=== PATIENT | male | born 1965 | race Caucasian/White ===

== ENCOUNTER 2021-04-28 19:21 | Outpatient (REF) | payer OTHER, SELFPAY ==
[2021-04-28 20:56] LABS: Abs Immature Grans 0.05 10^3/uL (0.0-0.06); Absolute Basophil Count 0.08 10^3/uL (0.0-0.2); Absolute Eosinophil Count 0.31 10^3/uL (0.0-0.7); Absolute Lymphocyte Count 2.69 10^3/uL (1.2-3.4); Absolute Monocyte Count 0.76 10^3/uL (0.1-0.8); Absolute Neutrophil Count 7.64 10^3/uL (1.2-6.7); Basophils % 0.7; Eosinophils % 2.7; HCT 52.2 % (40.0-50.0); HGB 17.4 g/dL (13.5-17.5); Immature Grans % 0.4; Lymphocytes % 23.3; MCH 29.7 pg (27.0-33.0); MCHC 33.3 % (32.0-36.0); MCV 89.2 fL (80-95); MPV 12.1 fL (8.0-11.0); Monocytes % 6.6; Neutrophils % 66.3; Nucleated RBC 0 %; Platelet Count 199 10^3/uL (130-400); RBC 5.85 10^6/uL (4.36-5.78); RDW 11.7 % (11.8-14.1); RDW-SD 37.7 fL; WBC 11.53 10^3/uL (4.4-10.8)
[2021-04-28 21:19] LABS: ALT 49 U/L (16-63); AST 24 U/L (15-37); Albumin 3.8 g/dL (3.4-5.0); Alkaline Phosphatase 105 U/L (46-116); Anion Gap 8.7 mmol/L (3-11); BUN 20 mg/dL (7-18); Bilirubin, Total 0.5 mg/dL (0.2-1.0); CO2 29.3 mmol/L (21.0-32.0); CREATININE 1.1 mg/dL (0.70-1.30); Calcium 9.6 mg/dL (8.5-10.1); Chloride 101 mmol/L (98-107); Glucose 282 mg/dL (74-106); Potassium 4.2 mmol/L (3.5-5.1); Sodium 139 mmol/L (136-145); Total Protein 8.1 g/dL (6.4-8.2)
== END 2021-04-28 19:22 | disposition home or self-care (01) ==
LOC: LBN 19:21
PROVIDERS: PCP Family Medicine; Visit Provider Physician Assistant Medical
DX: M79.661 Pain in right lower leg (principal)
CPT/HCPCS: 80053; 85025

== ENCOUNTER 2022-08-31 09:16 | Emergency (ER) | payer OTHER, SELFPAY ==
--- NOTE | 2022-08-31 09:15 | DI.RAD_ITS ---
Exam(s) XR RIBS RT W PA LAT CHEST EXAM: XR RIBS RT W PA LAT CHEST CLINICAL HISTORY: Right Rib injury TECHNIQUE: 2D digital imaging was performed.Six images were obtained. COMPARISON: No exams were available for comparison FINDINGS: MEDIASTINUM: Normal. HEART: Normal. PULMONARY VASCULATURE: Normal. LUNGS: Clear. PLEURAL SPACE: No pleural effusion or pneumothorax. BONE:Normal. RIGHT RIBS: There are nondisplaced fracture of the posterolateral aspects of the right 7th, 8th and 9 th ribs. There may also be a nondisplaced fracture of the 6th rib. OTHER FINDINGS:Normal. IMPRESSION: 1. No acute pulmonary findings. 2. Right 7th, 8th and 9th rib fractures. There may also be a nondisplaced right 6th rib fracture. 3. No pneumothorax or pleural effusion. DATA REPOSITORY: RADIATION DOSE DELIVERED:
[2022-08-31 09:17] VITALS: BP 153/109; PULSE 86; RESP 20; TEMP 37.3; O2SAT 95
--- NOTE | 2022-08-31 09:28 | DI.RAD_ITS ---
Exam(s) XR ELBOW RT COMPLETE EXAM: XR ELBOW RT COMPLETE CLINICAL HISTORY: Fall,. TECHNIQUE: 2D digital imaging was performed of the left elbow. Three images were obtained. AP, lat eral and oblique views were obtained. COMPARISON: No exams were available for comparison FINDINGS: BONES: On the oblique view, there is a lucency seen beneath the spur off the olecranon. This may rep resent a small avulsed fracture. No bony destructive lesion is seen. JOINTS: The elbow is normally aligned. No joint effusion is seen. Degenerative changes are seen in th e elbow. SOFT TISSUE: Normal. IMPRESSION: 1. Question of a small nondisplaced fracture of a spur off the olecranon. Please correlate with ric ent's site of pain. 2. No joint effusion. 3. Degenerative changes in the elbow. DATA REPOSITORY: RADIATION DOSE DELIVERED:
--- NOTE | 2022-08-31 09:29 | ED.GENADUL_ITS ---
Discharge Plan Disposition Patient Disposition: Home Discharge Details Clinical Impression: Multiple rib fractures Primary Care Provider: Unknown,Unknown ED Provider: Josie Price Home Meds and New Rx's Prescriptions: New oxycodone-acetaminophen [Percocet] 5-325 mg tablet 1 tab PO Q6H PRN (Reason: pain) Qty: 7 0RF Rx Instructions: Take 1 tablet every 4-6 hours as needed for moderate to severe pain. Take with food no driving or operating heavy machinery while taking medication. lidocaine 5 % adhesive patch,medicated 1 patch topical DAILY Qty: 15 0RF Rx Instructions: leave on most painful area for up to 12 hrs No Action Eliquis 5 mg Tablet 5 mg PO BID Jardiance 10 mg Tablet PO QPM Discharge Instructions Instructions: Rib Fracture (ED) Additional Instructions: Lidocaine patch and Percocet prescription has been sent to the pharmacy on file. Please use the incentive spirometer 3 times a day. X-rays show you do have nondisplaced rib fractures including 7,8,9. Please return to the ER or be seen sooner for any worsening pain not relieved by medications, shortness of breath, productive cough, fever or coughing up blood or sputum or any concerns. Follow up with primary care provider in 3-5 days. Return to ED sooner if any worsening or concerns. Increase oral fluids. Please take Tylenol or Ibuprofen with food every 4-6 hours as needed for pain and swelling. Stand Alone Forms: Work Release Medical Decision Making 57-year-old male presents to the ER accompanied by EMS after a mechanical fall while at work onto a metal post. Patient reports right-sided rib pain and right elbow pain. He does have a small superficial abrasion noted to his posterior right flank. He has some swelling just medial to this. No midline LT or C- spine tenderness or crepitus or step-off. He does have some medial elbow pain. X-ray rib series and elbow x-ray ordered. Will consider CT due to the blood thinners. I did offer pain medication pain control which patient declined at this time. Patient has not tender over his olecranon. I do suspect just degenerative changes in his elbow. I did discuss with him the x-ray results. I encouraged him to allow us to give him some pain relief, he verbalized understanding is in agreement. His family is also at the bedside who encouraged pain medication. Discussed risks and benefits. Discussed home care including guarding incentive spirometry. This text was generated using [employer] system, please disregard any oddities of phrase or misspellings. Imaging Data Radiologic Study: Imaging: X-Ray Radiologist's impression: CLINICAL HISTORY: Fall,. TECHNIQUE: 2D digital imaging was performed of the left elbow. Three images were obtained. AP, lateral and oblique views were obtained. COMPARISON: No exams were available for comparison FINDINGS: BONES: On the oblique view, there is a lucency seen beneath the spur off the olecranon. This may represent a small avulsed fracture. No bony destructive lesion is seen. JOINTS: The elbow is normally aligned. No joint effusion is seen. Degenerative changes are seen in the elbow. SOFT TISSUE: Normal. IMPRESSION: 1. Question of a small nondisplaced fracture of a spur off the olecranon. Please correlate with patient's site of pain. 2. No joint effusion. 3. Degenerative changes in the elbow. Radiologic Study #2: Imaging: X-Ray Radiologist's impression: COMPARISON: No exams were available for comparison FINDINGS: MEDIASTINUM: Normal. HEART: Normal. PULMONARY VASCULATURE: Normal. LUNGS: Clear. PLEURAL SPACE: No pleural effusion or pneumothorax. BONE:Normal. RIGHT RIBS: There are nondisplaced fracture of the posterolateral aspects of the right 7th, 8th and 9th ribs. There may also be a nondisplaced fracture of the 6th rib. OTHER FINDINGS:Normal. IMPRESSION: 1. No acute pulmonary findings. 2. Right 7th, 8th and 9th rib fractures. There may also be a nondisplaced right 6th rib fracture. 3. No pneumothorax or pleural effusion. HPI General Mode of arrival: EMS . Date/Time Provider Initiated Documentation: 08/31/22 09:25 . Limitations to Documentation: no limitations . Information obtained by: patient, EMS, RN notes reviewed and old records reviewed . HPI Narrative: 57-year-old male presents to the ER accompanied by EMS after a mechanical fall while at work onto a metal post. Patient reports right-sided rib pain and right elbow pain. He does have a small superficial abrasion noted to his posterior right flank. He has some swelling just medial to this. No midline LT or C- spine tenderness or crepitus or step-off. He does have some medial elbow pain. No deformity noted. He is declining any analgesia at this time. Did not hit his head. He does take Jardiance and apixaban. History of DVT. Related Data Home Medications Medication Instructions Recorded Confirmed apixaban 5 mg tablet (Eliquis) 5 mg PO BID 08/31/22 08/31/22 empagliflozin 10 mg tablet mg PO QPM 08/31/22 (Jardiance) lidocaine 5 % topical patch 1 patch topical DAILY #15 ea 08/31/22 oxycodone-acetaminophen 5 mg-325 1 tab PO Q6H PRN pain #7 tabs 08/31/22 mg tablet (Percocet) Previous Rx's Medication Instructions Recorded lidocaine 5 % topical patch 1 patch topical DAILY #15 ea 08/31/22 oxycodone-acetaminophen 5 mg-325 1 tab PO Q6H PRN pain #7 tabs 08/31/22 mg tablet (Percocet) Allergies Allergy/AdvReac Type Severity Reaction Status Date / Time nickel Allergy Mild Skin Rash Unverified 08/31/22 09:21 General Stated Complaint: Orthopedic SERGEI: 3 Review of Systems All systems reviewed & are unremarkable except as noted in HPI and below Respiratory Respiratory: Reports pain on inspiration and Reports pain with cough Musculoskeletal Musculoskeletal: Reports as per HPI, Reports back pain, Reports arthralgias and Reports other (Right-sided rib pain elbow pain.) PFSH All Active Problems (Updated 08/31/22 @ 10:17 by Josie Price NP) Multiple rib fractures (Acute) Social History Smoking/Tobacco Use Status: Never Smoking risk assessment performed?: Yes Alcohol Intake: current Alcohol Intake frequency: a few times a month Alcohol type: beer Drug use: Never Substance use type: does not use Do you feel safe at home: Yes Do you feel safe in your relationship?: Yes Exam Narrative Exam Narrative: General: Well Developed, Awake and Alert, conversant. Skin: Warm and Dry HEENT: Head: No palpable deformities, Normocephalic Eyes: Pupils PERRLA, EOM's intact. No periorbital eccymosis or step off Ears: Canal patent. Tympanic membranes are clear . No busch's sign, no hemptympanum. Nose/Face: Atraumatic. Facial bones nontender to palpation and stable with manipulation. Mouth/Throat: No intraoral trauma. Teeth and mandible are intact. Neck: No midline tenderness, no step off, no deformity to palpation of C-spine. Trachea midline. Chest: Small superficial abrasion to the posterior right flank, some swelling tenderness with palpation. Lungs clear to ausculatation bilaterally. Heart: RRR, no rubs, murmurs or gallop. Abdomen: No abrasions, ecchymosis, or surface trauma. Nondistended. Nontender to palpation no guarding, rebound, or rigidity. Pelvis: Nontender to palpation and stable to compression. Femoral pulses strong and equal Extremities: no surface trauma. Sensation intact. Peripheral pulses intact and equal. Medial epicondyle tenderness with palpation. Neuro: ANO x4, GCS 15, cranial nerves II through XII intact. Motor and sensory exam nonfocal. Reflexes are symmetric. Course Vital Signs Vital signs: Vital Signs Temperature 37.3 C 08/31/22 09:17 Pulse 86 08/31/22 09:17 Respiratory Rate 20 08/31/22 09:17 Blood Pressure 153/109 H 08/31/22 09:17 Pulse Oximetry 95 08/31/22 09:17 Temperature 37.3 C 08/31/22 09:17 Temperature Source Oral 08/31/22 09:17 Pulse 86 08/31/22 09:17 Respiratory Rate 20 08/31/22 09:17 Respiratory Effort Non-Labored 08/31/22 09:20 Blood Pressure 153/109 H 08/31/22 09:17 Blood Pressure Position Sitting 08/31/22 09:17 Pulse Oximetry 95 08/31/22 09:17 Oxygen Delivery Method Room Air 08/31/22 09:17 Oxygen Flow Rate 0 08/31/22 09:17
--- OUTSIDE RECORDS SUMMARY | 2022-08-31 09:55 | XMS_ITS | Continuity of Care Document ---
Author Name Unknown Organization [facility] Address [address] [place] [address] Encounter [facility] FIN NBR [id number] Date(s): 02/07/22 - 02/07/22 [facility] [address] [place] [address]- Discharge Disposition: Home-No Follow Up Attending Physician: Porsche Mancia MD Admitting Physician: Porsche Mancia MD Allergies, Adverse Reactions, Alerts Substance Reaction Severity Status Nickel Unknown Active Assessment and Plan Future Appointments Diagnostic Tests Pending * Urine Culture 02/07/22 * Calculi, Urinary, with Photo LC 02/07/22 Functional Status 02/07/22 ADLs Independent Antiembolism Device Intermittent pneumat ic compression devices, knee high, bilat Other exposure to Infectious Disease Non e Medications Eliquis 5 mg oral tablet 5 mg = 1 tab, Oral, BID, # 60 tab, 0 Refill(s) Start Date: 01/31/22 Status: Ordered Jardiance 10 mg oral tablet 10 mg = 1 tab, Oral, every night at bedtime, # 30 tab, 0 Refill(s) Start Date: 01/31/22 Status: Ordered tamsulosin 0.4 mg oral capsule 1 cap, Oral, Daily, # 90 cap, 3 Refill(s), Pharmacy: [id number], 188, cm, 01/31/2215:02:00 EDT, Height/Length Dosing, 118, kg, 01/31/22 15:02:00 EDT, Weight Dosing Start Date: 02/06/22 Status: Ordered Problem List Condition Confirmation Course Effective Dates Status Health St atus Informant Arthritis Confirmed Active Diabetes mellitus 1 Confirmed Active DVT - Deep vein thrombosis of lower limb 2 Confirmed Active Heart murmur Confirmed Active Hemorrhoid Confirmed Active Sleep apnea Confirmed Active 1diet controlled 2right leg Procedures Procedure Date Related Diagnosis Body Site Status Cystoscopy Lithotripsy Laser with Stent Placement (Right) 1 02/07/22 Comple aki Cervical discectomy Compl eted Hammer toe operation Comp leted Nasal septoplasty Complet ed Release of plantar fascia Completed Total knee replacement Co mpleted 1auto-populated from documented surgical case Results Laboratory List Name Date Glucose POCT 02/07/22 Most recent to oldest [Reference Range]: 1 Glucose POC 154 *NA* (02/07/22 7:56 AM) Vital Signs Most recent to oldest [Reference Range]: 1 2 3 Temperature Temporal Artery [36-38 Deg C] 36.4 Deg C (02/07/22 10:45 AM) 36.6 Deg C (02/07/22 9:25 AM) 36.3 Deg C (02/07/22 7:04 AM) Peripheral Pulse Rate [60-100 bpm] 80 bpm (02/07/22 9:48 AM) 82 bpm (02/07/22 9:46 AM) 82 bpm (02/07/22 9:45 AM) Respiratory Rate [12-24 br/min] 16 br/min (02/07/22 7:04 AM) Blood Pressure [90-140/60-90 mmHg] 144/103mmHg *HI* (02/07/22 9:48 AM) 140/89mmHg (02/07/22 9:46 AM) 140/89mmHg (02/07/22 9:45 AM) Mean Arterial Pressure, Cuff [65-140 mmHg] 117 mmHg (02/07/22 9:48 AM) 106 mmHg (02/07/22 9:46 AM) 106 mmHg (02/07/22 9:45 AM) Mean Arterial Pressure Cuff 114 mmHg (02/07/22 9:48 AM) 104 mmHg (02/07/22 9:46 AM) 104 mmHg (02/07/22 9:45 AM) Weight 118.000 kg (01/31/22 2:43 PM) Weight Dosing 118.000 kg (01/31/22 2:43 PM) Height 188.000 cm (01/31/22 2:43 PM) Height/Length Dosing 188.000 cm (01/31/22 2:43 PM) Social History Social History Type Response Tobacco Never tobacco user T obacco Use:. Sex
--- OUTSIDE RECORDS SUMMARY | 2022-08-31 09:55 | XMS_ITS | Continuity of Care Document ---
Author Name Unknown Organization [facility] Address [address] [place] [address] Care Team Providers Care It Generalist Name Role Phone Oli Dimas DO Primary Care Physician Encounter [facility] NBR [id number] Date(s): 03/28/22 - 03/28/22 [facility] [address] [place], [place] [address] Discharge Disposition: Home or Self Care Attending Physician: Oli Dimas DO Admitting Physician: Oli Dimas DO Allergies, Adverse Reactions, Alerts Substance Reaction Severity Status Nickel Unknown Active Assessment and Plan Future Appointments Future Scheduled Tests Laboratory* Comprehensive Metabolic Panel 06/27/22 * Magnesium Level 06/27/22 * Hgb A1c 06/27/22 Radiology* US Lower Ext Venous Duplex Right 03/28/22 Immunizations Given and Recorded Vaccine Date Status Refusal Reason zoster vaccine, inactivated 1 03/21/21 Recorded SARS-CoV-2 (COVID-19) mRNA-1273 vaccine 2 03/21/21 Recorded SARS-CoV-2 (COVID-19) mRNA-1273 vaccine 3 08/30/20 Recorded 1Result Comment: Literacy Specialist: Neura 2Result Comment: Unit: Unknown 3Result Comment: Unit: Unknown Medications clobetasol 0.05% topical ointment 1 application to affected areas BID PRN. for Eczema, not for face, use for 5d intervals., 0 Refill(s) Start Date: 03/24/22 Status: Ordered Durable Medical Equipment One touch Glucometer Sig: as directed fot diabetes E11.9 Fasting and bedtime., Supply, See instructions, # 1 EA, 0 Refill(s) Start Date: 03/24/22 Status: Ordered Eliquis 5 mg oral tablet 5 mg = 1 tab, Oral, BID, # 60 tab, 0 Refill(s) Start Date: 01/31/22 Status: Ordered Jardiance 10 mg oral tablet 10 mg = 1 tab, Oral, every night at bedtime, # 30 tab, 0 Refill(s) Start Date: 01/31/22 Status: Ordered metroNIDAZOLE 0.75% topical gel 1 application to affected area once a day for rosacea as needed., 0 Refill(s) Start Date: 03/24/22 Status: Ordered nystatin 100,000 units/g topical cream See Instructions, 1 application externally BID PRN., 0 Refill(s) Start Date: 03/24/22 Status: Ordered One Touch Ultra Test Strips Accu-Check FastClix Lancet Kit-,Sig: as directed for diabeates E11.9 fasting and two hours after dinner. Start: 01/24/2022 Notes: Patient cannot use the One Touch Delicata lancing devices and lancetsas he is not able to ge an adequate amount of bl... Start Date: 03/24/22 Status: Ordered One Touch Ultra Test Strips as directed for diabetes E11.9 fasting and at bedtime., Supply, See instructions, # 1 EA, 0 Refill(s) Start Date: 03/24/22 Status: Ordered tadalafil 10 mg oral tablet 10 mg = 1 tab, Oral, Daily, one hour before intercourse planned. PRN, # 4 tab, 11 Refill(s), Pharmacy: [id number], 188, cm, 01/31/22 15:02:00 EDT, Height/Length Dosing, 118, kg, 01/31/22 15:02:00 EDT, Weight Dosing Start Date: 03/28/22 Status: Ordered Problem List Condition Confirmation Course Effective Dates Status H ealth Status Informant Arthritis Confirmed Active Arthropathy of knee joint Confirmed Active Diabetes mellitus 1 Confirmed Active Diverticular disease Confirmed Active DVT - Deep vein thrombosis of lower limb 2 Confirmed Active Erectile dysfunction Confirmed Active Essential hypertension Confirmed Active Heart murmur Confirmed Active Hemorrhoid Confirmed Active Increased frequency of urination Confirmed Active Long-term current use of anticoagulant Confirmed Active Sleep apnea Confirmed Active 1diet controlled 2right leg Procedures Procedure Date Related Diagnosis Body Site Status Cystoscopy Lithotripsy Laser with Stent Placement (Right) 1 02/07/22 Comple aki Cervical discectomy Compl eted Hammer toe operation Comp leted Nasal septoplasty Complet ed Release of plantar fascia Completed Total knee replacement Co mpleted 1auto-populated from documented surgical case Social History Social History Type Response Tobacco Never tobacco user T obacco Use:. Sex Patient Care team information Personnel Name: Oli Dimsa DO Address: Address: [address] [place] [phone]
--- OUTSIDE RECORDS SUMMARY | 2022-08-31 09:55 | XMS_ITS | Continuity of Care Document ---
Author Name Unknown Organization [facility] Ambulatory Clinics Address [address] [place] [address] Care Team Providers Care Cafe Team Member Name Role Phone Oli Dimas DO Primary Care Physician Encounter [facility]BR [id number] Date(s): 03/28/22 - 03/28/22 [facility] Ambulatory Clinics [address] [place] [address]- Encounter Diagnosis DVT - Deep vein thrombosis of lower limb(Discharge Diagnosis) - 03/28/22 Diabetes mellitus(Discharge Diagnosis) - 03/28/22 Essential hypertension(Discharge Diagnosis) - 03/28/22 Erectile dysfunction(Discharge Diagnosis) - 03/28/22 Discharge Disposition: Home or Self Care Attending Physician: Oli Dimas DO Allergies, Adverse Reactions, Alerts Substance Reaction Severity Status Nickel Unknown Active Assessment and Plan Future Appointments Future Scheduled Tests Laboratory* Comprehensive Metabolic Panel 06/27/22 * Magnesium Level 06/27/22 * Hgb A1c 06/27/22 Radiology* US Lower Ext Venous Duplex Right 03/28/22 Functional Status 03/28/22 Other exposure to Infectious Disease Non e Immunizations Given and Recorded Vaccine Date Status Refusal Reason zoster vaccine, inactivated 1 03/21/21 Recorded SARS-CoV-2 (COVID-19) mRNA-1273 vaccine 2 03/21/21 Recorded SARS-CoV-2 (COVID-19) mRNA-1273 vaccine 3 08/30/20 Recorded 1Result Comment: Winding Operator: Kadenze 2Result Comment: Unit: Unknown 3Result Comment: Unit: [...] PRN, # 4 tab, 11 Refill(s), [id number], 188, cm, 01/31/22 15:02:00 EDT, Height/Length Dosing, [...] Co mpleted 1auto-populated from documented surgical case Vital Signs Most recent to oldest [Reference Range]: 1 Peripheral Pulse Rate [60-100 bpm] 84 bp m (03/28/22 8:18 AM) Blood Pressure [90-140/60-90 mmHg] 120/8 0mmHg (03/28/22 8:18 AM) Weight 117 kg (03/28/22 8:18 AM) Weight Measured (lbs) 257.941 lb (03/28/22 8:18 AM) Social History Social History Type Response Tobacco Never tobacco user T obacco Use:. Sex Hospital Discharge Instructions Follow Up Care 03/11/2022 07:32:39 With:Oli Dimas DO Address: [address] [place] [id number] When:3 Months Physician Outpatient Note * Oli Dimas DO: PERFORM Event Display: Office Clinic Note Physician Authored Date: [id number] DIONNE HUMPHREYS :1965 Age:56 years Sex:Male Visit Date:03/28/2022 Primary Care Physician: Oli Dimas DO Chief Complaint Follow up ..A1c.. [facility] History of Present Illness Patient is a 56-year-old male who comes in today for follow-up.?? He says overall things are going okay.?? He is trying to lose weight, has been eating more healthy.Diagnosed with a DVT in his right leg at the beginning of the year.?? He had a DVT shortly after having COVID, therefore attributing it as a complication to COVID.?? Has been taking the medication as prescribed.?? Has never had any previous episodes with clotting. Endocrine: Taking his medication as prescribed.We reviewed his most recent labs. Review of Systems See HPI otherwise negative. Physical Exam Vitals & Measurements HR:??84??(Peripheral)?? BP:??120/80?? SpO2:??97%?? WT:??117??kg?? General: Alert and oriented, well nourished,?No??acute distress Lungs:??Clear??to auscultation and percussion,?Non-labored?? respiration Heart:?Normal?? rate,?Regular??rhythm,?No??murmur,?No??gallop,?No??edema Abdomen: Soft, non-tender, non-distended,?Normal?? bowel sounds,?No??masses Musculoskeletal:?Normal?? range of motion and strength,?No??tenderness,?No??swelling Assessment/Plan 1.??DVT - Deep vein thrombosis of lower limb??I82.409 High probability that the DVT was caused by COVID given the nature of the disease and its complications.?? We discussed the risk versus the benefits of being on anticoagulation.?? He would like to recheck an ultrasound to see if anything is changed.?? Would not be unreasonable to stop his anticoagulation and monitor for recurrence. Ordered: Comprehensive Metabolic Panel, Blood, Routine, *Est. 06/27/22 +/- 21 days, Once, Lab Collect, DVT -Deep vein thrombosis of lower limb Diabetes mellitus Essential hypertension, Order for future visit Hgb A1c, Blood, Routine, *Est. 06/27/22 +/- 21 days, Once, Lab Collect, DVT - Deep vein thrombosis of lower limb Diabetes mellitus Essential hypertension, Order for future visit Magnesium Level, Blood, Routine, *Est. 06/27/22 +/- 21 days, Once, Lab Collect, DVT - Deep vein thrombosis of lower limb Diabetes mellitus Essential hypertension, Order for future visit US Lower Ext Venous Duplex Right, 03/28/22, Routine, Reason: R leg DVT, Transport Mode: Ambulatory,DVT - Deep vein thrombosis of lower limb ?? 2.??Diabetes mellitus??E11.9 A1c is much improved.?? Previously was 10.4, now 6.5. We will continue dietary and other lifestyle measures. Ordered: Comprehensive Metabolic Panel, Blood, Routine, *Est. 06/27/22 +/- 21 days, Once, Lab Collect, DVT -Deep vein thrombosis of lower limb Diabetes mellitus Essential hypertension, Order for future visit Hgb A1c, Blood, Routine, *Est. 06/27/22 +/- 21 days, Once, Lab Collect, DVT - Deep vein thrombosis of lower limb Diabetes mellitus Essential hypertension, Order for future visit Magnesium Level, Blood, Routine, *Est. 06/27/22 +/- 21 days, Once, Lab Collect, DVT - Deep vein thrombosis of lower limb Diabetes mellitus Essential hypertension, Order for future visit ?? 3.??Erectile dysfunction??N52.9 Refilled his Cialis. ?? 4.??Essential hypertension??I10 Blood pressure well controlled. Ordered: Comprehensive Metabolic Panel, Blood, Routine, *Est. 06/27/22 +/- 21 days, Once, Lab Collect, DVT -Deep vein thrombosis of lower limb Diabetes mellitus Essential hypertension, Order for future visit Hgb A1c, Blood, Routine, *Est. 06/27/22 +/- 21 days, Once, Lab Collect, DVT - Deep vein thrombosis of lower limb Diabetes mellitus Essential hypertension, Order for future visit Magnesium Level, Blood, Routine, *Est. 06/27/22 +/- 21 days, Once, Lab Collect, DVT - Deep vein thrombosis of lower limb Diabetes mellitus Essential hypertension, Order for future visit ?? Orders: tadalafil 10 mg oral tablet, 10 mg = 1 tab, Oral, Daily, one hour before intercourse planned. PRN, # 4 tab, 11 Refill(s), Pharmacy: [facility] #[id number], 188, cm, 01/31/22 15:02:00 EDT, Height/Length Dosing, 118, kg, 01/31/22 15:02:00 EDT, Weight Dosing Future Orders Comprehensive Metabolic Panel, Blood, Routine, *Est. 06/27/22 +/- 21 days, Once, Lab Collect, DVT -Deep vein thrombosis of lower limb Diabetes mellitus Essential hypertension, Order for future visit Hgb A1c, Blood, Routine, *Est. 06/27/22 +/- 21 days, Once, Lab Collect, DVT - Deep vein thrombosis of lower limb Diabetes mellitus Essential hypertension, Order for future visit Magnesium Level, Blood, Routine, *Est. 06/27/22 +/- 21 days, Once, Lab Collect, DVT - Deep vein thrombosis of lower limb Diabetes mellitus Essential hypertension, Order for future visit US Lower Ext Venous Duplex Right, 03/28/22, Routine, Reason: R leg DVT, Transport Mode: Ambulatory,DVT - Deep vein thrombosis of lower limb Follow Up Instructions With When Contact Information Oli Dimas, Within 3 Months [address] [place] [address] Additional Instructions: Problem List/Past Medical History Ongoing Arthritis Arthropathy of knee joint Diabetes mellitus Diverticular disease DVT - Deep vein thrombosis of lower limb Erectile dysfunction Essential hypertension Heart murmur Hemorrhoid Increased frequency of urination Long-term current use of anticoagulant Sleep apnea Historical No qualifying data Procedure/Surgical History ???Cystoscopy Lithotripsy Laser with Stent Placement (Right) (02/07/2022)???Cervical discectomy???Hammer toe operation???Nasal septoplasty???Release of plantar fascia???Total knee replacement Medications clobetasol 0.05% topical ointment Durable Medical Equipment, See instructions Eliquis 5 mg oral tablet, 5 mg= 1 tab, Oral, BID Jardiance 10 mg oral tablet, 10 mg= 1 tab, Oral, every night at bedtime metroNIDAZOLE 0.75% topical gel nystatin 100,000 units/g topical cream, See Instructions One Touch Ultra Test Strips, See instructions One Touch Ultra Test Strips, See instructions tadalafil 10 mg oral tablet, 10 mg= 1 tab, Oral, Daily, 11 refills Allergies Nickel Social History Alcohol Current, Beer, 1-2 times per month Electronic Cigarette/Vaping Electronic Cigarette Use: Never. Substance Use Never Tobacco Never tobacco user Tobacco Use:. Immunizations Vaccine Date Status zoster vaccine, inactivated 03/21/2021 Recorded Comments : Winding Operator: Kadenze SARS-CoV-2 (COVID-19) mRNA-1273 vaccine 03/21/2021 Recorded Comments : Unit: Unknown SARS-CoV-2 (COVID-19) mRNA-1273 vaccine 08/30/2020 Recorded Comments : Unit: Unknown Electronically Signed on 03/28/22 09:25 AM Oli Dimas DO Patient Care team information Personnel Name: Oli Dimas DO Address: Address: [address] [place] [phone]
--- OUTSIDE RECORDS SUMMARY | 2022-08-31 09:55 | XMS_ITS ---
Author Name StacieOli castro Address [address] [place], [place] [id number] Organization [facility] Address [address] [place], [place] [id number] Care Team Providers Care Technical Planner Name Role Phone Oli Quinones Unavailable [phone] PROBLEMS Type Condition ICD9-CM Code QRO98-OZ Code Onset Dates Condition Status SNOMED Code Problem Obstructive sleep apnea G47.33 Active 03969068 Problem Anticoagulant long-term use Z79.01 Active 023216853 Problem Erectile dysfunction due to arterial insufficiency N52.01 Active 488165076 Problem Intrinsic eczema L20.84 Active 0034425 1 Problem Eczema, unspecified type L30.9 Active 72869598 Problem Rosacea L71.9 Active 940352839 Problem Diverticulosis K57.90 Active 699008216 Problem Urinary frequency R35.0 Active 472664 003 Problem Tear of meniscus of right knee, unspecified meniscus, unspecified tear type, unspecified whether old or current tear S83.206A Active Problem Renal calculus N20.0 Active 67589724 Problem Essential hypertension I10 Active 50794166 Problem Acute diverticulitis K57.92 Active 129524572 Problem Diverticulitis of large intestine without perforation or abscess without bleeding K57.32 Active 712853517 Problem Other male erectile dysfunction N52.8 Active 195906457 Problem Pain in right knee M25.561 Active 38440 3003 ALLERGIES Substance Reaction Event Type Date Status Nickel Unknown Drug Allergy Dec, Active ENCOUNTERS Encounter Location Date Diagnosis [facility] [address] [place], [place] [id number] 29 Dec, 2021 [facility] [address] [place] [id number] 27 Dec, 2021 [facility] [address] [id number] 23 Dec, 2021 Renal calculus N20.0 [facility] [address] [id number] 13 Dec, 2021 [facility] [address] [facility] [address] [place], [place] [id number] 13 Dec, 2021 Gross hematuria R31.0 and Renal colic on right side N23 [facility] [address] [place] [id number] 13 Dec, 2021 [facility] [address] [place] [id number] 12 Dec, 2021 Flank pain R10.9 ; Gross hematuria R31.0 and Nausea R11.0 [facility] [address] [place] [id number] 12 Dec, 2021 [facility] [address] [id number] 09 Dec, 2021 [facility] [address] [id number] 08 Dec, 2021 Diarrhea, unspecified type R19.7 ; Urinary frequency R35.0 and Type 2 diabetes mellitus without complication, without long-term current use of insulin E11.[address] [id number] 02 Dec, 2021 [facility] [address] [id number] August, [place] [facility] [address] [place] [address] 18 Jul, 2021 [facility] [address] [id number] 12 Jul, 2021 Pre-op evaluation Z01.818 and Type 2 diabetes mellitus without complication, without long-term current use of insulin E11.9 [facility] [address] [id number] 23 Jun, 2021 [facility] [address] [place] [id number] 15 Jun, 2021 Type 2 diabetes mellitus without complication, without long-term current use of insulin E11.9 and Chronic deep vein thrombosis (DVT) of femoral vein of right lower extremity I82.[address] [id number] Jun, Pain in right knee M25.[address] [id number] Apr, Acute deep vein thrombosis (DVT) of tibial vein of right lower extremity I82.441 ; Candidal skin infection B37.2 ; Pain in right knee M25.561 ; Pain in left knee M25.562 and Screening for prostate cancer Z12.[address] [id number] Apr, [address] [id number] Feb, Type 2 diabetes mellitus without complication, without long-term current use of insulin E11.9 ; External hemorrhoid, thrombosed K64.5 and Other male erectile dysfunction N52.[address] [id number] August, Type 2 diabetes mellitus without complication, without long-term current use of insulin E11.9 and Toe anomaly Q74.[address] [id number] May, Type 2 diabetes mellitus without complication, without long-term current use of insulin E11.[address] [id number] Apr, Hyperglycemia R73.[address] [id number] Apr, Diverticulitis of large intestine without perforation or abscess without bleeding K57.32 ; Screening, lipid Z13.220 and Screening for metabolic disorder Z13.[address] [id number] Mar, [address] [id number] Dec, Family history of colon cancer in father Z80.0 and Polyp of colon, unspecified part of colon, unspecified type K63.[address] [place] [address] [address] [place], [place] [id number] Dec, [facility] [address] [place] [id number] Nov, [facility] [address] [place] [id number] Oct, [facility] [address] [place] [id number] Oct, Encounter for pre-operative examination Z01.818 [facility] [address] [id number] Jul, Erectile dysfunction due to arterial insufficiency N52.01 [facility] [address] [id number] Jul, Encounter for general adult medical examination without abnormal findings Z00.00 ; Diverticulosis K57.90 ; Erectile dysfunction due to arterial insufficiency N52.01 ; Intrinsic eczema L20.84 and Encounter for screening for malignant neoplasm of colon Z12.[address] [id number] Jan, Acute diverticulitis K57.92 [facility] [address] [id number] Dec, Left lower quadrant pain R10.32 ; Right lower quadrant pain R10.31 ; Diverticulosis K57.90 ; Fever, unspecified fever cause R50.9 and Dysuria R30.[address] [id number] Jul, Encounter for general adult medical examination without abnormal findings Z00.00 ; Rosacea L71.9 ; Nasal congestion R09.81 ; Erectile dysfunction due to arterial insufficiency N52.01 and Encounter for screening for malignant neoplasm of colon Z12.11 [facility] [address] [id number] Jul, [address] [id number] Jun, [address] [id number] Jun, Adult general medical exam Z00.00 ; Overweight E66.3 ; Erectile dysfunction due to arterial insufficiency N52.01 ; Obstructive sleep apnea G47.33 ; Pain in right knee M25.561 ; Pain in left knee M25.562 and Intrinsic eczema L20.[address] [id number] Jun, [facility] [address] [place] [id number] Jun, IMMUNIZATIONS Vaccine Route Administration Date Status Shingrix (Zoster Recombinant) IM Intramuscular Mar 21, 2021 Administered COVID-19 (Moderna) mRNA,LNP- S,PF 100 mcg/0.5mL dose IM Intramuscular Mar 21, 2021 Administered COVID-19 (Moderna) mRNA,LNP- S,PF 100 mcg/0.5mL dose Unknown August 30, 2020 Administered SOCIAL HISTORY Qualifiers Date Never Smoker REASON FOR REFERRAL FUNCTIONAL STATUS PLAN OF CARE Activity Details VITAL SIGNS Height 74 in 2022-01-10 Height 74 in 2022-01-09 Height 74 in 2022-01-05 Height 74 in 2021-08-09 Height 74 in 2021-05-05 Height 74 in 2021-03-21 Height 74 in 2020-09-16 Height 74 in 2020-06-21 Height 74 in 2020-05-04 Height 74 in 2019-01-27 Height 74 in 2018-08-02 Height 74 in 2017-07-27 Weight 265 lbs 2022-01-10 Weight 265 lbs 2022-01-09 Weight 265 lbs 2022-01-05 Weight 276.6 lbs 2021-08-09 Weight 276.0 lbs 2021-05-05 Weight 271.0 lbs 2021-03-21 Weight 279 lb 8 oz lbs 2020-09-16 Weight 283.4 lbs 2020-06-21 Weight 285 lbs 2020-05-04 Weight 289.4 lbs 2019-01-27 Weight 287.4 lbs 2018-08-02 Weight 291.8 lbs 2017-07-27 Temperature 97.9 degrees Fahrenheit Temperature 98.0 degrees Fahrenheit Temperature 97.5 degrees Fahrenheit Temperature 98.3 degrees Fahrenheit Temperature 97.1 degrees Fahrenheit Temperature 97.1 degrees Fahrenheit Temperature 96.4 degrees Fahrenheit Temperature Temporal:99.7 degrees Fahrenheit 2019-01-27 Heart Rate 88 /min 2022-01-10 Heart Rate 92 /min 2022-01-09 Heart Rate 82 /min 2022-01-05 Heart Rate 80 /min 2021-08-09 Heart Rate 82 /min 2021-05-05 Heart Rate 77 /min 2021-03-21 Heart Rate 81 /min 2020-09-16 Heart Rate 66 /min 2020-06-21 Heart Rate 88 /min 2020-05-04 Heart Rate 101 /min 2019-01-27 Heart Rate 68 /min 2018-08-02 Heart Rate 84 /min 2017-07-27 Oximetry 98 2022-01-10 Oximetry 98 2022-01-05 Oximetry 97 2021-08-09 Oximetry 96 2021-05-05 Oximetry 96 2021-03-21 Oximetry 99 2020-09-16 Oximetry 98 2020-06-21 Oximetry 95 2020-05-04 Oximetry 95 2019-01-27 Oximetry 98 2018-08-02 Oximetry 95 2017-07-27 Respiratory Rate 14 /min 2022-01-10 BMI 34.02 kg/m2 2022-01-10 BMI 34.02 kg/m2 2022-01-09 BMI 34.02 kg/m2 2022-01-05 BMI 35.51 kg/m2 2021-08-09 BMI 35.43 kg/m2 2021-05-05 BMI 34.79 kg/m2 2021-03-21 BMI 35.88 kg/m2 2020-09-16 BMI 36.38 kg/m2 2020-06-21 BMI 36.59 kg/m2 2020-05-04 BMI 37.15 kg/m2 2019-01-27 BMI 36.90 kg/m2 2018-08-02 BMI 37.46 kg/m2 2017-07-27 Blood pressure systolic 136 mm Hg Blood pressure diastolic 78 mm Hg 2021-12 MEDICATIONS Medication Instructions Dosage Frequency Start Date End Date Duration Status Nystatin 456049 UNIT/GM Externally Twice a day 1 application 12h 06 Apr, 2021 Active Apixaban 5 MG Orally twice a day, 1 tab in AM 1 tab inPM one tablet 60 days Active Jardiance 10 MG Orally Once a day 1 tablet 24h 12 Dec, 2021 30 day(s) Active Clobetasol Propionate 0.05 % Externally Twice a day as needed for eczema. Not for face. Use for 5d intervals 1 application to affected area Not-Abdulaziz ng metFORMIN HCl ER 500 MG TAKE 1 TABLET BY MOUTH EVERY DAY WITH THE EVENING MEAL 90 Active Hydrocortisone (Perianal) 2.5 % Externally Twice a day prn hemorrhoid 1 application Feb, Active Accu-Chek FastClix Lancet - for Diabetes E11.9 fasting and two hours after dinner as directed Dec, 90 days Active One Touch Glucometer for diabetes E11.9 Fasting and bedtime as directed Dec, 30 days Active One Touch Test Strips for diabetes E11.9 fasting and bedtime as directed Dec, 30 days Active metroNIDAZOLE 0.75 % Externally Once a day for rosacea as needed 1 application to affected area Jul, Active Accu-Chek FastClix Lancets - for Diabetes E11.9 fasting and two hours after dinner as directed Dec, 30 days Active Tadalafil 10 MG Orally One hour before intercourse planned 1 tablet as needed Jul, 30 day(s) Active PROCEDURES Procedure Date Ordered Result Body Site COVID-19 (SARS-CoV-2) vaccine, 100 mcg/0.5mL dosage No v 2020 IMMUNIZATION ADMINISTRATION Mar 21, 2021 COLONOSCOPY SNARE POLYPEC Jan 23, 2020 COLONOSCOPY & POLYPECTOMY THROUGH STOMA Jan 23, 2020 ELECTROCARDIOGRAM COMP August 09, 2021 URINALYSIS NONAUTO W/O SCOPE Jan 10, 2022 URINALYSIS NONAUTO W/O SCOPE Jan 05, 2022 SHINGRIX HZV VACC RECOMBINANT IM NJX Mar 21, 2021 URINALYSIS AUTOMATED W Jan 27, 2019 RESULTS Name Result Date Reference Range UA Multistix (URO) Color yellow Clarity clear Bilirubin neg Ketones neg Specific [place] 1.020 Blood moderate Glucose 500 ph 5.5 Protein trace Leukocytes neg Nitrates neg Uro 0.[address] ABD/PELVIS W/WO CONTRAST 2022-01-19 CULTURE URINE 2022-01-09 GLYCOHEMOGLOBIN A1C 2022-01-05 HGBA1c 10.4 4.0-6.0 est Average Glucose 251 70-105 CBC, WITH AUTO DIFF 2022-01-05 WBC 8.4 4.8-10.8 RBC 5.74 4.70-6.10 HGB 16.7 14.0-18.0 HCT 49.5 42.0-52.0 MCV 86.2 80.0-94.0 MCH 29.1 27.0-31.0 MCHC 33.7 32.0-37.0 RDW-CV 12.3 11.5-14.5 PLT 214 130-400 MPV 11.1 7.4-10.4 NE% 64.4 42.2-75.2 LY% 23.7 20.5-51.1 MO% 7.9 1.7-9.3 EO% 2.8 0.9-2.9 BA% 1.0 0.0-0.8 NE# 5.4 1.4-6.5 LY# 2.0 1.2-3.4 MO# 0.7 0.1-0.6 EO# 0.2 0.0-0.2 BA# 0.1 0.0-0.2 C-REACTIVE PROTEIN (CRP) 2022-01-05 CRP <8.0 <=10.0 COMPREHENSIVE METABOLIC PROFILE 2022-01-05 SODIUM 135 134-143 POTASSIUM 3.9 3.5-5.1 CHLORIDE 101 98-111 CO2 24 22-32 CALCIUM 9.8 8.9-10.3 GLUCOSE 330 74-106 BUN 18 8-26 CREATININE 1.01 0.61-1.24 TOTAL BILIRUBIN 0.8 0.3-1.2 TOTAL PROTEIN 7.4 6.5-8.1 ALBUMIN 4.0 3.5-5.0 ALKALINE PHOS 80 38-130 AST 35 15-41 ALT 45 17-63 A/GAP 10.0 3.0-12.0 B/CR 17.8 8.0-20.0 OSMOLARITY 285 275-295 GLOBULIN 3.4 2.3-3.5 A/G 1.2 1.0-2.5 CULTURE URINE 2022-01-05 US DVT RIGHT 2021-09-01 US DVT RIGHT 2021-07-12 CBC, WITH AUTO DIFF 2021-05-05 WBC 10.7 4.8-10.8 RBC 5.56 4.70-6.10 HGB 16.8 14.0-18.0 HCT 49.7 42.0-52.0 MCV 89.4 80.0-94.0 MCH 30.2 27.0-31.0 MCHC 33.8 32.0-37.0 RDW-CV 11.7 11.5-14.5 PLT 234 130-400 MPV 11.6 7.4-10.4 NE% 59.4 42.2-75.2 LY% 30.1 20.5-51.1 MO% 6.7 1.7-9.3 EO% 2.7 0.9-2.9 BA% 0.7 0.0-0.8 NE# 6.3 1.4-6.5 LY# 3.2 1.2-3.4 MO# 0.7 0.1-0.6 EO# 0.3 0.0-0.2 BA# 0.1 0.0-0.2 PT/APTT PANEL 2021-05-05 PROTIME 10.3 9.1-10.6 INR 1.0 0.9-1.1 INR_TEXT THERAPEUTIC INR RANG ES FOR WARFARIN Uncomplicated venous thromboembolic disease 2 - 3 Lupus Anticoagulant and recurrent thrombosis 3 - 3.5 Mechanical prosthetic valve or recurrent thrombosis 2.5 - 3.5 APTT 29.0 21.3-28.4 COMPREHENSIVE METABOLIC PROFILE 2021-05-05 SODIUM 139 134-143 POTASSIUM 4.2 3.5-5.1 CHLORIDE 103 98-111 CO2 25 22-32 CALCIUM 9.8 8.9-10.3 BUN 22 8-26 CREATININE 0.90 0.61-1.24 TOTAL BILIRUBIN 0.5 0.3-1.2 TOTAL PROTEIN 7.9 6.5-8.1 ALBUMIN 4.2 3.5-5.0 ALKALINE PHOS 76 32-92 AST 38 15-41 ALT 52 17-63 A/GAP 11.0 3.0-12.0 B/CR 24.4 8.0-20.0 OSMOLARITY 284 275-295 GLOBULIN 3.7 2.3-3.5 A/G 1.1 1.0-2.5 PSA - SCREENING 2021-05-05 PSA (SCREEN) 0.747 <=4.000 LIPID PROFILE 2021-03-17 CHOLESTEROL 143 129-209 TRIGLYCERIDES 81 10-150 HDL 35 40-80 LDL (CALCULATED) 92 RISK RATIO 4.1 RISK INTERP RISK MALE FEMALE 1/2 average 3.4 3.3 Average 5.0 4.4 2x Average 9.6 7.1 3x Average 23.4 11.0 GLYCOHEMOGLOBIN A1C 2021-03-17 HGBA1c 7.7 4.0-6.0 est Average Glucose 174 70-105 COMPREHENSIVE METABOLIC PROFILE 2021-03-17 SODIUM 134 134-143 POTASSIUM 4.2 3.5-5.1 CHLORIDE 100 98-111 CO2 26 22-32 CALCIUM 9.5 8.9-10.3 BUN 19 8-26 CREATININE 0.78 0.61-1.24 TOTAL BILIRUBIN 0.9 0.3-1.2 TOTAL PROTEIN 7.7 6.5-8.1 ALBUMIN 4.1 3.5-5.0 ALKALINE PHOS 70 32-92 AST 33 15-41 ALT 52 17-63 A/GAP 8.0 3.0-12.0 B/CR 24.4 8.0-20.0 OSMOLARITY 272 275-295 GLOBULIN 3.6 2.3-3.5 A/G 1.1 1.0-2.5 GLYCOHEMOGLOBIN A1C 2020-09-13 HGBA1c 7.8 4.0-6.0 est Average Glucose 178 70-105 COMPREHENSIVE METABOLIC PROFILE 2020-09-13 SODIUM 138 134-143 POTASSIUM 4.2 3.5-5.1 CHLORIDE 106 98-111 CO2 23 22-32 CALCIUM 9.3 8.9-10.3 BUN 22 8-26 CREATININE 0.85 0.61-1.24 TOTAL BILIRUBIN 1.1 0.3-1.2 TOTAL PROTEIN 7.7 6.5-8.1 ALBUMIN 4.2 3.5-5.0 ALKALINE PHOS 70 32-92 AST 34 15-41 ALT 61 17-63 A/GAP 9.0 3.0-12.0 B/CR 25.9 8.0-20.0 OSMOLARITY 281 275-295 GLOBULIN 3.5 2.3-3.5 A/G 1.2 1.0-2.5 GLYCOHEMOGLOBIN A1C 2020-06-16 HGBA1c 8.6 4.0-6.0 est Average Glucose 199 70-105 COMPREHENSIVE METABOLIC PROFILE 2020-06-16 SODIUM 138 136-145 POTASSIUM 4.2 3.5-5.1 CHLORIDE 102 98-111 CO2 26 22-32 CALCIUM 9.8 8.9-10.3 BUN 20 8-26 CREATININE 0.92 0.61-1.24 TOTAL BILIRUBIN 1.2 0.3-1.2 TOTAL PROTEIN 8.0 6.5-8.1 ALBUMIN 4.4 3.5-5.0 ALKALINE PHOS 75 32-92 AST 39 15-41 ALT 64 17-63 A/GAP 10.0 3.0-12.0 B/CR 21.7 8.0-20.0 OSMOLARITY 283 275-295 GLOBULIN 3.6 2.3-3.5 A/G 1.2 1.0-2.5 LIPID PROFILE 2020-05-05 CHOLESTEROL 147 129-209 TRIGLYCERIDES 89 10-150 HDL 35 40-80 LDL (CALCULATED) 94 RISK RATIO 4.2 RISK INTERP RISK MALE FEMALE 1/2 average 3.4 3.3 Average 5.0 4.4 2x Average 9.6 COMPREHENSIVE METABOLIC PROFILE 2020-05-05 SODIUM 136 136-145 POTASSIUM 4.0 3.5-5.1 CHLORIDE 101 98-111 CO2 25 22-32 CALCIUM 9.3 8.9-10.3 BUN 24 8-26 CREATININE 0.73 0.61-1.24 TOTAL BILIRUBIN 1.0 0.3-1.2 TOTAL PROTEIN 7.5 6.5-8.1 ALBUMIN 4.1 3.5-5.0 ALKALINE PHOS 73 32-92 AST 36 15-41 ALT 59 17-63 A/GAP 10.0 3.0-12.0 B/CR 32.9 8.0-20.0 OSMOLARITY 282 275-295 GLOBULIN 3.4 2.3-3.5 A/G 1.2 1.0-2.5 CT ABD/PELVIS WO CONTRAST 2019-01-28 Urine Multistix (DIP) 2019-01-[address] Cortez Clarity clear Glucose 250 Bilirubin neg Ketones neg Specific [place] 1.025 Blood trace ph 5 Protein 100 Uro 1.0 Nitrates postive Leukocytes negative CULTURE URINE 2019-01-27 REASON FOR VISIT DM f/u: change Jaurdiance and seen Urology for blood in urine, URO- Right Ureteroscopoy and holmiumlaser lithotripsy with possible right ureteral stent placement, pre-op phone call , Lancets and Lancing device, OR Procedure-LMOM 01/24///PT CALLED BACK 01/24, Glucometer teaching, URO- Hematuria, Glucometer , sharp pain in back right side, Pain right side, Ozempic , PC diarrhea, Rx for diverticulitis, PC 6M F/U, Oxybutynin - new order?, PC - 6mo f/u, Pre op U/S, pre op total knee w/ekg, refill on Eliquis, US result review , us of leg, PC-DVT started on Eliquis, PC-f/u dvt, Pt states that he may have a staph infection, states that the spot is going away states that he has had it for about five days now, Pt states that he would like a [facility] have [facility], JAYCE Appt, PC- 6 mo f/u, Pt was wondering if he could get something for hemrrhoids , 3M F/U, Pt states that he has a question for RM has brought in pictures: whits spots on tips of toes been there for a couple weeks, doesnt hurt, isnt numb, BP 150/103 right arm, NCPC yearly , PC-CPE, Blood work, lab results, diverticulitus eval, frequent urination started about 3 weeks ago has a pain over his prostate region,notices the ache more when bending over. Same symptoms that had occured before., Pt had fasted today incase BW needed, diverticulitus - update, GI-COLONOSCOPY, pre op questions, PT Reassignment , GI- colonoscopy, r/s colonoscopy (11/17 L/M), covid, Clobetasol/Tadalafil Rx's, PC CPE , Needs verbal consent, CAT scan result/PT RETURNED CALL, PC - ? UTI , PC- Annual, PC-CPE, Viagra PA(Denied), CialisPA (Denied), PC-SAP BASIS ADMINISTRATOR, Chart update, Needs SAP BASIS ADMINISTRATOR appointment Insurance Providers Health Insurance Type Health Plan Insurance Address Health Plan Insurance Phone Health Plan Insurance Name Health Plan Coverage Dates Member ID Patient Relationship to Subscriber Patient Address Patient Phone Patient Name Patient Date of Subscriber ID Subscriber Name Subscriber Date of Group No BCBS OUT OF AREA [address] [facility] [id number] BCBS OUT OF AREA self Pepito Cordon [id number] [employer] - [address] [facility] [id number] [employer] - [address] self Pepito Cordon [id number]
--- OUTSIDE RECORDS SUMMARY | 2022-08-31 09:55 | XMS_ITS | Continuity of Care Document ---
Author Name Unknown Organization [facility] Address [address] [place] [address] Care Team Providers Care Wilderness Guide Name Role Phone Oli Dimas DO Primary Care Physician [phone] Encounter LTTL_MT FIN NBR [id number] Date(s): 04/10/22 - 04/10/[address] [address] Discharge Disposition: Home or Self Care Attending Physician: Oli Dimas DO Admitting Physician: Oli Dimas DO Allergies, Adverse Reactions, Alerts Substance Reaction Severity Status Nickel Unknown Active Assessment and Plan Future Appointments Future Scheduled Tests Laboratory* Comprehensive Metabolic Panel 06/27/22 * Magnesium Level 06/27/22 * Hgb A1c 06/27/22 Radiology* US Lower Ext Venous Duplex Right 04/10/22 * US Extremity Nonvascular Complete Right 04/10/22 Immunizations Given and Recorded Vaccine Date Status Refusal Reason SARS-CoV-2 mRNA-1273 bivalent booster 1 03/02/22 G iven influenza virus vaccine, inactivated 2 03/02/22 Gi denys zoster vaccine, inactivated 3 03/21/21 Recorded SARS-CoV-2 (COVID-19) mRNA-1273 vaccine 4 03/21/21 Recorded SARS-CoV-2 (COVID-19) mRNA-1273 vaccine 5 08/30/20 Recorded 1Early/Late Reason: Early/Late Reason: Back-charting an earlier dose 2Early/Late Reason: Early/Late Reason: Back-charting an earlier dose 3Result Comment: Medicine Assistant: RailCommine 4Result Comment: Unit: Unknown 5Result Comment: Unit: Unknown Medications clobetasol 0.05% topical [...] PRN, # 4 tab, 11 Refill(s), Pharmacy: [id number], 188, cm, 01/31/22 15:02:00 EDT, Height/Length Dosing, [...] mpleted 1auto-populated from documented surgical case Results Radiology Reports * Exam Date Time Procedure Performing Provider Status 04/10/22 3:32 PM US Lower Ext Venous Duplex Right Mayda Dye; Auth (Verified) Notes: (US Lower Ext Venous Duplex Right) Reason For Exam: R leg DVT US Lower Ext Venous Duplex Right EXAM DESCRIPTION: US Lower Ext Venous Duplex Right 04/10/2022 INDICATION: R LEG DVT TECHNIQUE: Static images of real-time sonography utilizing B-mode and color Doppler with spectral waveform analysis of the right lower extremity deep venous system was performed. COMPARISON: 09/01/2021 FINDINGS: Echogenic nonocclusive thrombus involving the mid right femoral vein consistent with chronic, recanalized DVT which was seen on prior study. No complete thrombosis in this region. The right common femoral vein, remainder of the femoral vein, popliteal vein and posterior tibial and peroneal veins demonstrate normal compressibility, color flow and augmentation with no evidence of DVT. The saphenous junction appears patent. IMPRESSION: Nonocclusive recanalized chronic DVT in the right femoral vein. This was described on previous study. Otherwise no evidence of right lower extremity DVT. JOB #: [id number] Final Signed by: Elroy Parsons MD Signed (Electronic Signature): 04/10/2022 3:50 pm Social History Social History Type Response Tobacco Never tobacco user T obacco Use:. Sex US.doppler Lower extremity vein - right * Elroy Parsons MD: VERIFY, VERIFY Event Display: Report EXAM DESCRIPTION: US Lower Ext Venous Duplex Right 04/10/2022 INDICATION: R LEG DVT TECHNIQUE: Static images of real-time sonography utilizing B-mode and color Doppler with spectral waveform analysis of the right lower extremity deep venous system was performed. COMPARISON: 09/01/2021 FINDINGS: Echogenic nonocclusive thrombus involving the mid right femoral vein consistent with chronic, recanalized DVT which was seen on prior study. No complete thrombosis in this region. The right common femoral vein, remainder of the femoral vein, popliteal vein and posterior tibial and peroneal veins demonstrate normal compressibility, color flow and augmentation with no evidence of DVT. The saphenous junction appears patent. IMPRESSION: Nonocclusive recanalized chronic DVT in the right femoral vein. This was described on previous study. Otherwise no evidence of right lower extremity DVT. JOB #: [id number] Final Signed by: Elroy Parsons MD Signed (Electronic Signature): 04/10/2022 3:50 pm Patient Care team information Personnel Name: Oli Dimas DO Address: Address: [address] [place] [id number]
--- OUTSIDE RECORDS SUMMARY | 2022-08-31 09:55 | XMS_ITS | Continuity of Care Document ---
Author Name Unknown Organization [facility] Address [address] [place] [address] Care Team Providers Care Steward/Stewardess Second Name Role Phone Oli Dimas DO Primary Care Physician [phone] Encounter [facility]_[place] FIN NBR [id number] Date(s): 03/22/22 - 03/22/[address] [id number] Discharge Disposition: Home or Self Care Attending Physician: Oli Dimas DO Admitting Physician: Oli Dimas DO Referring Physician: Oli Dimas DO Allergies, Adverse Reactions, Alerts Substance Reaction Severity Status Nickel Unknown Active Assessment and Plan Future Appointments Medications Eliquis 5 mg oral tablet 5 mg = 1 tab, Oral, BID, # 60 tab, 0 Refill(s) Start Date: 01/31/22 Status: Ordered Jardiance 10 mg oral tablet 10 mg = 1 tab, Oral, every night at bedtime, # 30 tab, 0 Refill(s) Start Date: 01/31/22 Status: Ordered tamsulosin 0.4 mg oral capsule 1 cap, Oral, Daily, # 90 cap, 3 Refill(s), Pharmacy: [id number], 188, cm, 01/31/2215:02:00 EDT, Height/Length Dosing, 118, kg, 01/31/22 15:02:00 EDT, Weight Dosing Start Date: 02/06/22 Status: Ordered Problem List Condition Confirmation Course Effective Dates Status H ealt Status Informant Arthritis Confirmed Active Arthropathy of [...] with Stent Placement (Right) 1 02/07/22 Comple kai Cervical discectomy Compl eted Hammer toe operation Comp leted Nasal septoplasty Complet ed Release of plantar fascia Completed Total knee replacement Co mpleted 1auto-populated from documented surgical case Results Laboratory List Name Date Comprehensive Metabolic Panel (CMP) 03/01 07/19 Hgb A1c 03/22/22 Most recent to oldest [Reference Range]: 1 BUN [8-26 mg/dL] 24 mg/dL (03/22/22 7:54 AM) Glucose Level [74-106 mg/dL] 143 mg/dL *HI* (03/22/22 7:54 AM) Potassium Level [3.5-5.1 mmol/L] 4.3 mmo l/L (03/22/22 7:54 AM) AST [15-41 IntlUnit/L] 24 IntlUnit/L (03/22/22 7:54 AM) ALT [17-63 IntlUnit/L] 28 IntlUnit/L (03/22/22 7:54 AM) Osmolality [275-295 mOsm/kg] 282 mOsm/kg (03/22/22 7:54 AM) Sodium Level [134-143 mmol/L] 138 mmol/L (03/22/22 7:54 AM) Calcium Level [8.9-10.3 mg/dL] 9.7 mg/dL (03/22/22 7:54 AM) Albumin Level [3.5-5.0 g/dL] 4.1 g/dL (03/22/22 7:54 AM) Protein Total [6.5-8.1 g/dL] 7.3 g/dL (03/22/22 7:54 AM) Bilirubin Total [0.2-1.2 mg/dL] 0.9 mg/d L (03/22/22 7:54 AM) Alk Phos [38-130 IntlUnit/L] 74 IntlUnit /L (03/22/22 7:54 AM) CO2 [22-32 mmol/L] 25 mmol/L (03/22/22 7:54 AM) eGFR Non-AA 104 *NA* (03/22/22 7:54 AM) eGFR AA 104 *NA* (03/22/22 7:54 AM) eAvg Glucose 140 *NA* (03/22/22 7:54 AM) Chloride Level [98-111 mmol/L] 105 mmol/ L (03/22/22 7:54 AM) A/G Ratio 1.3 *NA* (03/22/22 7:54 AM) BUN/Creat Ratio [8.0-20.0] 29.6 *HI* (03/22/22 7:54 AM) Globulin 3.2 *NA* (03/22/22 7:54 AM) Hgb A1c Percent [4.0-6.0 %] 6.5 % *HI* (03/22/22 7:54 AM) .Hb 19.5 *NA* (03/22/22 7:54 AM) .Hgb A1c 0.92 *NA* (03/22/22 7:54 AM) Creatinine Level [0.61-1.24 mg/dL] 0.81 mg/dL (03/22/22 7:54 AM) Anion Gap [3.0-12.0] 8.0 (03/22/22 7:54 AM) Social History Social History Type Response Tobacco Never tobacco user T obacco Use:. Sex Patient Care team information Personnel Name: Oli Dimas DO Address: Address: [address] [place] [id number]
[2022-08-31] MEDS: oxyCODONE 5 mg/Acetaminophen 325 mg TAB 1 TAB PO (10:16)
[2022-08-31] MEDS: Lidocaine 5% Patch 1 PATCH TP (10:17)
== END 2022-08-31 10:32 | disposition home or self-care (01) ==
PROVIDERS: Emergency Provider Registered Nurse Emergency
DX: S22.41XA Multiple fractures of ribs, right side, initial encounter for closed fracture (principal); W19.XXXA Unspecified fall, initial encounter; Y99.0 Civilian activity done for income or pay
CPT/HCPCS: 99284; 71046; 71100; 73080

== ENCOUNTER 2023-07-02 13:38 | Outpatient (CLI) | payer BC, SELFPAY ==
--- NOTE | 2023-07-02 10:30 | DI.RAD_ITS ---
Exam(s) XR KNEE RT 1V XR STANDING ALIGNMENT EXAM: XR STANDING ALIGNMENT and XR knee RT 1 V CLINICAL HISTORY: alignment for RTKA. TECHNIQUE: 2D digital imaging was performed. Five images were obtained. COMPARISON: CR XR KNEE 3 VIEW LEFT from 09/06/2021 FINDINGS: BONES: There are hxyi-ny-zyrzljmg degenerative changes of the hips bilaterally characterized by joint space narrowing and osteophytes. There are stable findings of a left total knee replacement. In th e right knee there are degenerative changes present characterized by joint space narrowing and osteop hytes. The findings are most marked in the medial femoral tibial and patellofemoral joint. There is faint calcification seen in the lateral femoral tibial joint consistent with chondrocalcinosis. The ankles are well maintained.There is no significant leg length discrepancy. SOFT TISSUE: Normal. IMPRESSION: Moderate degenerative changes in the right knee. DATA REPOSITORY: RADIATION DOSE DELIVERED:
--- NOTE | 2023-07-02 10:30 | DI.RAD_ITS ---
Exam(s) XR KNEE RT 1V XR STANDING ALIGNMENT EXAM: XR STANDING ALIGNMENT and XR knee RT 1 V CLINICAL HISTORY: alignment for RTKA. TECHNIQUE: 2D digital imaging was performed. Five images were obtained. COMPARISON: CR XR KNEE 3 VIEW LEFT from 09/06/2021 FINDINGS: BONES: There are fvgp-gv-kpralobx degenerative changes of the hips bilaterally characterized by joint space narrowing and osteophytes. There are stable findings of a left total knee replacement. In th e right knee there are degenerative changes present characterized by joint space narrowing and osteop hytes. The findings are most marked in the medial femoral tibial and patellofemoral joint. There is faint calcification seen in the lateral femoral tibial joint consistent with chondrocalcinosis. The ankles are well maintained.There is no significant leg length discrepancy. SOFT TISSUE: Normal. IMPRESSION: Moderate degenerative changes in the right knee. DATA REPOSITORY: RADIATION DOSE DELIVERED:
== END 2023-07-02 13:39 | disposition home or self-care (01) ==
LOC: DIORS 13:39
PROVIDERS: PCP Family Medicine; Visit Provider Student in an Organized Health Care Education/Training Program
DX: M17.11 Unilateral primary osteoarthritis, right knee (principal)
CPT/HCPCS: 73560; 77073

== ENCOUNTER 2023-08-17 03:00 | Outpatient (CLI) | payer BC, SELFPAY ==
[2023-08-17 12:07] LABS: HCT 54.2 % (40.0-50.0); HGB 18.3 g/dL (13.5-17.5); MCH 29.6 pg (27.0-33.0); MCHC 33.8 % (32.0-36.0); MCV 88 fL (80-95); MPV 10.4 fL (8.0-11.0); Platelet Count 221 10^3/uL (130-400); RBC 6.19 10^6/uL (4.36-5.78); RDW 12.5 % (11.8-14.1); RDW-SD 40.3 fL; WBC 7.78 10^3/uL (4.4-10.8)
[2023-08-17 12:30] LABS: Anion Gap 10.9 mmol/L (3-11); BUN 23 mg/dL (7-18); CO2 29.1 mmol/L (21.0-32.0); Calcium 9.4 mg/dL (8.5-10.1); Chloride 105 mmol/L (98-107); Estimated GFR 87.78 (mL/min/1.73m2); Glucose 132 mg/dL (74-106); Sodium 145 mmol/L (136-145)
[2023-08-17 13:10] LABS: Hemoglobin A1C 7.1 % (<5.7)
== END 2023-08-17 03:01 | disposition home or self-care (01) ==
PROVIDERS: PCP Family Medicine; Visit Provider Student in an Organized Health Care Education/Training Program
DX: M17.11 Unilateral primary osteoarthritis, right knee (principal); Z01.818 Encounter for other preprocedural examination
CPT/HCPCS: 36415; 80048; 85027; 83036

== ENCOUNTER 2023-09-01 10:00 | Emergency (ER) | payer BC, SELFPAY ==
[2023-09-01 10:01] VITALS: BP 170/98; PULSE 67; RESP 16; TEMP 36.4; O2SAT 98
--- NOTE | 2023-09-01 10:15 | DI.CT_ITS ---
Exam(s) CT HEAD WO EXAM: CT HEAD WO CLINICAL HISTORY: HI on eliquis. TECHNIQUE: Imaging Protocol: Axial computed tomography images with coronal and sagittal reformatted images were created and reviewed COMPARISON: No exams were available for comparison FINDINGS: Ventricles and Extra axial spaces: Normal in size and morphology for the patient's age. Hemorrhage: None. Cerebral parenchyma: No evidence of acute infarct or mass. Midline shift: None. Brainstem/Cerebellum: Normal. Calvarium: Normal. Visualized Paranasal sinuses:Clear. Mastoids: Clear. Soft Tissues: Unremarkable. ORBITS: Unremarkable. PITUITARY: Not enlarged. IMPRESSION: No acute intracranial process. RADIATION DOSE DELIVERED: Total DLP DATA REPOSITORY: All CT scans at this facility are submitted to the National Radiology Data Registry (NRDR) Dose Index Registry (DIR) with the [employer] (A[employer]). RADIATION OPTIMIZATION: All CT scans at this facility use at least one of these dose optimization te chniques: automated exposure control; mA and/or kV adjustment per patient size (includes targeted exa ms where dose is matched to clinical indication); or iterative reconstruction.
--- NOTE | 2023-09-01 10:15 | DI.RAD_ITS ---
Exam(s) XR SHOULDER LT COMPLETE 2+V EXAM: XR SHOULDER LT COMPLETE 2+V CLINICAL HISTORY: fall, shoulder injury. TECHNIQUE: 2D digital imaging was performed. Three views. COMPARISON: No exams were available for comparison FINDINGS: BONES: No acute fracture is present. No bony destructive lesion is seen. Os acromiale. Spurring at l jamison tuberosity. JOINTS: No dislocation present. Mild degenerative changes in the AC joint and glenohumeral joint. SOFT TISSUE: Normal. IMPRESSION: Mild degenerative changes and os acromiale. No acute abnormality. DATA REPOSITORY: RADIATION DOSE DELIVERED:
--- NOTE | 2023-09-01 10:51 | DI.VRAD_ITS ---
PROCEDURE INFORMATION: Exam: CT Head Without Contrast Exam date and time: 09/01/2023 10:30 AM Age: 58 years old Clinical indication: Head injury, Other: Fall, on elliquis TECHNIQUE: Imaging protocol: Computed tomography of the head without contrast. Radiation optimization: All CT scans at this facility use at least one of these dose optimization techniques: automated exposure control; mA and/or kV adjustment per patient size (includes targeted exams where dose is matched to clinical indication); or iterative reconstruction. COMPARISON: No relevant prior studies available. FINDINGS: Brain: No acute intracranial hemorrhage or mass effect. No subdural collections are seen. Cerebral ventricles: Size within normal range for age. No midline shift. Paranasal sinuses: Visualized portions of paranasal sinuses are well aerated. Mastoid air cells: Visualized portions of mastoid sinuses are not opacified. Bones: Unremarkable. No acute fracture. Soft tissues: Other than as stated above, no obvious acute abnormality. IMPRESSION: No acute intracranial hemorrhage or mass effect. Dictated and Authenticated by: Evans Pelayo MD. Ordering:MIKAL Hemphill MD
--- NOTE | 2023-09-01 10:53 | DI.VRAD_ITS ---
PROCEDURE INFORMATION: Exam: XR Left Shoulder Exam date and time: 09/01/2023 10:33 AM Age: 58 years old Clinical indication: Left shoulder pain following injury Other: Fall, shoulder injury TECHNIQUE: Imaging protocol: Radiologic exam of the left shoulder. Views: 2 or more views. COMPARISON: No relevant prior studies available. FINDINGS: Bones/joints: , minor degenerative changes are present. No fracture or other acute osseous abnormality of the left shoulder is seen. Axillary view suggests the presence of an os acromiale. Soft tissues: No soft tissue gas or radiodense soft tissue foreign body. IMPRESSION: No acute fracture identified. Dictated and Authenticated by: Evans Pelayo MD. Ordering:MIKAL Hemphill MD
[2023-09-01 11:06] VITALS: BP 162/75; PULSE 75; RESP 16; O2SAT 99
--- NOTE | 2023-09-01 14:10 | ED.GENADUL_ITS ---
Discharge Plan Disposition Patient Disposition: Home Condition: Stable Discharge Details Clinical Impression: Abrasion, Injury of left shoulder Primary Care Provider: Oli Quinones ED Provider: Kanchan Montoya Home Meds and New Rx's Prescriptions: Continued tadalafil 10 mg tablet 10 mg PO DAILY PRN Rx Instructions: administer approximately 30min before sexual activity; do not use more than 1 dose per 24hrs Eliquis 5 mg Tablet 5 mg PO BID Jardiance 10 mg Tablet 10 mg PO QPM Discharge Instructions Instructions: Shoulder Sprain (ED), Abrasion (ED) Additional Instructions: Take Tylenol as needed for pain Use your sling but continue to range her shoulder so it does not become stiff or frozen Keep your wound clean and dry Follow-up with Ortho as needed for your left shoulder pain and return earlier should he have new or worsening complaints Referrals: Oli Quinones [Primary Care Provider] - HPI General Date/Time Provider Initiated Documentation: 09/01/23 10:01 . HPI Narrative: This 58-year-old gentleman presents with report of fall this morning. He landed on his left shoulder and right elbow. Denies any neck pain unsure as to whether or not he hit his head but states he did lose his glasses in the fall. Unsure regarding his tetanus and he is abrasion to right elbow. Predominantly complaining of left shoulder pain denies any loss of consciousness. Is anticoagulated on Eliquis, last dose of Eliquis was. Denies any chest pain or shortness of breath. Denies any dizziness or weakness. No new admit at this yesterday morning Pat. Takes this for a DVT in the right lower extremity Related Data Home Medications Medication Instructions Recorded Confirmed apixaban 5 mg tablet (Eliquis) 5 mg PO BID 08/31/22 09/01/23 empagliflozin 10 mg tablet 10 mg PO QPM 08/31/22 09/01/23 (Jardiance) tadalafil 10 mg tablet 10 mg PO DAILY PRN 05/15/23 09/01/23 Allergies Allergy/AdvReac Type Severity Reaction Status Date / Time nickel Allergy Mild Skin Rash Verified 09/01/23 10:05 General Stated Complaint: Orthopedic SERGEI: 4 Exam Narrative Exam Narrative: Patient is alert and oriented, GCS 15, pupils equal round reactive to light commendation, no hemotympanum, no cervical spine tenderness, lungs clear to auscultation bilaterally, cardiac rate rhythm regular, no abdominal tenderness, tenderness to left shoulder, abrasion to right elbow, range of motion intact, positive empty can test on left, alert and oriented x 4, able to follow basic commands, ambulatory with steady gait no evidence of open fracture Course Vital Signs Vital signs: Vital Signs Temperature 36.4 C 09/01/23 10:01 Pulse 67 09/01/23 10:01 Respiratory Rate 16 09/01/23 10:01 Blood Pressure 170/98 H 09/01/23 10:01 Pulse Oximetry 98 09/01/23 10:01 Temperature 36.4 C 09/01/23 10:01 Temperature Source Temporal Artery Scan 09/01/23 10:01 Pulse 75 09/01/23 11:06 Respiratory Rate 16 09/01/23 11:06 Respiratory Effort Normal 09/01/23 10:05 Blood Pressure 162/75 H 09/01/23 11:06 Blood Pressure Position Sitting 09/01/23 10:01 Pulse Oximetry 99 09/01/23 11:06 Oxygen Delivery Method Room Air 09/01/23 10:01 Oxygen Flow Rate 0 09/01/23 10:01 Pain Level 7 09/01/23 11:06 Medical Decision Making This 58-year-old male presents after a fall from porch, he was standing and fell approximately 2 feet onto his left shoulder, predominantly complaining of left shoulder pain, x-ray was ordered which does not show evidence of acute abnormality. Right shoulder nontender, right elbow without tenderness but abrasion noted. Secondary to patient being anticoagulated on Eliquis with possible head injury I did order CT head which did not show evidence of acute abnormality per radiology interpretation my review, neurologically intact. At this time I will place patient on a sling and referred to orthopedics. Suspect rotator cuff injury. Patient feels comfortable discharge home, Tylenol encouraged for discomfort as needed and return precautions reviewed and patient expressed understanding, ambulatory with steady gait within nonfocal neurological exam at time of discharge home. Is holding Eliquis secondary to impending surgery on Sunday we will continue to hold. Quality:SDOH Health Related Social Needs: No Data to Display PFSH All Active Problems (Updated 09/01/23 @ 11:00 by RAMANDEEP Kenyon) Injury of left shoulder (Acute) Abrasion (Acute) Erythrocytosis (Acute) Painful total knee replacement, left (Acute) Arthritis of right knee (Acute) Rosacea (Acute) MESHA (obstructive sleep apnea) (Chronic) Heart murmur (Acute) Essential hypertension (Acute) Diabetes mellitus (Chronic) Medical History (Updated 09/01/23 @ 11:00 by RAMANDEEP Kenyon) Tear of meniscus of right knee History of colon polyps History of hemorrhoids Erectile dysfunction due to arterial insufficiency DVT (deep venous thrombosis) Diverticulitis Renal calculus Social History Smoking/Tobacco Use Status: Never Smoking risk assessment performed?: Yes Alcohol Intake: current Alcohol Intake frequency: a few times a month Alcohol type: beer Drug use: Never Substance use type: does not use Housing: house Do you feel safe at home: Yes Do you feel safe in your relationship?: Yes PAWSS Have you Been Recently Intoxicated or Drunk Within the Last 30 days?: No Have you Ever Experienced Previous Episodes of Alcohol Withdrawal?: No Have you ever Experienced Withdrawal Seizures?: No Have you ever Experienced Delirium Tremens(DT)s?: No Have you ever undergone Alcohol Rehabilitation Treatment (i.e, inpt ot outpatient treatment programs)?: No Have you ever Experienced Blackouts?: No Have you ever Combined Alcohol with other Downers within the last 90 days?: No Have you ever Combined Alcohol with any other Substance of Abuse during the last 90 days?: No Result: 0
== END 2023-09-01 11:13 | disposition home or self-care (01) ==
PROVIDERS: Emergency Provider Physician Assistant; PCP Family Medicine
DX: S50.311A Abrasion of right elbow, initial encounter (principal); S49.82XA Other specified injuries of left shoulder and upper arm, initial encounter; I10 Essential (primary) hypertension; E11.9 Type 2 diabetes mellitus without complications; Z86.718 Personal history of other venous thrombosis and embolism; Z23 Encounter for immunization; Z79.01 Long term (current) use of anticoagulants; W01.198A Fall on same level from slipping, tripping and stumbling with subsequent striking against other object, initial encounter; Y93.89 Activity, other specified; Y92.018 Other place in single-family (private) house as the place of occurrence of the external cause
CPT/HCPCS: 90471; 90715; 99284; 70450; 73030

== ENCOUNTER → 2023-09-05 02:29 | Outpatient (CLI) | payer BC, SELFPAY ==
--- NOTE | 2023-09-05 10:55 | DI.MRI_ITS ---
Exam(s) MR UPPER JOINT LT WO EXAM: MR UPPER JOINT LT WO CLINICAL HISTORY: pain, injury,LT ROTATOR CUFF TEAR,M75.102,S49.92XA. TECHNIQUE: Multiplanar multisequence MRI was performed. COMPARISON: Plain films 01 Sep 2023 FINDINGS: BONES: There is no fracture or contusion pattern. There are few tiny degenerative cysts in the humer al head. JOINTS:The acromioclavicular joint shows inferior spurring. There is an os acromiale. Glenohumeral joint: Joint effusion. The humeral head is superiorly subluxed. TENDONS: Supraspinatus: Full-thickness tear with retraction to the level of the glenoid. No muscular atrophy. Mild muscle edema. Infraspinatus: Full-thickness tear with retraction to the level of the glenoid. No muscular atrophy. Mild muscle edema. Subscapularis: Full-thickness tear with retraction. Teres Minor: Unremarkable. Biceps and Luebbering: Biceps tendon appears intact however appears medially displaced at the superior po rtion. GLENOID LABRUM: Unremarkable on this noncontrast examination. SOFT TISSUES: Unremarkable. IMPRESSION: Unremarkable full-thickness tears with retraction of the supraspinatus, infraspinatus and subscapular is tendons. Medial subluxation of the proximal long head of the biceps tendon. DATA REPOSITORY:
== END ==
PROVIDERS: PCP Family Medicine; Visit Provider Student in an Organized Health Care Education/Training Program
DX: M75.122 Complete rotator cuff tear or rupture of left shoulder, not specified as traumatic (principal)
CPT/HCPCS: 73221

== ENCOUNTER 2023-09-21 09:43 | Day surgery (SDC) | payer BC, SELFPAY ==
[2023-09-21] VITALS (10 sets, daily range): BP systolic 108–148; BP diastolic 77–99; PULSE 72–78; RESP 16–23; TEMP 36–36.6; O2SAT 93–99; BMI 31.7
--- NOTE | 2023-09-21 07:19 | W.PM.DSUDISC ---
Date of service: 09/21/23 Time of Service: 16:00 Discharge Plan Disposition Patient Disposition: Home Condition: Stable Discharge Details Attending Provider: Tru Hernandez Primary Care Provider: Oli Quinones Home Meds and New Rx's Prescriptions: New naproxen 250 mg tablet 250 - 500 mg PO BID PRNQty: 30 0RF Rx Instructions: take with a meal oxycodone 5 mg tablet 5 - 10 mg PO Q4H MDD 30 mg PRN (Reason: moderate to severe pain) Qty: 18 0RF Continued tadalafil 10 mg tablet 10 mg PO DAILY PRN Rx Instructions: administer approximately 30min before sexual activity; do not use more than 1 dose per 24hrs Eliquis 5 mg Tablet 5 mg PO BID Jardiance 10 mg Tablet 10 mg PO QPM Discharge Instructions Additional Instructions: Surgery: Left shoulder arthroscopy with massive rotator cuff repair (subscapularis, supraspinatus, infraspinatus), biceps tenodesis, extensive debridement, and subacromial decompression. Activity: For 8 weeks, you should keep your arm at your side in a neutral position at all times except for physical therapy. Do not try to lift or raise your arm using your own muscles. You should use the sling whenever you are out of the house or when needed for support. At home it is best to remove the sling and rest the arm on a pillow at your side or support the operative side with your other hand. You may allow the arm to dangle at your side. A physical therapy prescription will be sent electronically to begin in about 3 weeks. CONSERVATIVE protocol. Prescriptions: Resume Eliquis tomorrow morning Naproxen 250 mg take 1-2 every 12 hours with a meal as needed for moderate pain (stop if any bleeding occurs) Oxycodone 5 mg take 1-2 every 4-6 hours as needed for severe pain You may use [id number] Tylenol (acetaminophen) as needed for mild pain. These pain medications may be taken all at once or in different combinations as needed. Also, recommend Colace (docusate) as a stool softener as surgery and pain medicine cause constipation. You may try thuw-nda-puuhjlc diphenhydramine (Benadryl) 25-50 mg nightly as a sleep aid Dressings: Remove shoulder bandage after 3 days. Leave the sticky Steri-Strips in place until they fall off or remove them after you shower. Cover the incisions with Band-Aids or leave them open to air. You may shower after 5 days. Follow-up: 10-[address] Hernandez You may take off the leg compression stockings this evening at home. You may also leave them on a few days longer if you have a history of leg swelling or edema. Let us know right away if you develop any redness, drainage, fevers, chest pain, or trouble breathing. Do not drink alcohol or drive for at least 24 hours after anesthesia. Please call the office during business hours with any questions or concerns. Stand Alone Forms: Anesthesia Discharge Inst., Jaziel Bardales (DSU) Discharge Orders Discharge Orders: Discharge Order (Routine); Ordered 09/21/23 Ordered By: Kandis Viera DS: Diagnosis Discharge Diagnosis (1) Left rotator cuff tear: Status: Acute
--- NOTE | 2023-09-21 07:33 | W.PM.OP ---
Date of service: 09/21/23 Time of Service: 13:00 Operative Note Operative Note DATE OF PROCEDURE: 09/21/23 PRE-OP DIAGNOSIS: Left: 1. Massive rotator cuff tear 2. LHB tendinopathy 3. Bursitis POST-OP DIAGNOSIS: same PROCEDURE: Left: 1. Massive rotator cuff repair, CPT# 49882. This involved repair of the subscapularis, supraspinatus, and infraspinatus using anchors and sutures to reattach the rotator cuff back to the footprint of the lesser and greater tuberosity. 2. Arthroscopic biceps transposition tenodesis, CPT# 54385. This involved arthroscopically suturing and attaching the long head of the biceps tendon to the proximal humerus at the anterior superior margin of the greater tuberosity with a screw at the correct tension. 3. Extensive debridement, CPT# 73169. This involved using arthroscopic hand instruments, power instruments, and radiofrequency instruments to release anterior capsular adhesions, debride rotator interval synovitis, debride anterior labral tearing and fraying, and chondromalacia about the humeral head. 4. Subacromial decompression with partial acromioplasty, CPT# 00964. This involved using arthroscopic power instruments and a radiofrequency wand to complete a bursectomy and smooth the undersurface of the acromion. The foundation assistant was medically required in order to help assist in techniques above, which require positioning the arm, holding the arthroscope, and manipulating multiple instruments and sutures at the same time. This cannot be done without the help of an experienced foundation assistant. SURGEON: Tru Hernandez DIAGNOSTIC TECH: Kandis Viera ANESTHESIA TYPE: Local By Surgeon, General LMA/ETT and Primary Nerve Block Refer to Anesthesia Record ESTIMATED BLOOD LOSS: 5 PATHOLOGY: none sent COMPLICATIONS: None Patient was transported to: PACU Patient's condition: stable Implants: Arthrex: 4.75mm SwiveLocks x 6 Indications: The patient was diagnosed with the above conditions and appropriately indicated for surgical intervention. Please see complete medical record for details. Findings: Exam under anesthesia: Moderately full range of motion, no instability Glenohumeral joint: Mild glenohumeral chondromalacia. Mild anterior labral tear fraying, significant rotator interval disruption with the anterior portion of the rotator cable medially retracted over an upper portion subscapularis partial tearing. Biceps with mild injection, otherwise structurally intact, no SLAP tear. Posterior labrum intact. Mild superior humeral head chondromalacia. Subacromial space: Moderate bursitis. Obvious full-thickness moderately significantly retracted rotator cuff tear starting anterior to the biceps involving the anterior cable, entirety of the supraspinatus, and infraspinatus. Intact far posterior cuff/teres. About 5 cm from anterior to posterior. Mild posterior superior cuff remnant on the greater tuberosity. Moderate subacromial space narrowing. Procedure Description: In the operating room, general anesthesia was induced. Bilateral shoulders were examined. The patient was positioned in the beachchair position. All bony prominences were well-padded. Preoperative antibiotics were administered. The shoulder was prepped and draped in the usual sterile fashion. The correct patient, procedure, and side of the procedure were all verified prior to incision. Starting through the posterior portal a standard complete diagnostic arthroscopy was performed of the glenohumeral joint including inspection of the long head of the biceps, anterior and superior labrum, subscapularis tendon, supraspinatus and infraspinatus tendons, and axillary recess. The glenoid and humeral head cartilage as well as the posterior labrum were inspected from a superior viewing portal me through the full-thickness rotator cuff tear. Significant findings and interventions noted above. The biceps tendon was left attached to superior labrum given largely structurally intact biceps and biceps anchor. The significant anterior tissue disruption was debrided, the partial subscapularis tear could be somewhat reduced to the upper portion of the lesser tuberosity, which was prepared with a mechanical shaver adjacent to the biceps tendon and the superior aspect of the groove. The remainder of the tissue was anterior cable and confluent although frayed and delaminated with the remainder of the large superior to posterior superior rotator cuff tear. The biceps tendon would be moved slightly laterally to augment the massive rotator cuff tear while leaving it attached to superior labrum as a potential superior capsular augment for humeral head depression. Starting through the posterior portal, the arthroscope was directed into the subacromial space. A lateral 50 yard line lateral portal was created. A combination of power instruments and a radiofrequency ablator were used to debride bursitis anteriorly, posteriorly, and laterally as well as expose and smooth bone spurring on the undersurface of the acromion. The coracoacromial ligament was partially released. The bursectomy was completed viewing laterally and working from posteriorly and the rotator cuff was thoroughly inspected with findings noted above. The delaminated retracted rotator cuff was debrided of nonviable tissue especially posteriorly and some delaminated layers at the anterior posterior margins. Various arm position cuff grasper was used to confirm reduction which was largely from medial to lateral and slightly more anterior to posterior than usual posterior to anterior. Reduction was moderately good without much tension across the greater tuberosity, which was prepared thoroughly with the mechanical shaver to an abraded bleeding bone surface. Cannulas were inserted at the superior anterior lateral, lateral, and posterior superior lateral portals. A suture tape FiberLink was shuttled around the biceps tendon at the level of the greater tuberosity articular margin and used to secure the biceps tendon. The scorpion suture passer was used to secure the superior lateral portion of the subscapularis tear. An anterior medial row anchor was punched and placed containing FiberTape's as well as the subscapularis and biceps tendon transposition tenodesis repair sutures. One of the sliding repair sutures were then shuttled around the biceps tendon and secured additionally with SMC arthroscopic knots completing the biceps transposition tenodesis. Next, a middle medial row anchor was placed loaded with FiberTape's followed by a posterior middle row anchor slightly off the articular margin appropriately for the infraspinatus with FiberTape's as well. The scorpion was then used to shuttle a suture tape FiberLink through the rotator cuff anteriorly, middle, and posteriorly and sequentially pass the medial row FiberTape's through the rotator cuff at the appropriate levels. A single tape from the anterior and middle anchors was brought out laterally, the scorpion used to place an additional FiberLink in cinch mode anteriorly and secured to an anterior lateral anchor. Similarly, an anterior and posterior tape was brought out laterally and a length was placed centrally and secured to a middle lateral anchor. Lastly, the remaining middle and posterior tape were brought out laterally, a last FiberLink was placed posteriorly, and all secured to a posterior lateral row anchor. The repair was stable through range of motion testing with good reduction, tissue coverage and compression to bone about this impressively large rotator cuff repair. The shoulder was drained of arthroscopic fluid. All portal sites were copiously irrigated. These incisions were closed using 3-0 Monocryl in a buried fashion and then covered with Mastisol, Steri-Strips, Xeroform, dry gauze, and ABDs. The dressings were covered and secured with Medipore tape. The operative extremity was placed into a sling for immobilization. The patient awoke from anesthesia without complication and was transferred to the recovery room in a stable condition.
[2023-09-21] MEDS: Lactated Ringers 1,000 ML 30 ML IV (10:23)
--- NOTE | 2023-09-21 11:00 | W.ANESPRE ---
General Info Date of Service Date Performed: 09/21/23 Height: 6 ft 2 in Weight: 112.2 kg Body Mass Index (BMI): 31.7 Surgical Procedure: Operation Date: 09/21/23 12:25 Proposed Procedure Side Surgeon p Shoulder Massive Rotator Cuff Arthroscopic w/Extensive Debridement, Biceps Tenodesis, Subacromial Decompression, Possible Allograft Superior Capsular Reconstruction Left rTu Hernandez MD Meds Allergies and Home Medications Allergies Allergy/AdvReac Type Severity Reaction Status Date / Time nickel Allergy Mild Skin Rash Verified 09/21/23 10:01 Home Medication Medication Instructions Recorded apixaban 5 mg tablet (Eliquis) 5 mg PO BID 08/31/22 empagliflozin 10 mg tablet 10 mg PO QPM 08/31/22 (Jardiance) tadalafil 10 mg tablet 10 mg PO DAILY PRN 05/15/23 Current Visit Medications: Current Medications Generic Name Dose Route Start Last Admin Trade Name Freq PRN Reason Stop Dose Admin Ringer's Solution 1,000 mls @ 30 mls/hr 09/21/23 06:00 09/21/23 10:23 IV 09/21/23 23:59 30 mls/hr INFUSION HAZEL Administration Cefazolin Sodium 3,000 mg/ 100 mls @ 200 mls/hr 09/21/23 06:00 Sodium Chloride IVPB 09/21/23 23:59 PREOP HAZEL Tranexamic Acid/Sodium Chloride 1,000 mg in 100 mls @ 600 mls/hr 09/21/23 06:00 IVPB 09/21/23 23:59 PREOP HAZEL IV Miscellaneous Supplies 1 each 09/21/23 06:00 Iv Access IV 09/21/23 23:59 DIRECTED HAZEL Oxycodone HCl 0 mg 09/21/23 07:18 Oxycodone 5 Mg Tab PO 10/21/23 07:17 Q3H PRN PRN Pain Sodium Chloride 0 ml 09/21/23 06:00 Normal Saline Flush 10 Ml Syr IV 09/21/23 23:59 PRN PRN Sodium Chloride 0 ml 09/21/23 06:00 Normal Saline 10 Ml Vial IJ 09/21/23 23:59 DIRECTED PRN Sterile Water 0 ml 09/21/23 06:00 Water,Injection,Sterile 10 Ml Vial IJ 09/21/23 23:59 DIRECTED PRN PFSH Active Problems Active Problems: Problem Status Onset Code Left rotator cuff tear M75.102 Injury of left shoulder S49.92XA Abrasion T14.8XXA Erythrocytosis D75.1 Painful total knee replacement, left T84.84XA, Z96.652 Arthritis of right knee M17.11 Rosacea L71.9 MESHA (obstructive sleep apnea) G47.33 Heart murmur R01.1 Essential hypertension I10 Diabetes mellitus E11.9 Medical History Medical History Tear of meniscus of right knee History of colon polyps History of hemorrhoids Erectile dysfunction due to arterial insufficiency DVT (deep venous thrombosis) Diverticulitis Renal calculus Surgical History Surgical History Hx of cholecystectomy Tobacco Smoking/Tobacco Use Status: Never Alcohol Alcohol Intake: current Alcohol intake frequency: a few times a month Alcohol type: beer Substance Use Substance use: Never Substance use type: does not use Vital Signs and Lab Results Vital Signs Most Recent Vital Signs in EMR: Most Recent Vital Signs Temp Pulse Resp BP Pulse Ox 36.6 C 72 16 148/99 H 98 09/21/23 09:47 09/21/23 09:47 09/21/23 09:47 09/21/23 09:47 09/21/23 09:47 Point of Care Results Point of Care Results: Finger Stick Blood Glucose 139 09/21/23 10:06 Lab Results Blood Type / Crossmatch: No Data to Display Complete Blood Count: No Data to Display Complete Metabolic Panel: No Data to Display Liver Function Panel: No Data to Display Coagulation Panel: No Data to Display Cardiac Panel: No Data to Display Arterial Blood Gas: No Data to Display Venous Blood Gas: No Data to Display Pancreas Panel: No Data to Display Thyroid Panel: No Data to Display Infectious Disease: No Data to Display Blood Cultures: No Data to Display Toxicology Panel: No Data to Display Anesthesia Assessment and Plan Anesthesia History Personal History: No History of Anesthesia Complications Family History: No Family History of Anesthesia Complications Exercise Tolerance Exercise Tolerance: Metabolic Equivalents>4 Pertinent Negatives Pertinent Negatives: No Symptoms of GERD, No Major Cardiovascular Symptoms or Complaints, No Major Pulmonary Symptoms or Complaints and No History of CVA/TIA Cardiac & Pulmonary Exam Cardiac Exam: Normal S1/S2 Heart Sounds Pulmonary Exam: Clear Bilateral Breath Sounds Implantable Cardiac Device Does patient have a Pacemaker or an ICD?: No Airway Exam Known Difficult Airway: No Mallampati Class: 2 Mouth Opening: Normal (> 3cm) Thyromental Distance: Greater than 3 cm Neck Range of Motion: Full ROM (hx of cervical discectomy with fusion, patient states no ROM limitations) Neck Circumference: Normal Teeth Condition: Normal Dentition ASA Classification ASA Score: ASA 2 Emergency Case?: No NPO Status NPO Status: NPO Clears >2 hours, Solids >8 hours Anesthesia Plan Resuscitation Status: Full Code Anesthesia Technique: General Anesthesia Airway Planned: Endotracheal Tube Pain Management: Surgeon and patient request nerve block Monitors Used: Standard Monitors
[2023-09-21] MEDS: ceFAZolin 3,000 MG in Normal Saline 100 ML 200 MG IVPB (12:08)
[2023-09-21] MEDS: TRANEXAMIC ACID/SOD. CHL. 1,000 MG/100 ML BAG 600 MG IVPB (12:24)
--- NOTE | 2023-09-21 12:46 | W.ANESNERVE ---
Nerve Block Single Injection Procedure Date and Time Date Performed: 09/21/23 Procedure Start: 11:37 Location Where Procedure Performed Procedure Location: Day Surgery Unit Reason Performed: Postoperative Analgesia Requesting Provider: Tru Hernandez Timeout Performed Timeout Performed: Yes Monitoring Used ECG, Blood Pressure, SpO2 and See EMR for corresponding vital signs Sterility Sterility: Hand Hygiene, Surgical Cap, Surgical Mask, Sterile Gloves and Chlorhexidine Sedation Given During Procedure Sedation Given (Indicate Dose Given): Versed IV Dose:: 2 mg Patient Mental Status Patient Mental Status: Sedate with meaningful communication Nerve Block 1st Nerve Block: Laterality: Left Block Type: Interscalene Ultrasound Image Saved?: Yes Needle / Catheter Used: 100mm SonoPlex II Local Anesthetic Bolus (Indicate Dose Given): Lidocaine used for local infiltration of skin, Injected in 3-5ml increments after negative blood aspiration, Bupivacaine 0.25% Dose:: 10 ml and Exparel Dose:: 10 ml Additives (Indicate Dose Given): None Ultrasound: Sterile probe cover and gel used Nerve Stimulator: Supplement to Ultrasound use and No twitch or parasthesia noted < 0.5 mA Paresthesia: None Post Procedure Pain score (0-10): 0 Procedure Tolerated: No Complications and Patient tolerated well Procedure Outcome: Successful Performed By: Ema Das
[2023-09-21] MEDS: Bupivacaine 0.25% Pres-Free W/EPI 30 ML VIAL (12:59)
[2023-09-21] MEDS: EPINEPHrine 10 MG/10 ML ML (14:23)
--- NOTE | 2023-09-21 15:18 | W.ANESPOSTOP ---
Postoperative Evaluation Date, Time and Location Date Performed: 09/21/23 Time Performed: 15:18 Patient Location: PACU Vital Signs Most Recent Imported Vital Signs: Most Recent Vital Signs Temp Pulse Resp BP Pulse Ox 36.4 C L 77 22 108/83 93 09/21/23 15:08 09/21/23 15:08 09/21/23 15:08 09/21/23 15:08 09/21/23 15:08 Pain Score Most Recent Pain Score: Most Recent Pain Score Pain Level 0 09/21/23 11:10 Assessment Mental Status: Awake (Alert & Oriented to Patient Baseline) Airway and Respiratory Function: Patent airway with normal (patient baseline) respiratory exam Cardiovascular Function: Hemodynamically Stable Hydration Status: Adequately Hydrated Nausea & Vomiting: No Nausea or Vomiting Pain: Pain is tolerable per patient Peripheral Nerve Block: Regional nerve block not resolved at time of post operative discharge
== END 2023-09-21 16:20 | disposition home or self-care (01) ==
LOC: SUR 09:44
PROVIDERS: PCP Family Medicine; Visit Provider Student in an Organized Health Care Education/Training Program
PROC: (CPT 29827; principal; 2023-09-21 12:15)
DX: M75.22 Bicipital tendinitis, left shoulder (principal); S46.012A Strain of muscle(s) and tendon(s) of the rotator cuff of left shoulder, initial encounter; W19.XXXA Unspecified fall, initial encounter; M75.52 Bursitis of left shoulder; E11.9 Type 2 diabetes mellitus without complications
CPT/HCPCS: 29827; 29828; 29823; 29826; 76942; C9290; J0665; J0690; J1100; J1885; J2001; J2250; J2371; J2405; J2704

== ENCOUNTER 2023-12-13 10:26 | Outpatient (CLI) | payer BC, SELFPAY ==
--- NOTE | 2023-12-13 09:53 | DI.RAD_ITS ---
Exam(s) XR KNEE LT 3V AP,LAT,NOHEMY EXAM: XR KNEE LT 3V AP,LAT,NOHEMY CLINICAL HISTORY: painful L TKR. TECHNIQUE: 2D digital imaging was performed. Three images were obtained. Merchant's, AP and lateral views were obtained. COMPARISON: CR XR KNEE 3 VIEW LEFT from 09/06/2021 FINDINGS: BONES: There again seen findings of a left total knee replacement. There is a lucency now seen along the medial aspect of the bone prosthesis interface of the proximal tibia. No fracture or dislocatio n. JOINTS: The orthopedic hardware is in good position. SOFT TISSUE: Normal. IMPRESSION: There is a lucency seen at the bone-prosthetic interface in the proximal tibia. Loosening cannot be excluded. DATA REPOSITORY: RADIATION DOSE DELIVERED:
== END 2023-12-13 10:27 | disposition home or self-care (01) ==
LOC: DIORS 10:26
PROVIDERS: PCP Family Medicine; Visit Provider Physician Assistant
DX: T84.84XA Pain due to internal orthopedic prosthetic devices, implants and grafts, initial encounter (principal); Z96.652 Presence of left artificial knee joint
CPT/HCPCS: 73562

== ENCOUNTER 2024-01-01 01:27 | Outpatient (CLI) | payer BC, SELFPAY ==
--- NOTE | 2024-01-01 07:00 | DI.NM_ITS ---
Exam(s) NM BONE SCAN 3 PHASE EXAM: NM BONE SCAN 3 PHASE CLINICAL HISTORY: pain, ?loosening,t84.84xa,z96.652. TECHNIQUE: Injected Dose: 25 mCi Tc-99m MDP COMPARISON: CR XR KNEE LT 3V AP,LAT,NOHEMY from 12/13/[address] LOWER EXTREMITY LT WO from 12/24/2023 FINDINGS: Perfusion: Symmetric. Blood Pool: On the immediate images, there is mild increased radiotracer uptake particularly noted ar ound the bone-metal interface of the tibial component of the left total knee replacement. Delayed: There is increased radiotracer uptake seen along the tibial component of the left total knee replacement on the delayed images. IMPRESSION: There is increased radiotracer uptake seen on the delayed images at the bone metal interface of the t ibial component of total knee replacement. This can be seen with prosthetic loosening. DATA REPOSITORY:
[2024-01-01 08:19] LABS: ESR 11 mm/hr (0-20)
[2024-01-01 08:33] LABS: C-Reactive Protein < 0.50 mg/dL (<or=0.5)
== END 2024-01-01 01:47 ==
LOC: DI 01:27
PROVIDERS: PCP Family Medicine; Visit Provider Student in an Organized Health Care Education/Training Program
DX: T84.84XA Pain due to internal orthopedic prosthetic devices, implants and grafts, initial encounter (principal); Z96.652 Presence of left artificial knee joint
CPT/HCPCS: 85652; 78315; 86140

== ENCOUNTER 2024-02-18 02:28 | Outpatient (CLI) | payer BC, SELFPAY ==
[2024-02-18 14:59] LABS: HCT 53.7 % (40.0-50.0); MCH 29.7 pg (27.0-33.0); MCHC 33.5 % (32.0-36.0); MCV 89 fL (80-95); MPV 10.8 fL (8.0-11.0); Platelet Count 227 10^3/uL (130-400); RBC 6.07 10^6/uL (4.36-5.78); RDW 12.3 % (11.8-14.1); RDW-SD 40.2 fL; WBC 10.79 10^3/uL (4.4-10.8)
[2024-02-18 15:43] LABS: Anion Gap 12.3 mmol/L (3-11); BUN 27 mg/dL (7-18); CO2 23.7 mmol/L (21.0-32.0); CREATININE 1.3 mg/dL (0.70-1.30); Calcium 9.9 mg/dL (8.5-10.1); Chloride 106 mmol/L (98-107); Estimated GFR 64.07 (mL/min/1.73m2); Glucose 195 mg/dL (74-106); Potassium 3.9 mmol/L (3.5-5.1); Sodium 142 mmol/L (136-145)
[2024-02-19 08:28] LABS: Hemoglobin A1C 7.3 % (<5.7)
== END 2024-02-18 02:29 | disposition home or self-care (01) ==
LOC: LBO 02:28
PROVIDERS: PCP Family Medicine; Visit Provider Student in an Organized Health Care Education/Training Program
DX: M17.11 Unilateral primary osteoarthritis, right knee (principal); Z01.818 Encounter for other preprocedural examination; T84.84XA Pain due to internal orthopedic prosthetic devices, implants and grafts, initial encounter; Z96.652 Presence of left artificial knee joint
CPT/HCPCS: 36415; 80048; 85027; 83036

== ENCOUNTER 2024-02-18 15:46 | Outpatient (CLI) | payer BC, SELFPAY ==
--- NOTE | 2024-02-18 14:00 | DI.RAD_ITS ---
Exam(s) XR KNEE RT 1V XR STANDING ALIGNMENT EXAM: XR STANDING ALIGNMENT and XR knee RT 1 V CLINICAL HISTORY: PRE OP R TKA. TECHNIQUE: 2D digital imaging was performed. Five images were obtained. COMPARISON: CR XR KNEE RT 1V from 07/02/2023 CR XR STANDING ALIGNMENT from 07/02/2023 CR XR KNEE LT 3V AP,LAT,NOHEMY from 12/13/2023 FINDINGS: BONES: There are mild degenerative changes seen in the hips bilaterally characterized by joint space narrowing and osteophytes. There is a stable left total knee replacement. In the right knee, there is marked narrowing of the medial femoral tibial joint. Osteophytes are seen both in the medial femo ral tibial and patellofemoral joint. The ankles are well maintained.There is no significant leg laura th discrepancy. SOFT TISSUE: Normal. IMPRESSION: Marked osteoarthritis of the right knee. DATA REPOSITORY: RADIATION DOSE DELIVERED:
== END 2024-02-18 15:47 | disposition home or self-care (01) ==
LOC: DIORS 15:47
PROVIDERS: PCP Family Medicine; Visit Provider Physician Assistant
DX: M17.11 Unilateral primary osteoarthritis, right knee (principal)
CPT/HCPCS: 73560; 77073

== ENCOUNTER 2024-02-22 09:26 | Outpatient (CLI) | payer BC, SELFPAY ==
--- OUTSIDE RECORDS SUMMARY | 2024-02-22 09:31 | XMS_ITS | Encounter Summary ---
Author Organization [facility] Address [address] [facility] [place] [address] Care Team Providers Care Account Financial Manager Name Role Phone Ingrid Aragon MD Primary Care Provider [phone] Encounter Details Date Type Department Care Team (Late st Contact Info) Description 11/02/2015 Telephone Family Practice at [place] [address] [place] [address] Ingrid Aragon MD [address] [place], [place] [id number] Social History Tobacco Use Types Packs/Day Years Used Date Smoking Tobacco: Never Smokeless Tobacco: Never Alcohol Use Standard Drinks/Week Comments Yes 0.8 (1 standard drink = 0.6 oz p ure alcohol) once in awhile 1 a week Sex and Gender Information Value Date Recorded Sex Assigned at Not on file Gender Identity Not on file Sexual Orientation Not on file documented as of this encounter Miscellaneous Notes * Telephone Encounter - Ingrid Aragon MD - 12/19/2015 9:07 PM EDT error documented in this encounter Plan of Treatment Not on file documented as of this encounter Visit Diagnoses Not on filedocumented in this encounter Care Teams Account Financial Manager Relationship Specialty Start Date End Date Ingrid Aragon MD [address] [place], [place] [id number] PCP - General 3/25/15 3/13/18 documented as of this encounter
--- OUTSIDE RECORDS SUMMARY | 2024-02-22 09:31 | XMS_ITS | Encounter Summary ---
Author Organization [facility] Address One [facility] [place] [address] Care Team Providers Care Senior Support Engineer Name Role Phone Shanell Aragon MD Primary Care Provider [phone] Encounter Details Date Type Department Care Team (Late st Contact Info) Description 11/10/2016 Refill Family Practice at [address] [address] Octaviano العلي LPN Inability to maintain erection Social History Tobacco Use Types Packs/Day Years [...] encounter Miscellaneous Notes * Telephone Encounter - Octaviano العلي LPN - 11/10/2016 3:04 PM EDT Spoke with patient as he is overdue for an appointment Patient states that he has moved and is in the process of finding another provider closer to home. Patient requesting short supply of medication. * Telephone Encounter - Octaviano العلي LPN - 11/10/2016 3:03 PM EDT Copied from [facility] #[id number]. Topic: Prescription Refill - [facility] Refill >> Nov 10, 2016 1:05 PM Annabella Nesbitt wrote: Refill request PCP: SHANELL ARAGON Has the patient been seen for a physical or follow-up appointment in our department within the lastyear? no Medication, dose, and frequency (copy and paste from e-DH): 1. tadalafil (CIALIS) 5 mg Tablet/30 tablet/Take 2 tablets by mouth as needed for Erectile Dysfunction Send to pharmacy (name and number): [facility] [place] [address], [place] - [address] [place] [phone] New pharmacy for patient Patient informed of the 48 to 72 hour policy time for RX requests: yes documented in this encounter Plan of Treatment Not on file documented as of this encounter Visit Diagnoses Diagnosis Inability to maintain erection Psychosexual dysfunction with inhibited sexual excitement documented in this encounter Care Teams Senior Support Engineer Relationship Specialty Start Date End Date Shanell Aragon MD [address] [place] [address] PCP - General 07/22/14 07/10/17 documented as of this encounter
--- OUTSIDE RECORDS SUMMARY | 2024-02-22 09:31 | XMS_ITS | Encounter Summary ---
Author Organization [facility] Address [facility] [place] [address] Care Team Providers Care Plc Engineer Name Role Phone StacieOli DO Primary Care Provider [phone] Encounter Details Date Type Department Care Team (Late st Contact Info) Description 09/12/2023 Orders Only Hematology [place] [address] Ronnie Sapp MD [facility] [place] [address] Erythrocytosis Social History Tobacco Use Types Packs/Day Years [...] on file documented as of this encounter Progress Notes * Ronnie Sapp MD - 09/12/2023 1:33 PM EDT Ordering erythrocytosis labs documented in this encounter Plan of Treatment Scheduled Orders Name Type Priority Associated Diagnoses Orde r Schedule CBC (with Diff) Lab Routine Erythrocytosis Expected: 09/12/2023 (Approximate), Expires: 03/13/2024 JAK2 V617F, Exon12, and Other Non-V617F Mut Lab Routine Erythrocytosis Expected: 09/12/2023 (Approximate), Expires: 03/13/2024 Erythropoietin Level Lab Routine Erythrocytosis Expected: 09/12/2023 (Approximate), Expires: 03/13/2024 documented as of this encounter Visit Diagnoses Diagnosis Erythrocytosis Polycythemia, secondary documented in this encounter Care Teams Plc Engineer Relationship Specialty Start Date End Date Oli Quinones DO [address] [place] [address] PCP - General Family Medicine 09/05/23 documented as of this encounter
--- OUTSIDE RECORDS SUMMARY | 2024-02-22 09:31 | XMS_ITS | Encounter Summary ---
Author Organization [facility] Address One [facility] [place] [address] Care Team Providers Care Securities Attorney Name Role Phone Ingrid Aragon MD Primary Care Provider [phone] Reason for Visit * Reason Onset Date Comments Labs Only 07/14/2016 Encounter Details Date Type Department Care Team (Late st Contact Info) Description 07/14/2016 Telephone Family Practice at [place] [address] [place] [address] Samantha Hatch, RN Labs Only Social History Tobacco Use Types Packs/Day Years [...] encounter Miscellaneous Notes * Telephone Encounter - Samantha Hatch RN - 07/14/2016 3:30 PM EDT Left a recorded message for pt to return phone call. Call center when pt calls back please help theto schedule appt for hemoglobin A1C labs due. Thank you. documented in this encounter Plan of Treatment Not on file documented as of this encounter Visit Diagnoses Not on filedocumented in this encounter Care Teams Securities Attorney Relationship Specialty Start Date End Date Ingrid Aragon MD [address] [place] [address] [place] [address] PCP - General 07/22/14 07/10/17 documented as of this encounter
--- OUTSIDE RECORDS SUMMARY | 2024-02-22 09:31 | XMS_ITS | Encounter Summary ---
Author Organization [facility] Address [facility] [place] [address] Care Team Providers Care Immigration Inspector Name Role Phone Oli Quinones DO Primary Care Provider [phone] Reason for Visit * Reason Comments Establish Care * Consultation (Routine) - Authorized Specialty Diagnoses / Procedures Referred By Contac t Referred To Contact Hematology and Oncology Diagnoses Other hemoglobinopathies PLEASE REFER TO [facility] FOR ELEVATED HEMOGLOBIN AND HEMATOCRIT. Oli Quinones DO [address] [place] [address] [facility] [address] [place] [address] Referral ID Status Reason Start Date Expiration Date Visits Requested Visits Authorized [id number] Authorized Consult, Test & Treat PCP Updated and/or Approved 08/28/2023 08/27/2024 6 6 Encounter Details Date Type Department Care Team (Late st Contact Info) Description 10/12/2023 1:30 PM EDT Office Visit [place] [address] Mac Cueva MD [facility] [place] [address] Polycythemia Social History Tobacco Use Types Packs/Day Years Used Date Smoking Tobacco: Never Smokeless Tobacco: Never Alcohol Use Standard Drinks/Week Comments Yes 0.8 (1 standard drink = 0.6 oz p ure alcohol) once in awhile 1 a week B1300 Health Literacy Answer Date Recor ded How often do you need to hav e someone help you when you read instructions, pamphlets, or other written material from your doctor or pharmacy? Never 10/12/2023 [facility] Utilities Answer Date Recorded In the past 12 months has th e electric, gas, oil, or water company threatened to shut off services in your home? No 10/12/2023 Overall Financial Resource Strain (CARDIA) Answe r Date Recorded How hard is it for you to pa y for the very basics like food, housing, medical care, and heating? Not hard at all 10/12/2023 Hunger Vital Sign Answer Date Recorded Within the past 12 months, y ou worried that your food would run out before you got the money to buy more. Never true 10/12/19 24 Within the past 12 months, t he food you bought just didn't last and you didn't have money to get more. Never true 10/12/2023 PRAPARE - Transportation Answer Date Re corded In the past 12 months, has l ack of transportation kept you from medical appointments or from getting medications? No 09/28 In the past 12 months, has l ack of transportation kept you from meetings, work, or from getting things needed for daily living? No 10/12/2023 Housing Stability Vital Sign Answer Hua e Recorded In the last 12 months, was t here a time when you were not able to pay the mortgage or rent on time? No 10/12/2023 In the past 12 months, how m any times have you moved where you were living? 0 10/12/2023 At any time in the past 12 m [facility], were you homeless or living in a snf (including now)? No 10/12/2023 Sex and Gender Information Value Date Recorded Sex Assigned at Not on file Gender Identity Not on file Sexual Orientation Not on file documented as of this encounter Last Filed Vital Signs Vital Sign Reading Time Taken Comments Blood Pressure 152/94 10/12/2023 1:39 PM EDT Pulse 83 10/12/2023 1:39 PM EDT Temperature 36.7 ??C (98.1 ??F) 10/12/2023 1:39 PM ED T Respiratory Rate 18 10/12/2023 1:39 PM EDT Oxygen Saturation 96% 10/12/2023 1:39 PM EDT Inhaled Oxygen Concentration - - Weight 112.5 kg (248 lb 0.3 oz) 10/12/2023 1:39 PM EDT Height - - Body Mass Index 32.72 10/08/2015 9:55 AM EDT documented in this encounter Progress Notes * Mac Cueva MD - 10/12/2023 1:30 PM EDT Images from the original note were not included. HEMATOLOGY CONSULTATION VISIT NOTE DATE OF VISIT : 10/12/23 REFERRING PROVIDER: Oli Quinones Reason for Visit: Polycythemia HPI Pepito Cordon is a 58 y.o. male with PMH of Type 2 DM, untreated MESHA, HTN, unprovoked DVT, referred for evaluation of polycythemia. He reports he's been on eliquis for two years for a DVT during COVID era. He's been noted to have a high hemoglobin for at least 10 years as part of employee physical. He saw a physician down in [place] for this and was told it was a bit high but that there was no reason for concern. He has a history of a DVT in his left lower extremity and has been on eliquis for this. There was no clear provoking factor. He had his gallbladder out in April and it was recommended he be tested because he's been on eliquis for too long for no reason, He is undergoing evaluation for knee surgery and his knee surgeon also suggested hematology referral. He's had no other blood clots or strokes.He's had no history of hormone supplementation including testosterone. He takes OTC zinc but no other supplements. He is a never smoker. He is a very occasional alcohol drinker, at most once a week. He has a history of CPAP and had not worn his mask for several years. He reports he had a lot of labs that were out of whack that returned to normal when he first started to use CPAP. His addsthat he was told he had very bad sleep apnea and she does notice very prolonged periods of apnea when he is sleeping at night. Prior to our visit, he had blood work done which showed normal range epo and no JAK2 mutation. He's had no fevers, chills, unexplained weight loss, or generally any health complaints. He reportshis biggest issues are his knees and he's awaiting repair of these. He hopes to have his knee done in December. He recently had rotator cuff surgery about 3 weeks ago. Problem List Patient Active Problem List Diagnosis Code Low back pain M54.50 Essential hypertension I10 Prediabetes R73.03 Health care maintenance Z00.00 Body mass index (BMI) of 38.0-38.9 in adult Z68.38 Right knee meniscal tear S83.206A Eczema L30.9 MESHA on CPAP G47.33 Male erectile dysfunction for cialis N52.9 Surgical Hx Past Surgical History: Procedure Laterality Date CERVICAL DISCECTOMY 05/2009 herniated cervical disc CIRCUMCISION circumcision Procedure Date: Unknown COLONOSCOPY 11/06/2014 FOOT TENDON SURGERY HAMMER TOE SURGERY ORTHOPEDIC SURGERY RHINOPLASTY VASECTOMY 01/2010 WISDOM TOOTH EXTRACTION Medications I reviewed the medication list in the eDH with the pt Current Outpatient Medications Medication Instructions Arginine HCl, L-Arginine, 1,000 mg Tablet Oral, DAILY Eliquis 5 mg, Oral, 2 TIMES DAILY Jardiance 10 mg, Oral, EVERY EVENING tadalafiL (CIALIS) 10 mg, Oral, PRN Allergies/ADR I reviewed the allergies listed in the eDH with the pt Allergies Allergen Reactions Nickel Social Hx Social History Socioeconomic History Marital status: Spouse name: None Number of children: None Years of education: None Highest education level: None Occupational History None Tobacco Use Smoking status: Never Smokeless tobacco: Never Substance and Sexual Activity Alcohol use: Yes Alcohol/week: 0.8 standard drinks of alcohol Types: 1 Standard drinks or equivalent per week Comment: once in awhile 1 a week Drug use: No Sexual activity: Yes Comment: with his Other Topics Concern None Social History Narrative , lives in a house. Has one child. Has two cats. No background. No exposure to asbestos. Some second hand smoke exposure growing up. 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 No travel outside the [place]. Social Determinants of Health Financial Resource Strain: Low Risk (10/12/2023) Overall Financial Resource Strain (CARDIA) Difficulty of Paying Living Expenses: Not hard at all Food Insecurity: No Food Insecurity (10/12/2023) Hunger Vital Sign Worried About Running Out of Food in the Last Year: Never true Ran Out of Food in the Last Year: Never true Transportation Needs: No Transportation Needs (10/12/2023) PRAPARE - Transportation Lack of Transportation (Medical): No Lack of Transportation (Non-Medical): No Physical Activity: Not on file Intimate Partner Violence: Not on file Housing Stability: Low Risk (10/12/2023) Housing Stability Vital Sign Unable to Pay for Housing in the Last Year: No Number of Times Moved in the Last Year: 0 Homeless in the Last Year: No Lives in: [employer] ETOH: Very occasional Smoking: Never Family Hx Family History Problem Relation Age of Onset Colorectal Cancer Father High Blood Pressure Father High Cholesterol Father Diabetes Paternal Grandmother Blood Disorder Brother Prostate Cancer Neg Hx Coronary Artery Disease Neg Hx No FH of hematogical disorders Review of Systems A 10-point review of systems was performed and is unremarkable except as detailed in the interval history. Physical Exam Vitals Blood pressure (!) 152/94, pulse 83, temperature 36.7 ??C (98.1 ??F), temperature source Temporal, resp. rate 18, weight 112.5 kg (248 lb 0.3 oz), SpO2 96%. Body mass index is 32.72 kg/m??. Body surface area is 2.41 meters squared. ECOG - ecog ps: 0 - Asymptomatic Constitutional: Well-appearing gentleman in no acute distress. Skin: No bruises or petechiae seen. No rashes or lesions. Lymphatic: No cervical, supraclavicular or axillary adenopathy HEENT: Atraumatic. Anicteric sclera. Conjunctivae are without injection or pallor. Oropharynx showsmoist mucosa. Tongue is well papilated without erythema or glossitis. Neck: Supple. No adenopathy. No JVD. No bruits. Back: Vertebral column is non-tender to punch. Cardiac: Regular, without murmurs, gallops, or rubs. Respiratory: Lungs are clear to posterior auscultation bilaterally. Abdomen: Soft and non-tender. No obvious hepatosplenomegaly. No masses, guarding or rebound. Normalbowel sounds. Rectal: Deferred. Extremities: Warm and well-perfused and without lower extremity edema. Neurologic: Fully alert and oriented; no grossly apparent focal deficits. Labs Labs 09/14/2023 from OSH reviewed in EMR. CBC reveals WBC of 7500/uL, HgB of 17.4 g/dL with HCT 51.3%. Plts are 216,000/uL. Basophil count was reported at 1% though ABC was 100/uL. Assessment and Plan # Polycythemia, likely # Hx DVT, ?unprovoked I discussed with Pepito and his that his polycythemia appears to be very likely secondary. Hehas undergone testing for JAK2 mutation and this was nondiagnostic. I think the likelihood that he has a primary myeloproliferative neoplasm is rather low. I did note that he had a very borderline elevated basophil count and had not been tested for BCR/ABL, but given his very low absolute basophil count, I think this is very unlikely. I think the clinical history is very strongly supportive of the diagnosis of sleep apnea as the cause of his secondary polycythemia. Pepito has just restarted his CPAP and I encouraged him to continue this for several months. He is due to have knee surgery in December and I suggest that he recheck his CBC with his PCP at that time. If his counts continue to improve, then we have a diagnostic/therapeutic intervention. If his counts continue to trend up despite compliance with CPAP I would be happy to see him back for further evaluation. Regarding his anticoagulation, he appears to have been on indefinite anticoagulation with Eliquis for unprovoked DVT. I suggested continue to discuss with his PCP and consider stopping this if there is no identified ongoing provoking cause. While outside my scope of this consultation, I agree that it may be reasonable to reconsider indefinite duration, He may benefit from Aspirin 81 mg for risk reduction of CVA/stroke, though asa alone would reduce venous thrombosis risk. If there are questions regarding ongoing anticoagulation management, I would encourage him to be referred back to our coagulation group here for further evaluation. RTC PRN I reviewed my impression and recommendations with Pepito Cordon and answered all the questions..Pt agreed with the plan. Thank you for inviting us to participate in the care of this patient; please don't hesitate to contact me if you'd like to discuss this patient's situation further. Mac Cueva MD Section of Hematology Architectural Superintendentdigital media representative [facility] Greater than 45 minutes were spent on date of visit, including non-face to face time. CC: DO Stacie Pina Richard G documented in this encounter Plan of Treatment Not on file documented as of this encounter Visit Diagnoses Diagnosis Polycythemia Polycythemia vera documented in this encounter Care Teams Immigration Inspector Relationship Specialty Start Date End Date Oli Quinones DO [address] [place] [address] PCP - General Family Medicine 09/05/23 documented as of this encounter
--- OUTSIDE RECORDS SUMMARY | 2024-02-22 09:31 | XMS_ITS | Encounter Summary ---
Author Organization [facility] Address [facility] [place] [address] Care Team Providers Care Physical Science Professor Name Role Phone Ingrid Aragon MD Primary Care Provider Reason for Visit * Reason Onset Date Comments Labs Only 07/07/2016 Encounter Details Date Type Department Care Team (Late st Contact Info) Description 07/07/2016 Telephone Family Practice at [address] [phone] Samantha Hatch, RN Labs Only Social [...] Telephone Encounter - Samantha Hatch RN - 07/07/2016 12:13 PM EST Left a recorded message for pt to return phone call. Call center when pt calls back please help theto schedule appt for hemoglobin A1C lab due. Thank you. documented in this encounter Plan of Treatment Not on file documented as of this encounter Visit Diagnoses Not on filedocumented in this encounter Care Teams Physical Science Professor Relationship Specialty Start Date End Date Ingrid Aragon MD [address] [facility] [place] [address] PCP - General 07/22/14 07/10/17 documented as of this encounter
--- OUTSIDE RECORDS SUMMARY | 2024-02-22 09:31 | XMS_ITS | Clinical Summary ---
Author Organization [facility] Address One [facility] [place] [address] Care Team Providers Care Blade Operator Name Role Phone Oli Quinones DO Primary Care Provider [phone] Allergies Active Allergy Reactions Criticality Noted Date Comments Nickel 10/12/2023 Medications Medication Sig Dispensed Refills Start Date End Date Status Arginine HCl, L-Arginine, 1,000 mg Tablet Take by mouth daily. Active tadalafil (CIALIS) 5 mg TabletIndications:In ability to maintain erection Take 2 tablets by mouth as needed for Erectile Dysfunction. 10 tablet 11/13/2016 Active Eliquis 5 mg tablet Take 5 mg by mouth 2 times daily. Active Jardiance 10 mg tablet Take 10 mg by mouth every evening. Active Active Problems Patient Care Coordination No te Formatting of this note migh t be different from the original. Incoming records release signed [facility] 11/13/14. Problem Noted Date Diagnosed Date Male erectile dysfunction for cialis 10/08/2015 MESHA on CPAP 07/23/2015 Eczema 08/20/2014 Health care maintenance 08/16/2014 Overview (11/02/2015): Patient scheduled a physical on 10/08/2015 with Mahesh Phone note on 10/14/2015 He is started on metformin 500 mg twice daily I would like to see him back in mar 2016 with hba1c ( labs ) to seek effects of the med and weight changes Please forward the message to rod mill operator if he agrees to schedule appt in ( 15 min ) fu metformin Nurse visit 10/21/2015 : blood pressure normal on 10/21/2015 hctz stopped Last visit : 09/10/2014 DR Hastings : eczema on clobestol DR Pittman on 08/14/2014 s/p steroid shot ( due to DJD) right knee menisceal tear- surgery scheduled on October [address] Henderson : sleep test and on cpap machine [facility] : yearly Labs done on 09/2015 5.8, BUN 22, cmp normal, cbc normal 06/2014 and 07/2014 showed elevated Hct/ hb 18.2/ 51.9 ( not polycythemia by definition ) , cmp / lipid panel normal , psa normal 2011 , hba1c 6.4 Colonoscopy : 11/06/2014 H up to dated 10/08/[address] : Urgency denies nocturia and better since sleep apnea treated ( ( spastic bladder and improved with avoiding caffeine ,better 09/2015 Low back pain/ ( stable and doesn't limiting him mostly on right side but no concerns ) 09/2015 Eczema right leg ( improved and seen derm ) uses clobetasol once a month usually or once or may use eucerin. BMI 34 Right shoulder pain / knee pain and better - ( no exercise done ) no flaries Hypertension : stable but not clear if take the medication or not ED : cialis still used sometimes and helps and no side effects 09/2015 Meds : zyrtec in spring , use of cialis ( as needed and wants refill- no side effects - helps ) Med refill: hctz ( will hold off medication for 1-2 weeks come back for nurse visit and recheck if blood pressure is below 140/90 Diet : eating salads more and some carbs changes like bread and rice mostly , more protein , sometime pasta . Eats breakfast white , lunch and dinner . turkey , he may do fruits ( didn't know if can eat fruit) Exercise : 09/2015 weight lifting 3-5x per week depends on hrs, 1-2 hrs. Caffeine : 1 large cup , Some other caffeine drinks no soda, uses 1 energy drinks Water : discussed 30 ounces per day Mood : good Sleep: 9:30 ( wakes up every 2: 30 am unknown and can't go back to sleep) - 5 am - sleep study ( sleeping better with sleep apnea ) Body mass index (BMI) of 38.0-38.9 in adult 07/29 Right knee meniscal tear 08/16/2014 Overview (08/16/2014): Seen DR Pittman on 08/14/2014 s/p steroid shot ( due to DJD) Prediabetes 08/10/2014 Overview (08/10/2014): 130 mg/dl, HbA1c pending. Essential hypertension 08/05/2014 Low back pain 09/19/2011 Resolved Problems Problem Noted Date Diagnosed Date Resolved Date Elevated blood protein 10/08/201410/07 Overview (10/08/2014): 09/2014 : The protein levels were mildly elevated ( 8.1 ) but patient has family history such disorders in family therefore we decided to do further testing The results of blood and urine electrophoresis showed elevated gammaglobulin and elevated protein Patient is otherwise asymptomatic - had same elevated 3 yrs ago and seen blood specialist but they never followed per patient I called patient and explained above Patient is agreeable to seeing hematology Tinea corporis 07/17/2014 09/10/2014 Elevated blood pressure 09/26/2011 04/0 11/2014 Urgency of micturation 09/19/201109/10 Immunizations Name Administration Dates Next Due Polio Inactivated (IPOL) 04/30/1995 Tdap (Adacel, Boostrix) 09/06/2006 Family History Medical History Relation Comments Blood Disorder Brother Colorectal Cancer Father High Blood Pressure Father High Cholesterol Father Diabetes Paternal Grandmother Coronary Artery Disease Neg Hx Prostate Cancer Neg Hx Relation Status Comments Brother Father Paternal Grandmother Social History Tobacco Use Types Packs/Day Years [...] from your doctor or pharmacy? Never 10/12/2023 [facility] Utilities Answer Date Recorded In the [...] any time in the past 12 m [facility], were you homeless or living in a longterm (including now)? No 10/12/2023 Sex and Gender Information Value Date Recorded Sex Assigned at Not on file Gender Identity Not on file Sexual Orientation Not on file Last Filed Vital Signs Vital Sign Reading [...] 0.3 oz) 10/12/2023 1:39 PM EDT Height 185.4 cm (6' 1) 10/08/2015 9:55 AM EDT Body Mass Index 32.72 10/08/2015 9:55 AM EDT Plan of Treatment Health Maintenance Due Date Last Done Comments CT Colonography 1966 FIT DNA 1966 FIT 1966 Sigmoidoscopy 1966 Hepatitis C Screening 1984 Hepatitis B vaccine (0-59 yrs) (1) 1985 Zoster vaccine (1 of 2) 2016 Tetanus/Diphtheria/Pertussis Vaccines (2 - Td or Tdap) 09/06/2016 09/06/2006 Pre-DM monitoring (HgbA1C or FBG) 09/30/2016 10/01/2015, 10/01/2015, 09/10/2014, Additional history exists Lipid Screening 07/23/2019 07/22/2014 Colonoscopy 11/07/2019 11/06/2014 Colorectal Cancer Screening 11/07/2019 Advance Directive 2021 Covid-19 Vaccine (4 - 2022-2 4 season) 2023 03/02/2022, 03/21/2021, 08/30/2020 Influenza (Flu) vaccine (1 o f 1 - Influenza standard series) 12/30/2023 Sigmoidoscopy (10 year) with FIT yearly 11/06/2024 11/06/2014 HIV screen Completed 07/22/2014 Procedures Procedure Name Priority Date/Time Associated Diagnosis Comments CMP W/FASTING GLUCOSE Routine 10/01/2015 11:38 AM EDT Health care maintenance COLONOSCOPY Routine 11/06/2014 1:38 PM EDT Family hx of colon cancer requiring screening colonoscopy HIV SCREEN, 4TH GENERATION ([facility]/CGP/APD/NLH) Routine 07/22/2014 4:23 PM EDT Screening for HIV without presence of risk factors LIPID PANEL (REFLEX DIRECT LDL) Routine 07/22/2014 4:16 PM EDT Screening Annual physical exam from Last 3 Months or Most Recently Relevant to Health Maintenance Results * (ABNORMAL) CMP w/fasting Glucose (10/01/2015 11:38 AM EDT) Glucose Fasting 104(H) 65 - 99 mg/dL [facility] Comment: ?Fasting* Glucose Interpretive Criteria Normal ?65-99 mg/dL Impaired Fasting glucose ?100-125 mg/dL Consistent with Diabetes Mellitus ? >or= 126 mg/dL *Fasting is defined as no caloric intake for at least 8 hours In the absence of unequivocal hyperglycemia a plasma glucose value of >or= 126 mg/dL should be repeated on a subsequent day. Diagnosis and Classification of Diabetes Mellitus, Position Statement from the [employer] Diabetes Association. ??Diabetes Care, Volume 33, Supplement 1, Apr 2009 Blood Urea Nitrogen 22(H) 10 - 20 mg/dL [facility] Creatinine 0.93 0.80 - 1.50 mg/dL [facility] Comment: Please note that the pediatric reference intervals supplied above were not validated at [facility]. Results from pediatric patients should be interpreted in conjunction to the patient's age, height and muscle mass. Sodium 142 135 - 145 mmol/L [facility] Potassium 4.1 3.5 - 5.0 mmol/L [facility] Comment: Please note: ??Patients with WBC >100,000 may have falsely elevated Potassium levels. ??For accurate Potassium quantification in these patients send serum separator tube (gold top) for subsequent determinations. ??Contact the Clinical Chemistry Laboratory if there are any questions. Chloride 103 98 - 107 mmol/L [facility] Carbon Dioxide 25 22 - 31 mmol/L [facility] Anion Gap 14 5 - 15 mmol/L [facility] Calcium 9.4 8.5 - 10.5 mg/dL [facility] Protein, Total 7.9 6.1 - 8.0 gm/dL [facility] Albumin 4.4 3.2 - 5.2 gm/dL [facility] Aspartate Aminotransferase 23 0 - 39 unit/L [facility] Alanine Aminotransferase 29 0 - 55 unit/L [facility] Alkaline Phosphatase 74 40 - 120 unit/L [facility] Bilirubin, Total 0.7 0.2 - 1.3 mg/dL [facility] Bilirubin, Direct 0.2 0.0 - 0.3 mg/dL [facility] Est Glomerular Filtration Rate >60 >=60 [facility] Comment: This estimated GFR (eGFR) value was calculated using the MDRD equation which has been validated on patients between the ages of 18 and 70. The MDRD should not be used to assess kidney function in patients < 18 years of age or in patients with extremes of body mass, or in patients with acute kidney failure. This value should be multiplied by 1.2 for patients. For further information please copy and paste the following links into your internet browser. [email or web address] Blood specimen (specimen) 10/01/2015 11:38 AM EDT 10/01/2015 7:39 PM EDT Narrative Resulting Agency Comment Spec In Lab Ingrid Aragon MD CHEMISTRY ORDERABLES Performing Organization Address City/State/[facility] Co de Phone Number [facility] [place] [address] * COLONOSCOPY (11/06/2014 1:38 PM EDT) Narrative Octaviano Levine MD - 11/06/2014 1:38 PM EDT Octaviano Levine MD ? 11/06/2014 ??1:38 PM Colonoscopy Procedure Note Procedure: Colonoscopy Pre-operative Diagnosis/Indication: ?? screening for colon cancer; Positive family history of colon cancer (1st degree relative)- father Previous colonoscopy: none Post-operative Diagnosis: Small descending colon polyp removed Diverticulosis Hemorrhoids Recommendations: ?? Await pathology. Sedation: ??Anesthesia Pre-Procedure Physical: See pre-procedure note. Procedure Details The patients clinical history was obtained and physical exam performed and documented in the medical record. Informed consent was obtained for the procedure. Risks including but not limited to bleeding, infection, injury to the colon wall or adjacent organs including the spleen, missing lesions including cancer, accidental dental damage, aspiration, medication reactions and these complications may lead to hospitalization, needing additional procedures and in some cases may lead to cardiac arrest and . I also discussed the efficacy of the procedure in the reduction of the risk of colon cancer. ??The patient then signed the consent form. The patient was placed in the left lateral decubitus position. ?? The patient was monitored continuously with ECG tracing, pulse oximetry, blood pressure monitoring, and direct observation. A rectal examination was performed (see findings). The pediatric colonoscope was introduced into the rectum and advanced under direct visualization to the cecum, which was identified by the ileocecal valve and appendiceal orifice. Photo Documentation was done.The endoscope was withdrawn in a controlled fashion for careful examination of the colon. A retroflexion was performed. The preparation was good. Withdrawal time was 11 minutes. Findings: Small descending colon polyp removed with a cold snare- < 5 mm Diverticulosis, scattered throughout the colon Hemorrhoids, internal Specimens: [x} Yes descending colon Complications: ?? None ? Blood Loss: Minimal Condition: Stable Discharge order: Patient cleared for discharge after meeting appropriate discharge criterion. Octaviano Levine MD EXTERNAL BARBARA/PRO ORD ERABLES * HIV Screen, 4th Generation (07/22/2014 4:23 PM EDT) Pathologist [facility] HIV Ab/Ag Screen Negative Negative [facility] Comment: This 4th Generation HIV test screens for the presence of the HIV-1 p24 antigen as well as antibodies reactive against HIV-1 and HIV-2. A negative screen does not rule out an acute HIV infection. If acute HIV infection is suspected, testing should be repeated in 2 - 3 weeks or HIV nucleic acid testing performed. Blood specimen (specimen) 07/22/2014 4:23 PM EDT 07/22/2014 11:03 PM EDT Narrative Resulting Agency Comment Spec In Lab Giovanni Haines MD CHEMISTRY ORDERABLE S [facility] * (ABNORMAL) Lipid panel (fasting) (07/22/2014 4:16 PM EDT) Pathologist [facility] Cholesterol, Total 126 <=199 mg/dL [facility] Comment: Recommendations of the NCEP Adult Treatment Panel for the following risk cutoff thresholds for the [place] population: Desirable: <200 mg/dL Borderline High: 200-239 mg/dL High: > or = 240 mg/dL Triglyceride 101 <=149 mg/dL [facility] Comment: Reference Range: Normal triglycerides: ??<150 mg/dL Borderline high: ??150-199 mg/dL High: ??200-499 mg/dL Very high: ??>eg=416 mg/dL LUZ 2001; 285(19):8292-5825 HDL Cholesterol 33(L) >=40 mg/dL [facility] Comment: Reference range: ??Low HDL: ?? < 40 mg/dL ??Normal: ?40-60 mg/dL ??Desirable: > 60 mg/dL LUZ 2001; 285(19):9708-4054 LDL Cholesterol 73 <=99 mg/dL [facility] Comment: Reference range: ?? Optimal: ?<100 mg/dL ?? Near Optimal/Above Optimal: ?? 100-129 mg/dL ?? Borderline high: ?130-159 mg/dL ?? High: ? 160-189 mg/dL ?? Very high: ?>tn=253 mg/dL LUZ 2001: 285(19):5584-8085 Cholesterol/HDL Ratio 3.8 ratio [facility] Comment: A Cholesterol to HDL ratio below 4:1 is desirable. ??Studies suggest that increased CAD risk occurs at ratios above 5 for females and above 6 for men. ? British Heart Association ??(http://www.americanheart.org) ? Elizabeth Int Med, 1994; 121:641 ? AM J Med, 1998; 105(1A):48S Blood specimen (specimen) 07/22/2014 4:16 PM EDT 07/22/2014 11:02 PM EDT Narrative Resulting Agency Comment Spec In Lab Ingrid Aragon MD CHEMISTRY ORDERABLES [facility] from Last 3 Months or Most Recently Relevant to Health Maintenance Care Teams Blade Operator Relationship Specialty Start Date End Date Oli Quinones DO [address] [place] [address] PCP - General Family Medicine 09/05/23
--- OUTSIDE RECORDS SUMMARY | 2024-02-22 09:31 | XMS_ITS | Encounter Summary ---
Author Organization [facility] Address One [facility] [place] [address] Care Team Providers Care Community Affairs Manager Name Role Phone Oli Quinones DO Primary Care Provider [phone]- [phone] Encounter Details Date Type Department Care Team (Latest Contact Info) Description 10/12/2023 Travel Social History Tobacco Use Types Packs/Day Years [...] from your doctor or pharmacy? Never 10/12/2023 [facility] Utilities Answer Date Recorded In the [...] any time in the past 12 m [facility], were you homeless or living in a alf (including now)? No 10/12/2023 Sex and Gender Information Value Date Recorded Sex Assigned at Not on file Gender Identity Not on file Sexual Orientation Not on file documented as of this encounter Plan of Treatment Not on file documented as of this encounter Visit Diagnoses Not on filedocumented in this encounter Care Teams Community Affairs Manager Relationship Specialty Start Date End Date Oli Quinones DO [address] [place] [address] PCP - General Family Medicine 09/05/23 documented as of this encounter
--- OUTSIDE RECORDS SUMMARY | 2024-02-22 09:31 | XMS_ITS | Encounter Summary ---
Author Organization [facility] [place] [address] Care Team Providers Care Change Management Manager Name Role Phone Oli Quinones DO Primary Care Provider [phone]- [phone] Reason for Referral * Consultation (Routine) - Authorized Specialty Diagnoses / Procedures Referred By Elsi t Referred To Contact Hematology and Oncology Diagnoses Other hemoglobinopathies PLEASE REFER TO [facility] HEMATOLOGY FOR ELEVATED HEMOGLOBIN AND HEMATOCRIT. Oli Quinones DO [address] [place] [address] [facility] Hem Onc [address] [place] [address] Referral ID Status Reason Start Date Expiration Date Visits Requested Visits Authorized [id number] Authorized Consult, Test & Treat PCP Updated and/or Approved 08/28/2023 08/27/2024 6 6 Encounter Details Date Type Department Care Team (Latest Contact Info) Description 09/05/2023 Transcribe Orders eDH Incoming Referrals [phone] Oli Quinones DO [address] [place] [address] Other hemoglobinopathies Social History Tobacco Use Types Packs/Day Years [...] as of this encounter Plan of Treatment Scheduled Referrals Name Type Priority Associated Diagnoses Orde r Schedule Referral to Hematology and Oncology Outpatient Referral Routine Other hemoglobinopathies Ordered: 09/05/2023 documented as of this encounter Visit Diagnoses Diagnosis Other hemoglobinopathies documented in this encounter Care Teams Change Management Manager Relationship Specialty Start Date End Date Oli Quinones DO [address] [place] [address] PCP - General Family Medicine 09/05/23 documented as of this encounter
--- OUTSIDE RECORDS SUMMARY | 2024-02-22 09:32 | XMS_ITS | Encounter Summary ---
Author Organization [facility] Address One [facility] [place] [address] Care Team Providers Care Mechanical Technician Name Role Phone Ingrid Aragon MD Primary Care Provider [phone] Encounter Details Date Type Department Care Team (Late st Contact Info) Description 12/31/2014 Notes Only Pulmonology at [facility] [address] [place] [address] Negro Cornell MD [address] [address] Social History Tobacco Use Types Packs/Day Years [...] as of this encounter Progress Notes * Teresa Lee CMA - 12/31/2014 7:57 AM EDT Faxed physician's certification for PAP device to [facility], . documented in this encounter Plan of Treatment Not on file documented as of this encounter Visit Diagnoses Not on filedocumented in this encounter Care Teams Mechanical Technician Relationship Specialty Start Date End Date Ingrid Aragon MD [address] [place] [address] PCP - General 07/22/14 07/10/17 documented as of this encounter
--- OUTSIDE RECORDS SUMMARY | 2024-02-22 09:32 | XMS_ITS | Encounter Summary ---
Author Organization [facility] Address [facility] [place] [address] Care Team Providers Care Acting Professor Name Role Phone Ingrid Aragon MD Primary Care Provider [phone] Reason for Visit * Reason Onset Date Comments Colon Cancer Screening 09/17/2014 Encounter Details Date Type Department Care Team (Late st Contact Info) Description 09/17/2014 Telephone Gastroenterology at [place] [address] [place] [address] Whitney Lopez LPN [address] [address] Colon Cancer Screening Social History Tobacco Use Types Packs/Day Years Used Date Smoking Tobacco: Never Smokeless Tobacco: Never Alcohol Use Standard Drinks/Week Comments No 0.8 (1 standard drink = 0.6 oz p ure alcohol) Sex and Gender Information Value Date Recorded Sex Assigned at Not on file Gender Identity Not on file Sexual Orientation Not on file documented as of this encounter Miscellaneous Notes * Telephone Encounter - Whitney Lopez LPN - 09/17/2014 8:28 AM EDT Subjective: Pt was scheduled today for a colonoscopy, as requested by Dr. Aragon . Indication(s) for this procedure include screening w/ family history Is anemia one of the Dx?- If yes and no EGD ordered - send staff message or call referring providerto potentially approve adding on EGD. Is a language arts teacher used? N Objective: Medical history was reviewed for renal problems, diabetes, coumadin, anticoagulant therapy, and cardiac implants. Health history: If pt has financial assistance (ie: NSA, NHHN, NAHC and NSAS, ) and is having their procedure at [facility] please e-mail Gene at [facility] [email or web address] [email or web address] - HPERP or HPER- if determined needs hospital setting we do a referral to : 1st- [facility] ( most cost effective for the patient) internal referral 2nd- [facility] GI practice- outgoing referral -print and fax [phone] Last colonoscopy 1st Family history of colon cancer or polyps? Dad has colon cancer Weigh more than 300lbs? Yes=StJ Vitals Office Visit from 09/10/2014 in [facility] Weight - Scale (!) 129.91 kg (286 lb 6.4 oz) Height 186.7 cm (6' 1.5) BSA (Calculated - sq m) 2.6 sq meters BMI (Calculated) 37.4 Heart Rate 76 BP 120/74 mmHg Ht: Wt: BMI greater than 45=St BMI 42-45=inKDS message send to Talia 37.4 Do you have any physical disabilities? N Do you use home O2, have COPD, emphysema, SOB or uncontrolled asthma? N If pt states stable COPD = needs e-mail to Talia Rinaldi for GPS (Using rescue inhaler more than twice per day) yes = st Any personal or family hx of life threatening problems with sedation or intubation? small mouth or neck abnormalities?i.e. Malignant hyperthermia No issues Any implanted devices? (ie: Pacemaker/defib ) N Yes=StJ Do you have a cardiac stent that was placed within the last year? N No = continue Yes - Contact referring MD and ask if this is an EMERGENCY. Educate that this office will only do procedures in this cardiac situation in an EMERGENCY. Not EMERGENCY - Put pt on reminder list for 1 year anniversary of stent placement EMERGENCY - MD to MD conversation Do you currently suffer from chest discomfort or any other cardiac diagnoses including CHF or Atrial Fibrillation ? N Staff message to Talia Rinaldi Nitro taken last month=StJ Hospitalized in the last 3 mo=StJ Community Service Coordinator: Do you take any blood thinners?(ie Coumadin, Plavix, Effient, Rivaroxaban, Dabigatran Etexilate, Apixaban, Pradaxa, Aggrenox including a baby asa 81mg. N Have you recently had, or has your PCP recommended you have any cardiac testing (EKG, stress test, echo). If so, where was the testing done? N Any personal or family hx in first degree relative of clotting or bleeding disorders? Yes=[facility] (hemophelia or factor deficiencies) N Have you had a stroke or heart attack ? what YEAR ? N Yes =Cardiology clearance and [facility] Prescribing Physician Are you Diabetic? N ( Hold orals am of procedure 0 cc: PCP/ordering) What Medication do you use? Pump? Diabetes Education Do you have a history of Cirrhosis? N (message to MD, CC nurse, may need cbc and pt within 2mo. StJ pts at [facility]) Do you have any kidney disease? Dialysis? N Dialysis=When last?-Schedule within 2 days after dialysis at [facility]. Do you have any active infection (MRSA,Shingles,Chix Pox,TB,C-Diff) N Any possibility that you could be ?(Women<50yo) male We cannot put you to sleep if you are Do you take any medications for depression? N take as prescribed ( Tricyclics i.e. Amitriptyline, doxepin, imipramine, nortriptyline, desipramine Do you take any narcotics N Take as prescribed ( fentanyl, hydromorphone, codeine, morphine, MS contin, oxycodone, methadone, Tramadol Take day ofprocedure. USE 2ND BOTTLE OF MAG CITRATE DAY PRIOR- PREP #2 Do you have a history of constipation or have been told you had a poor prep for a previous colonoscopy? #1 USE 2ND BOTTLE OF MAG CITRATE DAY PRIOR- PREP #2 Prep given #1 Do you take cardiac, seizure and blood pressure meds? hysrocholorthiazde - HoLD am Update in meds Take the morning of procedure EXCEPT: ( no diuretics Hydrochlorathiazide ( HCTZ) or Furosemide ( Lasix) or or fish inhibitors) am of procedure i.e: Lisinopril, enalapril, accupril, Benazepril, quinapril, on a daily basis Is there anything medically we should know about you? N These question were reviewed and approved by the [facility] director of medical review and anesthesia . Assessment and Plan: Written copies of general colonoscopy information which includes prep instructions were given. Thispacket includes the appointment information. Pt scheduled for 11/06/14 at [address] Levine. All questions were answered and pt is comfortable going ahead with the colonoscopy D-H patient's scheduled at [facility] will have a eD-H snapshot faxed [phone] documented in this encounter Plan of Treatment Not on file documented as of this encounter Visit Diagnoses Not on filedocumented in this encounter Care Teams Acting Professor Relationship Specialty Start Date End Date Ingrid Aragon MD [address] [place] [address] PCP - General 07/22/14 07/10/17 documented as of this encounter
--- OUTSIDE RECORDS SUMMARY | 2024-02-22 09:32 | XMS_ITS | Encounter Summary ---
Author Organization [facility] Address [facility] [place] [address] Care Team Providers Care Military Administrative Technician Name Role Phone Ingrid Aragon MD Primary Care Provider [phone] Reason for Visit * Reason Comments Follow Up Surgery right knee scope 10/06 Encounter Details Date Type Department Care Team (Late st Contact Info) Description 12/07/2014 4:00 PM EDT Follow-Up Orthopaedics at [address] [place] [address] Jani Pittman MD [address] [facility] [place] [address] S/P right knee arthroscopy Social History Tobacco Use Types Packs/Day Years [...] Sign Reading Time Taken Comments Blood Pressure - - Pulse - - Temperature - - Respiratory Rate - - Oxygen Saturation - - Inhaled Oxygen Concentration - - Weight 126.1 kg (278 lb) 12/07/2014 4:10 PM EDT reported Height 188 cm (6' 2) 12/07/2014 4:10 PM EDT rep orted Body Mass Index 35.69 12/07/2014 4:10 PM EDT documented in this encounter Progress Notes * Jani Pittman MD - 12/07/2014 4:20 PM EDT Pepito Cordon is a 49 y.o. male here for follow up f/u R knee. Had scope in September w/ findings of MMT and medial/PF DJD DOI: none Subj: c/o more pain in the R knee. Feels tight and painful in the back. Exam: Body mass index is 35.68 kg/(m^2). No effusion. Tender lateral patella. ROM 0-100 w/ some crepitus Dx: R knee pain, DJD, PFS Rx: Exercises given, may try OTC brace. PT and synvisc discussed. Wt loss discussed. F/u prn documented in this encounter Plan of Treatment Not on file documented as of this encounter Visit Diagnoses Diagnosis S/P right knee arthroscopy Other postprocedural status documented in this encounter Care Teams Military Administrative Technician Relationship Specialty Start Date End Date Ingrid Aragon MD [address] [place] [address] PCP - General 07/22/14 07/10/17 documented as of this encounter
--- OUTSIDE RECORDS SUMMARY | 2024-02-22 09:32 | XMS_ITS | Encounter Summary ---
Author Organization [facility] Address One [facility] [place] [address] Care Team Providers Care Patient Monitor Name Role Phone Ingrid Aragon MD Primary Care Provider [phone] Encounter Details Date Type Department Care Team (Late st Contact Info) Description 09/01/2014 Orders Only Orthopaedics at [address] [place] [address] Jani Pittman MD [address] [facility] [place] [address] Tear, knee, medial meniscus, right, subsequent encounter Social History Tobacco Use Types Packs/Day Years [...] as of this encounter Visit Diagnoses Diagnosis Tear, knee, medial meniscus, right, subsequent encounter documented in this encounter Care Teams Patient Monitor Relationship Specialty Start Date End Date Ingrid Aragon MD [address] [facility] [place], [place] [id number] PCP - General 07/22/14 07/10/17 documented as of this encounter
--- OUTSIDE RECORDS SUMMARY | 2024-02-22 09:32 | XMS_ITS | Encounter Summary ---
Author Organization [facility] Address [facility] [place] [address] Care Team Providers Care Hotbed Lever Operator Name Role Phone Shanell Aragon MD Primary Care Provider [phone] Reason for Visit * Reason Comments Right Knee Pain Encounter Details Date Type Department Care Team (Late st Contact Info) Description 08/14/2014 3:45 PM EDT Office Visit Orthopaedics at [address] [place] [address] Jani Pittman MD [address] [facility] [place] [address] Medial meniscus tear, right, initial encounter Social History Tobacco Use Types Packs/Day [...] - Inhaled Oxygen Concentration - - Weight 136.1 kg (300 lb) 08/14/2014 3:33 PM EDT reported Height 188 cm (6' 2) 08/14/2014 3:33 PM EDT rep orted Body Mass Index 38.52 08/14/2014 3:33 PM EDT documented in this encounter Progress Notes * Jani Pittman MD - 08/14/2014 3:33 PM EDT Seen in consult at the request of SHANELL ARAGON MD Pepito Cordon is a 49 y.o. male with knee pain DOI: None Date of Onset: Many months PROBLEM: R knee pain x many months Injury? no Rx thusfar- none SUBJECTIVE: c/o R knee pain Activities causing pain- after sitting or driving gets pain. Sometimes at night as well. Not as much with walking. Swelling? no Instability/Giving way? no Location of pain- all medial, occ posterior ROS: Numbness in limb? 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 Never Smoker Smokeless tobacco ??? Never Used Past Medical History Diagnosis Date ??? Allergy ??? Essential hypertension 08/05/2014 Outpatient Encounter Prescriptions as of 08/14/2014 Medication Sig Dispense Refill ??? hydrochlorothiazide (HYDRODIURIL) 25 mg Tablet Take 1 tablet by mouth daily. 30 tablet 3 ??? fluticasone (FLONASE) 50 mcg/actuation [place], Suspension 1 spray by Each Nare route nightly. Use after using the nasal saline flushes. 16 g 11 ??? clobetasol (TEMOVATE) 0.05 % Ointment Apply twice daily to affected areas as needed, for no more than two consecutive weeks at a time. 120 g 1 ??? [DISCONTINUED] terbinafine HCl (LAMISIL) 250 mg Tablet Take 1 tablet by mouth daily for 14 days. 14 tablet 0 ??? famotidine (PEPCID) 20 mg Tablet Take 1 tablet by mouth 2 times daily. 60 tablet 0 ??? cetirizine (ZYRTEC) 10 mg Tablet Take 1 tablet by mouth daily for 30 days. 30 tablet 0 ??? sodium chloride (SODIUM CHLORIDE) 0.65 % Aerosol, [place] 2 sprays by Nasal route 4 times daily as needed for Congestion. Use always at night prior to Flonase and then more often as needed 45 mL 11 ??? ketoconazole (NIZORAL) 2 % Cream Apply topically once daily for two weeks 60 g 0 ??? [DISCONTINUED] traMADol (ULTRAM) 50 mg Tablet Take 1 tablet by mouth nightly. 20 tablet 0 ??? tadalafil (CIALIS) 5 mg tablet Take 2 tablets by mouth as needed for Erectile Dysfunction. 30 tablet 0 No facility-administered encounter medications on file as of 08/14/2014. No Known Allergies OBJECTIVE: Well appearing male in no distress. Body mass index is 38.5 kg/(m^2). ROM- 0-120 Effusion? none Patellar tenderness? none Joint line tenderness? medial Cindy- neg Posterior drawer- Negative Valgus- No instability Varus- No instability Hip ROM is full and painless Skin lesions? no discoloration or erythema noted Neuro- negative SLR, no decreased sensation Vascular- Distal pulses intact XRAY/STUDIES: no xrays ordered. MRI shows MMT and moderate DJD mainly medially. Xrays done today show surprisingly only mild medial jt narrowing ASSM: R knee DJD/MMT PLAN: Exercises given The R knee was sterily prepped and injected with a combination of 2cc marcaine, 2 cc lidocaine and 40 mg of depomedrol intraarticularly. The patient tolerated the procedure well. he will monitor for signs of redness/swelling. We discussed that there can often be a brief period of worsening prior tosteroid action taking place. If not helpful will do scope. documented in this encounter Plan of Treatment Not on file documented as of this encounter Visit Diagnoses Diagnosis Medial meniscus tear, right, initial encounter documented in this encounter Administered Medications Inactive Administered Medications - up to 3 most recent administrations Medication Order MAR Action Action Date Dose Rate Site methylPREDNISolone acetate (depo-MEDROL) injection 40 mg 40 mg, Intra-articular, ONCE, 1 dose, On Sun08/14/14 at 1700, Routine Given 08/14/2014 4:37 PM EDT 40 mg documented in this encounter Care Teams Hotbed Lever Operator Relationship Specialty Start Date End Date Shanell Aragon MD [address] [place] [address] PCP - General 07/22/14 07/10/17 documented as of this encounter
--- OUTSIDE RECORDS SUMMARY | 2024-02-22 09:32 | XMS_ITS | Encounter Summary ---
Author Organization [facility] Address [facility] [place] [address] Care Team Providers Care Special Agent Secret Service Name Role Phone Shanell Aragon MD Primary Care Provider [phone] Reason for Visit * Reason Onset Date Comments New Medication Request 10/12/2015 Encounter Details Date Type Department Care Team (Late st Contact Info) Description 10/12/2015 Telephone Family Practice at [address] [address] Octaviano العلي LPN New Medication Request Social History Tobacco Use Types Packs/Day Years [...] encounter Miscellaneous Notes * Telephone Encounter - Shirley Leal LPN - 10/20/2015 10:19 AM EDT Left message for patient to return call. * Telephone Encounter - Octaviano العلي LPN - 10/15/2015 8:24 AM EDT LRM x1 Called to relay message below. * Telephone Encounter - Shanell Aragon MD - 10/14/2015 10:03 PM EDT Orders placed as discussed in our last visit He is started on metformin 500 mg twice daily I would like to see him back in mar 2016 with hba1c ( labs ) to seek effects of the med and weight changes Please forward the message to front desk administrator if he agrees to schedule appt in ( 15 min ) fu metformin * Telephone Encounter - Octaviano العلي LPN - 10/12/2015 11:37 AM EDT ----- Message from Darren Kong sent at 10/12/2015 11:29 AM EDT ----- Contact: Patient PCP: SHANELL ARAGON MD Message: Patient states he had a physical with PCP last week and they talked about him going on metformin. Patient is calling back today to let PCP know he has decided he would like to go on it. Patient is requesting a call when rx is sent to the pharmacy. Pharmacy: [address] Best number to call back: [phone] Best time you are available: Anytime documented in this encounter Plan of Treatment Not on file documented as of this encounter Visit Diagnoses Diagnosis Prediabetes Other abnormal glucose Health care maintenance Unspecified general medical examination documented in this encounter Care Teams Special Agent Secret Service Relationship Specialty Start Date End Date Shanell Aragon MD [address] [place] [address] PCP - General 07/22/14 07/10/17 documented as of this encounter
--- OUTSIDE RECORDS SUMMARY | 2024-02-22 09:32 | XMS_ITS | Encounter Summary ---
Author Organization [facility] Address [facility] [address] Care Team Providers Care Social Services Counselor Name Role Phone Ingrid Aragon MD Primary Care Provider [phone] Reason for Referral * Consultation (Routine) - Closed Specialty Diagnoses / Procedures Referred By Contranjan t Referred To Contact Hematology and Oncology Diagnoses Elevated blood protein Ingrid Aragon MD [address] [place] [address] [facility] Hem Onc Infusion [address] [facility] [place] [address] Referral ID Status Reason Start Date Expiration Date V isits Requested Visits Authorized [id number] Closed Consult, Test & Treat 10/08/2014 10/08/2015 3 3 Reason for Visit * Reason Onset Date Comments Results 10/08/2014 Encounter Details Date Type Department Care Team (Late st Contact Info) Description 10/08/2014 Telephone Family Practice at [place] [address] [place] [address] Ingrid Aragon MD [address] [place] [address] Results Social History Tobacco Use Types Packs/Day Years Used Date Smoking Tobacco: Never Smokeless Tobacco: Never Alcohol Use Standard Drinks/Week Comments Yes 0.8 (1 standard drink = 0.6 oz p ure alcohol) once in awhile Sex and Gender Information Value Date Recorded Sex Assigned at Not on file Gender Identity Not on file Sexual Orientation Not on file documented as of this encounter Miscellaneous Notes * Telephone Encounter - Ingrid Aragon MD - 10/08/2014 8:52 AM EDT I called patient to discuss his labs done in view of elevated protein The protein levels were mildly elevated ( 8.1 ) but patient has family history such disorders in family therefore we decided to do further testing The results of blood and urine electrophoresis showed elevated gammaglobulin and elevated protein I called patient and explained above Patient is agreeable to seeing hematology Labs for feb 2015 are also order documented in this encounter Plan of Treatment Scheduled Referrals Name Type Priority Associated Diagnoses Order Schedule Referral to Hematology and Oncology Outpatient Referral Routine Elevated blood protein Ordered: 10/08/2014 documented as of this encounter Results * (ABNORMAL) Hemoglobin A1c (10/01/2015 11:38 AM EDT) Hemoglobin A1c 5.8(H) 4.3 - 5.6 % [facility] Comment: Reference Range: 4.3 - 5.6% 5.7 - 6.4% - Increased Risk of Developing Diabetes Mellitus >=6.5% - Consistent with diagnosis of Diabetes Mellitus In the absence of hyperglycemia (i.e. plasma glucose > 200 mg/dL) or classic symptoms of hyperglycemia a repeat measurement of HbA1c should be performed on a separate sample to confirm the diagnosis. Diagnosis and Classification of Diabetes Mellitus, Diabetes Care 2013; 36: Suppl. 1, S67-74 Estimated Average Glucose 120 mg/dL [facility] Comment: eAG equivalents for HbA1c percentages: HbA1c(%) ?eAG(mg/dL) 6.0 ?126 6.5 ?140 7.0 ?154 7.5 ?169 8.0 ?183 8.5 ?197 9.0 ?212 9.5 ?226 10.0 ? 240 Limitations: The eAG calculation has not been validated on women, individuals below 18 years old and above 70 years old, and individuals with hemoglobinopathies. Additional resources are available on the ADA website: http://[employer]/DHMCadacalc Catalino PRADHAN, Pranav J, Syeda R, et al. ??Translating the A1C assay into estimated average glucose values. ??Diabetes Care 2008:31(8):3308-6855. Blood specimen (specimen) 10/01/2015 11:38 AM EDT 10/01/2015 7:44 PM EDT Narrative Resulting Agency Comment Spec In Lab Ingrid Aragon MD CHEMISTRY ORDERABLES [facility] [place] [address] * (ABNORMAL) CMP w/fasting Glucose (10/01/2015 11:38 AM EDT) Glucose Fasting 104(H) 65 - 99 mg/dL [facility] Comment: ?Fasting* Glucose Interpretive Criteria [...] of Diabetes Mellitus, Position Statement from the [place] [employer]. ??Diabetes Care, Volume 33, Supplement 1, Apr 2009 Blood Urea Nitrogen 22(H) 10 - 20 mg/dL [facility] Creatinine 0.93 0.80 - 1.50 mg/dL [facility] Comment: Please note that the pediatric reference intervals supplied above were not validated at [facility]. Results from pediatric patients should be interpreted in conjunction to the patient's age, height and muscle mass. Sodium 142 135 - 145 mmol/L [facility] Potassium 4.1 3.5 - 5.0 mmol/L [facility] Comment: Please note: ??Patients with WBC >100,000 may have falsely elevated Potassium levels. ??For accurate Potassium quantification in these patients send serum separator tube (gold top) for subsequent determinations. ??Contact the Clinical Chemistry Laboratory if there are any questions. Chloride 103 98 - 107 mmol/L [facility] Carbon Dioxide 25 22 - 31 mmol/L [facility] Anion Gap 14 5 - 15 mmol/L [facility] Calcium 9.4 8.5 - 10.5 mg/dL [facility] Protein, Total 7.9 6.1 - 8.0 gm/dL [facility] Albumin 4.4 3.2 - 5.2 gm/dL [facility] Aspartate Aminotransferase 23 0 - 39 unit/L [facility] Alanine Aminotransferase 29 0 - 55 unit/L [facility] Alkaline Phosphatase 74 40 - 120 unit/L [facility] Bilirubin, Total 0.7 0.2 - 1.3 mg/dL [facility] Bilirubin, Direct 0.2 0.0 - 0.3 mg/dL [facility] Est Glomerular Filtration Rate >60 >=60 [facility] Comment: This estimated GFR (eGFR) [...] the following links into your internet browser. [email or web address] Blood specimen (specimen) 10/01/2015 11:38 AM EDT 10/01/2015 7:39 PM EDT Narrative Resulting Agency Comment Spec In Lab Ingrid Aragon MD CHEMISTRY ORDERABLES Performing Organization Address City/State/[facility] Co de Phone Number [facility] [place] [address] documented in this encounter Visit Diagnoses Diagnosis Elevated blood protein Other disorders of plasma protein metabolism Health care maintenance Unspecified general medical examination documented in this encounter Care Teams Social Services Counselor Relationship Specialty Start Date End Date Ingrid Aragon MD [address] [place] [address] PCP - General 07/22/14 07/10/17 documented as of this encounter
--- OUTSIDE RECORDS SUMMARY | 2024-02-22 09:32 | XMS_ITS | Encounter Summary ---
Author Organization [facility] Address One [facility] [place] [address] Care Team Providers Care Wire Coiler Name Role Phone Ingrid Aragon MD Primary Care Provider [phone] Reason for Visit * Reason Onset Date Comments Other 10/19/2014 Sleep study Encounter Details Date Type Department Care Team (Late st Contact Info) Description 10/19/2014 Telephone Pulmonology at [facility] [address] [place] [address] Negro Cornell MD [address] [address] Other (Sleep study ) Social History Tobacco Use Types Packs/Day Years [...] encounter Miscellaneous Notes * Telephone Encounter - Porsche Sanz CMA - 10/26/2014 3:30 PM EDT Patient cannot make it to the below Sleep Study. Patient has been advised to call them at [phone] to reschedule. * Telephone Encounter - Mercedes Aparicio - 10/23/2014 1:55 PM EDT Lmm asking patient to call back, sleep study is scheduled for Sunday11/06/14 at 8:00pm at the [facility] [place] * Telephone Encounter - Mercedes Aparicio - 10/19/2014 4:38 PM EDT Lmm asking patient to call back. * Telephone Encounter - Andreina Mckeon RN - 10/19/2014 4:33 PM EDT PA sent for clinical review on 10/08/14, no response yet as this may take 2-15 business days. (see encounter 10/08/14 for additional details) * Telephone Encounter - Mercedes Aparicio - 10/19/2014 4:25 PM EDT Has this been approved yet? * Telephone Encounter - Brea Boudreaux - 10/19/2014 4:07 PM EDT Patient called and is looking to get his sleep study scheduled. documented in this encounter Plan of Treatment Not on file documented as of this encounter Visit Diagnoses Not on filedocumented in this encounter Care Teams Wire Coiler Relationship Specialty Start Date End Date Ingrid Aragon MD [address] [place] [address] PCP - General 07/22/14 07/10/17 documented as of this encounter
--- OUTSIDE RECORDS SUMMARY | 2024-02-22 09:32 | XMS_ITS | Encounter Summary ---
Author Organization [facility] Address One [facility] [place] [address] Care Team Providers Care Porcelain Finish Sprayer Name Role Phone Ingrid Aragon MD Primary Care Provider [phone] Reason for Visit * Reason Onset Date Comments Pre Procedure Call 11/04/2014 Encounter Details Date Type Department Care Team (Late st Contact Info) Description 11/04/2014 Telephone Gastroenterology at [place] [id number] [facility] [place] [address] Luis Olivo Pre Procedure Call Social History Tobacco Use Types Packs/Day Years [...] encounter Miscellaneous Notes * Telephone Encounter - Luis Olivo - 11/04/2014 11:54 AM EDT Left a message on machine to confirm appointment and transportation for 11/06/14 at 11AM. documented in this encounter Plan of Treatment Not on file documented as of this encounter Visit Diagnoses Not on filedocumented in this encounter Care Teams Porcelain Finish Sprayer Relationship Specialty Start Date End Date Ingrid Aragon MD [address] [place] [address] PCP - General 07/22/14 07/10/17 documented as of this encounter
--- OUTSIDE RECORDS SUMMARY | 2024-02-22 09:32 | XMS_ITS | Encounter Summary ---
Author Organization [facility] Address One [facility] [place] [address] Care Team Providers Care Rack Puncher Name Role Phone Ingrid Aragon MD Primary Care Provider [phone] Reason for Visit * Reason Onset Date Comments Other 08/10/2015 DME update Encounter Details Date Type Department Care Team (Late st Contact Info) Description 08/10/2015 Telephone Pulmonology at [facility] [address] [place] [address] Negro Cornell MD [address] [address] Other (DME update) Social History Tobacco Use Types Packs/Day Years [...] encounter Miscellaneous Notes * Telephone Encounter - Andreina Mckeon RN - 08/10/2015 11:52 AM EDT Faxed CPAP order, last ov note, demos/insurance, and sleep studies to [facility] at [phone]. Left message for patient notifying him of this. * Telephone Encounter - Tex Cortez - 08/10/2015 10:54 AM EDT *See 07/27/15 encounter Patient calling to report that he needs his orders sent to [facility] as his insurance won't cover [facility]. Patient would like a call once sent so he is aware. documented in this encounter Plan of Treatment Not on file documented as of this encounter Visit Diagnoses Not on filedocumented in this encounter Care Teams Rack Puncher Relationship Specialty Start Date End Date Ingrid Aragon MD [address] [place] [address] PCP - General 07/22/14 07/10/17 documented as of this encounter
--- OUTSIDE RECORDS SUMMARY | 2024-02-22 09:32 | XMS_ITS | Encounter Summary ---
Author Organization [facility] Address One [facility] [place] [address] Care Team Providers Care Inspector G[employer] Name Role Phone Shanell Aragon MD Primary Care Provider [phone] Reason for Visit * Reason Comments Abnormal Labs NPV - hyperproteinem ia. Pt presents with his , Belle, and states he had slightly elevated blood protein 3 yrs ago, has not seen a floor tech in the past. He states his brother was recently diagnosed with polycythemia. Pt reports he is scheduled for sleep test this evening, recently had rt meniscus repair. Encounter Details Date Type Department Care Team (Late st Contact Info) Description 11/13/2014 3:00 PM EDT Office Visit Hematology and Oncology at [place] [address] [place] [id number] Ulisses Berg MD [address] [place] [address] Elevated blood protein Discharge Disposition: Home Social History Tobacco Use Types Packs/Day Years [...] Sign Reading Time Taken Comments Blood Pressure 131/89 11/13/2014 2:59 PM EDT large cuff Pulse 80 11/13/2014 2:59 PM EDT Temperature 37 ??C (98.6 ??F) 11/13/2014 2:5 9 PM EDT Respiratory Rate - - Oxygen Saturation 97% 11/13/2014 2:5 9 PM EDT Inhaled Oxygen Concentration - - Weight 127.1 kg (280 lb 4.8 oz) 015 2:59 PM EDT Height 185.5 cm (6' 1.03) 11/13/2014 2 :59 PM EDT Body Mass Index 36.95 11/13/2014 2:59 PM EDT documented in this encounter Progress Notes * Ulisses Berg MD - 11/13/2014 3:34 PM EDT [place] [address] [email or web address] PATIENT EVALUATION Chief Complaint: Chief Complaint Patient presents with ??? Abnormal Labs NPV - hyperproteinemia. Pt presents with his , Belle, and states he had slightly elevated blood protein 3 yrs ago, has not seen a floor tech in the past. He states his brother was recently diagnosed with polycythemia. Pt reports he is scheduled for sleep test this evening, recently had rt meniscus repair. Comes to clinic accompanied by , Belle. PROBLEM LIST: Patient Active Problem List Diagnosis ??? Elevated blood protein 09/2014 : The protein levels were mildly [...] above Patient is agreeable to seeing hematology ??? Eczema ??? Health care maintenance Patient whom has mostly seen Lori mendoza/ DR Davila scheduled a physical on 09/10/2014 with Mahesh Last visit : acute visits DR Hastings : eczema on clobestol DR Pittman on 08/14/2014 s/p steroid shot ( due to DJD) right knee menisceal tear- surgery scheduled on October 06 2014 Labs done on 06/2014 and 07/2014 showed elevated Hct/ hb 18.2/ 51.9 ( not polycythemia by definition ) , cmp / lipid panel normal , psa normal 2011 , hba1c 6.4 Colonoscopy : 11/06/2014 H up to dated on 09/10/2014 - would like colonosocpy as father has colon cancer PL : urgency ( ( spastic bladder and improved with avoiding caffeine , tinea corporis ( use of ketoconazole) no concerns and resolved , low back pain ( stable and doesn't limiting him mostly on rightside but no concerns , eczema ( improved and seen derm ) , BMI 38, right shoulder pain and better -( no exercise done ) Meds : use of flonase ( may use over the counter - used daily but discussed use 2x per day - gets sinus symptoms despite adding zyrtec - no ear pain popping , use of pepcid ( not even needed and agreed to stop ) , use of cialis ( as needed and wants refill- no side effects - helps ) Med refill: hctz ( refill 90 days ) Diet : eating salads more and less carbs Exercise : once a week weight lifting mostly ( 15 min ) Caffeine : 1 large cup , ice tea 1 large, no soda, uses 1 energy drinks Sleep: 9:30 ( wakes up every 2: 30 am unknown and can't go back to sleep) - 5 am - sleep study ( October 2014 ) ??? Body mass index (BMI) of 38.0-38.9 in adult ??? Right knee meniscal tear Seen DR Pittman on 08/14/2014 s/p steroid shot ( due to DJD) ??? Elevated fasting blood sugar 130 mg/dl, HbA1c pending. ??? Essential hypertension ??? Low back pain HISTORY OF PRESENT ILLNESS: It was my pleasure to meet Pepito Cordon today. Pepito Cordon is a 49 y.o. year old male being seen for evaluation of increased globulin levels PMHX: Past Medical History Diagnosis Date ??? Allergy ??? Essential hypertension 08/05/2014 ROS Energy level:stable Pain: No Appetite:good Fevers/chills/sweats:None Bruising/bleeding/melena:No Recent infections:None Headaches:neg Vision:neg Hearing:neg Sinus: neg Seasonal Allergies: neg Mouth sores:neg Dentition: Good Swallowing: neg GERD : neg Nausea/vomiting: neg diarrhea/constipation:No SOB/EVANGELISTA/pulmonary sx: none chest pain:No sx: negative Change in adenopathy or other masses:No Unexpected weight loss or gain:Voluntary weight loss 15 pounds Skin rashes or petechiae:No Musculoskeletal complaints:No Extremities: Negative upper and lower bilaterally Neurologic symptoms:No Mental Status changes: neg Mood: Normal Sleep: Poor quality sleep. 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 HYDROcodone-acetaminophen 5-325 mg Tablet Take 1 to 2 tablets by mouth every 4 to 6 hours if needed. 0 ??? Arginine HCl, L-Arginine, 1,000 mg Tablet Take by mouth daily. ??? Cinnamon Bark 500 mg Capsule Take by mouth daily. ??? tadalafil (CIALIS) 5 mg Tablet Take 2 tablets by mouth as needed for Erectile Dysfunction. 30 tablet 0 ??? hydrochlorothiazide (HYDRODIURIL) 25 mg Tablet Take 1 tablet by mouth daily. 90 tablet 3 No current facility-administered medications for this visit. Allergies: No Known Allergies FAMILY HISTORY: Family History Problem Relation Age of Onset ??? Colorectal Cancer Father ??? High Blood Pressure Father ??? High Cholesterol Father ??? Prostate Cancer Neg Hx ??? Diabetes Paternal Grandmother ??? Coronary Artery Disease Neg Hx ??? Blood Disorder Brother SOCIAL HISTORY Personal: Work history: ETOH: Smoking: HIPPA Contact Permission/Advance Directive: PHYSICAL EXAM BP 131/89 Pulse 80 Temp(Src) 37 ??C (98.6 ??F) (Temporal) Ht 185.5 cm (6' 1.03) Wt 127.143kg (280 lb 4.8 oz) BMI 36.95 kg/m2 SpO2 97% Body surface area is 2.56 meters squared. GENERAL: Pepito Cordon appears well and is in no acute distress. ENT: Oral pharynx clear. EYES: SMITHA NECK: Supple without adenopathy. AXILLARY: no adenopathy OTHER LYMPH: no adenopathy CARDIAC: Regular rate and rhythm without S3,S4 or murmurs. LUNGS: Clear to auscultation./percussion ABDOMEN: Soft and non-tender without hepatosplenomegaly or masses. EXTREMITIES: No cyanosis, clubbing, edema or calf tenderness. SKIN: No bruises or petechiae. NEUROLOGICAL: Alert and oriented to person, place and time. MUSCULOSKELETAL: No spinal or chest wall tenderness. LABORATORY STUDIES Results for PEPITO CORDON ( ) as of 11/13/2014 15:36 Ref. Range 08/09/2014 10:41 WBC Latest Range: 4.0-10.0 x10(3)/mcL 9.8 RBC Latest Range: 4.63-6.08 x10(6)/mcL 5.95 Hemoglobin Latest Range: 13.7-17.5 gm/dL 18.2 (H) Hematocrit Latest Range: 40.0-51.0 % 51.9 (H) MCV Latest Range: 79.0-92.0 fL 87.2 MCH Latest Range: 25.6-32.2 pg 30.6 MCHC Latest Range: 32.0-36.5 gm/dL 35.1 RDWSD Latest Range: 35.0-46.0 fL 38.8 RDWCV Latest Range: 10.9-14.4 % 12.2 Platelets Latest Range: 145-370 x10(3)/mcL 226 MPV Latest Range: 9.0-12.0 fL 12.4 (H) nRBC % Auto No range found 0.0 nRBC Abs Auto Latest Range: 0.000-0.012 x10(3)/mcL 0.000 Neutr Abs (ANC) Latest Range: 1.50-6.30 x10(3)/mcL 6.09 Neutrophils % No range found 62.0 Immature Gran % No range found 0.40 Lymphocytes % No range found 26.9 Monocytes % No range found 6.2 Eosinophils % No range found 3.8 Basophils % No range found 0.7 Meli Gran Abs Latest Range: 0.00-0.05 x10(3)/mcL 0.04 Lymphocytes Abs Latest Range: 1.0-3.6 x10(3)/mcL 2.6 Monocyte Abs Latest Range: 0.2-1.0 x10(3)/mcL 0.6 Eosinophils Abs Latest Range: 0.0-0.5 x10(3)/mcL 0.4 Basophils Abs Latest Range: 0.0-0.2 x10(3)/mcL 0.1 Results for PEPITO CORDON ( ) as of 11/13/2014 15:36 Ref. Range 09/10/2014 08:33 10/02/2014 11:59 Total Prot Elec Latest Range: 6.1-8.0 gm/dL 7.8 Albumin Elect Latest Range: 3.60-6.00 gm/dL 4.73 Alpha1-Globulin Latest Range: 0.10-0.30 gm/dL 0.17 Alpha2-Globulin Latest Range: 0.40-0.90 gm/dL 0.73 Beta Globulin Latest Range: 0.50-1.00 gm/dL 0.79 Gamma Globulin Latest Range: 0.50-1.30 gm/dL 1.38 (H) M1 Band Latest Range: None Detected gm/dL None Detected Scan No range found See Note U Protein Ran Latest Range: 0-12 mg/dL 31 (H) U Albumin No range found 75 U Globulin No range found 25 U M Band Latest Range: None Detected % total None Detected U Scan No range found See Note RADIOLOGY STUDIES REVIEWED: None ASSESSMENT/PLAN: Very pleasant 49 year old man with hx of obesity, hypertension, elevated A1C, eczema. Noted to haveelevated serum gamma globulins and elevated protein on random urine. Further lab review showed that there was no clonality to the gamma globulin elevation and that there was no free light chain in the urine. No other signs or symptoms of hematologic disorder. Specifically no feveres chilsl or sweats. No bruising or bleeding. Review of all labs over a several year basis shows no evidence suggestive or any form of paraproteinemia. Gamma globulin elevation is very much non-specific. Would not feel it is necessary to pursue this further total time: 30 minutes time in counseling 25 minutes. Discussed elevation of BS and strategies to minimize cardiovascular risk profile including 20 minutes of exercise daily; minimal alcohol, avoiding concentrated sweets and weight loss. Copy SHANELL ARAGON MD documented in this encounter Plan of Treatment Not on file documented as of this encounter Visit Diagnoses Diagnosis Elevated blood protein Other disorders of plasma protein metabolism documented in this encounter Care Teams Inspector [employer] Relationship Specialty Start Date End Date Shanell Aragon MD [address] [place] [address] PCP - General 07/22/14 07/10/17 documented as of this encounter
--- OUTSIDE RECORDS SUMMARY | 2024-02-22 09:32 | XMS_ITS | Encounter Summary ---
Author Organization [facility] Address [facility] [place] [address] Care Team Providers Care Retort Firer Name Role Phone Ingrid Aragon MD Primary Care Provider [phone] Encounter Details Date Type Department Care Team (Late st Contact Info) Description 11/06/2014 3:30 PM EDT - 11/06/2014 11:59 PM EDT Hospital Encounter Laboratory [facility] [place] [address] Subhash Mcdonald MD [address] [facility] [place] [address] Family hx of colon cancer requiring screening colonoscopy Discharge Disposition: Home Social History Tobacco Use [...] on file documented as of this encounter Medications at Time of Discharge Medication Sig Dispensed Refills Start Date End Date Arginine HCl, L-Arginine, 1,000 mg Tablet Take by mouth daily. HYDROcodone-acetaminophe n 5-325 mg Tablet Take 1 to 2 tablets by mouth every 4 to 6 hours if needed. 0 10/06/2014 12/07/2014 Cinnamon Bark 500 mg Capsule Take by mouth daily. 07/22/2015 tadalafil (CIALIS) 5 mg TabletIndications:Inabil ity to maintain erection Take 2 tablets by mouth as needed for Erectile Dysfunction. 30 tablet 0 09/10/2014 07/21/2015 hydrochlorothiazide (HYDRODIURIL) 25 mg TabletIndications:Essent ial hypertension Take 1 tablet by mouth daily. 90 tablet 3 09/10/2014 07/21/2015 documented as of this encounter Plan of Treatment Not on file documented as of this encounter Procedures Procedure Name Priority Date/Time Associated Diagnosis Comments SPECIMEN TO PATHOLOGY (NON-OR) Routine 11/06/2014 3:37 PM EDT Family hx of colon cancer requiring screening colonoscopy SURGICAL PATHOLOGY REPORT Routine 11/06/2014 12:00 PM EDT documented in this encounter Results * Specimen to Pathology (NON-OR) (11/06/2014 3:37 PM EDT) AP Specimen 11/06/2014 3:37 PM EDT 11/06/2014 3:37 PM EDT Narrative JORGITO CROWELLIUM - 11/06/2014 3:37 PM EDT Specimen requisition ordered. ??Separate Pathology report to follow Subhash Mcdonald MD PATHOLOGY/CYTOLOGY O RDERABLES [facility] * Surgical Pathology Report (11/06/2014 12:00 PM EDT) Final Diagnosis ? [facility] ? Provider: ?? SUBHASH MCDONALD ? Pt. Name: ?? JULIANN PEPITO ? Acc #: ?[id number] ?Pt. ? Col Date: ?? 11/06/2014 ? /Sex: ?1965,(49 years),Male ? Rec Date: ?? 11/06/2014 ? LOC: ?HCN ? SURGICAL PATHOLOGY ? ---Pathologic Diagnosis--- ? Endoscopic biopsy - Tubular adenoma. ? CR-PX ? 11/09/14 ? AAS ? 11/09/14 Verified by: ? Verna HENDERSON, Jaime Guillen ? Pathologist ? (Electronic Signature) ? The attending pathologist whose signature appears on this report has ? reviewed all diagnostic slides and has edited the gross and/or ? microscopic portion of the report in rendering the final pathologic ? diagnosis. ? ---Gross Description--- ? A - Labeled/Fixativ e: Descending colon polyp, formalin. ? Quantity/Size: One, 1.0 x 0.3 x 0.2 cm. ? Tissue Description: Soft gallagher red speckled tissue. ? Sections/Proces sing: (T1) ??ksb ? ---Clinical Information--- ? Specimen Submitted: ? A - Descending colon polyp ? Clinical History: ? Family history colon cancer ? Clinical Diagnosis: ? Colon polyp 11/09/2014 3:19 PM EDT [facility] GI Biopsy 11/06/2014 12:0 0 PM EDT 11/06/2014 12:00 PM EDT Subhash Mcdonald MD PATHOLOGY/CYTOLOGY O RDERABLES Performing Organization Address City/State/[facility] Co de Phone Number [facility] [place] [address] documented in this encounter Visit Diagnoses Diagnosis Family hx of colon cancer requiring screening colonoscopy Family history of malignant neoplasm of gastrointestinal tract documented in this encounter Care Teams Retort Firer Relationship Specialty Start Date End Date Ingrid Aragon MD [address] [place], [place] [id number] PCP - General 3/25/15 3/13/18 documented as of this encounter
--- OUTSIDE RECORDS SUMMARY | 2024-02-22 09:32 | XMS_ITS | Encounter Summary ---
Author Organization [facility] Address One [facility] [place] [address] Care Team Providers Care Diabetologist Name Role Phone Ingrid Aragon MD Primary Care Provider [phone] Reason for Visit * Reason Comments Post Procedure Call Encounter Details Date Type Department Care Team (Late st Contact Info) Description 10/07/2014 Telephone Orthopaedics at [address] [place] [address] [facility] [address] [place] [address] Post Procedure Call Social History Tobacco Use Types [...] encounter Miscellaneous Notes * Telephone Encounter - Alyson Larios CMA - 10/07/2014 11:03 AM EDT Post procedure follow up call note Spoke on the phone to: Patient: If not patient, whom? X General condition as stated by the patient or designee: Excellent Good Fair Poor Other X The patient's pain is controlled: YES NO X Date of Surgery: 10/06/2014 Surgical Procedure: Right knee arthroscopy Post-op day: Pain level today 1 2 3 4 5 6 7 8 9 10 X Nursing Post-Op Information YES NO N/A Intervention and/or Comments Fever X Bleeding/drainage X Eating X Normal bowel movements X Patient's POV is scheduled with Dr. Pittman on 10/22/14. Comments: The patient states his pain is controlled and he has no complaints. He is walking normally and is comfortable. documented in this encounter Plan of Treatment Not on file documented as of this encounter Visit Diagnoses Not on filedocumented in this encounter Care Teams Diabetologist Relationship Specialty Start Date End Date Ingrid Aragon MD [address] [place] [address] PCP - General 07/22/14 07/10/17 documented as of this encounter
--- OUTSIDE RECORDS SUMMARY | 2024-02-22 09:32 | XMS_ITS | Encounter Summary ---
Author Organization [facility]ly [facility] Address One [facility] [place] [address] Care Team Providers Care Copper Flotation Operator Name Role Phone Ingrid Aragon MD Primary Care Provider [phone] Reason for Referral * Consultation (Routine) - Complete - Patient Seen (External Appt Consult Notes Rcv'd) Specialty Diagnoses / Procedures Referred By Contac t Referred To Contact Gastroenterology Diagnoses Health care maintenance Family history of colon cancer Ingrid Aragon MD [address] [place] [id number] [facility] Gastroenterology [address] [place] [address] Referral ID Status Reason Start Date Expiration Date Visits Requested Visits Authorized [id number] Complete - Patient Seen (External Appt Consult Notes Rcv'd) Test Only 09/10/2014 09/10/2015 3 3 Reason for Visit * Reason Comments Annual Exam Medication Refill Encounter Details Date Type Department Care Team (Late st Contact Info) Description 09/10/2014 7:15 AM EDT Office Visit Family Practice at [address] [phone] Ingrid Aragon MD [address] [place] [address] [id number] Inability to maintain erection; Health care maintenance; Essential hypertension; Elevated blood protein; Adjustment insomnia; Family history of colon cancer Social History Tobacco Use Types Packs/Day Years [...] Sign Reading Time Taken Comments Blood Pressure 120/74 09/10/2014 7:23 AM EDT Pulse 76 09/10/2014 7:23 AM EDT Temperature - - Respiratory Rate - - Oxygen Saturation - - Inhaled Oxygen Concentration - - Weight 129.9 kg (286 lb 6.4 oz) 09/10/2014 7:23 AM EDT Height 186.7 cm (6' 1.5) 09/10/2014 7:23 AM EDT Body Mass Index 37.27 09/10/2014 7:23 AM EDT documented in this encounter Patient Instructions * Patient Instructions* Ingrid Aragon MD - 09/10/2014 8:07 AM EDT Pepito was seen today for annual exam and medication refill. Diagnoses and associated orders for this visit: Family history of colon cancer Scheduled for colonoscopy Inability to maintain erection - tadalafil (CIALIS) 5 mg Tablet; Take 2 tablets by mouth as needed for Erectile Dysfunction. Uses mostly 1 -2 tablets as needed Health care maintenance Essential hypertension stable - hydrochlorothiazide (HYDRODIURIL) 25 mg Tablet; Take 1 tablet by mouth daily. Elevated blood protein he has family history of blood disorder His hemoglobulin is elevated He is not a smoker but it may be related to his sleep issues In view of family history checked for proteins below - if normal no further work up at this point unless concerns - Protein Electrophoresis, serum; Future Adjustment insomnia Sleep study scheduled for October 2014 - Trial of traZODone (DESYREL) 50 mg Tablet; Take 1 tablet by mouth nightly. Discussed side effects like priapism - patient understand The attempt to improve sleep and then exercise Discussed exercise anum aerobic like biking Right shoulder impingment syndrome - no work up needed Trial of home exercises anum if weight bearing exercises continued Seasonal allergies : -mostly sinusitis zyrtec not working flonase over the counter twice daily regularly for 2 weeks along with possible caio If not helpful may try singulair or music publisher Patient will think about its BMI 37 : applauded for weight loss with diet changes Encouraged for exercise Offered metformin based on hba1c 6.4 - patient declined at this point If blood test is neg Plan labs ie hba1c, cbc, cmp in feb 2015 with labs before documented in this encounter Progress Notes * Ingrid Aragon MD - 09/10/2014 9:14 AM EDT Subjective: Patient ID: Pepito Cordon is a 49 y.o. male. HPI Comments: Patient whom has mostly seen Lori mendoza/ [...] , psa normal 2011 , hba1c 6.4 H up to dated on 09/10/2014 - [...] - sleep study ( October 2014 ) Review of Systems Objective: Physical Exam Constitutional: He is oriented to person, place, and time. He appears well- developed and well-nourished. No distress. HENT: Right Ear: Tympanic membrane, external ear and ear canal normal. No drainage or swelling. Tympanic membrane is not injected. No middle ear effusion. Left Ear: Tympanic membrane and external ear normal. No drainage or swelling. Tympanic membrane is not injected. No middle ear effusion. No decreased hearing is noted. Nose: Nose normal. No mucosal edema, rhinorrhea, sinus tenderness or nasal deformity. No epistaxis.Right sinus exhibits no maxillary sinus tenderness and no frontal sinus tenderness. Left sinus exhibits no maxillary sinus tenderness and no frontal sinus tenderness. Mouth/Throat: Oropharynx is clear and moist and mucous membranes are normal. No oropharyngeal exudate, posterior oropharyngeal edema or posterior oropharyngeal erythema. Eyes: Conjunctivae and EOM are normal. Pupils are equal, round, and reactive to light. Right conjunctiva is not injected. Left conjunctiva is not injected. Right eye exhibits normal extraocular motion. Left eye exhibits normal extraocular motion. Neck: Normal range of motion and full passive range of motion without pain. Carotid bruit is not present. No tracheal deviation, no edema, no erythema and normal range of motion present. No thyroid mass and no thyromegaly present. Cardiovascular: Normal rate, regular rhythm, S1 normal and S2 normal. Exam reveals no distant heartsounds and no decreased pulses. No murmur heard. Pulses: Radial pulses are 2+ on the right side, and 2+ on the left side. Dorsalis pedis pulses are 2+ on the right side, and 2+ on the left side. Pulmonary/Chest: Effort normal and breath sounds normal. No stridor. No respiratory distress. He has no decreased breath sounds. He has no wheezes. He has no rhonchi. He has no rales. Abdominal: Soft. Normal aorta and bowel sounds are normal. He exhibits no distension and no mass. There is no hepatosplenomegaly. There is no tenderness. There is no rebound, no guarding, no CVA tenderness and negative Mishra's sign. No hernia. Hernia confirmed negative in the right inguinal area and confirmed negative in the left inguinal area. Musculoskeletal: Normal range of motion. He exhibits no edema or tenderness. Positive harding signs positive but neg neer's sign Neurological: He is alert and oriented to person, place, and time. He has normal reflexes. No cranial nerve deficit. He exhibits normal muscle tone. Coordination normal. Skin: No rash noted. He is not diaphoretic. Psychiatric: He has a normal mood and affect. His behavior is normal. Judgment and thought content normal. Assessment and Plan: Patient Instructions Pepito was seen today for annual exam and medication refill. Diagnoses and associated orders for this visit: Inability to maintain erection - tadalafil (CIALIS) 5 mg Tablet; Take 2 tablets by mouth as needed for Erectile Dysfunction. Uses mostly 1 -2 tablets as needed Health care maintenance Essential hypertension stable - hydrochlorothiazide (HYDRODIURIL) 25 mg Tablet; Take 1 tablet by mouth daily. Elevated blood protein he has family history of blood disorder His hemoglobulin is elevated He is not a smoker but it may be related to his sleep issues In view of family history checked for proteins below - if normal no further work up at this point unless concerns - Protein Electrophoresis, serum; Future Adjustment insomnia Sleep study scheduled for October 2014 - Trial of traZODone (DESYREL) 50 mg Tablet; Take 1 tablet by mouth nightly. Discussed side effects like priapism - patient understand The attempt to improve sleep and then exercise Discussed exercise anum aerobic like biking Right shoulder impingment syndrome - no work up needed Trial of home exercises anum if weight bearing exercises continued Seasonal allergies : -mostly sinusitis zyrtec not working flonase over the counter twice daily regularly for 2 weeks along with possible caio If not helpful may try singulair or music publisher Patient will think about its BMI 37 : applauded for weight loss with diet changes Encouraged for exercise Offered metformin based on hba1c 6.4 - patient declined at this point If blood test is neg Plan labs ie hba1c, cbc, cmp in feb 2015 with labs before documented in this encounter Plan of Treatment Scheduled Referrals Name Type Priority Associated Diagnoses Order Schedule Referral to Gastroenterology Outpatient Referral Routine Health care maintenance Family history of colon cancer Ordered: 09/10/2014 documented as of this encounter Results * (ABNORMAL) Protein Electrophoresis, serum (09/10/2014 8:33 AM EDT) Total Prot Electrophoresis 7.8 6.1 - 8.0 gm/dL CERNER MILLENNIUM Albumin Electrophoresis 4.73 3.60 - 6.00 gm/dL CERNER MILLENNIUM Alpha 1 Globulin 0.17 0.10 - 0.30 gm/dL CERNER MILLENNIUM Alpha 2 Globulin 0.73 0.40 - 0.90 gm/dL CERNER MILLENNIUM Beta Globulin 0.79 0.50 - 1.00 gm/dL CERNER MILLENNIUM Gamma Globulin 1.38(H) 0.50 - 1.30 gm/dL CERNER MILLENNIUM M1 Band None Detected None Detected gm/dL CERNER MILLENNIUM Scan See Note CERNER MILLENNIUM Comment:Please see scanned r eport in Chart Review under the [facility] Heading. Blood specimen (specimen) 09/10/2014 8:33 AM EDT 09/10/2014 6:28 PM EDT Narrative Resulting Agency Comment Spec In Lab Ingrid Aragon MD CHEMISTRY ORDERABLES JORGITO CROWELLIUM documented in this encounter Visit Diagnoses Diagnosis Inability to maintain erection Psychosexual dysfunction with inhibited sexual excitement Health care maintenance Unspecified general medical examination Essential hypertension Unspecified essential hypertension Elevated blood protein Other disorders of plasma protein metabolism Adjustment insomnia Transient disorder of initiating or maintaining sleep Family history of colon cancer Family history of malignant neoplasm of gastrointestinal tract documented in this encounter Care Teams Copper Flotation Operator Relationship Specialty Start Date End Date Ingrid Aragon MD [address] [place] [address] PCP - General 07/22/14 07/10/17 documented as of this encounter
--- OUTSIDE RECORDS SUMMARY | 2024-02-22 09:32 | XMS_ITS | Encounter Summary ---
Author Organization [facility] [place] [address] Care Team Providers Care Sports Physiotherapist Name Role Phone Ingrid Aragon MD Primary Care Provider [phone] Encounter Details Date Type Department Care Team (Late st Contact Info) Description 11/25/2014 Telephone Pulmonology at [facility] [address] [place] [address] Negro Cornell MD [address] [address] Social History Tobacco Use Types Packs/Day Years [...] Telephone Encounter - Andreina Mckeon RN - 12/01/2014 12:33 PM EDT No contact with sleep study results sent to patient's home address via certified mail. * Telephone Encounter - Andreina Mckeon RN - 11/30/2014 11:17 AM EDT Left message on cell phone and house phone for patient requesting call back, office number provided. * Telephone Encounter - Andreina Mckeon RN - 11/27/2014 9:26 AM EDT Left message for patient requesting call back, office number provided. * Telephone Encounter - Andreina Mckeon RN - 11/26/2014 8:23 AM EDT Spoke to spouse, informed Pepito was at work and left cell phone at home. Requested call be placedout to him tomorrow to his cell phone. CPAP order, sleep study, demo, insurance, and last ov note faxed to [facility] at [phone]. * Telephone Encounter - Negro Cornell MD - 11/25/2014 5:54 PM EDT Severe MESHA with AHI 55/hr found on sleep study. CPAP 13 controlled apneas very well. Will order. Please schedule follow up for 31-45 days after receiving CPAP. You will need to use for a minimum of 4 hours per night on 70% of nights, although you should use whenever you sleep. The more hours youuse the equipment, the greater the cardiac benefits. I will order a CPAP download from your home care company for that follow up. documented in this encounter Plan of Treatment Not on file documented as of this encounter Visit Diagnoses Diagnosis MESHA (obstructive sleep apnea) Obstructive sleep apnea (adult) (pediatric) documented in this encounter Care Teams Sports Physiotherapist Relationship Specialty Start Date End Date Ingrid Aragon MD [address] [place] [address] PCP - General 07/22/14 07/10/17 documented as of this encounter
--- OUTSIDE RECORDS SUMMARY | 2024-02-22 09:32 | XMS_ITS | Encounter Summary ---
Author Organization [facility] Address [address] [facility] [place] [address] Care Team Providers Care Quality Audit Representative Name Role Phone Ingrid Aragon MD Primary Care Provider Reason for Visit * Reason Onset Date Comments Results 11/25/2014 Encounter Details Date Type Department Care Team (Late st Contact Info) Description 11/25/2014 Telephone Pulmonology at [address] [address] Oli Moncada MD [address] [place] [address] Results Social History Tobacco Use Types Packs/Day [...] encounter Miscellaneous Notes * Telephone Encounter - Justin Jackson - 11/30/2014 10:21 AM EDT Patient called back. * Telephone Encounter - Andreina Mckeon RN - 11/25/2014 4:17 PM EDT Left detailed message for patient (ID'd voicemail), notifying sleep study report is in office but needs to be carefully reviewed by Dr. Cornell. Once reviewed, will contact patient with results. * Telephone Encounter - Cely Mcmahon - 11/25/2014 2:31 PM EDT WHICH RESULTS:Sleep study WHERE [facility] D[facility] WHEN WAS IT DONE: 11/13 documented in this encounter Plan of Treatment Not on file documented as of this encounter Visit Diagnoses Not on filedocumented in this encounter Care Teams Quality Audit Representative Relationship Specialty Start Date End Date Ingrid Aragon MD [address] [place] [address] PCP - General 07/22/14 07/10/17 documented as of this encounter
--- OUTSIDE RECORDS SUMMARY | 2024-02-22 09:32 | XMS_ITS | Encounter Summary ---
Author Organization [facility] Address [facility] [place] [address] Care Team Providers Care Behavioral Health Technician Name Role Phone Ingrid Aragon MD Primary Care Provider [phone] Reason for Visit * Reason Comments Back Pain Encounter Details Date Type Department Care Team (Late st Contact Info) Description 09/30/2014 8:20 PM EDT Office Visit Urgent Care at [address] [place] [phone] Tigre Baker MD [address] [facility] [place] [address] Low back pain, non-specific Social History Tobacco Use Types Packs/Day Years [...] Sign Reading Time Taken Comments Blood Pressure 140/80 09/30/2014 8:21 PM EDT Pulse 83 09/30/2014 8:21 PM EDT Temperature 36.3 ??C (97.4 ??F) 09/30/2014 8:21 PM ED T Respiratory Rate - - Oxygen Saturation 98% 09/30/2014 8:21 PM EDT Inhaled Oxygen Concentration - - Weight - - Height - - Body Mass Index - - documented in this encounter Patient Instructions * Patient Instructions* Tigre Baker MD - 09/30/2014 8:49 PM EDT Images from the original note were not included. [facility] Low Back Pain: Exercises Your Care Instructions Here are some examples of typical rehabilitation exercises for your condition. Start each exercise slowly. Ease off the exercise if you start to have pain. Your doctor or physical therapist will tell you when you can start these exercises and which ones will work best for you. How to do the exercises Press-up 1. Lie on your stomach, supporting your body with your forearms. 2. Press your elbows down into the floor to raise your upper back. As you do this, relax your stomach muscles and allow your back to arch without using your back muscles. As your press up, do not letyour hips or pelvis come off the floor. 3. Hold for 15 to 30 seconds, then relax. 4. Repeat 2 to 4 times. Alternate arm and leg (bird dog) exercise Note: Do this exercise slowly. Try to keep your body straight at all times, and do not let one hip drop lower than the other. 1. Start on the floor, on your hands and knees. 2. Tighten your belly muscles. 3. Raise one leg off the floor, and hold it straight out behind you. Be careful not to let your hipdrop down, because that will twist your trunk. 4. Hold for about 6 seconds, then lower your leg and switch to the other leg. 5. Repeat 8 to 12 times on each leg. 6. Over time, work up to holding for 10 to 30 seconds each time. 7. If you feel stable and secure with your leg raised, try raising the opposite arm straight out infront of you at the same time. [id number] exercise 1. Lie on your back with your knees bent and your feet flat on the floor. 2. Bring one knee to your chest, keeping the other foot flat on the floor (or keeping the other legstraight, whichever feels better on your lower back). 3. Keep your lower back pressed to the floor. Hold for at least 15 to 30 seconds. 4. Relax, and lower the knee to the starting position. 5. Repeat with the other leg. Repeat 2 to 4 times with each leg. 6. To get more stretch, put your other leg flat on the floor while pulling your knee to your chest. Curl-ups 1. Lie on the floor on your back with your knees bent at a 90-degree angle. Your feet should be flat on the floor, about 12 inches from your buttocks. 2. Cross your arms over your chest. If this bothers your neck, try putting your hands behind your neck (not your head), with your elbows spread apart. 3. Slowly tighten your belly muscles and raise your shoulder blades off the floor. 4. Keep your head in line with your body, and do not press your chin to your chest. 5. Hold this position for 1 or 2 seconds, then slowly lower yourself back down to the floor. 6. Repeat 8 to 12 times. Pelvic tilt exercise 1. Lie on your back with your knees bent. 2. Brace your stomach. This means to tighten your muscles by pulling in and imagining your belly button moving toward your spine. You should feel like your back is pressing to the floor and your hips and pelvis are rocking back. 3. Hold for about 6 seconds while you breathe smoothly. 4. Repeat 8 to 12 times. Heel dig bridging 1. Lie on your back with both knees bent and your ankles bent so that only your heels are digging into the floor. Your knees should be bent about 90 degrees. 2. Then push your heels into the floor, squeeze your buttocks, and lift your hips off the floor until your shoulders, hips, and knees are all in a straight line. 3. Hold for about 6 seconds as you continue to breathe normally, and then slowly lower your hips back down to the floor and rest for up to 10 seconds. 4. Do 8 to 12 repetitions. Hamstring stretch in doorway 1. Lie on your back in a doorway, with one leg through the open door. 2. Slide your leg up the wall to straighten your knee. You should feel a gentle stretch down the back of your leg. 3. Hold the stretch for at least 15 to 30 seconds. Do not arch your back, point your toes, or bend either knee. Keep one heel touching the floor and the other heel touching the wall. 4. Repeat with your other leg. 5. Do 2 to 4 times for each leg. Hip flexor stretch 1. Kneel on the floor with one knee bent and one leg behind you. Place your forward knee over your foot. Keep your other knee touching the floor. 2. Slowly push your hips forward until you feel a stretch in the upper thigh of your rear leg. 3. Hold the stretch for at least 15 to 30 seconds. Repeat with your other leg. 4. Do 2 to 4 times on each side. Wall sit 1. Stand with your back 10 to 12 inches away from a wall. 2. Lean into the wall until your back is flat against it. 3. Slowly slide down until your knees are slightly bent, pressing your lower back into the wall. 4. Hold for about 6 seconds, then slide back up the wall. 5. Repeat 8 to 12 times. Follow-up care is a espinosa part of your treatment and safety. Be sure to make and go to all appointments, and call your doctor if you are having problems. It's also a good idea to know your test resultsand keep a list of the medicines you take. Where can you learn more? Visit our health information library at [email or web address] You can also view health information on [employer], your personal patient account. Log in or sign up today. Enter Z938 in the search box to learn more about Low Back Pain: Exercises. ?? [phone] [employer]. Care instructions adapted under license by [facility]. This care instruction is for use with your licensed healthcare professional. If you have questions about a medical condition or this instruction, always ask your healthcare professional. [employer] disclaims any warranty or liability for your use of this information. Content Version: 10.4.572233; Current as of: December 08, 2013 documented in this encounter Progress Notes * Tigre Baker MD - 09/30/2014 8:42 PM EDT Subjective: Patient ID: Pepito Cordon is a 49 y.o. male. Back Pain This is a recurrent (4 days) problem. The pain is present in the gluteal (R). The pain radiates to the right knee and right foot. The pain is moderate. The symptoms are aggravated by sitting. Associated symptoms include weakness (buckling of R leg due to pain). Pertinent negatives include no bladder incontinence, bowel incontinence, numbness or tingling. Treatments tried: icey hot. The treatment provided no relief. Review of Systems Gastrointestinal: Negative for bowel incontinence. Genitourinary: Negative for bladder incontinence. Musculoskeletal: Positive for back pain. Neurological: Positive for weakness (buckling of R leg due to pain). Negative for tingling and numbness. Objective: BP 140/80 Pulse 83 Temp(Src) 36.3 ??C (97.4 ??F) (Temporal) SpO2 98% Physical Exam Constitutional: He appears well-developed and well-nourished. He is cooperative. He does not have asickly appearance. He does not appear ill. No distress. HENT: Head: Normocephalic. Eyes: Conjunctivae are normal. Right eye exhibits no discharge. Left eye exhibits no discharge. No scleral icterus. Musculoskeletal: Normal range of motion. Lumbar back: He exhibits normal range of motion, no tenderness, no bony tenderness, no swelling, noedema, no deformity, no laceration and no spasm. Good leg strength bilaterally Neurological: He is alert. He exhibits normal muscle tone. Coordination normal. Skin: No rash noted. He is not diaphoretic. Psychiatric: He has a normal mood and affect. His speech is normal and behavior is normal. Assessment and Plan: Pepito was seen today for back pain. Diagnoses and associated orders for this visit: Low back pain discussed - cyclobenzaprine (FLEXERIL) 10 mg Tablet; Take 1 tablet by mouth every 12 hours as needed for Muscle spasms. - acetaminophen-codeine (TYLENOL #3) 300-30 mg Tablet; Take 1-2 tablets by mouth every 6 hours as needed for Pain. Back exercises Call if questions, problems or not improved Pepito was agreeable to the plan documented in this encounter Plan of Treatment Not on file documented as of this encounter Visit Diagnoses Diagnosis Low back pain, non-specific documented in this encounter Care Teams Behavioral Health Technician Relationship Specialty Start Date End Date Ingrid Aragon MD [address] [place] [address] PCP - General 07/22/14 07/10/17 documented as of this encounter
--- OUTSIDE RECORDS SUMMARY | 2024-02-22 09:32 | XMS_ITS | Encounter Summary ---
Author Organization [facility] Address [address] [facility] [place] [address] Care Team Providers Care Vocational Rehabilitation Specialist Name Role Phone Ingrid Aragon MD Primary Care Provider [phone] Encounter Details Date Type Department Care Team (Late st Contact Info) Description 11/13/2014 Orders Only Pulmonology at [address] [phone] Oli Moncada MD [address] [facility] [place] [address] Body mass index (BMI) of 38.0-38.9 in adult Social History Tobacco Use Types Packs/Day Years [...] as of this encounter Visit Diagnoses Diagnosis Body mass index (BMI) of 38.0-38.9 in adult Body Mass Index 38.0-38.9, adult documented in this encounter Care Teams Vocational Rehabilitation Specialist Relationship Specialty Start Date End Date Ingrid Aragon MD [address] [place] [address] PCP - General 07/22/14 07/10/17 documented as of this encounter
--- OUTSIDE RECORDS SUMMARY | 2024-02-22 09:32 | XMS_ITS | Encounter Summary ---
Author Organization [facility] Address One [facility] [place] [address] Care Team Providers Care Top And Seat Cover Fitter Name Role Phone Ingrid Aragon MD Primary Care Provider [phone] Reason for Visit * Reason Onset Date Comments Other 12/17/2014 Encounter Details Date Type Department Care Team (Late st Contact Info) Description 12/17/2014 Telephone Pulmonology at [facility] [address] [place] [address] Negro Cornell MD [address] [address] Other Social History Tobacco Use Types Packs/Day Years [...] Telephone Encounter - Andreina Mckeon RN - 12/17/2014 12:21 PM EDT CPAP order, split sleep study, demo, insurance, and last ov note faxed to [facility] per patient's request below at [phone]. * Telephone Encounter - Devyn-Brea Handy - 12/17/2014 10:57 AM EDT Patient called and stated that for insurance purposes he would like to have his CPAP machine prescription, his office notes, and sleep study report sent to [facility] in [place]. Patient did not have a fax number and the phone number is [phone]. documented in this encounter Plan of Treatment Not on file documented as of this encounter Visit Diagnoses Not on filedocumented in this encounter Care Teams Top And Seat Cover Fitter Relationship Specialty Start Date End Date Ingrid Aragon MD [address] [place] [address] PCP - General 07/22/14 07/10/17 documented as of this encounter
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
--- OUTSIDE RECORDS SUMMARY | 2024-02-22 09:32 | XMS_ITS | Encounter Summary ---
Author Organization [facility] Address One [facility] [place] [address] Care Team Providers Care Blackjack Dealer Name Role Phone Shanell Aragon MD Primary Care Provider [phone] Reason for Visit * Reason Onset Date Comments Medication Refill 07/21/2015 Encounter Details Date Type Department Care Team (Late st Contact Info) Description 07/21/2015 Refill Family Practice at [address] [phone] Kari Roberson CMA Essential hypertension; Inability to maintain erection Social History Tobacco [...] encounter Miscellaneous Notes * Telephone Encounter - Mireille Cortez - 07/28/2015 12:46 PM EDT 07/27 TB Left second message for patient. * Telephone Encounter - Harshad Powell CMA - 07/26/2015 10:55 AM EDT Call Center please schedule patient for physical with Dr. Aragon at end of August and please schedule labs 1 weeks prior to appointment. Left recorded message for patient to return call. * Telephone Encounter - Kari Montiel CMA - 07/21/2015 4:32 PM EDT ----- Message from Dung Paulson sent at 07/21/2015 4:27 PM EDT ----- Contact: patient Refill request needed. PCP:SHANELL ARAGON MD ##Patient is OUT of medication## Has the patient been seen for a Physical or Follow up appointment in our department within the lastyear: NPV on 11/27/14 Medication, dose and frequency (copy and paste from e-DH: 1)hydrochlorothiazide (HYDRODIURIL) 25 mg Tablet / Take 1 tablet by mouth daily. 2)tadalafil (CIALIS) 5 mg Tablet / Take 2 tablets by mouth as needed for Erectile Dysfunction. Send to pharmacy (name and number): [address] ##Existing pharmacy for patient## Patient informed of the 48 to 72 hour policy time for RX requests: Yes documented in this encounter Plan of Treatment Not on file documented as of this encounter Visit Diagnoses Diagnosis Essential hypertension Unspecified essential hypertension Inability to maintain erection Psychosexual dysfunction with inhibited sexual excitement documented in this encounter Care Teams Blackjack Dealer Relationship Specialty Start Date End Date Shanell Aragon MD [address] [place] [address] PCP - General 07/22/14 07/10/17 documented as of this encounter
--- OUTSIDE RECORDS SUMMARY | 2024-02-22 09:32 | XMS_ITS | Encounter Summary ---
Author Organization [facility] Address One [facility] [place] [address] Care Team Providers Care Shrimp Peeler Name Role Phone Ingrid Aragon MD Primary Care Provider Reason for Visit * Reason Comments Right Knee Pain Synvisc #2 Encounter Details Date Type Department Care Team (Late st Contact Info) Description 01/22/2015 10:45 AM EDT Follow-Up Orthopaedics at [address] [place] [phone] Kari Landers PA [address] [facility] [place] [address] Primary osteoarthritis of right knee Social History Tobacco Use Types Packs/Day Years [...] - - Weight 126.1 kg (278 lb) 01/22/2015 10:50 AM EDT Height 188 cm (6' 2) 01/22/2015 10:50 AM EDT Body Mass Index 35.69 01/22/2015 10:50 AM EDT documented in this encounter Progress Notes * Kari Landers PA - 01/22/2015 10:53 AM EDT SUBJECTIVE: Pepito Cordon is a 49 y.o. male is here for the second Synvisc injection in the right knee. He hasnever had any other injections into his knee in the past. He reports some improvement in his knee pain OBJECTIVE: Discussed with Pepito the risks of joint injection, including, but not limited to infection, bleeding, bruising, reactions, worsening of pain the possibility of the injections not helping with the pain. All of his questions were answered to his satisfaction. Right knee injection was placed utilizing the anterior lateral approach. The skin was prepped with Betadine prior to the injection placement. Utilizing a 25- gauge needle 3 cc of 1% lidocaine was injected into the subcutaneous tissues. The skin was re-prepped and a 20-gauge needle was then utilized to aspirate less than 1 mL of clear joint fluid prior to the injection of 2 mL of Synvisc intra-articular. The patient tolerated the injection well. A sterile dressing consisting of a Band-aid was applied to the injection site. ASSESSMENT: Osteoarthritis of the right knee PLAN: Dx: Supervising physician: Dr. Cerrato Rx: Advised him to ice the injection site for 20 minutes and to take it easy for a couple of days. Ed: He is to return, as scheduled, for his next appointment. Kari Landers PA-C Orthopedics documented in this encounter Plan of Treatment Not on file documented as of this encounter Visit Diagnoses Diagnosis Primary osteoarthritis of right knee Primary localized osteoarthrosis, lower leg documented in this encounter Administered Medications Inactive Administered Medications - up to 3 most recent administrations Medication Order MAR Action Action Date Dose Rate Site hyaluronate (HYLAN,SYNVISC) injection 16 mg 16 mg, Intra-articular, ONCE, 1 dose, On Sun01/22/15 at 1115, Routine Given 01/22/2015 10:54 AM EDT 16 mg documented in this encounter Care Teams Shrimp Peeler Relationship Specialty Start Date End Date Ingrid Aragon MD [address] [place] [address] PCP - General 07/22/14 07/10/17 documented as of this encounter
--- OUTSIDE RECORDS SUMMARY | 2024-02-22 09:32 | XMS_ITS | Encounter Summary ---
Author Organization [facility] Address [facility] [place] [address] Care Team Providers Care Marina Manager Name Role Phone Ingrid Aragon MD Primary Care Provider Reason for Visit * Reason Comments Annual Exam Needs chris singh today Encounter Details Date Type Department Care Team (Late st Contact Info) Description 10/08/2015 10:00 AM EDT Office Visit Family Practice at [address] [phone] Ingrid Aragon MD [address] [place] [address] [place]IC[place], [place] [id number] Inability to maintain erection; Health care maintenance; Eczema, unspecified type; Essential hypertension, hypertension with unspecified goal; Prediabetes; Erectile dysfunction, unspecified erectile dysfunction type Social History Tobacco Use Types Packs/Day Years [...] Sign Reading Time Taken Comments Blood Pressure 122/78 10/08/2015 9:55 AM EDT Pulse 72 10/08/2015 9:55 AM EDT Temperature 36.7 ??C (98 ??F) 10/08/2015 9:55 AM EDT Respiratory Rate - - Oxygen Saturation 98% 10/08/2015 9:55 AM EDT Inhaled Oxygen Concentration - - Weight 120.3 kg (265 lb 3.2 oz) 10/08/2015 9:55 AM EDT Height 185.4 cm (6' 1) 10/08/2015 9:55 AM EDT Body Mass Index 34.99 10/08/2015 9:55 AM EDT documented in this encounter Patient Instructions * Patient Instructions* Ingrid Aragon MD - 10/08/2015 10:58 AM EDT May call for metformin start in next few months for prediabetes or weight loss Stop hctz and came back for a nurse visit in 1-2 weeks blood pressure check documented in this encounter Progress Notes * Ingrid rAagon MD - 10/08/2015 10:33 PM EDT Subjective: Patient ID: Pepito Cordon is a 50 y.o. male. HPI Comments: Patient scheduled a physical on 10/08/2015 with Mahesh Last visit : 09/10/2014 DR Hastings : eczema on clobestol DR Pittman on 08/14/2014 s/p steroid shot ( due to DJD) right knee menisceal tear- surgery scheduled on October [address] Henderson : sleep test and on cpap machine [facility] : yearly Labs done on 09/2015 5.8, [...] a month usually or once or may useeucerin. BMI 34 Right shoulder pain / knee [...] ( sleeping better with sleep apnea ) Review of Systems Objective: Physical Exam [...] confirmed negative in the left inguinal area. Genitourinary: Penis normal. Right testis shows no mass, no swelling and no tenderness. Right testis is descended. Left testis shows no mass, no swelling and no tenderness. Left testis is descended. Musculoskeletal: Normal range of motion. He exhibits no edema or tenderness. Neurological: He is alert and oriented to person, place, and time. He has normal reflexes. No cranial nerve deficit. He exhibits normal muscle tone. Coordination normal. Skin: No rash noted. He is not diaphoretic. Psychiatric: He has a normal mood and affect. His behavior is normal. Judgment and thought content normal. Assessment and Plan: Pepito was seen today for annual exam. Diagnoses and all orders for this visit: Inability to maintain erection Orders: - tadalafil (CIALIS) 5 mg Tablet; Take 2 tablets by mouth as needed for Erectile Dysfunction. Health care maintenance Eczema, unspecified type no concerns Essential hypertension, hypertension with unspecified goal Prefers not to take medication Plan to schedule a nurse visit in few weeks to recheck blood pressure if to restart hctz Prediabetes Discussed continued diet and exercise May try metformin in future and will call back Plan labs hba1c, cmp, lipid panel and psa in 1 yr with appt documented in this encounter Plan of Treatment Not on file documented as of this encounter Visit Diagnoses Diagnosis Inability to maintain erection Psychosexual dysfunction with inhibited sexual excitement Health care maintenance Unspecified general medical examination Eczema, unspecified type Essential hypertension, hypertension with unspecified goal Prediabetes Other abnormal glucose Erectile dysfunction, unspecified erectile dysfunction type documented in this encounter Care Teams Marina Manager Relationship Specialty Start Date End Date Ingrid Aragon MD [address] [place] [address] PCP - General 07/22/14 07/10/17 documented as of this encounter
--- OUTSIDE RECORDS SUMMARY | 2024-02-22 09:32 | XMS_ITS | Encounter Summary ---
Author Organization [facility] Address [address] [facility] [place] [address] [address] Care [address] Boss Name Role Phone Shanell Aragon MD Primary Care Provider [phone] Encounter Details Date Type Department Care Team (Late st Contact Info) Description 11/06/2014 12:00 PM EDT Procedure visit Gastroenterology at [address] [place] [id number] Octaviano Mcdonald MD [address] [facility] [place] [address] Family hx of colon cancer requiring screening colonoscopy Social History Tobacco Use Types Packs/Day Years [...] Reading Time Taken Comments Blood Pressure 140/80 11/06/2014 12:18 PM EDT Pulse 72 11/06/2014 10:58 AM EDT Temperature 36.6 ??C (97.9 ??F) 11/06/2014 1 0:58 AM EDT Respiratory Rate 20 11/06/2014 10:5 8 AM EDT Oxygen Saturation 97% 11/06/2014 10: 58 AM EDT Inhaled Oxygen Concentration - - Weight 127.4 kg (280 lb 12.8 oz) 2014 10:58 AM EDT Height 188 cm (6' 2) 11/06/2014 10:58 AM EDT Body Mass Index 36.05 11/06/2014 10:58 AM EDT documented in this encounter Patient Instructions * Patient Instructions* Octaviano Mcdonald MD - 11/06/2014 11:55 AM EDT ENDOSCOPY DISCHARGE INSTRUCTIONS A copy of this endoscopy report and any biopsy will be forwarded to your PCP. This usually takes about 7 days. Preliminary results of this endoscopy are shown below as you may not remember the verbalresults given to you. Findings: Small descending colon polyp removed Diverticulosis Hemorrhoids Plan/Treatment: [X] We will notify you of your pathology results, (if applicable) in 10-14 days. Restriction on Activity ??? REST TODAY ??? DO NOT drive a car or operate machinery until the day after the procedure. ??? NO alcohol/sedatives for 24 hours. ??? NO major decisions/signing of important documents. ??? Following day: May return to full activity including work. ??? DIET: Eat and drink normally unless instructed otherwise. Treatment for Common After-Effects ??? Red or swollen IV site: warm packs for 20 min. four times a day. Call if no relief in 24 hours. ??? Mild abdominal pain: rest, eat lightly. o Colonoscopy: Bloating or excessive gas: be active to work the gas out, heating pad on low, rest if needed. Ambulating or lying on your stomach or either side can be helpful. Symptoms to Watch for and Report to Your Physician ??? Shoulder or Chest Pain ??? SEVERE or persistent abdominal, chest or shoulder pain. ??? Fever within 24 hours after procedure greater than 101. ??? A large amount of rectal bleeding. (A small amount of blood from the rectum is not serious) ??? Nausea/Vomiting IF A POLYP HAS BEEN REMOVED OR IF A BIOPSY WAS TAKEN: You can take an aspirin once daily if necessary for your heart condition, history of vascular disease or for a history of stroke. For the next two weeks: [x] DO NOT take ibuprofen or other anti-inflammatory medication. Tylenol/acetaminophen may be taken. For the Next 3 Days DIET: no restriction ACTIVITY: as tolerated If a specimen is sent for biopsy, expect a letter of explanation within two weeks. If you do not receive a letter, please call the doctor???s office. IF YOU HAVE ANY QUESTIONS OR CONCERNS, PLEASE CALL YOUR PHYSICIAN???S OFFICE AT [phone]. Advance Directives: After Your Visit Your Care Instructions An advance directive is a statement that lets people know your wishes for end-of-life care. It is used when you cannot speak or express yourself, such as if you are in a coma. An advance directive can be a spoken statement or a written document. One type of advance directive is a living will. It expresses your wishes about medical treatment incase you cannot speak. It explains if and when you want life support and other treatment. Another type of advance directive appoints a person (called a durable power of commonwealth attorney or a health care agent) who can make treatment decisions for you. You can change or end a living will at any time. Do not assume that your doctor and family know your desires about end-of-life care. An advance directive helps your loved ones make difficult decisions for you. If you do not have a living will and ealth care agent, decisions about your medical care may be made by a doctor or a shuttle hand who does not know you. Follow-up care is a espinosa part of your treatment and safety. Be sure to make and go to all appointments, and call your doctor if you are having problems. It???s also a good idea to know your test results and keep a list of the medicines you take. How can you care for yourself at home? Discuss your wishes with all of your family members and your doctor so they know what you want. Thepeople making decisions for you should not be surprised by your choices. Each state has different guidelines for advance directives. Make sure that your directive follows the rules of the state you live in. You do not need a meteorology instructor to complete an advance directive. But you may want to get legal advice. Consider the following questions when preparing an advance directive: Who do you want to make decisions about your medical care if you are not able to? Many people choose a family member, close friend, or doctor. Do you know enough about life support methods that might be used? If not, talk to your doctor so you understand. What are you most afraid of that might happen? You might be afraid of having pain, losing your independence, or being kept alive by machines. Where would you prefer to ? Choices include your home, a hospital, or a jail. Would you like to have information about hospice care to support you and your family? Do you want to donate organs when you ? Do you want certain caodaism practices performed before you ? If so, put your wishes in the advance directive. Read your advance directive every year, and make changes as needed. When should you call for help? Be sure to contact your doctor if you have any questions. Visit our health information library at [email or web address]. You can also view health information on [employer], your personal patient account. Log in or sign up today. Enter R264 in the search box to learn more about Advance Directives: After Your Visit. ?? [phone] [employer]. Care instructions adapted under license by [facility]. This care instruction is for use with your licensed healthcare professional. If you have questions about a medical condition or this instruction, always ask your healthcare professional. [employer] disclaims any warranty or liability for your use of this information. Content Version: [id number]; Last Revised: May 19, 2009 documented in this encounter Progress Notes * Marine Caputo RN - 11/06/2014 1:09 PM EDT Pepito Giselljuli 1965 [id number] NAME AND VERIFIED [x] Report received from Edwin García RN Care assumed at 1210 MODIFIED POST ANESTHESIA SCORE DISCHARGE Able to move 4 extremities voluntarily or on command = 2 Able to move 2 extremities voluntarily or on command = 1 Able to move 0 extremities voluntarily or on command = 0 2 Able to breathe deeply & cough freely = 2 Dyspnea or limited breathing = 1 Apneic = 0 2 BP 20% of pre-anesthetic level = 2 BP 20-50% of pre-anesthetic level = 1 BP 50% of pre-anesthetic level = 0 2 Fully Awake = 2 Arousable on calling = 1 Not Responding = 0 2 O2 Sat >92 % room air adult = 2 Needs O2 inhalation to maintain O2 sat >90% =1 O2 sat <90% even with O2 support =0 2 TOTAL: 10 Level of Consciousness: Consciousness: 2: Alert/Oriented 1: Drowsy/responding 0: Unconscious Color: 2: Normal-pink 1: Pale, dusky 0: Cyanotic Skin: 2: Warm & Dry 1: Cool 0: Diaphoretic Respiration: 2: Breathe Deep /Cough Freely 1: Dyspnea, limited breathing 0: Apneic Pain Level: (0-10) Etta Gonsales *FLACC *ETTA GONSALES FACES Time: Q. 10 MINUTES 1220 LOC 2 Color 2 Skin 2 Resp 2 Nausea 2 Pain level 0/10 TIME MEDICATION DOSE ROUTE PAIN LEVEL RESPONSE NURSE No medications given during recovery [x] IV D/C [x] TOTAL IV FLUIDS: 1000 ML CATHETER INTACT [x] NO REDNESS OR SWELLING AT SITE [x] TOLERATING PO FLUIDS [x] PASSING FLATUS [x] N/A [] ABD SOFT [x] [x] Return to Pre-Procedure Score [x] Alert/Oriented [x] Swallow, Cough, Gag Reflex Present [x] Nausea, Vomiting, Dizziness Minimal [x] IV site checked [x] Pain: Minimal to Manageable [x] Responsible Adult to Accompany & Drive Patient [x] Discharge Instructions Reviewed and Given [] Prescriptions Reviewed and Given [x] N/A [x] MD Discharge Order [x] V.S. Stable [x] Able to Ambulate Discharge Time: 1230 Total PACU Time: 44 minutes [x] Advanced Directives Information given DISCHARGED: [x] Home with responsible person [] Admitted to: [x] Ambulatory [] W/C [x] Escorted by staff [] Clip card [x] N/A FSBS: N/A [x] NOTES: * Edwin García RN - 11/06/2014 11:48 AM EDT Pepito Bravo 1965 [id number] NAME AND VERIFIED [x] Report received from Miguel Ángel Key RN TIME TO PACU: 1146 VIA: Stretcher [x] Wheelchair [] Ambulatory [] OXYGEN: N/A [x] Mask [] Nasal Cannula [] Alarms On [x] Call oswald within reach [x] Airway Patent [x] Temp. 98.3??F First set of vital signs: Time Blood Pressure Respirations Pulse Oxygen 1146 135/85 16 80 95 MODIFIED POST ANESTHESIA SCORE ADM DISCHARGE Able to move 4 extremities voluntarily or on command = 2 Able to move 2 extremities voluntarily or on command = 1 Able to move 0 extremities voluntarily or on command = 0 2 Able to breathe deeply & cough freely = 2 Dyspnea or limited breathing = 1 Apneic = 0 2 BP 20% of pre-anesthetic level = 2 BP 20-50% of pre-anesthetic level = 1 BP 50% of pre-anesthetic level = 0 1 Fully Awake = 2 Arousable on calling = 1 Not Responding = 0 0 O2 Sat >92 % room air adult = 2 Needs O2 inhalation to maintain O2 sat >90% = 1 O2 sat <90% even with O2 support = 0 2 TOTALS: 7 Level of Consciousness: Consciousness: 2: Alert/Oriented 1: Drowsy/responding 0: Unconscious Color: 2: Normal-pink 1: Pale, dusky 0: Cyanotic Skin: 2: Warm & Dry 1: Cool 0: Diaphoretic Respiration: 2: Breathe Deep /Cough Freely 1: Dyspnea, limited breathing 0: Apneic Pain Level: (0-10) Quiles Gonsales *FLACC *QUILES ILDA FACES Time: Q. 10 MINUTES 1146 1156 1206 1216 LOC 0 1 2 Color 2 2 2 Skin 2 2 2 Resp 2 2 2 Nausea See note none none Pain level See note 0/10 0/10 TIME MEDICATION DOSE ROUTE PAIN LEVEL RESPONSE NURSE No medications given during recovery [] IV D/C [] TOTAL IV FLUIDS: ML CATHETER INTACT [] NO REDNESS OR SWELLING AT SITE [] TOLERATING PO FLUIDS [x] PASSING FLATUS [] N/A [x] ABD SOFT [x] [x] Return to Pre-Procedure Score [x] Alert/Oriented [x] Swallow, Cough, Gag Reflex Present [x] Nausea, Vomiting, Dizziness Minimal [x] IV site checked [x] Pain: Minimal to Manageable [] Responsible Adult to Accompany & Drive Patient [] Discharge Instructions Reviewed and Given [] Prescriptions Reviewed and Given [x] N/A [] MD Discharge Order [x] V.S. Stable [] Able to Ambulate [] Physician spoke with patient after procedure Discharge Time: Total PACU Time: [] Advanced Directives Information given DISCHARGED: [] Home with responsible person [] Admitted to: [] Ambulatory [] W/C [] Escorted by staff [] Clip Card [x] N/A FSBS: N/A [x] NOTES:1146-Patient arrived to recovery s/p Colonoscopy. Airway intact, breathing regular. Patient does not arouse to verbal or tactile stimuli. Abdomen soft, non distended. Unable to assess pain or nausea due to patient not arousable. 1156- Patient arouses to verbal stimuli, no c/o pain or nausea. Patient drowsy and continues to dose off. 1206- Patient alert and oriented x 3, no c/o pain or nausea, sitting up, tolerating po intake. Report to Marine Caputo RN * David Bowser, - 11/06/2014 11:34 AM EDT ANESTHESIA EVALUATION [facility] Date Completed: 11/06/2014 NPO: [x] No solids for more than 8 hours [x] Clear liquids or prep only since midnight Date of : 1965 Age: 49 y.o. PCP: SHANELL ARAGON MD History of Present Illness: Medical/Surgical History/Problems: Past Medical History Diagnosis Date ??? Allergy ??? Essential hypertension 08/05/2014 Past Surgical History Procedure Laterality Date ??? Circumcision circumcision Procedure Date: Unknown ??? Vasectomy 01/2010 ??? Cervical discectomy 05/2009 herniated cervical disc ??? [place] tooth extraction ??? Rhinoplasty ??? Hammer toe surgery ??? Foot tendon surgery ??? Orthopedic surgery Social History/Habits: History Social History ??? Marital Status: N/A Spouse Name: N/A Number of Children: N/A ??? Years of Education: N/A Occupational History ??? Not on file. Social History Main Topics ??? Smoking status: Never Smoker ??? Smokeless tobacco: Never Used ??? Alcohol Use: 0.5 oz/week 1 Not specified per week Comment: once in awhile 1 a week ??? Drug Use: No ??? Sexual Activity: Yes Comment: with his Other Topics Concern ??? Not on file Social History Narrative , lives in a house. Has one child. Has two cats. No background. No exposure to asbestos. Some second hand smoke exposure growing up. 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 No travel outside the [place]. ALLERGIES: Review of patient's allergies indicates no known allergies. MEDICATIONS: Current Outpatient Prescriptions on File Prior to Visit Medication Sig Dispense Refill ??? tadalafil (CIALIS) 5 mg Tablet Take 2 tablets by mouth as needed for Erectile Dysfunction. 30 tablet 0 ??? hydrochlorothiazide (HYDRODIURIL) 25 mg Tablet Take 1 tablet by mouth daily. 90 tablet 3 No current facility-administered medications on file prior to visit. PHYSICAL EXAM: VITAL SIGNS BP 141/93 Pulse 72 Temp(Src) 36.6 ??C (97.9 ??F) (Tympanic) Resp 20 Ht 188 cm (6' 2) Wt 127.37 kg (280 lb 12.8 oz) BMI 36.04 kg/m2 SpO2 97% Pertinent physical exam findings: [x] HEART AND LUNG EXAM NORMAL [] Irregular rate and rhythm [] Lung exam abnormal- wheezing present Teeth: [x] Teeth Normal [] Small oral opening (<3 cm) [] Poor dentition [] Obesity involving neck/facial structures [] Dentures [] Tracheal deviation [] Missing teeth [] Oral abnormalities [] Loose Teeth [] High arched palate, macroglossia [] Chipped Teeth Airway: [] MP 1 [] Limited neck extension [x] MP 2 [] Dysmorphic facial features [] MP 3 [] Retrognathia [] MP 4 [] Tonsillar hypertrophy [] TMD less than 3 cm Assessment: [] ASA 1 [] ASA 2 [x] ASA3 [] ASA4 [] EMERGENCY [x] Prolonged or Therapeutic Endoscopic Procedure requiring deep sedation or GA Plan: [x] GENERAL ANESTHESIA [] MAC Additional Comments: * Miguel Ángel Key - 11/06/2014 11:24 AM EDT Pepito Cordon 1965 [id number] NAME AND VERIFIED [x] ROOM 1 [] 2 [x] TIME IN ROOM: 1124 TIME OUT CHECKLIST AT: 1126 TIME START PROCEDURE: 1129 HUMIDITY: 50.3% TEMPERATURE: 68.1??F [] Notified proceduralist & charge nurse if humidity is lower than 20% and higher than 60% CONSENT SIGNED [x] HISTORY AND PHYSICAL COMPLETE [x] PRE-PROCEDURE DIAGNOSIS: Screening colonoscopy, family hx colon ca PROCEDURE: COLONOSCOPY [x] UPPER ENDOSCOPY [] FLEXIBLE SIGMOIDOSCOPY[] ROMAN Ph study [] ENTEROSCOPY [] PEG REPLACEMENT/ PLACEMENT [] OTHER: SCOPE # [] EGD # [x] Colon #8 PATIENT VALUABLES: CLOTHING UNDER STRETCHER [x] GLASSES REMOVED Y [x] N/A [] HEARING AIDE REMOVED Y [] N/A [x] JEWELRY Y [] N [] N/A [x] DENTURES REMOVED Y [] N/A [x] UPPER [] LOWER [] PROVIDER: VERONIKA [] MCDONALD [x] GULUR [] NAGRI [] NIKOS [] MARTÍNEZ [] ANESTHESIA: Adrian Bhatti DO [] Evans Bolden MD [] Atif Stevens MD [] London Clemens MD [] Pepe Sotelo DO [] Jimmy Gagnon MD [] Hina Queen MD [] Genesis Ruiz MD [] Atif Ashton MD [] David Bowser DO [x] TECH: BURTON Durbin [x] Myra Cochran, MIGEL [] SPECIMENS: 1.descending colon polyp 2. 3. 4. 5. 6. 7. 8. 9. 10. 11. 12. ELECTROCAUTERY: Y [] N [x] ERBE #1 [] ERBE#2 [] MONOPOLAR PAD PLACEMENT: Lot# Exp. Date: Grounding pad site: intact [] Other [] BLEND CUT COAG SNARE [] HOT BX [] BIPOLAR [] APC[] APC/GOLD PROBE WATTAGE: TIMES INJECTED- Spot [] NS [] Other: SITE: ML: N/A [x] Methylene Blue [] Concentration: 40 mg diluted 800mL sterile water (Dr. Sanders) N/A [x] ESOPHAGEAL DILITATION: Y [] N/A [x] TYPE: SIZE: HEME NOTED: Y [] N [] PEG PLACEMENT [] REPLACEMENT [] INCISION TIME : CALCIMINER/SIZE: LOT # N/A [x] ROMAN pH PLACEMENT AT CM PROBE# LOT# INITIAL PH: N/A [x] ON MEDS[] OFF MEDS[] OFF MEDS 2 DAYS/ON MEDS 2 DAYS [] INSTINCT CLIP: N/A [x] Insufflated with CO2 [x] Insufflated with room air [] N/A [] Specimens in container and labelled-confirmed by tech and nurse. Y [x] N/A [] Post Procedure Diagnosis: Diverticulosis,colon polyp,hemorrhoids Scope Withdrawal Time 11min 4sec TIME END PROCEDURE: 1146 * Octaviano Mcdonald MD - 11/06/2014 10:54 AM EDT PRE-OP OR PROCEDURE HISTORY AND PHYSICAL Date Completed: 11/06/2014 10:54 AM Date of : 1965 Age: 49 y.o. PCP: SHANELL ARAGON MD @PCPADD@ [phone] Planned Procedure: [] EGD, [x] Colonoscopy [] EGD/Colonoscopy, [] EGD/Roman Chief Complaint/Diagnosis: screening for colon cancer Medical/Surgical History/Problems: Past Medical History Diagnosis Date ??? Allergy ??? Essential hypertension 08/05/2014 Past Surgical History Procedure Laterality Date ??? Circumcision circumcision Procedure Date: Unknown ??? Vasectomy 01/2010 ??? Cervical discectomy 05/2009 herniated cervical disc ??? [place] tooth extraction ??? Rhinoplasty ??? Hammer toe surgery ??? Foot tendon surgery ??? Orthopedic surgery Social History: reports that he has never smoked. He has never used smokeless tobacco. He reports that he drinks about 0.5 oz of alcohol per week. He reports that he does not use illicit drugs. Allergies: Review of patient's allergies indicates no known allergies. Medications: tadalafil (CIALIS) 5 mg Tablet; hydrochlorothiazide (HYDRODIURIL) 25 mg Tablet Pertinent positive findings: [] None There were no vitals filed for this visit. HEENT: Anicteric, pink conjunctiva Lungs: clear Heart: RRR, no s3 Abdomen: soft and non-tender, no masses, no hepatosplenomegaly, good bowel sounds Extremities no edema clubbing or cyanosis Alert and oriented non focal Assessment: as above Plan: [x] Colonoscopy * Erica Frausto RN - 11/06/2014 10:52 AM EDT Pepito Cordon 1965 [id number] NAME AND VERIFIED [x] LOC /MENTAL STATUS ALERT & ORIENTED [x] CONFUSED [] OTHER [] EMOTIONAL STATUS: CALM/COOPERATIVE [x] ANXIOUS [] DISRUPTIVE [] TIME MEDICATION DOSE ROUTE PAIN LEVEL RESPONSE NURSE No medications given during pre-procedure phase [x] LANGUAGE BARRIER: Y [] N[x] QUALITY LIAISON: LANGUAGE: Russian PATIENT VALUABLES: CLOTHING UNDER STRETCHER [x] GLASSES[x] HEARING AIDE [] JEWELRY [] DENTURES [] HAVE YOU HAD ANY FALLS IN THE LAST YEAR? Y [] N[x] FALL RISK PROTOCOL: Y [] N[x] ASSISTIVE DEVICES: CANE [] WALKER [] WHEELCHAIR [] PROSTHESIS [] N/A[x] ANY CHANCE YOU ARE ? Y [] N [] UPT [] N/A [x] MEDICAL HEALTH RESEARCHER NAME: Rosy RELATIONSHIP: WAITING ROOM: Y[] N[x] PHONE: [phone] SKIN: WARM AND DRY [x] COOL AND DRY [] DIAPHORETIC [] PAIN: 0 Do you have sickle cell anemia? Y [] If yes inform GI doctor. N [x] NAUSEA: Y [] N [x] COLOR: PINK/WNL [x] PALE [] JAUNDICE [] CYANOTIC [] NPO STATUS: NPO CLEAR LIQUIDS AFTER: 0900 11/06/2014 NPO SOLIDS AFTER: 1200 11/05/2014 BOWEL PREP: Y[x] N[] MIRILAX [x] ENEMA [] MAGNESIUM CITRATE [x] OTHER: RESULTS: CLEAR [] CLOUDY [] YELLOW [] BROWN LIQUID [x] BROWN SOLID [] BLOODY [] OTHER: PRE-PROCEDURE DIAGNOSIS: + fh colon ca father dx approximately age 66. PROCEDURE SCHEDULED AND CONFIRMED WITH PATIENT: COLONOSCOPY [x] UPPER ENDOSCOPY [] FLEXIBLE SIGMOIDOSCOPY [] ROMAN Ph study [] ENTEROSCOPY [] PEG REPLACEMENT/ PLACEMENT [] OTHER: IMPLANTS: Y [x] Cervical Metal N [] WHEEZING/ SHORTNESS OF BREATH: Y [] N [x] AIRWAY ASSESSMENT: N/A [x] AIRWAY ISSUES REPORTED TO PHYSICIAN: Y [] N [x] NSAID USE: Y [] N [x] DID YOU TAKE ANY MEDICATIONS THIS MORNING? Y [] N [x] INTRAVENOUS: NS [x] OTHER: GAUGE: 24G[] 22G[] 20G[x] SITE: Right hand INSERTED BY: lesley Lew RATE: KVO [x] OTHER: # ATTEMPTS: 1 1%LIDOCAINE WHEAL FOR INSERTION: Y [] N [x] FSBS: N/A [x] What is a good phone number to reach you at? [phone] documented in this encounter Procedure Notes * Octaviano Mcdonald MD - 11/06/2014 10:54 AM EDTAssociated Order(s): COLONOSCOPY Procedure(s): COLONOSCOPY Pre-Procedure Diagnose(s): Family hx of colon cancer requiring screening colonoscopy Post-Procedure Diagnose(s): Screening for colon cancer; Colon polyp Colonoscopy Procedure Note Procedure: Colonoscopy Pre-operative Diagnosis/Indication: screening for colon cancer; Positive family history of colon cancer (1st degree relative)- father Previous colonoscopy: none Post-operative Diagnosis: Small descending colon polyp removed Diverticulosis Hemorrhoids Recommendations: Await pathology. Sedation: Anesthesia Pre-Procedure Physical: See pre-procedure note. Procedure Details [...] reduction of the risk of colon cancer. Thepatient then signed the consent form. The patient was placed in the left lateral decubitus position. The patient was monitored continuously with ECG tracing, pulse oximetry, blood pressure monitoring, and direct observation. A rectal examination was performed (see findings). The pediatric colonoscope was introduced into the rectum and advanced under direct visualization to the cecum, which was identified by the ileocecalvalve and appendiceal orifice. Photo Documentation was done.The endoscope was withdrawn in a controlled fashion for careful examination of the colon. A retroflexion was performed. The preparation wasgood. Withdrawal time was 11 minutes. Findings: Small descending colon polyp removed with a cold snare- < 5 mm Diverticulosis, scattered throughout the colon Hemorrhoids, internal Specimens: [x} Yes descending colon Complications: None Blood Loss: Minimal Condition: Stable Discharge order: Patient cleared for discharge after meeting appropriate discharge criterion. documented in this encounter Plan of Treatment Not on file documented as of this encounter Procedures Procedure Name Priority Date/Time Associated Diagnosis Comments COLONOSCOPY Routine 11/06/2014 1:38 PM EDT Family hx of colon cancer requiring screening colonoscopy ORDS - PROVIDER CARE SCAN 11/04/2014 12:00 AM EDT documented in this encounter Results * Specimen to Pathology (NON-OR) (11/06/2014 3:37 PM EDT) AP Specimen 11/06/2014 3:37 PM EDT 11/06/2014 3:37 PM EDT Narrative JORGITO TEJEDA - 11/06/2014 3:37 PM EDT Specimen requisition ordered. ??Separate Pathology report to follow Octaviano Mcdonald MD PATHOLOGY/CYTOLOGY O RDERABLES JORGITO REYESDUSTIN * COLONOSCOPY (11/06/2014 1:38 PM EDT) Narrative Octaviano Mcdonald MD - 11/06/2014 1:38 PM EDT Octaviano Mcdonald MD ? 11/06/2014 ??1:38 PM Colonoscopy Procedure [...] discharge after meeting appropriate discharge criterion. Octaviano Mcdonald MD EXTERNAL BARBARA/PRO ORD ERABLES * SCAN DOC: ORDS - PROVIDER CARE (11/04/2014 12:00 AM EDT) Scanning Provider MEDIA MGR SCAN EXT O RDR/RSLT documented in this encounter Visit Diagnoses Diagnosis Family hx of colon cancer requiring screening colonoscopy Family history of malignant neoplasm of gastrointestinal tract Family hx of colon cancer requiring screening colonoscopy Family history of malignant neoplasm of gastrointestinal tract documented in this encounter Care Teams Road Boss Relationship Specialty Start Date End Date Shanell Aragon MD [address] [place] [address] PCP - General 07/22/14 07/10/17 documented as of this encounter
--- OUTSIDE RECORDS SUMMARY | 2024-02-22 09:32 | XMS_ITS | Encounter Summary ---
Author Organization [facility] Address [facility] [place] [address] Care Team Providers Care Ripper Operator Name Role Phone Ingrid Aragon MD Primary Care Provider [phone] Reason for Visit * Reason Comments Obesity Patient wants to los e weight, improve health Encounter Details Date Type Department Care Team (Late st Contact Info) Description 11/27/2014 10:30 AM EDT Office Visit Internal Medicine at [place] [address] [place] [phone], RD [address] [facility] [address] [place] [address] Dietary surveillance and counseling; Body mass index (BMI) of 37.0-37.9 in adult; Elevated blood pressure; Impaired fasting glucose Social History Tobacco Use Types Packs/Day Years [...] - Inhaled Oxygen Concentration - - Weight 129.1 kg (284 lb 9.6 oz) 11/27/2014 11:13 AM EDT with heavy boots Height - - Body Mass Index 37.52 11/13/2014 2:59 PM EDT documented in this encounter Patient Instructions * Patient Instructions* Soha Cr RD - 11/27/2014 11:28 AM EDT Follow carbohydrate controlled meal plan as discussed , sample 1800 vince, 45-60 gm at meals, unlimited non starchy veggies Choose lean protein, portion control as possible Follow low sodium meal plan Increase exercise aim for 30 -60 min /day - if only have 20 min it will still help! documented in this encounter Progress Notes * Soha Cr RD - 11/27/2014 10:25 AM EDT Subjective: Comments: Pepito Cordon is a 49 y.o. male referred for Medical Nutrition Therapy related to diagnosis of obesity and HTN, elevated BS. First visit today. Referral made in July Patient states Positive family hx type 2 DM Feels fine, appetite good Lost weight recently buy eating less starches during the week Usual daily intake Breakfast Not always, maybe later up 5 am has iced coffee with cream Am snack 9:30 at work 2 yogurt with fruit with blueberries Lunch Brings: turkey gretta 1/2 #, lentils on side close to 2 cups and drinks iced coffee rest Afternoon snack Fruit again usually berries, avoiding grapes and gets pretzels ~ 7pm Dinner Biggest issue: gets home late ham and cheese sandwich or chix wrap and drinks SF drink evening snack Sweets: 1-2 times/month, not usually adding salt to food, using some processed foods Dining Out:on weekends pizza and cheats Alcohol: couple /month Main beverages:water, coffee, SF Exercise:not anymore, used to work out regularly, power lifted 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 Lives with and son. Objective: Objective: See Vitals Wt Readings from Last 3 Encounters: 11/13/14 127.143 kg (280 lb 4.8 oz) 11/06/14 127.37 kg (280 lb 12.8 oz) 10/22/14 130.182 kg (287 lb) Today's weight: 284 lb In spring was 300 lb Lab Results Component Value Date HA1C 6.4* 08/09/2014 Lab Results Component Value Date GLUCFASTING 130* 08/09/2014 LDLCHOL 73 07/22/2014 CREATININE 1.06 09/10/2014 Lab Results Component Value Date GLUCFASTING 130* 08/09/2014 Lab Results Component Value Date CHLPL 126 07/22/2014 Lab Results Component Value Date HDL 33* 07/22/2014 Lab Results Component Value Date LDLCHOL 73 07/22/2014 Lab Results Component Value Date TRIG 101 07/22/2014 Lab Results Component Value Date CHOLHDL 3.8 07/22/2014 Current Outpatient Prescriptions on File Prior to Visit Medication Sig Dispense Refill ??? HYDROcodone-acetaminophen 5-325 [...] facility-administered medications on file prior to visit. Education:congratulated on weight loss, reviewed labs related to nutriiton Today we discussed MNT related to weight management and blood sugar management and HTN covering recommendations for portions, fat intake, sodium intake, role of exercise. A sample meal plan was givenwith specific recommendations from AND manual as outlined below under Plan.All patients questions addressed. Congratulated patient on changes already made. Assessment: Lost ~ 20 lb over few months, maintaining now and wants to be 260 lb FBS in August 120 ( states was fasting), A1C 6.4 in August Knowledge deficit related to nutrition Intake inconsistent in carbohydrate, can be excessive in fat/sodium ( processed food) Comprehension of education:good Expected compliance:good Follow up MNT recommended for continued education and support while changing lifestyle. Plan: Follow carbohydrate controlled meal plan as discussed , sample 1800 vince, 45-60 gm at meals, unlimited non starchy veggies Choose lean protein, portion control as possible Follow low sodium meal plan Increase exercise aim for 30 -60 min /day - if only have 20 min it will still help! Time spent with patient 70 documented in this encounter Plan of Treatment Not on file documented as of this encounter Visit Diagnoses Diagnosis Dietary surveillance and counseling Body mass index (BMI) of 37.0-37.9 in adult Body Mass Index 37.0-37.9, adult Elevated blood pressure Elevated blood pressure reading without diagnosis of hypertension Impaired fasting glucose documented in this encounter Care Teams Ripper Operator Relationship Specialty Start Date End Date Ingrid Aragon MD [address] [place] [address] PCP - General 07/22/14 07/10/17 documented as of this encounter
--- OUTSIDE RECORDS SUMMARY | 2024-02-22 09:32 | XMS_ITS | Encounter Summary ---
Author Organization [facility] Address [facility] [place] [address] Care Team Providers Care Dispatcher Tow Truck Name Role Phone Shanell Aragon MD Primary Care Provider [phone] Reason for Visit * Reason Comments Other Encounter Details Date Type Department Care Team (Late st Contact Info) Description 09/30/2014 Telephone Family Practice at [address] [address] Samantha Hatch RN Social History Tobacco Use Types Packs/Day Years [...] Telephone Encounter - Samantha Hatch RN - 10/01/2014 1:45 PM EDT Left a recorded message for pt to return phone call. * Telephone Encounter - Samantha Hatch RN - 09/30/2014 1:33 PM EDT Left a recorded message for pt to return phone call. * Telephone Encounter - Samantha Hatch RN - 09/30/2014 1:32 PM EDT ----- Message from Porsche Cortes CMA sent at 09/30/2014 1:21 PM EDT ----- Contact: patient Triage: Chief complaint Right side pain x 3 days PCP: SHANELL ARAGON MD / Treating provider: SHANELL BRAY MD Caller Patient Relationship self Best time to call anytime Is the caller, calling after 3pm? No Triage comment: Right side pain x 3 days ( sciatica) and patient is having surgery on October 06, forhis right knee. Patient has questions, regarding what he is able to take for the pain. documented in this encounter Plan of Treatment Not on file documented as of this encounter Visit Diagnoses Not on filedocumented in this encounter Care Teams Dispatcher Tow Truck Relationship Specialty Start Date End Date Shanell Aragon MD [address] [place] [address] PCP - General 07/22/14 07/10/17 documented as of this encounter
--- OUTSIDE RECORDS SUMMARY | 2024-02-22 09:32 | XMS_ITS | Encounter Summary ---
Author Organization [facility] Address One [facility] [place] [address] Care Team Providers Care Manhole Builder Name Role Phone Ingrid Aragon MD Primary Care Provider [phone] Reason for Visit * Reason Comments Snoring Obstructive Sleep Apnea Encounter Details Date Type Department Care Team (Late st Contact Info) Description 10/07/2014 8:50 AM EDT Initial consult Pulmonology at [facility] [address] [place] [phone] Negro Cornell MD [address] [address] Hypersomnia; Essential hypertension; Insomnia, unspecified Social History Tobacco Use Types Packs/Day Years [...] Sign Reading Time Taken Comments Blood Pressure 136/92 10/07/2014 8:45 AM EDT Pulse 76 10/07/2014 8:45 AM EDT Temperature - - Respiratory Rate - - Oxygen Saturation 97% 10/07/2014 8:45 AM EDT room air Inhaled Oxygen Concentration - - Weight 129.7 kg (286 lb) 10/07/2014 8:45 AM EDT per pt Height 188 cm (6' 2) 10/07/2014 8:45 AM EDT Body Mass Index 36.72 10/07/2014 8:45 AM EDT documented in this encounter Patient Instructions * Patient Instructions* Negro Cornell MD - 10/07/2014 9:20 AM EDT Assessment: 1. Hypersomnia. Narrow airway. 2. HTN, elevated BP today. 3. Sleep maintenance insomnia. Recommendations/Plan: 1. Schedule sleep study. Counseling was provided regarding the causes, diagnosis, and treatment of sleep apnea. Discussed avoidance of sedatives, hypnotics, and alcohol. Discussed the increase risk of MVA associated with sleep apnea; sleep apnea increases risk of MVA by seven fold. Do not drive while drowsy. The impact of untreated sleep apnea on cardiovascular disease (eg stroke, [place], HTN) was discussed. Discussed the need for weight loss and the impact on sleep apnea. 2. Please schedule follow up for 31-45 days after receiving CPAP. You will need to use for a minimum of 4 hours per night on 70% of nights, although you should use whenever you sleep. The more hours you use the equipment, the greater the cardiac benefits. I will order a CPAP download from your [employer] for that follow up. documented in this encounter Progress Notes * Negro Cornell MD - 10/07/2014 8:47 AM EDT Pulmonary/Sleep Medicine Consultation: HPI: Pepito Cordon is a 49 y.o. male sent for consult by Dr. Haines regarding witnessed apneas, MESHA evaluation He was referred for concern about MESHA [...] scheduled yet. Notes falling asleep standi ng. [place] Sleepiness Scale (ESS) Patient ranks 0 - [...] a few minutes in traffic 11____Total Total [place] Sleepiness Score = 11/24 which indicates hypersomnia. 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 6am-930pm [...] palpitations, orthopnea, PND, leg edema, syncope. No WV, CHF. Gastrointestinal: No N/V/diarrhea, melana, hematochezia, constipation. [...] Cervical discectomy 05/2009 herniated cervical disc ??? Felch tooth extraction ??? Rhinoplasty ??? Hammer toe surgery ??? Foot tendon surgery ??? Orthopedic surgery Family History Problem Relation Age of Onset ??? Colorectal Cancer Father ??? High Blood Pressure Father ??? High Cholesterol Father ??? Prostate Cancer Neg Hx ??? Diabetes Paternal Grandmother ??? Coronary Artery Disease Neg Hx ??? Blood Disorder Brother History Social History ??? Marital Status: N/A Spouse Name: N/A Number of Children: N/A ??? Years of Education: N/A Occupational History ??? Not on file. Social History Main Topics ??? Smoking status: Never Smoker ??? Smokeless tobacco: Never Used ??? Alcohol Use: 0.5 oz/week 1 Not specified per week Comment: once in awhile ??? Drug Use: No ??? Sexual Activity: Yes Comment: with his Other Topics Concern ??? Not on file Social History Narrative , lives in a house. Has one child. Has two cats. No background. No exposure to asbestos. Some second hand smoke exposure growing up. 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 No travel outside the [place]. Current Outpatient Prescriptions Medication Sig Dispense Refill ??? acetaminophen-codeine (TYLENOL #3) 300-30 mg Tablet Take 1-2 tablets by mouth every 6 hours as needed for Pain. 25 tablet 0 ??? tadalafil (CIALIS) 5 mg Tablet Take 2 tablets by mouth as needed for Erectile Dysfunction. 30 tablet 0 ??? hydrochlorothiazide (HYDRODIURIL) 25 mg Tablet Take 1 tablet by mouth daily. 90 tablet 3 ??? traZODone (DESYREL) 50 mg Tablet Take 1 tablet by mouth nightly. 30 tablet 5 ??? cyclobenzaprine (FLEXERIL) 10 mg Tablet Take 1 tablet by mouth every 12 hours as needed for Muscle spasms. 20 tablet 0 ??? cetirizine (ZYRTEC) 10 mg Tablet Take 1 tablet by mouth daily for 30 days. 30 tablet 0 ??? sodium chloride (SODIUM CHLORIDE) 0.65 % Aerosol, Lostant 2 sprays by Nasal route 4 times daily as needed for Congestion. Use always at night prior to Flonase and then more often as needed 45 mL 11 ??? fluticasone (FLONASE) 50 mcg/actuation Lostant, Suspension 1 spray by Each Nare route nightly. Use after using the nasal saline flushes. 16 g 11 No current facility-administered medications for this visit. Allergies: Review of patient's allergies indicates no known allergies. Physical Exam: BP 136/92 Pulse 76 Ht 188 cm (6' 2) Wt 129.729 kg (286 lb) BMI 36.70 kg/m2 SpO2 97% Gen - pleasant, comfortable, NAD, well groomed, obese body habitus HEENT- anicteric, narrow oropharynx, nl dentition, mallampatti 4, normal conjunctiva, nasal mucosa:nl, ROSARIO, EOMI Neck: no JVD, lymphadenopathy, normal thyroid, trachea midline Resp - Clear breath sounds bilaterally, normal excursion and effort CVS - PRRR, nS1S2, no murmur, n0 rub / gallop, no UE edema, no LE edema Abd - BS+, soft, nt/nd, no masses Ext - no cyanosis / clubbing Neuro - PERRL, nEOM, no lateralizing signs MS - normal strength, normal ROM(decreased right knee), abn gait-limp 2/2 right knee meniscus surgery Psych - appropriate mood & affect, alert and oriented to person, place and time Skin - no rash or palpable nodules Labs: Lab Results Component Value Date WBC [...] 08/09/2014 BILITOT 0.5 08/09/2014 Radiology / Testing: None Prior medical history reviewed and summarized in HPI, PMH, Radiology and Testing. Assessment: 1. Hypersomnia. Narrow airway. ESS 11. Drowsiness with driving(counseling provided). Witnessed apneas. High risk for MESHA. 2. HTN, elevated BP today. 3. Sleep maintenance insomnia. Recommendations/Plan: 1. Schedule split night sleep study. Counseling was provided regarding the causes, diagnosis, and treatment of sleep apnea. Discussed avoidance of sedatives, hypnotics, and alcohol. Discussed the increase risk of MVA associated with sleep apnea; sleep apnea increases risk of MVA by seven fold. Do not drive while drowsy. The impact of untreated sleep apnea on cardiovascular disease (eg stroke, [place],HTN) was discussed. Discussed the need for weight loss and the impact on sleep apnea. 2. Please schedule follow up for 31-45 days after receiving CPAP. You will need to use for a minimum of 4 hours per night on 70% of nights, although you should use whenever you sleep. The more hours you use the equipment, the greater the cardiac benefits. I will order a CPAP download from your homecare company for that follow up. documented in this encounter Plan of Treatment Not on file documented as of this encounter Visit Diagnoses Diagnosis Hypersomnia Hypersomnia, unspecified Essential hypertension Unspecified essential hypertension Insomnia, unspecified documented in this encounter Care Teams Manhole Builder Relationship Specialty Start Date End Date Ingrid Aragon MD [address] [place] [address] PCP - General 07/22/14 07/10/17 documented as of this encounter
--- OUTSIDE RECORDS SUMMARY | 2024-02-22 09:32 | XMS_ITS | Encounter Summary ---
Author Organization [facility] Address [facility] [place] [address] Care Team Providers Care Vp Business Development Name Role Phone Ingrid Aragon MD Primary Care Provider [phone] Encounter Details Date Type Department Care Team (Late st Contact Info) Description 12/01/2014 Telephone Gastroenterology at [address] [place] [address] Edward Kelly, RN Social History Tobacco Use Types Packs/Day [...] encounter Miscellaneous Notes * Telephone Encounter - Edward Kelly RN - 12/01/2014 9:38 AM EDT Left message documented in this encounter Plan of Treatment Not on file documented as of this encounter Visit Diagnoses Not on filedocumented in this encounter Care Teams Vp Business Development Relationship Specialty Start Date End Date Ingrid Aragon MD [address] [place] [address] PCP - General 07/22/14 07/10/17 documented as of this encounter
--- OUTSIDE RECORDS SUMMARY | 2024-02-22 09:32 | XMS_ITS | Encounter Summary ---
Author Organization [facility] Address [facility] [place] [address] Care Team Providers Care Liner Man Name Role Phone Ingrid Aragon MD Primary Care Provider [phone] Encounter Details Date Type Department Care Team (Late st Contact Info) Description 10/23/2014 Notes Only Pulmonology at [facility] [address] [place] [address] Negro Cornell MD [address] [address] Social History Tobacco Use Types Packs/Day Years [...] as of this encounter Progress Notes * Meggan Layne CMA - 10/23/2014 1:14 PM EDT Received letter from [facility] approving split night sleep study. Ref# [id number] Sleep study order, demos and office note given to Mercedes to schedule with patient. documented in this encounter Plan of Treatment Not on file documented as of this encounter Visit Diagnoses Not on filedocumented in this encounter Care Teams Liner Man Relationship Specialty Start Date End Date Ingrid Aragon MD [address] [place] [address] PCP - General 07/22/14 07/10/17 documented as of this encounter
--- OUTSIDE RECORDS SUMMARY | 2024-02-22 09:32 | XMS_ITS | Encounter Summary ---
Author Organization [facility] Address [facility] [place] [address] Care Team Providers Care Bottom Turning Lathe Turner Name Role Phone Ingrid Aragon MD Primary Care Provider [phone] Encounter Details Date Type Department Care Team (Late st Contact Info) Description 07/27/2015 Notes Only Pulmonology at [facility] [address] [place] [address] Negro Cornell MD [address] [address] Social History Tobacco Use Types Packs/Day Years [...] Progress Notes * Teresa Lee CMA - 07/27/2015 9:03 AM EDT Faxed order for autoPAP and nasal pillow to [facility], [phone]. documented in this encounter Plan of Treatment Not on file documented as of this encounter Visit Diagnoses Not on filedocumented in this encounter Care Teams Bottom Turning Lathe Turner Relationship Specialty Start Date End Date Ingrid Aragon MD [address] [place] [address] PCP - General 07/22/14 07/10/17 documented as of this encounter
--- OUTSIDE RECORDS SUMMARY | 2024-02-22 09:32 | XMS_ITS | Encounter Summary ---
Author Organization [facility] Address [address] [facility] [place] [address] Care Team Providers Care Head Of Digital Name Role Phone Ingrid Aragon MD Primary Care Provider [phone] Reason for Visit * Reason Onset Date Comments Other 12/28/2014 Encounter Details Date Type Department Care Team (Late st Contact Info) Description 12/28/2014 Telephone Pulmonology at [facility] [address] [place] [address] Negro Cornell MD [address] [address] Other Social History Tobacco Use Types Packs/Day [...] Telephone Encounter - Andreina Mckeon RN - 12/28/2014 11:56 AM EDT Re-faxed CPAP order, split sleep studr, last ov, demo, and insurance to [facility] at [phone]. * Telephone Encounter - Mabel Sierra - 12/28/2014 10:12 AM EDT See closed encounter of 12/17/14. Patient called, and stated he talked to [facility] in [place] today,and they told him they have not received an order for a cpap machine, or any other information fromDr. Cornell's office. Patient would like to know if this can be sent again. Patient provided phone number for Megha of [phone], and did not have fax number. documented in this encounter Plan of Treatment Not on file documented as of this encounter Visit Diagnoses Not on filedocumented in this encounter Care Teams Head Of Digital Relationship Specialty Start Date End Date Ingrid Aragon MD [address] [place] [address] PCP - General 07/22/14 07/10/17 documented as of this encounter
--- OUTSIDE RECORDS SUMMARY | 2024-02-22 09:32 | XMS_ITS | Encounter Summary ---
Author Organization [facility] Address One [facility] [place] [address] Care Team Providers Care Polymer Specialist Name Role Phone Ingrid Aragon MD Primary Care Provider [phone] Reason for Visit * Reason Onset Date Comments Back Pain 09/30/2014 Encounter Details Date Type Department Care Team (Late st Contact Info) Description 09/30/2014 Telephone Urgent Care at [address] [place] [address] Natasha Nelson, RN Back Pain Social History Tobacco Use Types Packs/Day Years [...] encounter Miscellaneous Notes * Telephone Encounter - Natasha Nelson LPN - 09/30/2014 6:37 PM EDT TRIAGE CALL Subjective: My sciatica is acting up Stinson questions/Assessment: Pt states that he has a history of sciatica and is currently having a flare up. Pt reports that he is currently unable to take NSAIDs dur to upcoming surgery. Pt denies acute distress. Home care reviewed along with s/sx to watch for and when to seek immediate medical attention. Pt to call with questions,concerns, changes, increasing or symptoms not responding to home care. Pt voiced an understanding and agrees with plan of care. Message to be sent to PCP office for further review in the morning Plan: Call back or call PCP for appointment if no improvement within 1-2 days and follow home care instructions Name of Guideline/Protocol Used: Back pain Home Care/Patient Education per Protocol/Guideline: yes Patient/Responsible alliance party voices an understanding of advice? yes Patient/Responsible alliance party intends to comply with action/disposition: yes Reference used: Telephone Triage Protocols for Nurses, 4th Edition, Trish Granado, 2012 At 1825 Pt returned call, states that he has changed his mind about waiting until the morning, Pt is requesting evaluation and treatment tonight if possible. * Telephone Encounter - Natasha Nelson LPN - 09/30/2014 6:29 PM EDT ----- Message from Bia Jackson sent at 09/30/2014 6:25 PM EDT ----- Chief Complaint:: Sciatic pain Caller: Contact #: [phone] (home) PCP: ernie * Telephone Encounter - Natasha Nelson LPN - 09/30/2014 5:43 PM EDT ----- Message from Afshan Roblero sent at 09/30/2014 5:36 PM EDT ----- Contact: Patient Complaint: Siatic pain, patient says he cannot take NSAID's because of an upcoming surgery and he would like to know if there is any other medications he can take instead. Caller: Patient Contact #: [phone] (home) PCP: Ingrid Aragon documented in this encounter Plan of Treatment Not on file documented as of this encounter Visit Diagnoses Not on filedocumented in this encounter Care Teams Polymer Specialist Relationship Specialty Start Date End Date Ingrid Aragon MD [address] [place] [address] PCP - General 07/22/14 07/10/17 documented as of this encounter
--- OUTSIDE RECORDS SUMMARY | 2024-02-22 09:32 | XMS_ITS | Encounter Summary ---
Author Organization [facility] Address One [facility] [place] [address] Care Team Providers Care Facilities Maintenance Manager Name Role Phone Ingrid Aragon MD Primary Care Provider [phone] Reason for Visit * Reason Comments Prior Authorization Synvisc - right knee Encounter Details Date Type Department Care Team (Late st Contact Info) Description 12/30/2014 Telephone Orthopaedics at [address] [place] [phone] Jani Pittman MD [address] [facility] [place] [address] Prior Authorization (Synvisc - right knee) Social History Tobacco Use Types Packs/Day Years [...] encounter Miscellaneous Notes * Telephone Encounter - Hina Stanford - 12/31/2014 2:19 PM EDT MEDICATION: Synvisc [id number] INSURANCE: [employer] [facility] START DATE: 12/31/14 END DATE: - Medication VENDOR: [facility] AUTHORIZING REP: 12/31/14- per [facility], Prior authorization is NOT REQUIRED and drug can be ordered in-house; okay to book AUTH #: NR * Telephone Encounter - Alyson Larios CMA - 12/30/2014 4:59 PM EDT Medication Prior-Authorization Ordering Provider/Date: Jani Pittman MD / 12-30-2014 Diagnosis: degenerative arthritis, patello-femoral joint right knee Previously Failed Treatments: knee arthroscopy, cortisone injection, home exercises Medication/Dose/Route/Frequency: Synvisc for intra-articular injection. One injection to right kneeQWeek x 3 weeks. documented in this encounter Plan of Treatment Not on file documented as of this encounter Visit Diagnoses Not on filedocumented in this encounter Care Teams Facilities Maintenance Manager Relationship Specialty Start Date End Date Ingrid Aragon MD [address] [place] [address] PCP - General 07/22/14 07/10/17 documented as of this encounter
--- OUTSIDE RECORDS SUMMARY | 2024-02-22 09:32 | XMS_ITS | Encounter Summary ---
Author Organization [facility] Address [facility] [place] [address] Care Team Providers Care Nail Making Machine Tender Name Role Phone Ingrid Aragon MD Primary Care Provider [phone] Reason for Visit * Reason Comments Right Knee Pain Synvisc #3 Encounter Details Date Type Department Care Team (Late st Contact Info) Description 01/29/2015 3:30 PM EDT Office Visit Orthopaedics at [address] [place] [phone] Kari Landers PA [address] [facility] [place] [address] Primary osteoarthritis of right knee Social History [...] - Inhaled Oxygen Concentration - - Weight 124.7 kg (275 lb) 01/29/2015 3:47 PM EDT Height 188 cm (6' 2) 01/29/2015 3:47 PM EDT Body Mass Index 35.31 01/29/2015 3:47 PM EDT documented in this encounter Progress Notes * Kari Landers PA - 01/29/2015 3:28 PM EDT SUBJECTIVE: Pepito Cordon is a 49 y.o. male is here for the second Synvisc injection in the right knee. He hasnever had any other injections into his knee in the past. He does not report any improvement from the injections yet. OBJECTIVE: Discussed with Pepito the risks of joint injection, including, but not limited to infection, bleeding, bruising, reactions, worsening of pain the possibility of the injections not helping with the pain. All of his questions were answered to his satisfaction. The patient agreed to allow Yolanda MORILLO to inject Synvisc today following my Lidocaine injection. Right knee injection was placed utilizing the [...] 16 mg, Intra-articular, ONCE, 1 dose, On Sun01/29/15 at 1600, Routine Given 01/29/2015 3:42 PM EDT 16 mg documented in this encounter Care Teams Nail Making Machine Tender Relationship Specialty Start Date End Date Ingrid Aragon MD [address] [place] [address] PCP - General 07/22/14 07/10/17 documented as of this encounter
--- OUTSIDE RECORDS SUMMARY | 2024-02-22 09:32 | XMS_ITS | Encounter Summary ---
Author Organization [facility] Address [facility] [place] [address] Care Team Providers Care Case Preparer And Liner Name Role Phone Ingrid Aragon MD Primary Care Provider Reason for Visit * Reason Comments Follow Up Surgery right knee scope 10/06 Encounter Details Date Type Department Care Team (Late st Contact Info) Description 10/22/2014 2:00 PM EDT Follow-Up Orthopaedics at [address] [place] [address] [place] [address] [place] [address] [place] [address] S/P right knee arthroscopy Social History Tobacco [...] - Inhaled Oxygen Concentration - - Weight 130.2 kg (287 lb) 10/22/2014 1:58 PM EDT reported Height 188 cm (6' 2) 10/22/2014 1:58 PM EDT rep orted Body Mass Index 36.85 10/22/2014 1:58 PM EDT documented in this encounter Progress Notes * Jani Pittman MD - 10/22/2014 2:09 PM EDT DOI: Pepito Cordon is 2 weeks s/p R knee arthroscopy Arthroscopic Findings: MMT and medial grade III DJD he is doing well. he is no longer using crutches. Pain is improved compared with preop. Exam shows nearly FROM w/ minimal to no joint effusion. NVI. Sutures were easily removed. Plan: We went over the arthroscopic photos and findings. he may be WBAT. ROM and use as tolerated. F/u prn. documented in this encounter Plan of Treatment Not on file documented as of this encounter Visit Diagnoses Diagnosis S/P right knee arthroscopy Other postprocedural status documented in this encounter Care Teams Case Preparer And Liner Relationship Specialty Start Date End Date Ingrid Aragon MD [address] [place] [address] PCP - General 07/22/14 07/10/17 documented as of this encounter
--- OUTSIDE RECORDS SUMMARY | 2024-02-22 09:32 | XMS_ITS | Encounter Summary ---
Author Organization [facility] Address One [facility] [place] [address] Care Team Providers Care Research Management Associate Name Role Phone Ingrid Aragon MD Primary Care Provider [phone] Encounter Details Date Type Department Care Team (Latest Contact Info) Description 10/21/2015 6:45 AM EDT Clinical Support Family Practice at [address] [address] Blood pressure check Social History Tobacco Use Types Packs/Day Years [...] Reading Time Taken Comments Blood Pressure 122/78 10/21/2015 6:50 AM EDT Pulse 60 10/21/2015 6:50 AM EDT Temperature - - Respiratory Rate - - Oxygen Saturation - - Inhaled Oxygen Concentration - - Weight - - Height - - Body Mass Index - - documented in this encounter Progress Notes * Jennifer Levy I, RN - 10/21/2015 6:51 AM EDT Pt presents for BP check per Dr. Aragon. Pt is no longer taking hydrochlorothiazide and would like tosee the effect on his BP w/o it as he has been making other lifestyle changes. BP taken manually onleft arm: 122/78, P [address] Aragon. documented in this encounter Plan of Treatment Not on file documented as of this encounter Visit Diagnoses Diagnosis Blood pressure check Screening for hypertension documented in this encounter Care Teams Research Management Associate Relationship Specialty Start Date End Date Ingrid Aragon MD [address] [place] [address] PCP - General 07/22/14 07/10/17 documented as of this encounter
--- OUTSIDE RECORDS SUMMARY | 2024-02-22 09:32 | XMS_ITS | Encounter Summary ---
Author Organization [facility] Address One [facility] [place] [address] Care Team Providers Care Director Global Medical Affairs Name Role Phone Ingrid Aragon MD Primary Care Provider [phone] Encounter Details Date Type Department Care Team (Latest Contact Info) Description 09/10/2014 8:30 AM EDT Laboratory Appointment Lab [address] [address] Ingrid Aragon MD [address] [place] [address] [facility] [place], [place] [phone] Essential hypertension; Elevated blood protein Discharge Disposition: Home Social [...] Procedure Name Priority Date/Time Associated Diagnosis Comments PROTEIN ELECTROPHORESIS, SERUM Routine 09/10/2014 8:33 AM EDT Elevated blood protein BASIC METABOLIC PANEL Routine 09/10/2014 8:33 AM EDT Essential hypertension documented in this encounter Results * (ABNORMAL) Protein Electrophoresis, serum (09/10/2014 8:33 AM EDT) Total Prot Electrophoresis 7.8 6.1 - 8.0 gm/dL CHANDRIKANER MILLENNIUM Albumin Electrophoresis 4.73 3.60 - 6.00 [...] In Lab Ingrid Aragon MD CHEMISTRY ORDERABLES CERNER MILLENNIUM * Basic Metabolic Panel (non-fasting) (09/10/2014 8:33 AM EDT) Pathologist [facility] Glucose 120 60 - 199 mg/dL CERNER MILLENNIUM Comment:Diabetes: >=200 mg/d L plus symptoms Blood Urea Nitrogen 18 10 - 20 mg/dL CERNER MILLENNIUM Creatinine 1.06 0.80 - 1.50 mg/dL CERNER MILLENNIUM Comment: Please note that the pediatric reference intervals supplied above were not validated at [facility]. Results from pediatric patients should be interpreted in conjunction to the patient's age, height and muscle mass. Sodium 143 135 - 145 mmol/L CERNER MILLENNIUM Potassium 4.0 3.5 - 5.0 mmol/L CERNER MILLENNIUM Comment: Please note: ??Patients with WBC >100,000 may have falsely elevated Potassium levels. ??For accurate Potassium quantification in these patients send serum separator tube (gold top) for subsequent determinations. ??Contact the Clinical Chemistry Laboratory if there are any questions. Chloride 101 98 - 107 mmol/L CERNER MILLENNIUM Carbon Dioxide 29 22 - 31 mmol/L CERNER MILLENNIUM Anion Gap 13 5 - 15 mmol/L CERNER MILLENNIUM Calcium 9.5 8.5 - 10.5 mg/dL CERNER MILLENNIUM Est Glomerular Filtration Rate >60 >=60 CERNER MILLENNIUM Comment: This estimated GFR (eGFR) value was [...] the following links into your internet browser. http://[employer]/DHnkdep http://[employer]/DHMCnkf Blood specimen (specimen) 09/10/2014 8:33 AM EDT 09/10/2014 6:29 PM EDT Narrative Resulting Agency Comment Spec In Lab Giovanni Haines MD CHEMISTRY ORDERABLE S JORGITO TEJEDA documented in this encounter Visit Diagnoses Diagnosis Essential hypertension Unspecified essential hypertension Elevated blood protein Other disorders of plasma protein metabolism documented in this encounter Care Teams Director Global Medical Affairs Relationship Specialty Start Date End Date Ingrid Aragon MD [address] [place] [address] PCP - General 07/22/14 07/10/17 documented as of this encounter
--- OUTSIDE RECORDS SUMMARY | 2024-02-22 09:32 | XMS_ITS | Encounter Summary ---
Author Organization [facility] Address One [facility] [place] [address] Care Team Providers Care Research Neuropsychologist Name Role Phone Ingrid Aragon MD Primary Care Provider Encounter Details Date Type Department Care Team (Latest Contact Info) Description 08/14/2014 4:00 PM EDT Radiology Appointment XRay at [address] [place] [address] Knee pain, right Social History Tobacco Use Types Packs/Day Years [...] Procedure Name Priority Date/Time Associated Diagnosis Comments XR KNEE 3 VIEWS Routine 08/14/2014 4:15 PM EDT documented in this encounter Results * XR knee 3 views (08/14/2014 4:15 PM EDT) Anatomical Region Laterality Modality Knee Radiographic Leida ging 08/14/2014 4:15 PM EDT Impressions 08/14/2014 4:44 PM EDT Impression: Mild degenerative changes above. Narrative 08/14/2014 4:44 PM EDT EXAMINATION: Knee 3 Views/RIGHT CLINICAL HISTORY: right knee pain TECHNIQUE: 3 views right ankle COMPARISON: None FINDINGS: Bone stock and alignment normal. Very minimal joint space narrowing of the medial compartments of both knees noted. No acute fracture or dislocation. No suprapatellar joint effusion. Mild bilateral lateral patella tilt is seen, right greater than left. Procedure Note Anya Francis MD - 08/14/2014 EXAMINATION: Knee 3 Views/RIGHT CLINICAL HISTORY: right knee pain TECHNIQUE: 3 views right ankle COMPARISON: None FINDINGS: Bone stock and alignment normal. Very minimal joint space narrowing of the medial compartments of bothknees noted. No acute fracture or dislocation. No suprapatellar joint effusion. Mild bilateral lateral patella tilt is seen, right greater than left. IMPRESSION Impression: Mild degenerative changes above. Jani Pittman MD IMG DX ORDERABLES documented in this encounter Visit Diagnoses Diagnosis Knee pain, right Pain in joint, lower leg documented in this encounter Care Teams Research Neuropsychologist Relationship Specialty Start Date End Date Ingrid Aragon MD [address] [place] [address] PCP - General 07/22/14 07/10/17 documented as of this encounter
--- OUTSIDE RECORDS SUMMARY | 2024-02-22 09:32 | XMS_ITS | Encounter Summary ---
Author Organization [facility] Address One [facility] [place] [address] Care Team Providers Care Spooling Operator Name Role Phone Ingrid Aragon MD Primary Care Provider [phone] Reason for Visit * Reason Onset Date Comments Questions 07/01/2015 CPAP Encounter Details Date Type Department Care Team (Late st Contact Info) Description 07/01/2015 Telephone Pulmonology at [facility] [address] [place] [address] Negro Cornell MD [address] [address] Questions (CPAP) Social History Tobacco Use Types Packs/Day Years [...] encounter Miscellaneous Notes * Telephone Encounter - Prema Panda - 07/06/2015 2:03 PM EST Patient called back. Unable to get the nurse on the line. Patient booked a follow up appointment with Dr. Cornell on 07/22/15 at 3:40PM. Please call if needed. Patient will bring his CPAP chip with him to the appointment. * Telephone Encounter - Andreina Mckeon RN - 07/05/2015 9:58 AM EST Left detailed message for patient (ID'd Voicemail), notifying patient to schedule FUV if he currently has and uses a CPAP . Requested call back to schedule FUV or to inform office if he has not obtained CPAP. Office number provided. * Telephone Encounter - Lissy Davis RN - 07/02/2015 8:01 AM EST Message left for pt requesting a call back. * Telephone Encounter - Negro Cornell MD - 07/01/2015 5:48 PM EST If he has his CPAP, it is appropriate to follow up. If he does not have CPAP, strongly advise he consider obtaining due to severity of MESHA (and then following up). * Telephone Encounter - Lissy Davis RN - 07/01/2015 2:[address] Cornell--pt seen in consult 10/12, never followed up. Was supposed to f/u 30- 45 days after receiving CPAP. Please advise if most appropriate for him to come in for office visit at this time to discuss. Assessment: 1.?? Hypersomnia.?? Narrow airway.?? ESS 11.?? Drowsiness with driving(counseling provided).? Witnessed apneas.?? High risk for MESHA.? 2.?? HTN, elevated BP today.? 3.?? Sleep maintenance insomnia.? Recommendations/Plan: 1.?? Schedule split night sleep study.?? Counseling was provided regarding the causes, diagnosis, and treatment of sleep apnea.?? Discussed avoidance of sedatives, hypnotics, and alcohol.?? Discussedthe increase risk of MVA associated with sleep apnea; sleep apnea increases risk of MVA by seven fold.?? Do not drive while drowsy.?? The impact of untreated sleep apnea on cardiovascular disease (egstroke, MO, HTN) was discussed.?? Discussed the need for weight loss and the impact on sleep apnea.? 2.?? Please schedule follow up for 31-45 days after receiving CPAP. You will need to use for a minimum of 4 hours per night on 70% of nights, although you should use whenever you sleep. The more hours you use the equipment, the greater the cardiac benefits.?? I will order a CPAP download from your home care company for that follow up.?? * Telephone Encounter - Prema Panda - 07/01/2015 1:33 PM EST Patient is calling in to discuss his CPAP machine. Patient is wondering if Dr. Cornell would like to do a download as he does not feel the machine is giving him as much benefit as it was. Please callto discuss further. documented in this encounter Plan of Treatment Not on file documented as of this encounter Visit Diagnoses Not on filedocumented in this encounter Care Teams Spooling Operator Relationship Specialty Start Date End Date Ingrid Aragon MD [address] [place] [address] PCP - General 07/22/14 07/10/17 documented as of this encounter
--- OUTSIDE RECORDS SUMMARY | 2024-02-22 09:32 | XMS_ITS | Encounter Summary ---
Author Organization [facility] Address One [facility] [place] [address] Care Team Providers Care Control Room Tender Name Role Phone Ingrid Aragon MD Primary Care Provider [phone] Reason for Visit * Reason Onset Date Comments Other 10/08/2014 precert for spli t night sleep study Encounter Details Date Type Department Care Team (Late st Contact Info) Description 10/08/2014 Telephone Pulmonology at [facility] [address] [place] [phone] Negro Cornell MD [address] [address] Other (precert for split night sleep study) Social History Tobacco Use Types Packs/Day Years [...] encounter Miscellaneous Notes * Telephone Encounter - Meggan Layne CMA - 10/08/2014 1:34 PM EDT Spoke with Isa at [facility] ( ) to initiate a PA for a split night. PA has been sent for clinical review, Isa requested that we fax clinical documentation. A response will bemade within 2-15 business days. Faxed clinical documentation to the Clinical Review Dept Ref# [id number] * Telephone Encounter - Mercedes Aparicio - 10/08/2014 10:31 AM EDT Order, notes and insurance information placed in MA station for precertification check for split night sleep study. documented in this encounter Plan of Treatment Not on file documented as of this encounter Visit Diagnoses Not on filedocumented in this encounter Care Teams Control Room Tender Relationship Specialty Start Date End Date Ingrid Aragon MD [address] [place] [address] PCP - General 07/22/14 07/10/17 documented as of this encounter
--- OUTSIDE RECORDS SUMMARY | 2024-02-22 09:32 | XMS_ITS | Encounter Summary ---
Author Organization [facility] Address [facility] [place] [address] Care Team Providers Care Civil Engineering Design Draftsperson Name Role Phone Ingrid Aragon MD Primary Care Provider [phone] Reason for Visit * Reason Onset Date Comments Results 12/03/2014 Encounter Details Date Type Department Care Team (Late st Contact Info) Description 12/03/2014 Telephone Pulmonology at [facility] [address] [place] [address] Negro Cornell MD [address] [address] Results Social History Tobacco Use Types Packs/Day [...] Telephone Encounter - Andreina Mckeon RN - 12/03/2014 9:55 AM EDT Spoke to patient, notified him of sleep study results (see below) and letter with results was sent to home address. Patient verbalized understanding and agreement with plan, no additional questions at this time. Instructed to call office once CPAP device is received to schedule FUV with Dr. [id number] days out. Also notified patient, CPAP order was sent to [facility]. Severe MESHA with AHI 55/hr found on [...] home care company for that follow up. * Telephone Encounter - Brea Boudreaux - 12/03/2014 8:20 AM EDT See closed encounter from 11/25/14. Patient called looking to discus his sleep study results. Patient stated when he is called back to ask the infrastructure consultant who answers to have him paged. documented in this encounter Plan of Treatment Not on file documented as of this encounter Visit Diagnoses Not on filedocumented in this encounter Care Teams Civil Engineering Design Draftsperson Relationship Specialty Start Date End Date Ingrid Aragon MD [address] [place] [address] PCP - General 07/22/14 07/10/17 documented as of this encounter
--- OUTSIDE RECORDS SUMMARY | 2024-02-22 09:32 | XMS_ITS | Encounter Summary ---
Author Organization [facility] Address [facility] [place] [address] Care Team Providers Care Sound Designer Name Role Phone Ingrid Aragon MD Primary Care Provider [phone] Encounter Details Date Type Department Care Team (Latest Contact Info) Description 10/02/2014 8:15 AM EDT Laboratory Appointment Lab [place] [address] [place] [address] Ingrid Aragon MD [address] [place] [address] [place], [place] [phone] Elevated blood protein Discharge Disposition: Home Social [...] Priority Date/Time Associated Diagnosis Comments PROTEIN ELECTROPHORESIS, URINE, RANDOM Routine 10/02/2014 11:59 AM EDT Elevated blood protein documented in this encounter Results * (ABNORMAL) Protein Electrophoresis, urine, random (10/02/2014 11:59 AM EDT) Protein, Urine 31(H) 0 - 12 mg/dL CE RNER MILLENNIUM U Albumin 75 % total CERNER MILLENNIUM Globulin, Urine 25 % total CERNER MILLENNIUM M1 Band, Urine None Detected None Detected % total CERNER MILLENNIUM U Scan See Note CERNER MILLENNIUM Comment:Please see scanned r eport in Chart Review under the [facility] Laboratory Heading. Urine specimen (specimen) 10/02/2014 11:59 AM EDT 10/02/2014 7:23 PM EDT Narrative Resulting Agency Comment Spec In Lab Ingrid Aragon MD URINE ORDERABLES Performing Organization Address City/State/[facility] Co de Phone Number [facility] documented in this encounter Visit Diagnoses Diagnosis Elevated blood protein Other disorders of plasma protein metabolism documented in this encounter Care Teams Sound Designer Relationship Specialty Start Date End Date Ingrid Aragon MD [address] [place] [address] PCP - General 07/22/14 07/10/17 documented as of this encounter
--- OUTSIDE RECORDS SUMMARY | 2024-02-22 09:32 | XMS_ITS | Encounter Summary ---
Author Organization [facility] Address One [facility] [place] [address] Care Team Providers Care Nutrition Intern Name Role Phone Shanell Aragon MD Primary Care Provider [phone] Encounter Details Date Type Department Care Team (Late st Contact Info) Description 01/15/2015 2:15 PM EDT Follow-Up Orthopaedics at [address] [place] [address] Kari Landers PA [address] [place] [address] Primary osteoarthritis of right knee Social History [...] as of this encounter Progress Notes * Kari Landers PA - 01/15/2015 2:11 PM EDT Encounter date: 01/15/2015 SUBJECTIVE: Pepito Cordon is a 49 y.o. male is here for the first Synvisc injection in the right knee. He has never had any other injections into his knee in the past. OBJECTIVE: Discussed with Pepito the risks of [...] return, as scheduled, for his next appointment. GIOVANNA LozoyaC Orthopedics CC: SHANELL ARAGON MD (General) [address] [place] [address] documented in this encounter Plan of Treatment Not on file documented as of this encounter Visit Diagnoses Diagnosis Primary osteoarthritis of right knee Primary localized osteoarthrosis, lower leg documented in this encounter Care Teams Nutrition Intern Relationship Specialty Start Date End Date Shanell Aragon MD [address] [place] [address] PCP - General 07/22/14 07/10/17 documented as of this encounter
--- OUTSIDE RECORDS SUMMARY | 2024-02-22 09:32 | XMS_ITS | Encounter Summary ---
Author Organization [facility] Address [facility] [place] [address] Care Team Providers Care Night Monitor Name Role Phone Ingrid Aragon MD Primary Care Provider Reason for Visit * Reason Onset Date Comments Results 09/14/2014 Encounter Details Date Type Department Care Team (Late st Contact Info) Description 09/14/2014 Telephone Family Practice at [address] [phone] Ingrid Aragon MD [address] [place] [place] [address] [phone] Results Social History Tobacco Use Types Packs/Day [...] encounter Miscellaneous Notes * Telephone Encounter - Jennifer Levy RN - 09/28/2014 1:29 PM EDT Pt advised to below results. He is agreeable to doing UPEP test. Lab appt given for 10/02/14. Will send to Aparna Aragon MD for orders. * Telephone Encounter - Gill Del Rio MA - 09/28/2014 1:21 PM EDT Patient returning call. Dr. Aragon unavailable. Jennifer unavailable as well. Patient can be reached at [phone] and then have the patient paged as this is his work number. * Telephone Encounter - Ingrid Aragon MD - 09/28/2014 9:55 AM EDT I called patient again and left message to discuss below - no response * Telephone Encounter - Jennifer Levy I, RN - 09/17/2014 10:17 AM EDT Left recorded message for patient to return call. * Telephone Encounter - Tasha Francisco - 09/17/2014 8:26 AM EDT Patient called back * Telephone Encounter - Gill Del Rio MA - 09/15/2014 4:29 PM EDT Patient returning call. Both Provider and nurse not available. Patient states he will call back tomorrow as he realizes he is very difficult to get a hold of. * Telephone Encounter - Ingrid Aragon MD - 09/14/2014 2:20 PM EDT I called patient to discuss his elevated protein levels Left message - no response His spep shows minimal elevation of gamma protein In view of that recommend UPEP based on which plan if further referral to hematology is needed or just to repeat the test in few months documented in this encounter Plan of Treatment Not on file documented as of this encounter Results * [...] In Lab Ingrid Aragon MD URINE ORDERABLES JORGITO TEJEDA documented in this encounter Visit Diagnoses Diagnosis Elevated blood protein Other disorders of plasma protein metabolism documented in this encounter Care Teams Night Monitor Relationship Specialty Start Date End Date Ingrid Aragon MD [address] [place] [address] PCP - General 07/22/14 07/10/17 documented as of this encounter
--- OUTSIDE RECORDS SUMMARY | 2024-02-22 09:32 | XMS_ITS | Encounter Summary ---
Author Organization [facility] Address [facility] [place] [address] Care Team Providers Care Veneer Taping Machine Offbearer Name Role Phone Ingrid Aragon MD Primary Care Provider Reason for Visit * Reason Onset Date Comments Other 11/13/2014 o2 orders Encounter Details Date Type Department Care Team (Late st Contact Info) Description 11/13/2014 Telephone Pulmonology at [facility] [address] [place] [address] Negro Cornell MD [address] [address] Other (o2 orders) Social History Tobacco Use Types Packs/Day Years [...] Telephone Encounter - Andreina Mckeon RN - 11/13/2014 5:00 PM EDT Sleep study order with PRN oxygen specified faxed to [facility] at [phone]. * Telephone Encounter - Mercedes Aparicio - 11/13/2014 11:31 AM EDT Jennifer from the [place] [facility] calling looking for PRN o2 orders for this patient's scheduled sleepstudy tonight. Please fax to [phone]. documented in this encounter Plan of Treatment Not on file documented as of this encounter Visit Diagnoses Not on filedocumented in this encounter Care Teams Veneer Taping Machine Offbearer Relationship Specialty Start Date End Date Ingrid Aragon MD [address] [place] [address] PCP - General 07/22/14 07/10/17 documented as of this encounter
--- OUTSIDE RECORDS SUMMARY | 2024-02-22 09:32 | XMS_ITS | Encounter Summary ---
Author Organization [facility] Address [facility] [place] [address] Care Team Providers Care Sprinkling System Installer Name Role Phone Shanell Aragon MD Primary Care Provider [phone] Reason for Visit * Reason Onset Date Comments Medication Problem 08/27/2014 Encounter Details Date Type Department Care Team (Late st Contact Info) Description 08/27/2014 Telephone Family Practice at [address] [phone] Jennyfer Howe LPN Medication Problem Social History Tobacco Use Types Packs/Day Years [...] Telephone Encounter - Jennifer Levy RN - 08/27/2014 2:39 PM EDT Pt advised to below. He states he already is using Flonase he purchased OTC. * Telephone Encounter - Chris Sen - 08/27/2014 11:41 AM EDT Patient returned missed phone call * Telephone Encounter - Jennyfer Taylor LPN - 08/27/2014 11:02 AM EDT Left recorded message for patient to return call. Patient contacted on 08/25/14 regarding a prior authorization that was processed for the Flonase nasal spray. Insurance has denied the medication and states patient needs to try Budesonide (Rhinocort)first. Would he like to proceed with new medication? He can also get Flonase over the counter. * Telephone Encounter - Jennyfer Taylor LPN - 08/27/2014 10:58 AM EDT ----- Message from Doris Orona sent at 08/27/2014 9:57 AM EDT ----- Contact: Patient Generic message: Patient returned call. - PCP: SHANELL ARAGON MD Message: Patient returned Fay's call. Best number to call back: Cell: [phone] Best time you are available: Any documented in this encounter Plan of Treatment Not on file documented as of this encounter Visit Diagnoses Not on filedocumented in this encounter Care Teams Sprinkling System Installer Relationship Specialty Start Date End Date Shanell Aragon MD [address] [place] [address] PCP - General 07/22/14 07/10/17 documented as of this encounter
--- OUTSIDE RECORDS SUMMARY | 2024-02-22 09:32 | XMS_ITS | Encounter Summary ---
Author Organization [facility] [place] [address] Care Team Providers Care Pan Puller Name Role Phone Ingrid Aragon MD Primary Care Provider [phone] Encounter Details Date Type Department Care Team (Latest Contact Info) Description 10/01/2015 10:15 AM EDT Laboratory Appointment Lab [address] [phone] Health care maintenance Social History Tobacco Use Types Packs/Day Years [...] 10/01/2015 11:38 AM EDT Health care maintenance HEMOGRAM Routine 10/01/2015 11:38 AM EDT Health care maintenance DIFFERENTIAL, AUTOMATED Routine 10/01/2015 11:38 AM EDT Health care maintenance CBC (WITH DIFF) Routine 10/01/2015 11:38 AM EDT Health care maintenance HEMOGLOBIN A1C Routine 10/01/2015 11:38 AM EDT Health care maintenance documented in this encounter Results * Differential, Automated (10/01/2015 11:38 AM EDT) Pathologist [facility] Neutrophil % 62.7 % [facility] Neutrophil Absolute 5.32 1.50 - 6.30 x10(3)/[facility] Lymph % 26.7 % [facility] Lymphocytes Abs 2.3 1.0 - 3.6 x10(3)/[facility] Monocyte % 6.8 % [facility] Monocyte Abs 0.6 0.2 - 1.0 x10(3)/[facility] Eos % 3.1 % [facility] Eosinophils Abs 0.3 0.0 - 0.5 x10(3)/[facility] Basophil % 0.5 % [facility] Baso Absolute 0.0 0.0 - 0.2 x10(3)/[facility]OR[facility] Immature Gran % 0.20 % [facility] Comment: Immature granulocytes(IG's)percentage and absolute count will include metamyelocytes, myelocytes, and promyelocytes. Blood smears from CBCs yielding IG's will be scanned manually for concordance. If this scan disagrees with the automated IG or if promyelocytes are noted, a manual differential will be performed. Immature Gran Absolute 0.02 0.00 - 0.05 x10(3)/[facility] Blood specimen (specimen) 10/01/2015 11:38 AM EDT 10/01/2015 7:44 PM EDT Narrative Resulting Agency Comment Spec In Lab Ingrid Aragon MD HEMATOLOGY ORDERABLE S [facility] [place] [address] * (ABNORMAL) Hemogram (10/01/2015 11:38 AM EDT) Pathologist [facility] White Blood Cell 8.5 4.0 - 10.0 x10(3)/[facility] Red Blood Cell 5.73 4.63 - 6.08 x10(6)/[facility] Hemoglobin 17.5 13.7 - 17.5 gm/dL [facility] Hematocrit 50.3 40.0 - 51.0 % [facility] Mean Cell Volume 87.8 79.0 - 92.0 fL [facility] Mean Cell Hemoglobin 30.5 25.6 - 32.2 pg [facility] Mean Cell Hemoglobin Concentration 34.8 32.0 - 36.5 gm/dL [facility] Platelet 204 145 - 370 x10(3)/mc L [facility] RDW Standard Deviation 40.3 35.0 - 46.0 fL [facility] RDW coefficient of variation 12.7 10.9 - 14.4 % [facility] Mean Platelet Volume 12.3(H) 9.0 - 12.0 fL [facility] Blood specimen (specimen) 10/01/2015 11:38 AM EDT 10/01/2015 7:44 PM EDT Narrative Resulting Agency Comment Spec In Lab Ingrid Aragon MD HEMATOLOGY ORDERABLE S [facility] [place] [address] * (ABNORMAL) Hemoglobin A1c (10/01/2015 11:38 AM EDT) Hemoglobin A1c 5.8(H) 4.3 - 5.6 % [facility] Comment: Reference Range: 4.3 - [...] Mellitus, Diabetes Care 2013; 36: Suppl. 1, K51-94 Estimated Average Glucose 120 mg/dL [facility] Comment: eAG equivalents for HbA1c percentages: HbA1c(%) ?eAG(mg/dL) 6.0 ?126 6.5 ?140 7.0 ?154 7.5 ?169 8.0 ?183 8.5 ?197 9.0 ?212 9.5 ?226 10.0 ? 240 Limitations: The eAG calculation has not been validated on women, individuals below 18 years old and above 70 years old, and individuals with hemoglobinopathies. Additional resources are available on the ADA website: [email or web address] Catalino PRADHAN, Pranav J, Syeda R, et al. ??Translating the A1C assay into estimated average glucose values. ??Diabetes Care 2008:31(8):5783-8022. Blood specimen (specimen) 10/01/2015 11:38 AM EDT 10/01/2015 7:44 PM EDT Narrative Resulting Agency Comment Spec In Lab Ingrid Aragon MD CHEMISTRY ORDERABLES [facility] [place] [address] * (ABNORMAL) CMP w/fasting Glucose (10/01/2015 11:38 AM EDT) Glucose Fasting 104(H) 65 - 99 mg/dL [facility] Comment: ?Fasting* Glucose Interpretive Criteria [...] of Diabetes Mellitus, Position Statement from the [place] [employer]. ??Diabetes Care, Volume 33, Supplement 1, Apr 2009 Blood Urea Nitrogen 22(H) 10 - 20 mg/dL [facility] Creatinine 0.93 0.80 - 1.50 mg/dL [facility] Comment: Please note that the pediatric reference intervals supplied above were not validated at [facility]. Results from pediatric patients should be interpreted in conjunction to the patient's age, height and muscle mass. Sodium 142 135 - 145 mmol/L [facility] Potassium 4.1 3.5 - 5.0 mmol/L [facility] Comment: Please note: ??Patients with WBC >100,000 may have falsely elevated Potassium levels. ??For accurate Potassium quantification in these patients send serum separator tube (gold top) for subsequent determinations. ??Contact the Clinical Chemistry Laboratory if there are any questions. Chloride 103 98 - 107 mmol/L [facility] Carbon Dioxide 25 22 - 31 mmol/L [facility] Anion Gap 14 5 - 15 mmol/L [facility] Calcium 9.4 8.5 - 10.5 mg/dL [facility] Protein, Total 7.9 6.1 - 8.0 gm/dL [facility] Albumin 4.4 3.2 - 5.2 gm/dL [facility] Aspartate Aminotransferase 23 0 - 39 unit/L [facility] Alanine Aminotransferase 29 0 - 55 unit/L [facility] Alkaline Phosphatase 74 40 - 120 unit/L [facility] Bilirubin, Total 0.7 0.2 - 1.3 mg/dL [facility] Bilirubin, Direct 0.2 0.0 - 0.3 mg/dL [facility] Est Glomerular Filtration Rate >60 >=60 [facility] Comment: This estimated GFR (eGFR) [...] the following links into your internet browser. [email or web address] [email or web address] Blood specimen (specimen) 10/01/2015 11:38 AM EDT 10/01/2015 7:39 PM EDT Narrative Resulting Agency Comment Spec In Lab Ingrid Aragon MD CHEMISTRY ORDERABLES Performing Organization Address City/State/[facility] Co de Phone Number [facility] [place] [address] documented in this encounter Visit Diagnoses Diagnosis Health care maintenance Unspecified general medical examination documented in this encounter Care Teams Pan Puller Relationship Specialty Start Date End Date Ingrid Aragon MD [address] [place] [address] PCP - General 07/22/14 07/10/17 documented as of this encounter
--- OUTSIDE RECORDS SUMMARY | 2024-02-22 09:32 | XMS_ITS | Encounter Summary ---
Author Organization [facility] Address [facility] [place] [address] Care Team Providers Care Rn Family Name Role Phone Ingrid Aragon MD Primary Care Provider [phone] Encounter Details Date Type Department Care Team (Late st Contact Info) Description 08/13/2014 Orders Only Orthopaedics at [address] [place] [address] Jani Pittman MD [address] [facility] [place] [address] Knee pain, right Social History Tobacco Use [...] as of this encounter Visit Diagnoses Diagnosis Knee pain, right Pain in joint, lower leg documented in this encounter Care Teams Rn Family Relationship Specialty Start Date End Date Ingrid Aragon MD [address] [place] [address] PCP - General 07/22/14 07/10/17 documented as of this encounter
--- OUTSIDE RECORDS SUMMARY | 2024-02-22 09:33 | XMS_ITS | Clinical Summary ---
Author Organization [facility] Address [address] [place] [address] Care Team Providers Care Flexographic Printing Machinist Name Role Phone None, Provider Primary Care Provider Unavailabl e Social History Tobacco Use Types Packs/Day Years Used Date Smoking Tobacco: Never Assessed Interpersonal Safety Answer Date Record ed Physically Hurt Never 01/27/2020 Verbally Threaten Not on file 01/27/2020 Sex and Gender Information Value Date Recorded Sex Assigned at Not on file Gender Identity Not on file Sexual Orientation Not on file Plan of Treatment Health Maintenance Due Date Last Done Comments Hepatitis C Screen 1965 Hepatitis B Vaccine (1 of 3 - 19+ 3-dose series) 06/01 COVID-19 Vaccine (2022- season) 2022 Care Teams Flexographic Printing Machinist Relationship Specialty Start Date End Date None, Provider PCP - General 12/30/19
--- OUTSIDE RECORDS SUMMARY | 2024-02-22 09:33 | XMS_ITS | Encounter Summary ---
Author Organization [facility] Address One [facility] [place] [address] Care Team Providers Care Rotary Driller Helper Name Role Phone Ingrid Aragon MD Primary Care Provider [phone] Reason for Visit * Reason Onset Date Comments Follow-up 08/10/2014 Sinusitis 08/10/2014 Encounter Details Date Type Department Care Team (Late st Contact Info) Description 08/10/2014 Telephone Family Practice at [address] [address] Giovanni Haines MD [address] [place] [address] Follow-up ; Sinusitis Social History Tobacco Use Types Packs/Day Years [...] encounter Miscellaneous Notes * Telephone Encounter - Giovanni Haines MD - 08/10/2014 7:03 AM EDT Late Entry - I spoke with pt for a follow up on 07/30/14. As his sinus congestion has not improved much with flonase and nasal saline, I recommended a course of Abx for a week. We discussed the leucocytosis and discussed that it is important to recheck it in 1-2 weeks. He was OK with this plan. His rash has improved slightly and is not itching any more. He will follow up with dermatology as advised. Eat yogurt while on the antibiotic. Call back right away if diarrhea develops. Discussed the risk of C. Diff. Infection with the use of antibiotic which could be serious. The patient was given opportunity to ask questions and all of them were answered. The plan of care was discussed with the patient and he voiced understanding and agreement and was appreciative. iyb documented in this encounter Plan of Treatment Not on file documented as of this encounter Visit Diagnoses Not on filedocumented in this encounter Care Teams Rotary Driller Helper Relationship Specialty Start Date End Date Ingrid Aragon MD [address] [place] [address] PCP - General 07/22/14 07/10/17 documented as of this encounter
--- OUTSIDE RECORDS SUMMARY | 2024-02-22 09:33 | XMS_ITS | Encounter Summary ---
Author Organization [facility] Address One [facility] [place] [address] Care Team Providers Care Seed Sorter Name Role Phone Ingrid Aragon MD Primary Care Provider [phone] Encounter Details Date Type Department Care Team (Latest Contact Info) Description 07/22/2014 4:20 PM EDT Laboratory Appointment Lab at [address] [place] [address] Giovanni Haines MD [address] [facility] [place] [address] Screening for HIV without presence of risk factors Discharge Disposition: Home Social History Tobacco Use [...] Procedure Name Priority Date/Time Associated Diagnosis Comments HIV SCREEN, 4TH GENERATION ([facility]/CGP/APD/[facility]) Routine 07/22/2014 4:23 PM EDT Screening for HIV without presence of risk factors documented in this encounter Results * HIV Screen, 4th Generation (07/22/2014 4:23 PM EDT) HIV Ab/Ag Screen Negative Negative [facility] Comment: This 4th Generation HIV test screens [...] Lab Giovanni Haines MD CHEMISTRY ORDERABLE S Performing Organization Address City/State/[facility] Co de Phone Number [facility] documented in this encounter Visit Diagnoses Diagnosis Screening for HIV without presence of risk factors Special screening examination for other specified viral diseases documented in this encounter Care Teams Seed Sorter Relationship Specialty Start Date End Date Ingrid Aragon MD [address] [place] [address] PCP - General 07/22/14 07/10/17 documented as of this encounter
--- OUTSIDE RECORDS SUMMARY | 2024-02-22 09:33 | XMS_ITS | Encounter Summary ---
Author Organization [facility] Address One [facility] [place] [address] Care Team Providers Care Family Caseworker Name Role Phone Jacqueline Bowman MD Primary Care Provider [phone] Reason for Visit * Reason Comments Rash on chest, legs, butt ocks, and back. when sweating, it's itchy. going on a couple weeks. here on sunday for it. getting worse since sunday. saw Dr. Aragon Encounter Details Date Type Department Care Team (Late st Contact Info) Description 12/29/2011 2:15 PM EDT Office Visit Family Practice at [place] [address] [place] [phone] Karen Sousa PA [address] [place] [phone] Tinea corporis (Primary Dx); Poison linda Social History Tobacco Use Types Packs/Day Years [...] Sign Reading Time Taken Comments Blood Pressure 136/80 12/29/2011 2:17 PM EDT Pulse 80 12/29/2011 2:17 PM EDT Temperature 37.3 ??C (99.1 ??F) 12/29/2011 2:17 PM ED T Respiratory Rate - - Oxygen Saturation - - Inhaled Oxygen Concentration - - Weight 135.7 kg (299 lb 3.2 oz) 12/29/2011 2:17 PM EDT Height 188 cm (6' 2) 12/29/2011 2:17 PM EDT Body Mass Index 38.42 12/29/2011 2:17 PM EDT documented in this encounter Patient Instructions * Patient Instructions* Karen Sousa PA - 12/29/2011 2:41 PM EDT Tinea corporis Poison linda - Advised that rash on the abdomen and groin area is more consistent with fungal infection. - Start on terbinafine (LAMISIL) 250 mg tablet; Take 1 tablet by mouth daily for 14 days. - For prevention keep the areas dry, use powders to help absorb moisture. - Prescribed clobetasol (TEMOVATE) 0.05 % cream; Apply topically 2 times daily. - Can continue with claritin as needed for itch. - Advised if not improving over one week to contact the office. documented in this encounter Progress Notes * Karen Sousa PA - 12/29/2011 2:36 PM EDT EPISODIC VISIT CC: rash HPI: This is a 46 year old male who presents with a rash which has been ongoing for the past 2 weeks. The rash is very itchy. He was seen on 12/19/11 and he took prednisone 50 mg one tab daily for 5 days for suspected poison linda. He reports he started breaking out again after the prednisone was discontinued. There has not been any draining. He had been outdoors in the garden a few days prior to developing the rash. He does not have any pets. He did wash all the clothing worn that day. He denies any new soaps, detergents, medications. The new rash is between the thighs under the abdomen and on the buttock. His had poison linda also, and hers resolved after a longer prednisone taper. He feels the cream did not help much. Current outpatient prescriptions ordered prior to encounter Medication Sig Dispense Refill ??? triamcinolone (KENALOG) 0.1 % cream Apply topically 2 times daily. 30 g 1 ??? tadalafil (CIALIS) 5 mg tablet Take 2 tablets by mouth as needed for Erectile Dysfunction. 30 tablet 0 No Known Allergies Physical Exam BP 136/80 Pulse 80 Temp(Src) 37.3 ??C (99.1 ??F) (Temporal) Ht 188 cm (6' 2) Wt 135.716 kg(299 lb 3.2 oz) BMI 38.41 kg/m2 Gen: Well-developed, well-nourished, in NAD Skin: Under the pannus, between the upper inner thighs, in the buttock crease is a brightly erythematous rash with some areas of clearing. There is no vesicles, some papules. There are drying/scabbedpapules on the right forearm and the left lower leg. Neck: Supple, no cervical lymphadenopathy Heart: S1, S2 normal, regular rate and rhythm, no murmurs appreciated Lungs: Good Air Entry, clear to auscultation bilaterally; no wheezes, rales or crackles Assessment and Plan: Tinea corporis Poison linda- resolving - Advised that rash on the abdomen and groin area is more consistent with fungal infection as it isoccuring in moist areas. - Start on terbinafine (LAMISIL) 250 mg tablet; Take 1 tablet by mouth daily for 14 days. - For prevention keep the areas dry, use powders to help absorb moisture. - Prescribed clobetasol (TEMOVATE) 0.05 % cream; Apply topically 2 times daily. - Can continue with claritin as needed for itch. - Advised if not improving over one week to contact the office. documented in this encounter Plan of Treatment Not on file documented as of this encounter Visit Diagnoses Diagnosis Tinea corporis- Primary Dermatophytosis of the body Poison linda Contact dermatitis and other eczema due to plants (except food) documented in this encounter Care Teams Family Caseworker Relationship Specialty Start Date End Date Jacqueline Bowman MD [address] [place] [address] PCP - General 03/22/10 06/30/14 documented as of this encounter
--- OUTSIDE RECORDS SUMMARY | 2024-02-22 09:33 | XMS_ITS | Encounter Summary ---
Author Organization [facility] Address One [facility] [place] [address] Care Team Providers Care Contract Administrator Name Role Phone Ingrid Aragon MD Primary Care Provider [phone] Reason for Referral * Physical Therapy (Routine) - Closed Specialty Diagnoses / Procedures Referred By Elsi t Referred To Contact Diagnoses Right knee pain Impingement syndrome of right shoulder Lori Herman PA [address] [place] [address] Physical Therapy [facility], [address] [place] [address] Referral ID Status Reason Start Date Expiration Date V isits Requested Visits Authorized [id number] Closed Evaluate and Treat 07/07/2014 07/07/2015 12 12 Reason for Visit * Reason Comments Knee Pain knee pain right for 6 months, walks with feet turned out and keeps kicking things that twists knee Shoulder Pain 6 month, probably fr om weight lifting, right shoulder Rash on both legs possibl y ring worm, 2 weeks, not painful is itchy Encounter Details Date Type Department Care Team (Late st Contact Info) Description 07/07/2014 10:05 AM EDT Follow-Up Family Practice at [address] [phone] Lori Herman PA [address] [place] [address] Right knee pain (Primary Dx); Impingement syndrome of right shoulder; Tinea corporis; Elevated BP Social History Tobacco Use Types Packs/Day Years [...] Sign Reading Time Taken Comments Blood Pressure 154/98 07/07/2014 10:12 AM EDT Pulse 88 07/07/2014 10:12 AM EDT Temperature - - Respiratory Rate - - Oxygen Saturation - - Inhaled Oxygen Concentration - - Weight 135.6 kg (299 lb) 07/07/2014 10:12 AM EDT Height 186.1 cm (6' 1.25) 07/07/2014 10:12 AM E DT Body Mass Index 39.18 07/07/2014 10:12 AM EDT documented in this encounter Patient Instructions * Patient Instructions* Lori Silva PA - 07/07/2014 10:58 AM EDT Images from the original note were not included. #1: Right Knee Pain Based on history and physical exam, will order right knee MRI to R/O meniscal tear ?? SERENE Rivera will contact you at convenience ?? Pending results, may refer to orthopedics for further f/u Prescribed Tramadol 50 mg - take 1 tablet once nightly ?? Take at night, do not drive, operate machinery or take other potentially sedating medications Can take ibuprofen 200 mg during the day - take 1-3 tablets every 6 hours as needed; not at same time as the Tramadol; do not exceed more than 3200 mg/day Ice/heat 10-20 minutes 4 times daily Topical analgesics as directed; not over broken skin or before/after heat Provided knee stretches #2: Impingement Syndrome of Right Shoulder Discussed that symptoms are consistent with impingement syndrome Provided shoulder stretches PT referral made See therapy for knee #3: Tinea Corporis Prescribed ketoconazole (NIZORAL) 2 % Cream - Apply topically once daily for two weeks ?? Wash hands after use #4: Elevated BP Discussed that BP is quite elevated at today's appointment but has come down Would like this to be discussed at your physical ?? If unable to get a physical within the next month, please schedule a nurse visit in the next fewweeks to have BP reassessed Please schedule a physical with Dr. Aragon in the next month The above assessment and plan was discussed with the patient and is agreeable as outlined. Patient provided opportunity to ask questions and these were answered in detail. The patient is aware he maycall sooner with any further questions, sign or symptom of concern or distress, medication concernsor to request a sooner appointment. Lori Silva PA-C, [facility] Shoulder Stretches: Exercises Your Care Instructions Here are some examples of exercises for your shoulder. Start each exercise slowly. Ease off the exercise if you start to have pain. Your doctor or physical therapist will tell you when you can start these exercises and which ones will work best for you. How to do the exercises Note: These exercises should cause you to feel a gentle stretch, but no pain. Shoulder stretch 2. stitch bonding machine tender helper a doorway and place one arm against the door frame. Your elbow should be a little higher than your shoulder. 3. Relax your shoulders as you lean forward, allowing your chest and shoulder muscles to stretch. You can also turn your body slightly away from your arm to stretch the muscles even more. 4. Hold for 15 to 30 seconds. 5. Repeat 2 to 4 times with each arm. Shoulder and chest stretch Shoulder and chest stretch 2. While sitting, relax your upper body so you slump slightly in your chair. 3. As you breathe in, straighten your back and open your arms out to the sides. 4. Gently pull your shoulder blades back and downward. 5. Hold for 15 to 30 seconds as your breathe normally. 6. Repeat 2 to 4 times. Overhead stretch 2. Reach up over your head with both arms. 3. Hold for 15 to 30 seconds. 4. Repeat 2 to 4 times. Follow-up care is a espinosa part of your treatment and safety. Be sure to make and go to all appointments, and call your doctor if you are having problems. It's also a good idea to know your test resultsand keep a list of the medicines you take. Where can you learn more? Visit our health information library at [email or web address] You can also view health information on [employer], your personal patient account. Log in or sign up today. Enter S254 in the search box to learn more about Shoulder Stretches: Exercises. ?? [id number] [employer]. Care instructions adapted under license by [facility]. This care instruction is for use with your licensed healthcare professional. If you have questions about a medical condition or this instruction, always ask your healthcare professional. [employer] disclaims any warranty or liability for your use of this information. Content Version: 10.3.740125; Current as of: October 01, 2013 [facility] Knee: Exercises Your Care Instructions Here are some examples of exercises for your knee. Start each exercise slowly. Ease off the exercise if you start to have pain. Your doctor or physical therapist will tell you when you can start these exercises and which ones will work best for you. How to do the exercises Quad sets 6. Sit with your leg straight and supported on the floor or a firm bed. (If you feel discomfort in the front or back of your knee, place a small towel roll under your knee.) 7. Tighten the muscles on top of your thigh by pressing the back of your knee flat down to the floor. (If you feel discomfort under your kneecap, place a small towel roll under your knee.) 8. Hold for about 6 seconds, then rest for up to 10 seconds. 9. Do 8 to 12 repetitions several times a day. Straight-leg raises to the front 7. Lie on your back with your good knee bent so that your foot rests flat on the floor. Your injured leg should be straight. Make sure that your low back has a normal curve. You should be able to slip your flat hand in between the floor and the small of your back, with your palm touching the floor and your back touching the back of your hand. 8. Tighten the thigh muscles in the injured leg by pressing the back of your knee flat down to the floor. Hold your knee straight. 9. Keeping the thigh muscles tight, lift your injured leg up so that your heel is about 12 inches off the floor. Hold for about 6 seconds and then lower slowly. 10. Do 8 to 12 repetitions, 3 times a day. Straight-leg raises to the outside 5. Lie on your side, with your injured leg on top. 6. Tighten the front thigh muscles of your injured leg to keep your knee straight. 7. Keep your hip and your leg straight in line with the rest of your body, and keep your knee pointing forward. Do not drop your hip back. 8. Lift your injured leg straight up toward the ceiling, about 12 inches off the floor. Hold for about 6 seconds, then slowly lower your leg. 9. Do 8 to 12 repetitions. Straight-leg raises to the back 1. Lie on your stomach, and lift your leg straight up behind you (toward the ceiling). 2. Lift your toes about 6 inches off the floor, hold for about 6 seconds, then lower slowly. 3. Do 8 to 12 repetitions. Straight-leg raises to the inside 1. Lie on the side of your body with the injured leg. 2. You can either prop your other (good) leg up on a chair, or you can bend your good knee and put that foot in front of your injured knee. Do not drop your hip back. 3. Tighten the muscles on the front of your thigh to straighten your injured knee. 4. Keep your kneecap pointing forward, and lift your whole leg up toward the ceiling about 6 inches. Hold for about 6 seconds, then lower slowly. 5. Do 8 to 12 repetitions. Heel dig bridging 1. Lie on your [...] 4. Do 8 to 12 repetitions. Hamstring curls 1. Lie on your stomach with your knees straight. If your kneecap is uncomfortable, roll up a washcloth and put it under your leg just above your kneecap. 2. Lift the foot of your injured leg by bending the knee so that you bring the foot up toward your buttock. If this motion hurts, try it without bending your knee quite as far. This may help you avoid any painful motion. 3. Slowly lower your leg back to the floor. 4. Do 8 to 12 repetitions. 5. With permission from your doctor or physical therapist, you may also want to add a cuff weight to your ankle (not more than 5 pounds). With weight, you do not have to lift your leg more than 12 inches to get a hamstring workout. Shallow standing knee bends Note: Do this exercise only if you have very little pain; if you have no clicking, locking, or giving way if you have an injured knee; and if it does not hurt while you are doing 8 to 12 repetitions. 1. Stand with your hands lightly resting on a counter or chair in front of you. Put your feet shoulder-width apart. 2. Slowly bend your knees so that you squat down like you are going to sit in a chair. Make sure your knees do not go in front of your toes. 3. Lower yourself about 6 inches. Your heels should remain on the floor at all times. 4. Rise slowly to a standing position. Heel raises 1. Stand with your feet a few inches apart, with your hands lightly resting on a counter or chair in front of you. 2. Slowly raise your heels off the floor while keeping your knees straight. 3. Hold for about 6 seconds, then slowly lower your heels to the floor. 4. Do 8 to 12 repetitions several times during the day. Follow-up care is a espinosa part of your treatment and safety. Be sure to make and go to all appointments, and call your doctor if you are having problems. It's also a good idea to know your test resultsand keep a list of the medicines you take. Where can you learn more? Visit our [employer] information library at [email or web address] [email or web address] You can also view health information on [employer], your personal patient account. Log in or sign up today. Enter Q615 in the search box to learn more about Knee: Exercises. ?? [id number] [employer]. Care instructions adapted under license by [facility]. This care instruction is for use with your licensed healthcare professional. If you have questions about a medical condition or this instruction, always ask your healthcare professional. [employer] disclaims any warranty or liability for your use of this information. Content Version: 10.3.026811; Current as of: October 01, 2013 documented in this encounter Progress Notes * Lori Silva PA - 07/07/2014 10:32 AM EDT HENRY Cordon is a pleasant 49 y.o. male who is here today with multiple complaints. #1: He notes right knee pain of 5-6 months duration. He denies any specific inciting injury but says it's probably from kicking stuff. He notes the pain is worse when going from a prolonged seated position to a standing position. He also notes pain when touching the medial aspect of the knee. He denies any swelling in the knee, catching/giving out or any radiating pain/numbness/tingling into the leg. He also notes right shoulder pain of 5-6 months probably from working out He notes the painis worse with concomitant elevation and abduction. He describes the pain as sharp and localizes it over the bone; he did not specific which bone. He has been taking ibuprofen 800 mg a few times a day as needed for the pain which helps with the shoulder but not with the knee. He rates his overall pain a 2/10 at today's visit. #2: He describes a round rash on his legs and trunk. He has had this rash on his trunk but never onthe legs. It has been there for the past week. He notes that it is mildly itchy but not tender. He denies any redness, swelling or warmth over the area. He has noted improvement with Nizoral 2% creamin the past and is hoping to get a refill at today's visit. #3: He notes a history of elevated BP, to which he has never been treated for. He denies any chest pain, palpitations, SOB, EVANGELISTA, wheezing, headache, dizziness, lightheadedness, or visual disturbances. Current Outpatient Prescriptions on File Prior to Visit Medication Sig Dispense Refill ??? tadalafil (CIALIS) 5 mg tablet Take 2 tablets by mouth as needed for Erectile Dysfunction. 30 tablet 0 ??? [DISCONTINUED] clobetasol (TEMOVATE) 0.05 % cream Apply topically 2 times daily. 60 g 0 No current facility-administered medications on file prior to visit. No Known Allergies Family History Problem Relation Age of Onset ??? Colorectal Cancer Father ??? High Blood Pressure Father ??? High Cholesterol Father ??? Prostate Cancer Neg Hx ??? Diabetes Paternal Grandmother History Social History ??? Marital Status: N/A Spouse Name: N/A Number of Children: N/A ??? Years of Education: N/A Social History Main Topics ??? Smoking status: Never Smoker ??? Smokeless tobacco: Never Used ??? Alcohol Use: 0.5 oz/week 1 drink(s) per week ??? Drug Use: No ??? Sexual Activity: Yes Comment: with his Other Topics Concern ??? None Social History Narrative He is unemployed now. ROS Constitutional: No fevers, fatigue, weight loss, change in appetite, night sweats, malaise or ill feeling Skin: Notes pruritic rash on bilateral legs and trunk; denies open sores, dry skin, lumps, moles growth/changes, hair loss, nail changes HEENT: *Head - No headaches, dizziness, lightheadedness, seizures *Eyes - No blurry vision, double vision, temporary vision loss, floaters, flashing lights, eye pain, redness, tearing, dry eyes, night vision problems Cardiovascular: Notes history of elevated BP; denies chest pain, palpitations, EVANGELISTA, PND, ankle edema Respiratory: No SOB, chronic cough or wheezing Musculoskeletal: Notes right knee and shoulder pain and stiffness; denies stiffness, limitation of movement, neck or back pain, joint swelling/redness, muscle weakness, prior serious injury, fractures, deformities Neuro: No frequent headaches, fainting, seizures, localized weakness, numbness/tingling, difficultyconcentrating, difficulty with speech, tremors, involuntary movement, loss of monocular vision, noises/whooshing in head Objective/PE Filed Vitals: 07/07/14 1012 BP: 154/98 Pulse: 88 BP #2 142/92; larger cuff utilized Constitutional:Pepito Cordon is well nourished, A&OX4, appears to be his stated age and appears to be in no distress Skin: Round rashes with scaling and central clearing noted on bilateral lower extremities and left lower abdomen consistent with tinea corporis; no scars or other lesions noted HEENT: Eyes: PERRLA, EOM/accomodation/convergence intact; funduscopic exam reveals no AV nicking or venouspulsations, good cup-to-disk ratio Cardiovascular: RRR, normal S1 and S2, no murmur, gallops or rubs Pulm: CTAB; no wheezing, crackles, rhonchi or rales; no increased effort; good airflow; inspiratoryand expiratory phases equal and not prolonged Peripheral Vascular: No carotid bruits noted on auscultations, pulses 3/4 throughout bilateral radial, ulnar, DP and PT pulses, extremities warm to palpation, no varicosities noted, no change in hairdistribution or venous stasis noted MSK: ?? Strength 5/5 in upper extremities bilaterally ?? Strength 5/5 in lower extremities bilaterally ?? Right knee ROM full with no limitations; mildly tender when going from knee flexion to extension; negative Anterior/posterior drawer, Cindy's, varus/valgus laxity; some tenderness but no crackles noted with Apley's grind test; mildly TTP over medial joint line; not TTP over lateral joint line;no Ardon's cyst appreciated; no joint effusion or ecchymosis present ?? Right shoulder ROM full with no limitations; Apley's scratch test full; negative drop arm, Hawkin's, Spurling's test; mildly TTP over coracoid process and posterior GH joint line; not TTP over AC or CC joint; not TTP over supraspinatus or along border or scapula Neuro: DTRs symmetric throughout, no gait abnormalities noted, pin sensation intact throughout Assessment and Plan #1: Right Knee Pain Based on history and physical exam, will order right knee MRI to R/O meniscal tear ?? SERENE Rivera will contact you at convenience ?? Pending results, may refer to orthopedics for further f/u Prescribed Tramadol 50 mg - take 1 tablet once nightly ?? Take at night, do not drive, operate machinery or take other potentially sedating medications Can take ibuprofen 200 mg during the day - take 1-3 tablets every 6 hours as needed; not at same time as the Tramadol; do not exceed more than 3200 mg/day Ice/heat 10-20 minutes 4 times daily Topical analgesics as directed; not over broken skin or before/after heat Provided knee stretches #2: Impingement Syndrome of Right Shoulder Discussed that symptoms are consistent with impingement syndrome Provided shoulder stretches PT referral made See therapy for knee #3: Tinea Corporis Prescribed ketoconazole (NIZORAL) 2 % Cream - Apply topically once daily for two weeks ?? Wash hands after use #4: Elevated BP Discussed that BP is quite elevated at today's appointment but has come down Would like this to be discussed at your physical ?? If unable to get a physical within the next month, please schedule a nurse visit in the next fewweeks to have BP reassessed Please schedule a physical with Dr. Aragon in the next month The above assessment and plan was discussed with the patient and is agreeable as outlined. Patient provided opportunity to ask questions and these were answered in detail. The patient is aware he maycall sooner with any further questions, sign or symptom of concern or distress, medication concernsor to request a sooner appointment. Lori Silva PA-C, [facility] documented in this encounter Plan of Treatment Scheduled Referrals Name Type Priority Associated Diagnoses Orde r Schedule Referral to Physical Therapy Outpatient Referral Routine Right knee pain Impingement syndrome of right shoulder Ordered: 07/07/2014 documented as of this encounter Visit Diagnoses Diagnosis Right knee pain- Primary Pain in joint, lower leg Impingement syndrome of right shoulder Other affections of shoulder region, not elsewhere classified Tinea corporis Dermatophytosis of the body Elevated BP Elevated blood pressure reading without diagnosis of hypertension documented in this encounter Care Teams Contract Administrator Relationship Specialty Start Date End Date Ingrid Aragon MD [address] [place] [address] PCP - General 07/01/14 07/17/14 documented as of this encounter
--- OUTSIDE RECORDS SUMMARY | 2024-02-22 09:33 | XMS_ITS | Encounter Summary ---
Author Organization [facility] Address [facility] [place] [address] Care Team Providers Care Wedding Transportation Driver Name Role Phone Jacqueline Bowman MD Primary Care Provider [phone] Reason for Visit * Reason Comments Poison Nella Medication Refill Patient requesting a prescription for Cialis, states he has not had this in 2 years. (last refill 12/20/2009 #8 tablets with 2 refills) Encounter Details Date Type Department Care Team (Late st Contact Info) Description 12/19/2011 10:00 AM EDT Office Visit Family Practice at [address] [phone] Ingrid Aragon MD [address] [place] [address] FAMILY [facility] [place], [place] [id number] Inability to maintain erection; Poison nella Social History Tobacco Use Types Packs/Day Years [...] Sign Reading Time Taken Comments Blood Pressure 108/76 12/19/2011 10:07 AM EDT left arm, large cuff Pulse - - Temperature 36.2 ??C (97.1 ??F) 12/19/2011 1 0:07 AM EDT Respiratory Rate - - Oxygen Saturation - - Inhaled Oxygen Concentration - - Weight 139.2 kg (306 lb 12.8 oz) 12/19/2011 10:07 AM EDT Height 188 cm (6' 2) 12/19/2011 10:07 AM EDT reported Body Mass Index 39.39 12/19/2011 10:07 AM EDT documented in this encounter Patient Instructions * Patient Instructions* Ingrid Aragon MD - 12/19/2011 10:47 AM EDT Pepito was seen today for poison nella and medication refill. Diagnoses and associated orders for this visit: Inability to maintain erection - tadalafil (CIALIS) 10 mg tablet; Take 1 tablet by mouth as needed for Erectile Dysfunction. With next refill need to fu with pcp for more work up Discussed lipid panel, glucose ( done already ) possible testoterone Poison nella - predniSONE (DELTASONE) 50 mg tablet; Take 1 tablet by mouth daily for 5 days. - triamcinolone (KENALOG) 0.1 % cream; Apply topically 2 times daily. Call back if not improving in 48 hrs with medications documented in this encounter Progress Notes * Ingrid Aragon MD - 12/19/2011 10:31 AM EDT Subjective: Patient ID: Pepito Cordon is a 46 y.o. male. HPI Comments: He is here for poison nella rash going for few days, he wasn't exposed to certain - notsure It started on right forearm and now to legs and trunk He is applying calamine lotion, he hasn't tried any other meds Its itching but not painful He is looking for cialis - he is having errection sometimes, he takes cialis and it helps, he does get morning erection. He denies pain involved too. He takes cialis sparingly, - he knows that libido is not helpful Review of Systems Objective: Physical Exam Skin: Papular rash seen on both forearm , legs He has a indurated lesion on left leg without any crusting or tenderness Some lesion also on chest and lower trunk and nape of neck Assessment and Plan: Patient Instructions Pepito was seen today for poison nella and medication refill. Diagnoses and associated orders for this visit: Inability to maintain erection- requested refill based on 2010 Limited sample supply at this point - tadalafil (CIALIS) 10 mg tablet; Take 1 tablet by mouth as needed for Erectile Dysfunction. With next refill need to fu with pcp for more work up or to continue meds Discussed lipid panel, glucose ( done already ) possible testoterone. Poison nella - predniSONE (DELTASONE) 50 mg tablet; Take 1 tablet by mouth daily for 5 days. - triamcinolone (KENALOG) 0.1 % cream; Apply topically 2 times daily. Call back if not improving in 48 hrs with medications documented in this encounter Plan of Treatment Not on file documented as of this encounter Visit Diagnoses Diagnosis Inability to maintain erection Psychosexual dysfunction with inhibited sexual excitement Poison nella Contact dermatitis and other eczema due to plants (except food) documented in this encounter Care Teams Wedding Transportation Driver Relationship Specialty Start Date End Date Jacqueline Bowman MD [address] [place] [address] PCP - General 03/22/10 06/30/14 documented as of this encounter
--- OUTSIDE RECORDS SUMMARY | 2024-02-22 09:33 | XMS_ITS | Encounter Summary ---
Author Organization Formerly [facility] Address One [facility] [place] [address] Care Team Providers Care Chemical Cell Changer Name Role Phone Ingrid Aragon MD Primary Care Provider [phone] Encounter Details Date Type Department Care Team (Latest Contact Info) Description 07/22/2014 4:10 PM EDT Laboratory Appointment Lab at [address] [place] [phone] Ingrid Aragon MD [address] [place] [address] Discharge Disposition: Home Social History Tobacco Use [...] on filedocumented in this encounter Care Teams Chemical Cell Changer Relationship Specialty Start Date End Date Ingrid Aragon MD [address] [place], [place] [phone] PCP - General 07/22/14 07/10/17 documented as of this encounter
--- OUTSIDE RECORDS SUMMARY | 2024-02-22 09:33 | XMS_ITS | Encounter Summary ---
Author Organization [facility] Address One [facility] [place] [address] Care Team Providers Care Technology Officer Name Role Phone Ingrid Aragon MD Primary Care Provider [phone] Encounter Details Date Type Department Care Team (Latest Contact Info) Description 07/22/2014 4:30 PM EDT Laboratory Appointment Lab at [address] [place] [address] Ingrid Aragon MD [address] [facility] [address] Screening; Annual physical exam Discharge Disposition: Home Social History Tobacco Use [...] Associated Diagnosis Comments CMP W/FASTING GLUCOSE Routine 07/22/2014 4:16 PM EDT Screening Annual physical exam HEMOGRAM Routine 07/22/2014 4:16 PM EDT Screening Annual physical exam DIFFERENTIAL, AUTOMATED Routine 07/22/2014 4:16 PM EDT Screening Annual physical exam CBC (WITH DIFF) Routine 07/22/2014 4:16 PM EDT Screening Annual physical exam LIPID PANEL (REFLEX DIRECT LDL) Routine 07/22/2014 4:16 PM EDT Screening Annual physical exam documented in this encounter Results * (ABNORMAL) Differential, Automated (07/22/2014 4:16 PM EDT) Neutrophil % 64.9 % CERNER MILLENNIUM Neutrophil Absolute 8.73(H) 1.50 - 6.30 x10(3)/mc L CERNER MILLENNIUM Lymph % 24.4 % CERNER MILLENNIUM Lymphocytes Abs 3.3 1.0 - 3.6 x10(3)/mc L CERNER MILLENNIUM Monocyte % 7.2 % CERNER MILLENNIUM Monocyte Abs 1.0 0.2 - 1.0 x10(3)/mc L CERNER MILLENNIUM Eos % 2.6 % CERNER MILLENNIUM Eosinophils Abs 0.4 0.0 - 0.5 x10(3)/mc L CERNER MILLENNIUM Basophil % 0.5 % CERNER MILLENNIUM Baso Absolute 0.1 0.0 - 0.2 x10(3)/mc L CERNER MILLENNIUM Immature Gran % 0.40 % CERN ER MILLENNIUM Comment: Immature granulocytes(IG's)percentage and absolute count will include metamyelocytes, myelocytes, and promyelocytes. Blood smears from CBCs yielding IG's will be scanned manually for concordance. If this scan disagrees with the automated IG or if promyelocytes are noted, a manual differential will be performed. Immature Gran Absolute 0.06(H) 0.00 - 0.05 x10(3)/mc L CERNER MILLENNIUM Blood specimen (specimen) 07/22/2014 4:16 PM EDT 07/22/2014 11:04 PM EDT Narrative Resulting Agency Comment Spec In Lab Ingrid Aragon MD HEMATOLOGY ORDERABLE S [facility]ERCALE REYESENNIUM * (ABNORMAL) Hemogram (07/22/2014 4:16 PM EDT) White Blood Cell 13.5(H) 4.0 - 10.0 x10(3)/mc L CERNER MILLENNIUM Red Blood Cell 5.61 4.63 - 6.08 x10(6)/mc L CERNER MILLENNIUM Hemoglobin 17.1 13.7 - 17.5 gm/dL CERNER MILLENNIUM Hematocrit 49.8 40.0 - 51.0 % CERNER MILLENNIUM Mean Cell Volume 88.8 79.0 - 92.0 fL CERNER MILLENNIUM Mean Cell Hemoglobin 30.5 25.6 - 32.2 pg CERNER MILLENNIUM Mean Cell Hemoglobin Concentration 34.3 32.0 - 36.5 gm/dL CERNER MILLENNIUM Platelet 181 145 - 370 x10(3)/mc L CERNER MILLENNIUM RDW Standard Deviation 40.7 35.0 - 46.0 fL CERNER MILLENNIUM RDW coefficient of variation 12.7 10.9 - 14.4 % CERNER MILLENNIUM Mean Platelet Volume 11.5 9.0 - 12.0 fL CERNER MILLENNIUM Blood specimen (specimen) 07/22/2014 4:16 PM EDT 07/22/2014 11:04 PM EDT Narrative Resulting Agency Comment Spec In Lab Ingrid Aragon MD [facility] * (ABNORMAL) Lipid panel (fasting) (07/22/2014 4:16 PM EDT) Cholesterol, Total 126 <=199 mg/dL [facility] MILL[facility] Comment: Recommendations of the NCEP Adult Treatment Panel for the following risk cutoff thresholds for the [place] population: Desirable: <200 mg/dL Borderline High: 200-239 mg/dL High: > or = 240 mg/dL Triglyceride 101 <=149 mg/dL [facility] MILLENNIUM Comment: Reference Range: Normal triglycerides: ??<150 mg/dL Borderline high: ??150-199 mg/dL High: ??200-499 mg/dL Very high: ??>jf=123 mg/dL LUZ 2001; 285(19):8389-6693 HDL Cholesterol 33(L) >=40 mg/dL [facility] MILLENNIUM Comment: Reference range: ??Low HDL: ?? < 40 mg/dL ??Normal: ?40-60 mg/dL ??Desirable: > 60 mg/dL LUZ 2001; 285(19):2273-0736 LDL Cholesterol 73 <=99 mg/dL CHANDRIKA TEJEDA Comment: Reference range: ?? Optimal: ?<100 mg/dL ?? Near Optimal/Above Optimal: ?? 100-129 mg/dL ?? Borderline high: ?130-159 mg/dL ?? High: ? 160-189 mg/dL ?? Very high: ?>fp=727 mg/dL LUZ 2001: 285(19):8094-5530 Cholesterol/HDL Ratio 3.8 ratio JORGITO TEJEDA Comment: A Cholesterol to HDL ratio below 4:1 is desirable. ??Studies suggest that increased CAD risk occurs at ratios above 5 for females and above 6 for men. ? [place] Heart Association ??(http://www.americanheart.org) ? Elizabeth Int Med, 1994; 121:641 ? AM J Med, 1998; 105(1A):48S Blood specimen (specimen) 07/22/2014 4:16 PM EDT 07/22/2014 11:02 PM EDT Narrative Resulting Agency Comment Spec In Lab Ingrid Aragon MD CHEMISTRY ORDERABLES JORGITO TEJEDA * (ABNORMAL) CMP w/fasting Glucose (07/22/2014 4:16 PM EDT) Glucose Fasting 95 65 - 99 mg/dL JORGITO TEJEDA Comment: ?Fasting* Glucose Interpretive Criteria Normal ?65-99 [...] of Diabetes Mellitus, Position Statement from the [place] Diabetes Association. ??Diabetes Care, Volume 33, Supplement 1, Apr 2009 Blood Urea Nitrogen 21(H) 10 - 20 mg/dL CERNER MILLENNIUM Creatinine 1.05 0.80 - 1.50 mg/dL CERNER MILLENNIUM Comment: Please note that the pediatric reference intervals supplied above were not validated [place] [facility] Results from pediatric patients should be interpreted in conjunction to the patient's age, height and muscle mass. Sodium 140 135 - 145 mmol/L CERNER MILLENNIUM Potassium 4.6 3.5 - 5.0 mmol/L CERNER MILLENNIUM Comment: Please note: ??Patients with WBC >100,000 may have falsely elevated Potassium levels. ??For accurate Potassium quantification in these patients send serum separator tube (gold top) for subsequent determinations. ??Contact the Clinical Chemistry Laboratory if there are any questions. Chloride 100 98 - 107 mmol/L CERNER MILLENNIUM Carbon Dioxide 29 22 - 31 mmol/L CERNER MILLENNIUM Anion Gap 11 5 - 15 mmol/L CERNER MILLENNIUM Calcium 9.7 8.5 - 10.5 mg/dL CERNER MILLENNIUM Protein, Total 7.8 6.1 - 8.0 gm/dL CERNER MILLENNIUM Albumin 4.3 3.2 - 5.2 gm/dL CERNER MILLENNIUM Aspartate Aminotransferase 28 0 - 39 unit/L CERNER MILLENNIUM Alanine Aminotransferase 36 0 - 55 unit/L CERNER MILLENNIUM Alkaline Phosphatase 84 40 - 120 unit/L CERNER MILLENNIUM Bilirubin, Total 0.8 0.2 - 1.3 mg/dL CERNER MILLENNIUM Bilirubin, Direct 0.2 0.0 - 0.3 mg/dL CERNER MILLENNIUM Est Glomerular Filtration Rate [...] the following links into your internet browser. [email or web address] Blood specimen (specimen) 07/22/2014 4:16 PM EDT 07/22/2014 11:02 PM EDT Narrative Resulting Agency Comment Spec In Lab Ingrid Aragon MD CHEMISTRY ORDERABLES [facility] documented in this encounter Visit Diagnoses Diagnosis Screening Screening for unspecified condition Annual physical exam Routine general medical examination at a health care facility documented in this encounter Care Teams Technology Officer Relationship Specialty Start Date End Date Ingrid Aragon MD [address] [place] [address] PCP - General 07/22/14 07/10/17 documented as of this encounter
--- OUTSIDE RECORDS SUMMARY | 2024-02-22 09:33 | XMS_ITS | Encounter Summary ---
Author Organization [facility] Address [facility] [place] [address] Care Team Providers Care Salesforce Consultant Name Role Phone Ingrid Aragon MD Primary Care Provider [phone] Reason for Referral * Surgical (Routine) - Complete - Patient Seen (External Appt Consult Notes Rcv'd) Specialty Diagnoses / Procedures Referred By Elsi dnune Referred To Contact Orthopaedics Diagnoses Laura 08/14/14@3:45PM 836.2 (ICD-9-CM) - S83.206A (ICD-10-CM) - Right knee meniscal tear, initial encounter Lori Herman PA [address] [place] [address] [facility] [address] [place] [address] Referral ID Status Reason Start Date Expiration Date Visits Requested Visits Authorized [id number] Complete - Patient Seen (External Appt Consult Notes Rcv'd) Consult, Test & Treat 07/30/2014 07/30/2015 3 3 Encounter Details Date Type Department Care Team (Late st Contact Info) Description 07/28/2014 Telephone Family Practice at [address] [phone] Lori Herman PA [address] [place] [address] Social History Tobacco Use Types Packs/Day Years [...] encounter Miscellaneous Notes * Telephone Encounter - Lori Silva PA - 07/30/2014 3:42 PM EDT Spoke with Pepito Discussed his recent lab results Laboratory Appointment on 07/22/2014 Component Date Value Ref Range Status ??? Glucose Fasting 07/22/2014 95 65 - 99 mg/dL Final Comment: Fasting* Glucose Interpretive Criteria Normal 65-99 mg/dL Impaired Fasting glucose 100-125 mg/dL Consistent with Diabetes Mellitus >or= 126 mg/dL *Fasting is defined as no caloric intake for at least 8 hours In the absence of unequivocal hyperglycemia a plasma glucose value of >or= 126 mg/dL should be repeated on a subsequent day. Diagnosis and Classification of Diabetes Mellitus, Position Statement from the [place] Diabetes Association. Diabetes Care, Volume 33, Supplement 1, Apr 2009 ??? BUN 07/22/2014 21* 10 - 20 mg/dL Final ??? Creatinine 07/22/2014 1.05 0.80 - 1.50 mg/dL Final Comment: Please note that the pediatric reference intervals supplied above were not validated [place] [facility] Results from pediatric patients should be interpreted in conjunction to the patient's age, height and muscle mass. ??? Sodium 07/22/2014 140 135 - 145 mmol/L Final ??? Potassium 07/22/2014 4.6 3.5 - 5.0 mmol/L Final Comment: Please note: Patients with WBC >100,000 may have falsely elevated Potassium levels. For accurate Potassium quantification in these patients send serum separator tube (gold top) for subsequent determinations. Contact the Clinical Chemistry Laboratory if there are any questions. ??? Chloride 07/22/2014 100 98 - 107 mmol/L Final ??? CO2 07/22/2014 29 22 - 31 mmol/L Final ??? Anion Gap 07/22/2014 11 5 - 15 mmol/L Final ??? Calcium 07/22/2014 9.7 8.5 - 10.5 mg/dL Final ??? Total Protein 07/22/2014 7.8 6.1 - 8.0 gm/dL Final ??? Albumin 07/22/2014 4.3 3.2 - 5.2 gm/dL Final ??? AST 07/22/2014 28 0 - 39 unit/L Final ??? ALT 07/22/2014 36 0 - 55 unit/L Final ??? Alk Phos 07/22/2014 84 40 - 120 unit/L Final ??? Total Bilirubin 07/22/2014 0.8 0.2 - 1.3 mg/dL Final ??? Bili, Direct 07/22/2014 0.2 0.0 - 0.3 mg/dL Final ? ? Estimated GFR 07/22/2014 >60 >=60 Final Comment: This estimated GFR (eGFR) value was [...] the following links into your internet browser. [email or web address] [email or web address] ? ? Chol, Total 07/22/2014 126 <=199 mg/dL Final Comment: Recommendations of the NCEP Adult Treatment Panel for the following risk cutoff thresholds for the [place] population: Desirable: <200 mg/dL Borderline High: 200-239 mg/dL High: > or = 240 mg/dL ? ? Triglycerides 07/22/2014 101 <=149 mg/dL Final Comment: Reference Range: Normal triglycerides: <150 mg/dL Borderline high: 150-199 mg/dL High: 200-499 mg/dL Very high: >ke=771 mg/dL LUZ 2000; 285(19):4690-5754 ? ? HDL 07/22/2014 33* >=40 mg/dL Final Comment: Reference range: Low HDL: < 40 mg/dL Normal: 40-60 mg/dL Desirable: > 60 mg/dL LUZ 2000; 285(19):8625-8581 ? ? LDL Cholesterol 07/22/2014 73 <=99 mg/dL Final Comment: Reference range: Optimal: <100 mg/dL Near Optimal/Above Optimal: 100-129 mg/dL Borderline high: 130-159 mg/dL High: 160-189 mg/dL Very high: >wi=221 mg/dL LUZ 2001: 285(19):1332-9864 ??? Chol/HDL Ratio 07/22/2014 3.8 Final Comment: A Cholesterol to HDL ratio below 4:1 is desirable. Studies suggest that increased CAD risk occurs at ratios above 5 for females and above 6 for men. [place] Heart Association (http://www.americanheart.org) Elizabeth Int Med, 1994; 121:641 AM J Med, 1998; 105(1A):48S ??? WBC 07/22/2014 13.5* 4.0 - 10.0 x10(3)/mcL Final ??? RBC 07/22/2014 5.61 4.63 - 6.08 x10(6)/mcL Final ??? Hemoglobin 07/22/2014 17.1 13.7 - 17.5 gm/dL Final ??? Hematocrit 07/22/2014 49.8 40.0 - 51.0 % Final ??? MCV 07/22/2014 88.8 79.0 - 92.0 fL Final ??? MCH 07/22/2014 30.5 25.6 - 32.2 pg Final ??? MCHC 07/22/2014 34.3 32.0 - 36.5 gm/dL Final ??? Platelets 07/22/2014 181 145 - 370 x10(3)/mcL Final ??? RDWSD 07/22/2014 40.7 35.0 - 46.0 fL Final ??? RDWCV 07/22/2014 12.7 10.9 - 14.4 % Final ??? MPV 07/22/2014 11.5 9.0 - 12.0 fL Final ??? Neutrophils % 07/22/2014 64.9 Final ??? Neutr Abs (ANC) 07/22/2014 8.73* 1.50 - 6.30 x10(3)/mcL Final ??? Lymphocytes % 07/22/2014 24.4 Final ??? Lymphocytes Abs 07/22/2014 3.3 1.0 - 3.6 x10(3)/mcL Final ??? Monocytes % 07/22/2014 7.2 Final ??? Monocyte Abs 07/22/2014 1.0 0.2 - 1.0 x10(3)/mcL Final ??? Eosinophils % 07/22/2014 2.6 Final ??? Eosinophils Abs 07/22/2014 0.4 0.0 - 0.5 x10(3)/mcL Final ??? Basophils % 07/22/2014 0.5 Final ??? Basophils Abs 07/22/2014 0.1 0.0 - 0.2 x10(3)/mcL Final ??? Immature Gran % 07/22/2014 0.40 Final Comment: Immature granulocytes(IG's)percentage and absolute count will include metamyelocytes, myelocytes, and promyelocytes. Blood smears from CBCs yielding IG's will be scanned manually for concordance. If this scan disagrees with the automated IG or if promyelocytes are noted, a manual differential will be performed. ??? Meli Gran Abs 07/22/2014 0.06* 0.00 - 0.05 x10(3)/mcL Final Due to the elevated WBC and left shift, I requested he repeat these tests to make sure the trendingis going down; he understands and would like to have this done in [place] on Sunday; placed order for repeat CBC with diff I also discussed with Pepito his recent right knee MRI Impression: The posterior horn of the medial meniscus demonstrates a radial tear with extension superiorly. 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 Giovanni Haines on 07/21/2014 and was told he would place referrals to dermatology and tosle medicine Dermatology was for evaluation of his tinea Sleep study was for evaluation of his snoring and high blood pressure, as he notes potential correlation with MESHA He is wondering if those referrals have been placed; I noted that those referrals have not been placed at this time He is also wondering if he will be started on BP medication now that his CMP results appear WNL; I told him I would like to discuss that with Dr. Davila He is hoping to be prescribed an oral antifungal for his tinea at this time, as it is really bothersome and not getting better with the creams; I again noted that I would like to speak with Dr. Davila prior to ordering any medication; he voiced understanding I told Pepito that I will contact him with the answers to his inquiries as soon as I discuss them with Dr. Davila He understood what I said, I answered all of his questions and he is agreeable to the treatment plan He thanked me for the call * Telephone Encounter - Lori Silva PA - 07/30/2014 10:10 AM EDT Spoke with Pepito's , as Pepito is at work; she gave me his cell phone number to contact him:[phone] Attempted to call cell; no answer; message left * Telephone Encounter - Yariel Zurita - 07/29/2014 3:40 PM EDT Patient called back to follow up. * Telephone Encounter - Lori Silva PA - 07/29/2014 11:10 AM EDT Returned Pepito's call; no answer; left message * Telephone Encounter - Doris Orona - 07/29/2014 10:20 AM EDT Patient returned call. * Telephone Encounter - Lori Silva PA - 07/28/2014 12:37 PM EDT Called Pepito to discuss recent lab and right knee MRI results; no answer; left message with call back number documented in this encounter Plan of Treatment Not on file documented as of this encounter Procedures Procedure Name Priority Date/Time Associated Diagnosis Comments AMB REFERRAL TO ORTHOPAEDICS Routine 08/14/2014 Right knee meniscal tear, initial encounter documented in this encounter Results * Referral to Orthopaedics (08/14/2014) Giovanni Haines MD OUTPATIENT REFERRAL ORDERABLES documented in this encounter Visit Diagnoses Diagnosis Elevated WBC count Leukocytosis, unspecified Right knee meniscal tear, initial encounter documented in this encounter Care Teams Salesforce Consultant Relationship Specialty Start Date End Date Ingrid Aragon MD [address] [place] [address] PCP - General 07/22/14 07/10/17 documented as of this encounter
--- OUTSIDE RECORDS SUMMARY | 2024-02-22 09:33 | XMS_ITS | Encounter Summary ---
Author Organization [facility] [place] [address] Care Team Providers Care Outpatient Facility Physical Therapist Name Role Phone Jacqueline Bowman MD Primary Care Provider [phone] Encounter Details Date Type Department Care Team (Latest Contact Info) Description 09/21/2011 3:00 PM EDT Laboratory Appointment Lab [address] [phone] Giovanni Haines MD [address] [place] [address] [facility] [place], [place] [phone] Difficulty voiding; Urgency of micturation; Low back pain Discharge Disposition: Home Social History Tobacco Use [...] Procedure Name Priority Date/Time Associated Diagnosis Comments PSA SCREEN Routine 09/21/2011 3:04 PM EDT Difficulty voiding Urgency of micturation Low back pain documented in this encounter Results * PSA Screen (09/21/2011 3:04 PM EDT) PSA Screen 0.53 0.00 - 4.00 ng/mL [facility] Blood specimen (specimen) 09/21/2011 3:04 PM EDT 09/21/2011 11:20 PM EDT Narrative Resulting Agency Comment Spec In Lab Giovanni Haines MD CHEMISTRY ORDERABLE S Performing Organization Address City/State/[facility] Co de Phone Number [facility] documented in this encounter Visit Diagnoses Diagnosis Difficulty voiding Other symptoms involving urinary system Urgency of micturation Urgency of urination Low back pain Lumbago documented in this encounter Care Teams Outpatient Facility Physical Therapist Relationship Specialty Start Date End Date Jacqueline Bowman MD [address] [place] [address] PCP - General 03/22/10 06/30/14 documented as of this encounter
--- OUTSIDE RECORDS SUMMARY | 2024-02-22 09:33 | XMS_ITS | Encounter Summary ---
Author Organization [facility] Address One [facility] [place] [address] Care Team Providers Care Video Manager Name Role Phone Jacqueline Bowman MD Primary Care Provider [phone] Encounter Details Date Type Department Care Team (Late st Contact Info) Description 09/21/2011 12:45 PM EDT Office Visit Ultrasound at [address] [place] [address] Dysuria; Urgency of micturation; Low back pain Social History Tobacco Use Types Packs/Day Years [...] Procedure Name Priority Date/Time Associated Diagnosis Comments US RETROPERITONEAL COMPLETE Routine 09/21/2011 1:15 PM EDT Dysuria Urgency of urination Lumbago documented in this encounter Results * US RETROPERITONEAL COMPLETE (09/21/2011 1:15 PM EDT) Anatomical Region Laterality Modality Abdomen Ultrasound 09/21/2011 1:15 PM EDT Narrative 09/21/2011 5:02 PM EDT Examination US Retroperitoneal Complete/BILAT Clinical History 46 yo male with low back pain and urinary frequency; Please do also bladder US Comparison None Findings Review of the ultrasound images of the kidneys and urinary bladder is performed. The right kidney is 11.3 cm in length and the left kidney is 11.7 cm in length. ?? Neither kidney reveals evidence of hydronephrosis, calculus, or mass. The visualized liver appears hyperechoic. The urinary bladder demonstrates bilateral ureteral jets. ??The prevoid volume of 123 mL is noted. ??A normal postvoid residual of 5 mL is identified. Impression ? 1. No sonographic evidence of acute renal pathology is seen. ??A normal postvoid residual volume is identified. ??The possibility of hepatic steatosis is raised given findings discussed above. Procedure Note Storm Chapa, DO - 09/21/2011 Examination US Retroperitoneal Complete/BILAT Clinical History 46 yo male with low back pain and urinary frequency; Please do alsobladder US Comparison None Findings Review of the ultrasound images of the kidneys and urinary bladder isperformed. The right kidney is 11.3 cm in length and the left kidney is 11.7 cm inlength. Neither kidney reveals evidence of hydronephrosis, calculus, or mass. The visualized liver appears hyperechoic. The urinary bladder demonstrates bilateral ureteral jets. The prevoidvolume of 123 mL is noted. A normal postvoid residual of 5 mL is identified. Impression 1. No sonographic evidence of acute renal pathology is seen. Anormal postvoid residual volume is identified. The possibility of hepaticsteatosis is raised given findings discussed above. Giovanni Haines MD IMG US GEN ORDERABL ES documented in this encounter Visit Diagnoses Diagnosis Dysuria Urgency of micturation Urgency of urination Low back pain Lumbago documented in this encounter Care Teams Video Manager Relationship Specialty Start Date End Date Jacqueline Bowman MD [address] [place] [address] PCP - General 03/22/10 06/30/14 documented as of this encounter
--- OUTSIDE RECORDS SUMMARY | 2024-02-22 09:33 | XMS_ITS | Encounter Summary ---
Author Organization [facility] Address One [facility] [address] Care Team Providers Care Biomass Power Plant Manager Name Role Phone Shanell Aragon MD Primary Care Provider [phone] Reason for Visit * Reason Comments Rash Encounter Details Date Type Department Care Team (Late st Contact Info) Description 08/07/2014 12:45 PM EDT Follow-Up Dermatology at [address] [place] [id number] Alesia Cates MD [address] [facility] [place] [address] Nummular eczema (Primary Dx); Eczema Social History Tobacco Use Types Packs/Day Years Used Date Smoking Tobacco: Never Smokeless Tobacco: Never Alcohol Use Standard Drinks/Week Comments No 0.8 (1 standard drink = 0.6 oz p ure alcohol) Sex and Gender Information Value Date Recorded Sex Assigned at Not on file Gender Identity Not on file Sexual Orientation Not on file documented as of this encounter Patient Instructions * Patient Instructions* Linda Aden RMA - 08/07/2014 12:52 PM EDT Sensitive Skin ??? Avoid hot baths and showers, use only tepid or luke warm water. This includes avoiding hot tubs. ??? Use a mild type of cleanser/soap: Dove sensitive skin ??? Pat skin dry leaving skin damp then immediately apply a thick moisturizer (one that you cannot pour or pump) such as Eucerin cream. ??? Avoid irritants such as scented candles, potpourri, carpet fresh, air fresheners, bubble baths,ect. ??? Use a laundry detergent that is fragrance free such as All, Tide, or Cheer Free and Clear. Avoid fabric softener or dryer sheets. ??? Keep the humidity in your home above 30%. Humidifiers and dehumidifiers can be purchased at local pharmacies or [employer]. ??? Use over the counter products to help with the itching such as Sarna or Aveeno with promoxine. If you have any questions of difficulties please call the office. documented in this encounter Progress Notes * Alesia Garcia MD - 08/07/2014 12:43 PM EDT Dermatology - New Patient / Consult Note Date of service: 08/07/2014 Pepito Cordon : 1965 Chief Problem: Chief Complaint Patient presents with ??? Rash Mr. Pepito Cordon is a 49 y.o. male. This is a new patient to me. Seen in consultation at the request of Dr. Giovanni Haines specifically for the evaluation and management of the above problem. Present today by himself. HPI: Mr. Cordon presents for rash. Pt states that rash began about one month ago on his legs. It appeared as one small patch that was pruritic and eventually spread to more areas of his legs and then to arms, abdomen, and hip area. He had tried using Ketoconazole with no improvement. He takes hot showers b/c he believes that it helps with the itching. He is not using any lotions on the areas. Denies h/o eczema or similar rash in his life or Fhx. Does use Lever 2000 body soap and a laundry detergent that comes in a packet. Patient is doing well, no other concerns. Medical History: Pacemaker: No Anticoagulants: No Diabetes: No Smoker: No History Substance Use Topics ??? Smoking status: Never Smoker ??? Smokeless tobacco: Never Used ??? Alcohol Use: No Past Skin History: None Medical History: Patient Active Problem List Diagnosis Code ??? Difficulty voiding 788.99 ??? Low back pain 724.2 ??? Urgency of micturation 788.63 ??? Dysuria 788.1 ??? Tinea corporis 110.5 ??? Increased BMI (body mass index) 783.9 ??? Essential hypertension 401.9 ??? Ringworm 110.9 ??? Rash and other nonspecific skin eruption 782.1 Medications: Current Outpatient Prescriptions Medication Sig Dispense Refill ??? hydrochlorothiazide (HYDRODIURIL) 25 mg Tablet Take 0.5 tablets by mouth daily. 30 tablet 3 ??? terbinafine HCl (LAMISIL) 250 mg Tablet Take 1 tablet by mouth daily for 14 days. 14 tablet 0 ??? amoxicillin-clavulanate (AUGMENTIN) 875-125 mg Tablet Take 1 tablet by mouth 2 times daily. 20 tablet 0 ??? famotidine (PEPCID) 20 mg Tablet Take 1 tablet by mouth 2 times daily. 60 tablet 0 ??? cetirizine (ZYRTEC) 10 mg Tablet Take 1 tablet by mouth daily for 30 days. 30 tablet 0 ??? sodium chloride (SODIUM CHLORIDE) 0.65 % Aerosol, [place] 2 sprays by Nasal route 4 times daily as needed for Congestion. Use always at night prior to Flonase and then more often as needed 45 mL 11 ??? fluticasone (FLONASE) 50 mcg/actuation [place], Suspension 1 spray by Each Nare route nightly. Use after using the nasal saline flushes. 16 g 11 ??? ketoconazole (NIZORAL) 2 % Cream Apply topically once daily for two weeks 60 g 0 ??? traMADol (ULTRAM) 50 mg Tablet Take 1 tablet by mouth nightly. 20 tablet 0 ??? tadalafil (CIALIS) 5 mg tablet Take 2 tablets by mouth as needed for Erectile Dysfunction. 30 tablet 0 No current facility-administered medications for this visit. 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 Skin: An abbreviated skin exam was performed. This includes: the upper extremities, trunk, and lower extremities Specific skin findings: 1. Scattered erythematous eczematous papules and plaques. No increased temperature, purulence or other evidence of infection. Present on upper extremities, abdomen, and hips bilaterally. Scattered coin-shaped eczematous papules and plaques scattered on legs bilat. Diagnosis/Assessment/Treatment Plan: 1. Eczema/Nummular Eczema reviewed sensitive skin care: short luke-warm showers, minimal soap use, heavy daily moisturizationwith bland lotion, reviewed list of recommended skin products otc Samples provided to pt Prescriptions: Clobetasol 0.05% ointmnet Apply to affected areas as directed for up to 2-3 weeks 120g 1 Refill Discussed potential side effects with chronic use: Glaucoma and cataracts if used on the face and atrophy and ulceration at other body sites. Patient verbally expressed understanding. I asked the patient at the end of the visit if he had anyfurther concerns or questions and the patient verbally stated that he had no other concerns or questions. All questions were answered and all concerns were addressed. Follow-up: Follow up appointment PRN. Patient instructed to call for questions or concerns. I Linda Aden Wilmer am documenting this encounter acting as the scribe for and in the presence of Dr. Garcia Note reviewed, changed, edited and signed by: Alesia Garcia MD Dermatology [facility] PCP: SHANELL ARAGON MD documented in this encounter Plan of Treatment Not on file documented as of this encounter Visit Diagnoses Diagnosis Nummular eczema- Primary Contact dermatitis and other eczema, due to unspecified cause Eczema Contact dermatitis and other eczema, due to unspecified cause documented in this encounter Care Teams Biomass Power Plant Manager Relationship Specialty Start Date End Date Shanell rAagon MD [address] [place] [address] PCP - General 07/22/14 07/10/17 documented as of this encounter
--- OUTSIDE RECORDS SUMMARY | 2024-02-22 09:33 | XMS_ITS | Encounter Summary ---
Author Organization [facility] Address One [facility] [place] [address] Care Team Providers Care Lead Sql Developer Name Role Phone Ingrid Aragon MD Primary Care Provider [phone] Reason for Visit * Reason Onset Date Comments Questions 07/08/2014 Encounter Details Date Type Department Care Team (Late st Contact Info) Description 07/08/2014 Telephone Family Practice at [address] [id number] Malu Osei LPN Questions Social History Tobacco Use Types Packs/Day Years [...] encounter Miscellaneous Notes * Telephone Encounter - Malu Osei LPN - 07/17/2014 1:33 PM EDT BP check scheduled for 07/28/14. * Telephone Encounter - Malu Osei LPN - 07/08/2014 9:27 AM EDT Left recorded message for patient to call back. Support Center: Please schedule patient for a blood pressure check nurse visit in 1-3 weeks. * Telephone Encounter - Lori Silva PA - 07/08/2014 7:33 AM EDT Yes, Pepito should be seen in 1-3 weeks to reassess BP; can be done in a nurse visit If he has any questions or concerns, he can call me at his convenience Thank you! * Telephone Encounter - Malu Osei LPN - 07/08/2014 7:27 AM EDT ----- Message from Trina Lopez sent at 07/07/2014 11:15 AM EDT ----- Lori Silva - BP Check Caller with name: Pepito Callers contact number: [phone] Reason: Patient was asking if Lori thought it necessary to be seen before scheduled physical on 09/10/2014 regarding his BP. Patient claims his BP was very high in appt. Thank you documented in this encounter Plan of Treatment Not on file documented as of this encounter Visit Diagnoses Not on filedocumented in this encounter Care Teams Lead Sql Developer Relationship Specialty Start Date End Date Ingrid Aragon MD [address] [place] [address] PCP - General 07/01/14 07/17/14 documented as of this encounter
--- OUTSIDE RECORDS SUMMARY | 2024-02-22 09:33 | XMS_ITS | Encounter Summary ---
Author Organization [facility] [place] [address] Care Team Providers Care Custodian Blood Bank Name Role Phone Jacqueline Bowman MD Primary Care Provider [phone] Encounter Details Date Type Department Care Team (Latest Contact Info) Description 09/19/2011 3:30 PM EDT Laboratory Appointment Lab [address] [phone] Toro Riddle MD [address] [place] [address] [facility] [place], [place] [id number] Dysuria; Urgency of micturation; Low back pain Discharge [...] as of this encounter Miscellaneous Notes * Miscellaneous - Bryan Money Counter - 09/29/2011 12:04 PM EDT documented in this encounter Plan of Treatment Not on file documented as of this encounter Procedures Procedure Name Priority Date/Time Associated Diagnosis Comments URINALYSIS WITH REFLEX CULTURE Routine 09/19/2011 3:31 PM EDT Dysuria Urgency of micturation URINE CULTURE Routine 09/19/2011 3:31 PM EDT Dysuria Urgency of micturation BASIC METABOLIC PANEL Routine 09/19/2011 3:31 PM EDT Dysuria Urgency of micturation Low back pain documented in this encounter Results * Urine culture Clean Catch Urine (09/19/2011 3:31 PM EDT) Urine Culture ? Patient Name: PEPITO CORDON ?Ordered By: TORO RIDDLE ? MR#: [id number] ?LOC: ??[facility] ? /Sex: ?? 7 (46 years), ? Male ? PROCEDURE: Urine Culture ?SOURCE: T CC ? COLLECTED: 09/19/2011 15:31 ? STARTED: 09/20/2011 07:02 ? FINAL REPORT ? Final Report ? Verified: 07:34 ? No growth (Less than 1,000 cfu/ml). ? ____ JORGITO TEJEDA Urine specimen obtained by clean catch procedure (specimen) 09/19/2011 3:31 PM EDT 09/20/2011 7:02 AM EDT Narrative Resulting Agency Comment Spec In Lab Toro Riddle MD MICROBIOLOGY - [facility] ORDERABLES CERNER MILLENNIUM * Basic Metabolic Panel (non-fasting) (09/19/2011 3:31 PM EDT) Glucose 104 60 - 199 mg/dL CERNER MILLENNIUM Comment:Diabetes: >=200 mg/d L plus symptoms Blood Urea Nitrogen 17 10 - 20 mg/dL CERNER MILLENNIUM Creatinine 1.25 0.80 - 1.50 mg/dL CERNER MILLENNIUM Sodium 140 135 - 145 mmol/L CERNER MILLENNIUM Potassium 4.5 3.5 - 5.0 mmol/L CERNER MILLENNIUM Comment: Please note: ??Patients with WBC >100,000 may have falsely elevated Potassium levels. ??For accurate Potassium quantification in these patients send serum separator tube (gold top) for subsequent determinations. ??Contact the Clinical Chemistry Laboratory if there are any questions. Chloride 103 98 - 107 mmol/L CERNER MILLENNIUM Carbon Dioxide 29 22 - 31 mmol/L CERNER MILLENNIUM Anion Gap 8 5 - 15 mmol/L CERNER MILLENNIUM Calcium 9.5 8.5 - 10.5 mg/dL CERNER MILLENNIUM Est Glomerular Filtration Rate >60 >=60 CERNER MILLENNIUM Comment: The National Kidney Disease Education Program (NKDEP) has recommended all laboratories report estimated GFR (eGFR) along with plasma creatinine measurements to assist you with recognition of early kidney disease. Caveats: ??Plasma creatinine should be at steady-state (unchanged within the past week). For patients multiply eGFR by 1.2. The MDRD equation was developed using patients between the ages of 18 and 70 years. ?? The MDRD equation has not been validated for patients < 18 years of age and should not be used to assess renal function in the pediatric population. ??The MDRD eGFR equation will also overestimate the true GFR of patients above the age of 70. ??This overestimation is variable but increases with age. At present, NKDEP does NOT recommend using the MDRD equation for drug dosing purposes and pharmacists should continue to use their current dosing methods. In addition, numerical eGFR values greater than 60 ml/min/1.73 square meters should be treated as > 60, and not an exact number due to greater inaccuracies at these higher values. Per NKDEP, they classify normal renal function as any GFR >60ml/min/1.73 square meters; chronic kidney disease when GFR <60, and renal failure when GFR <15. ??This calculation may not be valid for patients with atypical muscle mass (very lean or obese), acute renal failure, and in patients with diabetic kidney disease. References: http://nkdep.nih.gov/resources/NKDEP_Suggestn4Labs_0606_508.pdf http://www.kidney.org/professionals/kls/pdf/faq_gfr.pdf Harshal K, Linda NA, Jamey AK, Karl TS, Wolfgang AD, Nadia REED. Relative performance of the MDRD and CKD-EPI equations for estimating glomerular filtration rate among patients with varied clinical presentations. Clin J Am Soc Nephrol;6:1963-72. Blood specimen (specimen) 09/19/2011 3:31 PM EDT 09/19/2011 11:17 PM EDT Narrative Resulting Agency Comment Spec In Lab Toro Riddle MD CHEMISTRY ORDERABLE S CERNER MILLENNIUM * Urinalysis with microscopic (09/19/2011 3:31 PM EDT) Glucose, Urine Dipstick Negative Negative mg/dL CERNER MILLENNIUM Protein, Urine Dipstick Negative mg/dL CERNER MILLENNIUM Bilirubin, Urine Dipstick Negative Negative mg/dL CERNER MILLENNIUM Urobilinogen, Urine Dipstick Normal mg/dL CERNER MILLENNIUM pH, Urn (dipstick) 7.0 5.0 - 8.0 CERNER MILLENNIUM Blood, Urine Dipstick Negative mg/dL CERNER MILLENNIUM Ketone, Urine Dipstick Negative mg/dL CERNER MILLENNIUM Nitrite, Urine Dipstick Negative CERNER MILLENNIUM Leukocytes, Urine Dipstick Negative mcL CERNER MILLENNIUM Appearance, Urine Dipstick Clear Clear CERNER MILLENNIUM Specific [place] Urine Automated 1.013 1.002 - 1.030 CERNER MILLENNIUM Color, Urine Dipstick Yellow Yellow CERNER MILLENNIUM RBC, Urine Not Present 0 - 3 CERNER MILLENNIUM WBC, Urine 2 0 - 3 /HPF CERNER MILLENNIUM Urine specimen (specimen) 09/19/2011 3:31 PM EDT 09/19/2011 11:14 PM EDT Narrative Resulting Agency Comment Spec In Lab Toro Riddle MD [facility]INE [facility] documented in this encounter Visit Diagnoses Diagnosis Dysuria Urgency of micturation Urgency of urination Low back pain Lumbago documented in this encounter Care Teams Custodian Blood Bank Relationship Specialty Start Date End Date Jacqueline Bowman MD [address] [place] [address] PCP - General 03/22/10 06/30/14 documented as of this encounter
--- OUTSIDE RECORDS SUMMARY | 2024-02-22 09:33 | XMS_ITS | Encounter Summary ---
Author Organization [facility] Address One [facility] [place] [address] Care Team Providers Care Concession Supervisor Name Role Phone Jacqueline Bowman MD Primary Care Provider Reason for Referral * Consultation (Routine) - Complete - Patient Will Schedule External Appt Specialty Diagnoses / Procedures Referred By Contranjan t Referred To Contact Urology Diagnoses Dysuria Urgency of micturation Low back pain Difficulty voiding Toro Riddle MD [address] [place] [id number] Referral ID Status Reason Start Date Expiration Date Visits Requested Visits Authorized [id number] Complete - Patient Will Schedule External Appt Consult, Test & Treat 09/19/2011 03/17/2012 1 1 Reason for Visit * Reason Comments Dysuria for a couple of days with alot of pressure Encounter Details Date Type Department Care Team (Late st Contact Info) Description 09/19/2011 2:30 PM EDT Office Visit Family Practice at [address] [phone] Toro Riddle MD [address] [place] [address] [phone] Dysuria; Urgency of micturation; Low back pain; Difficulty voiding; Elevated blood pressure Social History Tobacco Use Types Packs/Day Years [...] Reading Time Taken Comments Blood Pressure 154/98 09/19/2011 2:39 PM EDT Pulse 84 09/19/2011 2:39 PM EDT Temperature 37.1 ??C (98.8 ??F) 09/19/2011 2:39 PM ED T Respiratory Rate - - Oxygen Saturation - - Inhaled Oxygen Concentration - - Weight 139.4 kg (307 lb 6.4 oz) 09/19/2011 2:39 PM EDT Height 188 cm (6' 2) 09/19/2011 2:39 PM EDT Body Mass Index 39.47 09/19/2011 2:39 PM EDT documented in this encounter Patient Instructions * Patient Instructions* Toro Riddle MD - 09/19/2011 3:20 PM EDT Pepito was seen today for dysuria. Diagnoses and associated orders for this visit: Dysuria - Urinalysis with microscopic; Future - Urine culture Clean Catch Urine; Future - Basic Metabolic Panel (non-fasting); Future - *US generic renal; Future - REFERRAL TO UROLOGY - ciprofloxacin (CIPRO) 500 mg tablet; Take 1 tablet by mouth 2 times daily for 14 days. Urgency of micturation - Urinalysis with microscopic; Future - Urine culture Clean Catch Urine; Future - Basic Metabolic Panel (non-fasting); Future - *US generic renal; Future - REFERRAL TO UROLOGY - ciprofloxacin (CIPRO) 500 mg tablet; Take 1 tablet by mouth 2 times daily for 14 days. Low back pain - Basic Metabolic Panel (non-fasting); Future - *US generic renal; Future - REFERRAL TO UROLOGY Difficulty voiding - REFERRAL TO UROLOGY - ciprofloxacin (CIPRO) 500 mg tablet; Take 1 tablet by mouth 2 times daily for 14 days. FOLLOW UP: The patient was advised to follow up in 2 weeks or sooner for any difficulties with medications or any signs or symptoms of concern or distress. documented in this encounter Progress Notes * Toro Riddle MD - 09/19/2011 2:55 PM EDT Subjective: Patient ID: Pepito Cordon is a 46 y.o. male. HPI Comments: -The pt is a pleasant 46 yo male who comes for evaluation of dysuria for the past fewdays and chronic nocturia, urgency and frequency with some difficulty in micturition. 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 -The pt also notes some low back pain that he feels could be related to his urinary symptoms. Onset? 1 week ago Location? Low back Intensity? Mild to moderate Quality? Dull, achy Radiation? none History of injury or fall? No Is the pain worse sitting that lying flat? no Is the pain better lying flat than sitting or bending forward? no Is the pain unrelieved by rest? no Weakness or numbness? no Bowel or bladder incontinence? no Saddle anesthesia? no History of cancer or use of steroids? no Inappropriate tenderness that is superficial and widespread? no Pain on simulated axial loading? no Inconsistent performance between SLR in the seated position vs. in the supine position? no Dysuria This is a new problem. The current episode started in the past 7 days (on 09/15/11). The problem occurs intermittently. The problem has been gradually worsening. The quality of the pain is described as burning. The pain is at a severity of 6/10. There has been no fever. He is sexually active. Thereis no history of pyelonephritis. Associated symptoms include frequency and urgency. Pertinent negatives include no chills, flank pain or hematuria. He has tried nothing for the symptoms. The treatment provided no relief. There is no history of catheterization, kidney stones or recurrent UTIs. Review of Systems Constitutional: Negative for fever, chills and unexpected weight change. Gastrointestinal: Negative for abdominal pain, diarrhea and constipation. Genitourinary: Positive for dysuria, urgency, frequency and difficulty urinating. Negative for hematuria, flank pain, decreased urine volume, discharge, penile swelling, scrotal swelling, penile painand testicular pain. Family History Problem Relation Age of Onset ??? Colon Cancer Father ??? High Blood Pressure Father ??? High Cholesterol Father ??? Prostate Cancer Neg Hx ??? Diabetes Paternal Grandmother History Social History Narrative He is unemployed now. History Substance Use Topics ??? Smoking status: Never Smoker ??? Smokeless tobacco: Never Used ??? Alcohol Use: 0.5 oz/week 1 drink(s) per week Objective: Physical Exam Nursing note and vitals reviewed. Constitutional: He is oriented to person, place, and time. He appears well- developed and well-nourished. No distress. BP 154/98 Pulse 84 Temp(Src) 37.1 ??C (98.8 ??F) (Temporal) Ht 188 cm (6' 2) Wt 139.436 kg(307 lb 6.4 oz) BMI 39.47 kg/m2 HENT: Mouth/Throat: Oropharynx is clear and moist. Eyes: EOM are normal. Pupils are equal, round, and reactive to light. Cardiovascular: Normal rate, regular rhythm and normal heart sounds. No murmur heard. Pulmonary/Chest: Effort normal and breath sounds normal. Abdominal: Soft. Bowel sounds are normal. He exhibits no distension and no mass. No tenderness. He has no guarding. Genitourinary: Rectum normal, prostate normal and penis normal. Genital: Normal circumcised phallus. Testes descended bilaterally, equal in size, smooth and with normal firmness, no masses, tenderness or hernias. Posteriorly the epididymis on both sides is palpated normal in size and non- tender. No inguinal lymphadenopathy bilaterally. Rectal exam shows normal sphincter tone. The prostate is mildly enlarged and is smooth, soft without nodularities or masses and it is not tender to palpation. Musculoskeletal: Normal range of motion. Back: Straight. No excessive scoliosis lordosis or kyphosis. No isolated bone tenderness. Full ROM.Negative SLR bilaterally. Neurological: He is alert and oriented to person, place, and time. He has normal strength and normal reflexes. Gait normal. Skin: Skin is warm and dry. He is not diaphoretic. Assessment and Plan: Pepito was seen today for dysuria. Diagnoses and associated orders for this visit: Dysuria - Urinalysis with microscopic; Future - Urine culture Clean Catch Urine; Future - Basic Metabolic Panel (non-fasting); Future - *US generic renal; Future - REFERRAL TO UROLOGY - ciprofloxacin (CIPRO) 500 mg tablet; Take 1 tablet by mouth 2 times daily for 14 days. Urgency of micturation - Urinalysis with microscopic; Future - Urine culture Clean Catch Urine; Future - Basic Metabolic Panel (non-fasting); Future - *US generic renal; Future - REFERRAL TO UROLOGY - ciprofloxacin (CIPRO) 500 mg tablet; Take 1 tablet by mouth 2 times daily for 14 days. Low back pain - Basic Metabolic Panel (non-fasting); Future - *US generic renal; Future - REFERRAL TO UROLOGY Difficulty voiding - REFERRAL TO UROLOGY - ciprofloxacin (CIPRO) 500 mg tablet; Take 1 tablet by mouth 2 times daily for 14 days. Eat yogurt while on the antibiotic. Call back right away if diarrhea develops. Discussed the risk of C. Diff. Infection with the use of antibiotic which could be serious. Discussed with the pt that we'll do basic work-up but given his IPSS score of 14 today he has moderate symptoms and hence I recommend referral to urology. His exam is not consistent with prostatitis but we'll treat empirically until labs are back. The pt does not have insurance and is concerned for the cost of the work-up. Elevated blood pressure His previous BP readings over the last year were normal but he gained some weight so we need to monitor this. He was encouraged to buy a BP monitor and call us back with results of BP readings at home or check his BP at the pharmacy. The pt was also welcomed to come here for a BP check. We discussed risks of stroke and heart attack with uncontrolled HTN and the need for him to follow up on this with us. FOLLOW UP: The patient was advised to follow up in 2 weeks or sooner for any difficulties with medications or any signs or symptoms of concern or distress. The patient was given opportunity to ask questions and all of them were answered. The plan of care was discussed with the patient and he voiced understanding and agreement and was appreciative. documented in this encounter Plan of Treatment Scheduled Referrals Name Type Priority Associated Diagnoses Orde r Schedule REFERRAL TO UROLOGY Outpatient Referral Routine Dysuria Urgency of micturation Low back pain Difficulty voiding Ordered: 09/19/2011 documented as of this encounter Results * Basic Metabolic Panel (non-fasting) (09/19/2011 3:31 PM EDT) [facility] Glucose 104 60 - 199 mg/dL [facility] Comment:Diabetes: >=200 mg/d L plus symptoms Blood [...] Lab Toro Riddle MD CHEMISTRY ORDERABLE S [facility] * Urine culture Clean Catch Urine (09/19/2011 3:31 PM EDT) Urine Culture ? Patient Name: PEPITO CORDON ?Ordered By: TORO RIDDLE ? MR#: [id number] ?LOC: ??HCM ? /Sex: ?? 7 (46 years), ? Male ? PROCEDURE: Urine Culture ?SOURCE: T CC ? COLLECTED: 09/19/2011 15:31 ? STARTED: 09/20/2011 07:02 ? FINAL REPORT ? Final Report ? Verified: 07:34 ? No growth (Less than 1,000 cfu/ml). ? ____ CERNER MILLENNIUM Urine specimen obtained by clean catch procedure (specimen) 09/19/2011 3:31 PM EDT 09/20/2011 7:02 AM EDT Narrative Resulting Agency Comment Spec In Lab Authorizing Provider Result Yeimy Riddle MD MICROBIOLOGY - GENE RAL ORDERABLES Performing Organization Address City/[facility]/ZIP Co de Phone Number JORGITO MILLENNIUM * Urinalysis with microscopic (09/19/2011 3:31 [...] Urine Dipstick Clear Clear CERNER MILLENNIUM Specific [place] Urine Automated 1.013 1.002 - 1.030 CERNER MILLENNIUM Color, Urine Dipstick Yellow Yellow CERNER MILLENNIUM RBC, Urine Not Present 0 - 3 CERNER MILLENNIUM WBC, Urine 2 0 - 3 /HPF CERNER MILLENNIUM Urine specimen (specimen) 09/19/2011 3:31 PM EDT 09/19/2011 11:14 PM EDT Narrative Resulting Agency Comment Spec In Lab Authorizing Provider Result Yeimy Riddle MD URINE ORDERABLES JORGITO REYESENNIUM documented in this encounter Visit Diagnoses Diagnosis Dysuria Urgency of micturation Urgency of urination Low back pain Lumbago Difficulty voiding Other symptoms involving urinary system Elevated blood pressure Elevated blood pressure reading without diagnosis of hypertension documented in this encounter Care Teams Concession Supervisor Relationship Specialty Start Date End Date Jacqueline Bowman MD [address] [place] [address] PCP - General 03/22/10 06/30/14 documented as of this encounter
--- OUTSIDE RECORDS SUMMARY | 2024-02-22 09:33 | XMS_ITS | Encounter Summary ---
Author Organization [facility] Address One [facility] [place] [address] Care Team Providers Care Class A Regional Truck Driver Name Role Phone Ingrid Aragon MD Primary Care Provider [phone] Encounter Details Date Type Department Care Team (Latest Contact Info) Description 08/09/2014 10:40 AM EDT Laboratory Appointment Lab at [address] [place] [address] Giovanni Haines MD [address] [place] [address] Elevated WBC count; Essential hypertension; Medicine refill Discharge Disposition: Home Social History Tobacco Use [...] Associated Diagnosis Comments CMP W/FASTING GLUCOSE Routine 08/09/2014 10:41 AM EDT Essential hypertension Medicine refill NUCLEATED RED BLOOD CELLS Routine 08/09/2014 10:41 AM EDT HEMOGRAM Routine 08/09/2014 10:41 AM EDT Elevated WBC count DIFFERENTIAL, AUTOMATED Routine 08/09/2014 10:41 AM EDT Elevated WBC count CBC (WITH DIFF) Routine 08/09/2014 10:41 AM EDT Elevated WBC count HEMOGLOBIN A1C Routine 08/09/2014 10:41 AM EDT documented in this encounter Results * (ABNORMAL) Hemoglobin A1c (08/09/2014 10:41 AM EDT) [facility] Hemoglobin A1c 6.4(H) 4.3 - 5.6 % [facility] Comment: Reference Range: 4.3 - 5.6% 5.7 - 6.4% - Increased Risk of Developing Diabetes Mellitus 6.5% - Consistent with diagnosis of Diabetes Mellitus In the absence of hyperglycemia (i.e. plasma glucose > 200 mg/dL) or classic symptoms of hyperglycemia a repeat measurement of HbA1c should be performed on a separate sample to confirm the diagnosis. Diagnosis and Classification of Diabetes Mellitus, Diabetes Care 2013; 36: Suppl. 1, I67-89 Estimated Average Glucose 137 mg/dL [facility] Comment: eAG equivalents for HbA1c percentages: HbA1c(%) ?eAG(mg/dL) 6.0 ?126 6.5 ?140 7.0 ?154 7.5 ?169 8.0 ?183 8.5 ?197 9.0 ?212 9.5 ?226 10.0 ? 240 Limitations: The eAG calculation has not been validated on women, individuals below 18 years old and above 70 years old, and individuals with hemoglobinopathies. Additional resources are available on the ADA website: [email or web address] Catalino PRADHAN, Pranav J, Syeda R, et al. ??Translating the A1C assay into estimated average glucose values. ??Diabetes Care 2008:31(8):4241-2700. Blood specimen (specimen) Venous Draw / Unknown 08/09/2014 10:41 AM EDT 08/10/2014 7:11 AM EDT Narrative Resulting Agency Comment Spec In Lab Authorizing Provider Result Yeimy Haines MD CHEMISTRY ORDERABLE S Performing Organization Address [facility]/ZIP Co de Phone Number CERNER MILLENNIUM * Nucleated Red Blood Cells (08/09/2014 10:41 AM EDT) NRBC% auto 0.0 % CERNER MILLENNIUM NRBC Absolute 0.000 0.000 - 0.012 x10(3)/mcL CERNER MILLENNIUM Blood specimen (specimen) 08/09/2014 10:41 AM EDT 08/09/2014 8:42 PM EDT Narrative Resulting Agency Comment Spec In Lab Authorizing Provider Result Yeimy Haines MD HEMATOLOGY ORDERABL ES Performing Organization Address [facility] de Phone Number CERNER MILLENNIUM * Differential, Automated (08/09/2014 10:41 AM EDT) Neutrophil % 62.0 % CERNER MILLENNIUM Neutrophil Absolute 6.09 1.50 - 6.30 x10(3)/mcL CERNER MILLENNIUM Lymph % 26.9 % CERNER MILLENNIUM Lymphocytes Abs 2.6 1.0 - 3.6 x10(3)/mcL CERNER MILLENNIUM Monocyte % 6.2 % CERNER MILLENNIUM Monocyte Abs 0.6 0.2 - 1.0 x10(3)/mcL CERNER MILLENNIUM Eos % 3.8 % CERNER MILLENNIUM Eosinophils Abs 0.4 0.0 - 0.5 x10(3)/mcL CERNER MILLENNIUM Basophil % 0.7 % CERNER MILLENNIUM Baso Absolute 0.1 0.0 - 0.2 x10(3)/mcL CERNER MILLENNIUM Immature Gran % 0.40 % CERN ER MILLENNIUM Comment: Immature granulocytes(IG's)percentage and absolute count will include metamyelocytes, myelocytes, and promyelocytes. Blood smears from CBCs yielding IG's will be scanned manually for concordance. If this scan disagrees with the automated IG or if promyelocytes are noted, a manual differential will be performed. Immature Gran Absolute 0.04 0.00 - 0.05 x10(3)/mcL CERNER MILLENNIUM Blood specimen (specimen) 08/09/2014 10:41 AM EDT 08/09/2014 8:42 PM EDT Narrative Resulting Agency Comment Spec In Lab Giovanni Haines MD HEMATOLOGY ORDERABL ES Performing Organization Address City/State/[facility] Co de Phone Number CERNER MILLENNIUM * (ABNORMAL) Hemogram (08/09/2014 10:41 AM EDT) White Blood Cell 9.8 4.0 - 10.0 x10(3)/mc L CERNER MILLENNIUM Red Blood Cell 5.95 4.63 - 6.08 x10(6)/mc L CERNER MILLENNIUM Hemoglobin 18.2(H) 13.7 - 17.5 gm/dL CERNER MILLENNIUM Hematocrit 51.9(H) 40.0 - 51.0 % CERNER MILLENNIUM Mean Cell Volume 87.2 79.0 - 92.0 fL CERNER MILLENNIUM Mean Cell Hemoglobin 30.6 25.6 - 32.2 pg CERNER MILLENNIUM Mean Cell Hemoglobin Concentration 35.1 32.0 - 36.5 gm/dL CERNER MILLENNIUM Platelet 226 145 - 370 x10(3)/mc L CERNER MILLENNIUM RDW Standard Deviation 38.8 35.0 - 46.0 fL CERNER MILLENNIUM RDW coefficient of variation 12.2 10.9 - 14.4 % CERNER MILLENNIUM Mean Platelet Volume 12.4(H) 9.0 - 12.0 fL CERNER MILLENNIUM Blood specimen (specimen) 08/09/2014 10:41 AM EDT 08/09/2014 8:42 PM EDT Narrative Resulting Agency Comment Spec In Lab Giovanni Haines MD HEMATOLOGY ORDERABL ES JORGITO REYESENNIUM * (ABNORMAL) CMP w/fasting Glucose (08/09/2014 10:41 AM EDT) [facility] Glucose Fasting 130(H) 65 - 99 mg/dL CERNER MILLENNIUM Comment: ?Fasting* Glucose Interpretive Criteria Normal ?65-99 [...] of Diabetes Mellitus, Position Statement from the [place] [employer]. ??Diabetes Care, Volume 33, Supplement 1, Apr 2009 Blood Urea Nitrogen 20 10 - 20 mg/dL CERNER MILLENNIUM Creatinine 1.05 0.80 - 1.50 mg/dL CERNER MILLENNIUM Comment: Please note that the pediatric reference intervals supplied above were not validated at [facility]. Results from pediatric patients should be interpreted [...] Laboratory if there are any questions. Chloride 102 98 - 107 mmol/L CERNER MILLENNIUM Carbon Dioxide 29 22 - 31 mmol/L CERNER MILLENNIUM Anion Gap 12 5 - 15 mmol/L CERNER MILLENNIUM Calcium 9.7 8.5 - 10.5 mg/dL CERNER MILLENNIUM Protein, Total 8.1(H) 6.1 - 8.0 gm/dL CERNER MILLENNIUM Albumin 4.3 3.2 - 5.2 gm/dL CERNER MILLENNIUM Aspartate Aminotransferase 27 0 - 39 unit/L CERNER MILLENNIUM Alanine Aminotransferase 46 0 - 55 unit/L CERNER MILLENNIUM Alkaline Phosphatase 93 40 - 120 unit/L CERNER MILLENNIUM Bilirubin, Total 0.5 0.2 - 1.3 mg/dL CERNER MILLENNIUM Bilirubin, Direct 0.1 0.0 - 0.3 mg/dL CERNER MILLENNIUM Est [...] the following links into your internet browser. [email or web address] Blood specimen (specimen) 08/09/2014 10:41 AM EDT 08/09/2014 8:41 PM EDT Narrative Resulting Agency Comment Spec In Lab Giovanni Haines MD CHEMISTRY ORDERABLE S CERCALE TEJEDA documented in this encounter Visit Diagnoses Diagnosis Elevated WBC count Leukocytosis, unspecified Essential hypertension Unspecified essential hypertension Medicine refill Issue of repeat prescriptions documented in this encounter Care Teams Class A Regional Truck Driver Relationship Specialty Start Date End Date Ingrid Aragon MD [address] [place] [address] PCP - General 07/22/14 07/10/17 documented as of this encounter
--- OUTSIDE RECORDS SUMMARY | 2024-02-22 09:33 | XMS_ITS | Encounter Summary ---
Author Organization Replaced By [facility] Address One [facility] [place] [address] Care Team Providers Care Senior Policy Analyst Name Role Phone Shanell Aragon MD Primary Care Provider [phone] Reason for Visit * Reason Onset Date Comments Rash 07/20/2014 Encounter Details Date Type Department Care Team (Late st Contact Info) Description 07/20/2014 Telephone Family Practice at [address] [phone] Jennifer Levy I, EDI ARCHITECT [address] [place] [place] [address] Rash Social History Tobacco Use Types Packs/Day Years [...] Notes * Telephone Encounter - Jennifer Levy I, RN - 07/20/2014 1:18 PM EDT Caller: Patient Pt reports the miconazole cream prescribed on Sunday is not working. He is going through a tube a day and rash continues to spread. It is going up the right leg, torso and arm. It is not on his face or near the eyes. It is itchy. Denies s/s of infection, pain, fever, or other symptoms. Pt requesting to see MD tomorrow. Plan: Appt given for 4:15pm tomorrow with Mark Rudd MD. Pt voices his understanding. * Telephone Encounter - Shonna Zamora - 07/20/2014 12:00 PM EDT Returned Jennifer's call, please call back. * Telephone Encounter - Jennifer Levy I RN - 07/20/2014 11:47 AM EDT Attempted to reach patient. No answer. Will try back later. * Telephone Encounter - Jennifer Levy RN - 07/20/2014 11:44 AM EDT ----- Message from Tasha Francisco sent at 07/20/2014 11:37 AM EDT ----- Contact: patient Triage: Chief complaint rash no better PCP: SHANELL ARAGON MD / Treating provider: Lori Silva Phone: [phone] page patient Triage comment: rash is no better. Indicates may have 3 different rashes. Has tried 2 different creams. Using a tube in an entire day. Needs appt today or tomorrow with an MD. documented in this encounter Plan of Treatment Not on file documented as of this encounter Visit Diagnoses Not on filedocumented in this encounter Care Teams Senior Policy Analyst Relationship Specialty Start Date End Date Shanell Aragon MD [address] [place] [address] PCP - General 07/18/14 07/21/14 documented as of this encounter
--- OUTSIDE RECORDS SUMMARY | 2024-02-22 09:33 | XMS_ITS | Encounter Summary ---
Author Organization [facility] [place] [address] Care Team Providers Care Lace Paper Machine Operator Name Role Phone Jacqueline Bowman MD Primary Care Provider [phone] Encounter Details Date Type Department Care Team (Latest Contact Info) Description 10/27/2010 8:30 AM EDT Laboratory Appointment Lab [address] [phone] Ingrid Aragon MD [address] [place] [address] [facility] [place], [place] [id number] Elevated liver enzymes Discharge Disposition: Home Social History Tobacco Use Types Packs/Day Years Used Date Smoking Tobacco: Never Alcohol Use Standard Drinks/Week Comments [...] Procedure Name Priority Date/Time Associated Diagnosis Comments HEPATIC FUNCTION PANEL Routine 10/27/2010 8:37 AM EDT Elevated liver enzymes documented in this encounter Results * (ABNORMAL) Hepatic function panel (10/27/2010 8:37 AM EDT) Protein, Total 7.5 6.4 - 8.3 gm/dL CERNER MILLENNIUM Albumin 4.3 3.2 - 5.2 gm/dL CERNER MILLENNIUM Aspartate Aminotransferase 41(H) 0 - 39 unit/L CERNER MILLENNIUM Alanine Aminotransferase 64(H) 0 - 55 unit/L CERNER MILLENNIUM Alkaline Phosphatase 67 40 - 120 unit/L CERNER MILLENNIUM Bilirubin, Total 0.7 0.2 - 1.3 mg/dL CERNER MILLENNIUM Bilirubin, Direct 0.2 0.0 - 0.3 mg/dL CERNER MILLENNIUM Blood specimen (specimen) 10/27/2010 8:37 AM EDT 10/27/2010 6:50 PM EDT Ingrid Aragon MD CHEMISTRY ORDERABLES CERCALE REYESLocaMapIUM documented in this encounter Visit Diagnoses Diagnosis Elevated liver enzymes Nonspecific elevation of levels of transaminase or lactic acid dehydrogenase (LDH) documented in this encounter Care Teams Lace Paper Machine Operator Relationship Specialty Start Date End Date Jacqueline Bowman MD [address] [place] [address] PCP - General 03/22/10 06/30/14 documented as of this encounter
--- OUTSIDE RECORDS SUMMARY | 2024-02-22 09:33 | XMS_ITS | Referral Summary ---
Author Organization [facility] Address [address] [place] [address] Care Team Providers Care Paradichlorobenzene Machine Operator Name Role Phone None, Provider Primary Care [...] Orientation Not on file Plan of Treatment Not on file Care Teams Paradichlorobenzene Machine Operator Relationship Specialty Start Date End Date None, Provider PCP - General 12/30/19
--- OUTSIDE RECORDS SUMMARY | 2024-02-22 09:33 | XMS_ITS | Encounter Summary ---
Author Organization Pending Sale To [facility] Address [address] [facility] [place] [address] Care Team Providers Care Interior Design Coordinator Name Role Phone Ingrid Aragon MD Primary Care Provider [phone] Reason for Referral * Consultation (Routine) - Closed Specialty Diagnoses / Procedures Referred By Elsi dunne Referred To Contact Internal Medicine Diagnoses Elevated fasting blood sugar Increased BMI (body mass index) Essential hypertension Giovanni Haines MD [address] [place] [address] [facility] [place] [address] Referral ID Status Reason Start Date Expiration Date V isits Requested Visits Authorized [id number] Closed Continuity of Care 08/10/2014 08/10/2015 1 1 Reason for Visit * Reason Onset Date Comments Results 08/10/2014 Other Encounter Details Date Type Department Care Team (Late st Contact Info) Description 08/10/2014 Telephone Family Practice at [place] [address] [place] [address] Giovanni aHines MD [address] [place] [address] Results; Social History Tobacco Use Types Packs/Day Years [...] Encounter - Giovanni Haines MD - 08/10/2014 8:39 AM EDT A1c came back at 6.4. This puts patient at imminent risk of diabetes. I left him 2 messages with plan of care as follows: 1. Start low carb diet as per guidance given, I will also send him a letter with. 2. Schedule formal Medical Nutrition Therapy with Jannette Rangel RD christa. 3. Follow up with Dr. Aragon on 09/10/14 when she will discuss pros and cons of metformin therapy. 4. We should plan to repeat the FBS and A1c after the pt sees Dr. Aragon as per discretion but this should be no later than 3 months from now. I encouraged the pt to call me back with any questions or concerns, iyb * Telephone Encounter - Giovanni Haines MD - 08/10/2014 7:09 AM EDT FBS of 130 noted, I spoke with lab and added A1c. We will await this result. iyb documented in this encounter Plan of Treatment Scheduled Referrals Name Type Priority Associated Diagnoses Orde r Schedule Referral to Nutrition Services Outpatient Referral Routine Elevated fasting blood sugar Increased BMI (body mass index) Essential hypertension Ordered: 08/10/2014 documented as of this encounter Visit Diagnoses Diagnosis Elevated fasting blood sugar Impaired fasting glucose Increased BMI (body mass index) Other symptoms concerning nutrition, metabolism, and development Essential hypertension Unspecified essential hypertension documented in this encounter Care Teams Interior Design Coordinator Relationship Specialty Start Date End Date Ingrid Aragon MD [address] [place] [address] PCP - General 07/22/14 07/10/17 documented as of this encounter
--- OUTSIDE RECORDS SUMMARY | 2024-02-22 09:33 | XMS_ITS | Encounter Summary ---
Author Organization [facility] Address [address] [place] [address] Care Team Providers Care Micro Paleontologist Name Role Phone None, Provider Primary Care Provider Unavailabl e Encounter Details Date Type Department Care Team (Late st Contact Info) Description 05/04/2023 Lab Requisition [facility] Pathology & Laboratory Medicine - [facility] [address] [place] [address] Storm Shipman MD [address] [place] [address] Calculus of bile duct without cholangitis or cholecystitis without obstruction Social History Tobacco Use Types Packs/Day Years [...] Procedure Name Priority Date/Time Associated Diagnosis Comments SURGICAL PATHOLOGY Today 05/03/2023 14 :47 EST Calculus of bile duct without cholangitis or cholecystitis without obstruction documented in this encounter Results * SURGICAL PATHOLOGY (05/03/2023 14:47 EST) Note to Patient The following pathology results have been interpreted by your pathologist and may be available to you before your health provider has had the opportunity to review them. Please allow time for your provider to receive these results and explore management options, if applicable. 05/09/2023 18:01 EST [facility] Final Diagnosis A. GALLBLADDER, CHOLECYSTECTOMY: - Chronic cholecystitis. 05/09/2023 18:01 EST [facility] Attestation There was significant resident/fellow involvement in the diagnostic evaluation of this case. By the signature below, the attending physician certifies that they have personally conducted a gross and/or microscopic examination of the described specimens and rendered or confirmed the above diagnosis. 05/09/2023 18:01 [facility] at 1801 Clinical History Biliary colic; clinical diagnosis code: K80.50 05/09/2023 18:01 [facility] Gross Description A. Received in formalin labelled with proper patient identification (initials D, S) and gallbladder is an intact gallbladder with an attached segment of cystic duct (8.1 x 3.9 x 3.2 cm). A cystic duct lymph node is not identified. The serosa is purple-blue and smooth. The mucosa is dark green, smooth and velvety and the wall has an average thickness of 0.1 cm. The gallbladder lumen contains thick green mucinous bile and is absent of any gallstones. The cystic duct lumen is patent and measures 0.3 cm in diameter. The cystic duct margin is inked blue. The en face cystic duct margin and 2 packaging sales representative wall cross sections are submitted as A1. RAMANDEEP DEMARCO(ASCP) 05/04/2023 13:49 05/09/2023 18:01 [facility] Resident/Osbaldo w: Mark Chung MD 05/09/2023 18:01 [facility] Performing Lab [facility] 05/09/2023 18:01 [facility] Scanned Images 05/09/2023 18:01 [facility] Tissue GALLBLADDER STRUCTURE / Unknown 05/03/2023 14:47 EST 05/04/2023 10:08 EST Storm Shipman MD PATHOLOGY [facility] [address] [place] [address] documented in this encounter Visit Diagnoses Diagnosis Calculus of bile duct without cholangitis or cholecystitis without obstruction Calculus of bile duct without mention of cholecystitis or obstruction documented in this encounter Care Teams Micro Paleontologist Relationship Specialty Start Date End Date None, Provider PCP - General 12/30/19 documented as of this encounter
--- OUTSIDE RECORDS SUMMARY | 2024-02-22 09:33 | XMS_ITS | Encounter Summary ---
Author Organization [facility] Address One [facility] [place] [address] Care Team Providers Care Shirring Tender Name Role Phone Jacqueline Bowman MD Primary Care Provider [phone] Encounter Details Date Type Department Care Team (Late st Contact Info) Description 02/17/2011 Orders Only Orthopaedics [address] [place] [address] Leigh Cerrato MD [address] [place] [address] Pain in left shoulder (Primary Dx) Social History Tobacco Use Types Packs/Day Years [...] as of this encounter Visit Diagnoses Diagnosis Pain in left shoulder- Primary Pain in joint, shoulder region documented in this encounter Care Teams Shirring Tender Relationship Specialty Start Date End Date Jacqueline Bowman MD [address] [place], [place] [id number] PCP - General 03/22/10 06/30/14 documented as of this encounter
--- OUTSIDE RECORDS SUMMARY | 2024-02-22 09:33 | XMS_ITS | Encounter Summary ---
Author Organization [facility] Address One [facility] [place] [address] Care Team Providers Care Material Specialist Name Role Phone Shanell Aragon MD Primary Care Provider [phone] Reason for Visit * Reason Onset Date Comments Medication Problem 07/09/2014 Encounter Details Date Type Department Care Team (Late st Contact Info) Description 07/09/2014 Telephone Family Practice at [address] [phone] Marybeth Trevizo LPN Medication Problem Social History Tobacco Use [...] encounter Miscellaneous Notes * Telephone Encounter - Marybeth Frye LPN - 07/10/2014 10:45 AM EDT Returned patients call relayed message below reminded him to use cream sparingly on areas and once to twice a day. If he does need refills per Lexii Shira she will provide him one. Thanked me for the call * Telephone Encounter - Doris Julian - 07/10/2014 10:28 AM EDT Patient returned call. * Telephone Encounter - Marybeth Frye LPN - 07/10/2014 10:16 AM EDT Left message x 1 * Telephone Encounter - Lori Silva PA - 07/09/2014 4:14 PM EDT Please call Pepito and let him know that I also sent in another order for the ketoconazole (NIZORAL) 2 % Cream for 60 g tube, as that is the largest we are able to order If he has any questions or concerns, he can call me at his convenience Thank you! * Telephone Encounter - Marybeth Frye LPN - 07/09/2014 11:47 AM EDT ----- Message from Gill Del Rio MA sent at 07/09/2014 10:35 AM EDT ----- Contact: patient Refill request PCP: SHANELL ARAGON MD / Treating provider: Lexii Silva Caller (if other than patient full name): Pepito Cordon-##Patient states he would need 3 more 30g tubes to get him through 2 weeks? Relationship (if other than patient): self Medication, dose and frequency (copy and paste from e-DH: Ketoconazole 2% Cream Apply topically once daily for two weeks Send to pharmacy (name and number): [facility] Patient informed of the 48 to 72 hour policy time for RX requests: yes #Send to clinical team Pool (high priority if they are completely out of meds) documented in this encounter Plan of Treatment Not on file documented as of this encounter Visit Diagnoses Diagnosis Tinea corporis Dermatophytosis of the body documented in this encounter Care Teams Material Specialist Relationship Specialty Start Date End Date Shanell Aragon MD [address] [place] [address] PCP - General 07/01/14 07/17/14 documented as of this encounter
--- OUTSIDE RECORDS SUMMARY | 2024-02-22 09:33 | XMS_ITS | Encounter Summary ---
Author Organization [facility] Address [facility] [place] [address] Care Team Providers Care Tape Transferrer Name Role Phone Jacqueline Bowman MD Primary Care Provider [phone] Reason for Referral * Surgical (Routine) - Complete - Patient Seen (External Appt Consult Notes Rcv'd) Specialty Diagnoses / Procedures Referred By Contac t Referred To Contact Orthopaedic Surgery / Orthopaedics Diagnoses Dr Cerrato 02/21 @ 3:30PM LEFT SHOULDER PAIN [719.41Y] Karen Sousa PA [address] [place] [address] [facility] Orthopaedics [address] [place] [address] Referral ID Status Reason Start Date Expiration Date Visits Requested Visits Authorized [id number] Complete - Patient Seen (External Appt Consult Notes Rcv'd) Consult, Test & Treat 1 08/14/2011 1 1 Reason for Visit * Reason Comments Shoulder Pain couple months ago he madelyn 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 Encounter Details Date Type Department Care Team ([facility] st Contact Info) Description 02/15/2011 2:30 PM EDT Office Visit Family Practice at [address] [id number] Karen Sousa PA [address], [place] [id number] Left shoulder pain (Primary Dx) Social History Tobacco Use Types [...] Sign Reading Time Taken Comments Blood Pressure 130/80 02/15/2011 2:31 PM EDT Pulse 72 02/15/2011 2:31 PM EDT Temperature - - Respiratory Rate - - Oxygen Saturation - - Inhaled Oxygen Concentration - - Weight 135.2 kg (298 lb) 02/15/2011 2:31 PM EDT Height 186.1 cm (6' 1.25) 02/15/2011 2:31 PM ED T Body Mass Index 39.05 02/15/2011 2:31 PM EDT documented in this encounter Progress Notes * Karen Sousa PA - 02/15/2011 3:04 PM EDT EPISODIC VISIT CC: left shoulder pain HPI: This is a 45 year old male who presents with left shoulder pain for the past 10 weeks. 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 Laying on the side causes pain, extension ofthe shoulder, bench press and curls causes pain. Reaching over his head does not bother him. Pain is sharp in nature with the movements. He denies any weakness in this arm, no numbness or tingling. No history of shoulder injuries. He isfrustrated as he normally likes to lift weights, but he is now having a lot of pain with these activities. He tried heat, icy hot without relief. Current outpatient prescriptions ordered prior to encounter Medication Sig Dispense Refill ??? clotrimazole (LOTRIMIN) 1 % external solution Apply topically 2 times daily. ??? ARGININE, L-ARGININE, ORAL Take 1 tablet by mouth daily. ??? Zinc 50 mg Tab Take 1 tablet by mouth 2 times daily. ??? ascorbic acid (VITAMIN C) 500 mg tablet Take 500 mg by mouth 2 times daily. ??? tadalafil (CIALIS) 10 mg tablet 10 MG = 1 Tablet(s), PO, Once daily PRN Physical Exam BP 130/80 Pulse 72 Ht 186.1 cm (6' 1.25) Wt 135.172 kg (298 lb) BMI 39.05 kg/m2 Gen: Well-developed, well-nourished, in NAD Exam of left shoulder revealed no edema or ecchymosis. He has point tenderness to palpation over the short head of the biceps. Full ROM in all directions. Able to touch behind lower back and behind neck. Had 5/5 strength in all directions, he has some pain with external rotation against resistance.No pain with thumbs up or thumbs down abduction against resistance. Hawkin's sign negative . Full RO M of elbows with 5/5 strength. Assessment and Plan: Left shoulder pain ?? He has most discomfort about the short head of the biceps tendon. Exercises using the biceps seem to aggravate the pain. ?? Discussed options such as NSAIDs, exercises and PT. ?? He declines these today and would like referral to ortho. ?? REFERRAL TO ORTHOPAEDICS made today. documented in this encounter Plan of Treatment Scheduled Referrals Name Type Priority Associated Diagnoses Order Schedule REFERRAL TO ORTHOPAEDICS Outpatient Referral Routine Left shoulder pain Ordered: 02/15/2011 documented as of this encounter Visit Diagnoses Diagnosis Left shoulder pain- Primary Pain in joint, shoulder region documented in this encounter Care Teams Tape Transferrer Relationship Specialty Start Date End Date Jacqueline Bowman MD [address] [place] [address] PCP - General 03/22/10 06/30/14 documented as of this encounter
--- OUTSIDE RECORDS SUMMARY | 2024-02-22 09:33 | XMS_ITS | Encounter Summary ---
Author Organization [facility] Address One [facility] [place] [address] Care Team Providers Care Millinery Designer Name Role Phone Ingrid Aragon MD Primary Care Provider [phone] Reason for Visit * Reason Comments Blood Pressure Check Encounter Details Date Type Department Care Team (Latest Contact Info) Description 07/30/2014 6:45 AM EDT Clinical Support Family Practice at [address] [phone] Blood pressure check Social [...] Sign Reading Time Taken Comments Blood Pressure 146/100 07/30/2014 7:00 AM EDT rig ht arm- thigh cuff Pulse 80 07/30/2014 6:49 AM EDT Temperature - - Respiratory Rate - - Oxygen Saturation - - Inhaled Oxygen Concentration - - Weight - - Height - - Body Mass Index - - documented in this encounter Progress Notes * Malu Osei LPN - 07/30/2014 7:06 AM EDT Patient presents for a blood pressure check today. Reading in the left arm was 154/104 with a pulseof 80. Reading in the right arm was 154/106. These readings were taken with the large red cuff. Patient reports that 'they usually use the bigger cuff. Readings taken with the larger black thigh cuff read 150/98 in the left arm and 146/100 in the right arm. Patient denies any lightheadedness, dizz iness, headaches, SOB or chest pain. Patient was advised to seek emergent care if he notices any lightheadedness, dizziness, headaches, SOB or chest pain. documented in this encounter Plan of Treatment Not on file documented as of this encounter Visit Diagnoses Diagnosis Blood pressure check Screening for hypertension documented in this encounter Care Teams Millinery Designer Relationship Specialty Start Date End Date Ingrid Aragon MD [address] [place] [address] PCP - General 07/22/14 07/10/17 documented as of this encounter
--- OUTSIDE RECORDS SUMMARY | 2024-02-22 09:33 | XMS_ITS | Encounter Summary ---
Author Organization [facility] Address One [facility] [place] [address] Care Team Providers Care Regenerator Operator Name Role Phone Ingrid Aragon MD Primary Care Provider [phone] Encounter Details Date Type Department Care Team (Latest Contact Info) Description 07/22/2014 4:00 PM EDT Radiology Appointment MRI at [place] [address] [facility] [place] [address] Right knee pain Social History Tobacco Use Types Packs/Day [...] Procedure Name Priority Date/Time Associated Diagnosis Comments MRI KNEE WO CONTRAST Routine 07/22/2014 5:14 PM EDT documented in this encounter Results * MRI knee WO contrast (07/22/2014 5:14 PM EDT) Anatomical Region Laterality Modality Knee Magnetic Resonan ce 07/22/2014 5:14 PM EDT Impressions 07/23/2014 4:47 PM EDT IMPRESSION: The posterior horn of the medial meniscus demonstrates a radial tear with extension superiorly. Chondromalacia is noted as detailed above. Narrative 07/23/2014 4:47 PM EDT EXAMINATION: MR Knee Without Contrast/RIGHT CLINICAL HISTORY: 49M; right knee pain X 5-6 months with no improvement wiht conservative therapy; TTP over medial joint line; tenderness elicited with Apley's grind test; R/O meniscal involvement COMPARISON: None TECHNIQUE: Magnetic resonance imaging of the right knee was performed in a multiplanar and multisequence manner without contrast. FINDINGS: Menisci: The posterior horn medial meniscus demonstrates a radial tear with extension superiorly. The posterior horn of the lateral meniscus has intrasubstance degenerative changes. Collateral ligaments: Intact. Posterolateral corner: Intact. Cruciate ligaments: Intact. Extensor mechanism: Intact. Fluid collections: No suprapatellar effusion is present. A small Ardon's cyst is noted. Popliteal fossa: Normal caliber to the popliteal artery. Osseous structures and cartilage: The osseous structures reveal normal bone marrow signal intensity without evidence of edema. 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 Grade II chondromalacia involves the patella and lateral compartment. Procedure Note Storm Chapa DO - 07/23/2014 EXAMINATION: MR Knee Without Contrast/RIGHT CLINICAL HISTORY: 49M; right knee pain X 5-6 months with no improvementwiht conservative therapy; TTP over medial joint line; tenderness elicitedwith Apley's grind test; R/O meniscal involvement COMPARISON: None TECHNIQUE: Magnetic resonance imaging of the right knee was performed apryl multiplanar and multisequence manner without contrast. FINDINGS: Menisci: The posterior horn medial meniscus demonstrates a radial tearwith extension superiorly. The posterior horn of the lateral meniscus has intrasubstance degenerative changes. Collateral ligaments: Intact. Posterolateral corner: Intact. Cruciate ligaments: Intact. Extensor mechanism: Intact. Fluid collections: No suprapatellar effusion is present. A small Ardon'scyst is noted. Popliteal fossa: Normal caliber to the popliteal artery. Osseous structures and cartilage: The osseous structures reveal normalbone marrow signal intensity without evidence of edema. There is grade III tograde IV chondromalacia involving the medial compartment. Grade IIchondromalacia involves the patella and lateral compartment. IMPRESSION IMPRESSION: The posterior horn of the medial meniscus demonstrates a radial tearwith extension superiorly. Chondromalacia is noted as detailed above. Ingrid Aragon MD IMG MRI ORDERABLES documented in this encounter Visit Diagnoses Diagnosis Right knee pain Pain in joint, lower leg documented in this encounter Care Teams Regenerator Operator Relationship Specialty Start Date End Date Ingrid Aragon MD [address] [place] [address] PCP - General 07/22/14 07/10/17 documented as of this encounter
--- OUTSIDE RECORDS SUMMARY | 2024-02-22 09:33 | XMS_ITS | Encounter Summary ---
Author Organization [facility] [place] [address] Care Team Providers Care Gliding Pilot Instructor Name Role Phone Jacqueline Bowman MD Primary Care Provider [phone] Reason for Visit * Reason Onset Date Comments Results 10/28/2010 Encounter Details Date Type Department Care Team (Late st Contact Info) Description 10/28/2010 Telephone Family Practice at [address] [phone] Ingrid Aragon MD [address] [place] [phone] Results Social History Tobacco Use Types Packs/Day [...] Telephone Encounter - Ingrid Aragon MD - 10/28/2010 4:21 PM EDT Liver enzyme taken and contd increase Testosterone otc and stopped already No alcohol taken - because of fatty liver Repeat lfts in 2 mths documented in this encounter Plan of Treatment Not on file documented as of this encounter Visit Diagnoses Diagnosis Elevated liver enzymes- Primary Nonspecific elevation of levels of transaminase or lactic acid dehydrogenase (LDH) documented in this encounter Care Teams Gliding Pilot Instructor Relationship Specialty Start Date End Date Jacqueline Bowman MD [address] [place] [address] PCP - General 03/22/10 06/30/14 documented as of this encounter
--- OUTSIDE RECORDS SUMMARY | 2024-02-22 09:33 | XMS_ITS | Encounter Summary ---
Author Organization [facility] Address [facility] [place] [address] Care Team Providers Care Jr. Systems Administrator Name Role Phone Shanell Aragon MD Primary Care Provider [phone] Reason for Visit * Reason Onset Date Comments Hypertension 08/11/2014 medication quest ion Encounter Details Date Type Department Care Team (Late st Contact Info) Description 08/11/2014 Telephone Family Practice at [address] [phone] Samantha Hatch RN Hypertension (medication question) Social History Tobacco Use Types Packs/Day Years [...] Telephone Encounter - Giovanni Haines MD - 08/11/2014 5:29 PM EDT I left pt a message at [phone] as I could not reach him at his home phone that I recommend that he increases the dose of his hctz to 25 mg daily (full tablet). He should follow up with Dr. Aragon on 09/10/14 when she should have another BMP. iyb * Telephone Encounter - Samantha Hatch RN - 08/11/2014 4:46 PM EDT Caller: Pt stated that his BP 148/98 with arm cuff, denied chest pain, sob, vision changes, headache or any other symptoms. Pt drinking and eating well, drinks ETOH and coffee on occasion. Pt is concerned with his blood pressure and is wondering what can be done. He stated he was started on hydrochlorothiazide a week ago and has seen no change. Plan: Consult with provider. * Telephone Encounter - Samantha Hatch RN - 08/11/2014 3:55 PM EDT Left a recorded message for pt to return phone call. * Telephone Encounter - Samantha Hatch RN - 08/11/2014 3:55 PM EDT ----- Message from Porsche Cortes CMA sent at 08/11/2014 3:45 PM EDT ----- Contact: Patient Triage: Chief complaint Blood pressure changes PCP: SHANELL ARAGON MD / Treating provider: Giovanni Haines MD Caller Patient Relationship self ( Patient currently at work-ok to leave a message) Triage comment: Patient has experienced changes in his blood pressure readings over the course of the week. Feels that his medication that was prescribed last week-hydrochlorothiazide (HYDRODIURIL) 25 mg Tablet ( Half Pill) is not helping. Patient is ok with receiving a phone call back-tomorrow am documented in this encounter Plan of Treatment Not on file documented as of this encounter Results * Basic Metabolic Panel (non-fasting) (09/10/2014 8:33 AM EDT) [facility] Glucose 120 60 - 199 mg/dL [facility] Comment:Diabetes: >=200 mg/d L plus symptoms Blood Urea Nitrogen 18 10 - 20 mg/dL [facility] Creatinine 1.06 0.80 - 1.50 mg/dL [facility] Comment: Please note that the pediatric reference intervals supplied above were not validated at [facility]. Results from pediatric patients should be interpreted [...] the following links into your internet browser. [email or web address] Blood specimen (specimen) 09/10/2014 8:33 AM EDT 09/10/2014 6:29 PM EDT Narrative Resulting Agency Comment Spec In Lab Giovanni Haines MD CHEMISTRY ORDERABLE S CERCALE TEJEDA documented in this encounter Visit Diagnoses Diagnosis Essential hypertension Unspecified essential hypertension documented in this encounter Care Teams Jr. Systems Administrator Relationship Specialty Start Date End Date Shanell Aragon MD [address] [place] [address] PCP - General 07/22/14 07/10/17 documented as of this encounter
--- OUTSIDE RECORDS SUMMARY | 2024-02-22 09:33 | XMS_ITS | Encounter Summary ---
Author Organization [facility] Address [facility] [address] Care Team Providers Care Intelligence Agent Name Role Phone Jacqueline Bowman MD Primary Care Provider [phone] Reason for Visit * Reason Onset Date Comments Results 09/27/2010 Encounter Details Date Type Department Care Team (Late st Contact Info) Description 09/27/2010 Telephone Family Practice at [address] [phone] Odalis Crandall LPN Results Social History Tobacco Use Types Packs/Day Years Used Date Smoking Tobacco: Never Alcohol Use Standard Drinks/Week Comments Yes 0.8 (1 standard drink = 0.6 oz p ure alcohol) Sex and Gender Information Value Date Recorded Sex Assigned at Not on file Gender Identity Not on file Sexual Orientation Not on file documented as of this encounter Miscellaneous Notes * Telephone Encounter - Odalis Whittaker LPN - 09/27/2010 10:34 AM EDT Informed patient of Dr Aragon's message below. Patient verbalized understanding. * Telephone Encounter - Odalis Whittaker LPN - 09/27/2010 10:21 AM EDT Message copied by ODALIS WHITTAKER on SunSeptember 27, 2010 10:21 AM ------ Message from: SHANELL ARAGON Created: SunSeptember 27, 2010 10:10 AM Call patient He is immune to MMR His liver enzymes are slightly elevated ( had liver enzyme issues before ) Based on his recent exam he is stable and recommend repeat lfts in 1mth Let me know if he has concerns and ok to order labs documented in this encounter Plan of Treatment Not on file documented as of this encounter Visit Diagnoses Not on filedocumented in this encounter Care Teams Intelligence Agent Relationship Specialty Start Date End Date Jacqueline Bowman MD [address] [place] [address] PCP - General 03/22/10 06/30/14 documented as of this encounter
--- OUTSIDE RECORDS SUMMARY | 2024-02-22 09:33 | XMS_ITS | Encounter Summary ---
Author Organization [facility] Address [facility] [place] [address] Care Team Providers Care Retread Supervisor Name Role Phone Jacqueline Bowman MD Primary Care Provider [phone] Encounter Details Date Type Department Care Team (Late st Contact Info) Description 09/27/2010 Orders Only Family Practice at [place] [address] [place] [address] Ingrid Aragon MD [address] [place] [address] [facility] [place], [place] [id number] Elevated liver enzymes (Primary Dx) Social History Tobacco Use Types [...] as of this encounter Results * (ABNORMAL) Hepatic function [...] Bilirubin, Direct 0.2 0.0 - 0.3 mg/dL [facility] ERICDUSTIN Blood specimen (specimen) 10/27/2010 8:37 AM EDT 10/27/2010 6:50 PM EDT Ingrid Aragon MD CHEMISTRY ORDERABLES JORGITO TEJEDA documented in this encounter Visit Diagnoses Diagnosis Elevated liver enzymes- Primary Nonspecific elevation of levels of transaminase or lactic acid dehydrogenase (LDH) documented in this encounter Care Teams Retread Supervisor Relationship Specialty Start Date End Date Jacqueline Bowman MD [address] [place] [address] PCP - General 03/22/10 06/30/14 documented as of this encounter
--- OUTSIDE RECORDS SUMMARY | 2024-02-22 09:33 | XMS_ITS | Encounter Summary ---
Author Organization [facility]ending [facility] Address [facility] [place] [address] Care Team Providers Care Information Director Name Role Phone Jacqueline Bowman MD Primary Care Provider Reason for Visit * Reason Comments Annual Exam Needs a copy of phys ical for football camp Encounter Details Date Type Department Care Team (Late st Contact Info) Description 09/20/2010 10:45 AM EDT Office Visit Family Practice at [address] [phone] Ingrid Aragon MD [address] [place] [address] [facility]ILY [facility] [place], [place] [phone] Screening (Primary Dx) Social History Tobacco Use Types [...] Sign Reading Time Taken Comments Blood Pressure 124/84 09/20/2010 11:37 AM EDT Pulse 72 09/20/2010 10:46 AM EDT Temperature - - Respiratory Rate - - Oxygen Saturation - - Inhaled Oxygen Concentration - - Weight 135.8 kg (299 lb 6.4 oz) 011 10:46 AM EDT Height 189.9 cm (6' 2.75) 09/20/2010 1 0:46 AM EDT Body Mass Index 37.67 09/20/2010 10:46 AM EDT documented in this encounter Progress Notes * Ingrid Aragon MD - 09/20/2010 11:09 AM EDT Subjective: Patient ID: Pepito Cordon is a 45 y.o. male. HPI Comments: He is here for annual physical He hasn't checked his blood pressure at home He uses cialis may be monthly and is not requesting any refills He gets allergy symptms runny nose and runny eyes. He hasn't tried zyrtec- claritin ( he is using anti allergic helps ) He has used nasonex and caio before which has helped Review of Systems Constitutional: Negative. Negative for fever, chills, appetite change, fatigue and unexpected weight change. HENT: Positive for rhinorrhea (uses ? otc antiallergic medication) and postnasal drip. Negative forhearing loss, ear pain, nosebleeds, congestion, facial swelling, sneezing, mouth sores, neck pain, neck stiffness, sinus pressure, tinnitus and ear discharge. Eyes: Negative for photophobia, pain, discharge, itching and visual disturbance. Respiratory: Negative for cough, choking, chest tightness, shortness of breath, wheezing and stridor. Cardiovascular: Negative for chest pain, palpitations and leg swelling. Gastrointestinal: Negative for nausea, vomiting, abdominal pain, diarrhea, constipation, blood in stool and abdominal distention. Genitourinary: Negative for dysuria, urgency, frequency, hematuria, decreased urine volume, discharge, penile swelling, difficulty urinating, penile pain and testicular pain. Musculoskeletal: Negative for myalgias, back pain, joint swelling, arthralgias and gait problem. Skin: Positive for rash (jock itch uses otc lotrimen ). Negative for color change and pallor. Neurological: Negative for dizziness, tremors, facial asymmetry, weakness, light-headedness, numbness and headaches. Psychiatric/Behavioral: Negative for behavioral problems and agitation. Objective: Physical Exam Constitutional: He is oriented [...] effusion. No decreased hearing is noted. Nose: Mucosal edema and rhinorrhea present. No sinus tenderness or nasal deformity. No epistaxis. Right sinus exhibits no maxillary sinus tenderness and [...] and normal range of motion present. No mass and no thyromegaly present. Cardiovascular: Normal rate, regular rhythm, S1 normal, S2 normal and normal heart sounds. Exam reveals no distant heart sounds and no decreased pulses. No murmur heard. [...] and no mass. There is no hepatosplenomegaly. No tenderness. He has no rebound, no guarding, no CVA tenderness and no Mishra's sign. No hernia. Hernia confirmed negative in the right inguinal area and confirmed negative in the left inguinal area. Musculoskeletal: Normal range of motion. He exhibits no edema and no tenderness. Lymphadenopathy: He has no cervical adenopathy. Neurological: He is alert and oriented to person, place, and time. He has normal reflexes. No cranial nerve deficit. He exhibits normal muscle tone. Coordination normal. Skin: Rash (bilateral groin rash - macular no papules) noted. He is not diaphoretic. Psychiatric: He has a normal mood and affect. His behavior is normal. Judgment and thought content normal. Assessment and Plan: Pepito was seen today for annual exam. Diagnoses and associated orders for this visit: Screening - Measles (Rubeola) Antibody, IgG; Future - Mumps Antibody, IgG; Future - Rubella Antibody, IgG; Future - CMP w/fasting Glucose; Future ED: Will call if needs refill on cialis Pt is otherwise updated and clear for camp- letter provided documented in this encounter Plan of Treatment Not on file documented as of this encounter Results * (ABNORMAL) CMP w/fasting Glucose (09/21/2010 9:07 AM EDT) [facility] Glucose Fasting 110(H) 65 - 99 mg/dL [facility] Comment: [...] of Diabetes Mellitus, Position Statement from the [place] Diabetes Association. ??Diabetes Care, Volume 33, Supplement 1, Apr 2009 Blood Urea Nitrogen 21(H) 10 - 20 mg/dL [facility] Creatinine 1.05 0.80 - 1.50 mg/dL [facility] Sodium 139 135 - 145 mmol/L [facility] Potassium 4.1 3.5 - 5.0 mmol/L [facility] Comment: Please note: ??Patients with WBC >100,000 may have falsely elevated Potassium levels. ??For accurate Potassium quantification in these patients send serum separator tube (gold top) for subsequent determinations. ??Contact the Clinical Chemistry Laboratory if there are any questions. Chloride 105 98 - 107 mmol/L [facility] Carbon Dioxide 23 22 - 31 mmol/L [facility] Anion Gap 11 5 - 15 mmol/L [facility] Calcium 9.5 8.5 - 10.5 mg/dL [facility] Protein, Total 7.8 6.4 - 8.3 gm/dL [facility] Albumin 4.5 3.2 - 5.2 gm/dL [facility] Aspartate Aminotransferase 42(H) 0 - 39 unit/L [facility] Alanine Aminotransferase 78(H) 0 - 55 unit/L [facility] Alkaline Phosphatase 70 40 - 120 unit/L [facility] Bilirubin, Total 0.6 0.2 - 1.3 mg/dL [facility] Bilirubin, [...] past week). For patients multiply eGFR by 1.2.MDRD equation has not been validated for pediatric patients and is only valid for patients with age >= 18 years. At present, NKDEP does NOT recommend using [...] with diabetic kidney disease. References: http://nkdep.nih.gov/resources/NKDEP_Suggestn4Labs_0606_508.pdf http://www.kidney.org/professionals/kls/pdf/faq_gfr.pdf Blood specimen (specimen) 09/21/2010 9:07 AM EDT 09/21/2010 7:13 PM EDT Ingrid Aragon MD CHEMISTRY ORDERABLES Performing Organization Address [facility] Co de Phone Number [facility] * Rubella Antibody, IgG (09/21/2010 9:07 AM EDT) Rubella Antibody IgG Positive Positive [facility] Blood specimen (specimen) 09/21/2010 9:07 AM EDT 09/21/2010 7:19 PM EDT Ingrid Aragon MD CHEMISTRY ORDERABLES Performing Organization Address [facility] Co de Phone Number [facility] * Mumps Antibody, IgG (09/21/2010 9:07 AM EDT) Mumps Antibody IgG Positive Positive [facility] Blood specimen (specimen) 09/21/2010 9:07 AM EDT 09/22/2010 10:46 AM EDT Ingrid Aragon MD IMMUNOLOGY ORDERABLE S Performing Organization Address [facility] Co de Phone Number [facility] * Measles (Rubeola) Antibody, IgG (09/21/2010 9:07 AM EDT) Rubeola Antibody IgG Positive Positive [facility] Comment:Expected Values: A N egative result indicates non-immunity. Blood specimen (specimen) 09/21/2010 9:07 AM EDT 09/22/2010 10:46 AM EDT Ingrid Aragon MD IMMUNOLOGY ORDERABLE S Performing Organization Address [facility] Co de Phone Number [facility] documented in this encounter Visit Diagnoses Diagnosis Screening- Primary Screening for unspecified condition documented in this encounter Care Teams Information Director Relationship Specialty Start Date End Date Jacqueline Bowman MD [address] [place] [address] PCP - General 03/22/10 06/30/14 documented as of this encounter
--- OUTSIDE RECORDS SUMMARY | 2024-02-22 09:33 | XMS_ITS | Encounter Summary ---
Author Organization [facility] Address [facility] [place] [address] Care Team Providers Care Supervisor Labor Gang Name Role Phone Jacqueline Bowman MD Primary Care Provider [phone] Reason for Visit * Reason Onset Date Comments Results 09/21/2011 Encounter Details Date Type Department Care Team (Late st Contact Info) Description 09/21/2011 Telephone Family Practice at [address] [phone] Giovanni Haines MD [address] [place] [address] MEDIC[place], [place] [phone] Results Social History Tobacco Use Types Packs/Day [...] Telephone Encounter - Giovanni Haines MD - 09/21/2011 7:46 AM EDT I spoke with the pt and he says that he feels better. His UA and urine Cx were normal though. We'll check PSA as given lack of infection it should be an adequate test. He will have the US today. The patient was given opportunity to ask questions and all of them were answered. The plan of care was discussed with the patient and he voiced understanding and agreement and was appreciative. iyb documented in this encounter Plan of Treatment Not on file documented as of this encounter Results * PSA Screen (09/21/2011 3:04 PM EDT) PSA Screen 0.53 0.00 - 4.00 ng/mL [facility] REICDUSTIN Blood specimen (specimen) 09/21/2011 3:04 PM EDT 09/21/2011 11:20 PM EDT Narrative Resulting Agency Comment Spec In Lab Giovanni Haines MD CHEMISTRY ORDERABLE S [facility] documented in this encounter Visit Diagnoses Diagnosis Difficulty voiding Other symptoms involving urinary system Urgency of micturation Urgency of urination Low back pain Lumbago documented in this encounter Care Teams Supervisor Labor Gang Relationship Specialty Start Date End Date Jacqueline Bowman MD [address] [place] [address] PCP - General 03/22/10 06/30/14 documented as of this encounter
--- OUTSIDE RECORDS SUMMARY | 2024-02-22 09:33 | XMS_ITS | Encounter Summary ---
Author Organization [facility] Address [facility] [place] [address] Care Team Providers Care Timber Sprinkler Name Role Phone Ingrid Aragon MD Primary Care Provider [phone] Reason for Visit * Reason Onset Date Comments Referral 07/30/2014 Encounter Details Date Type Department Care Team (Late st Contact Info) Description 07/30/2014 Telephone Family Practice at [address] [phone] Malu Osei LPN Referral Social History Tobacco Use Types Packs/Day Years [...] Telephone Encounter - Malu Osei LPN - 07/30/2014 7:14 AM EDT During nurse visit this morning patient reports he has not yet heard anything regarding his sleep study and dermatology referrals. Patient would like to get these going as soon as possible. documented in this encounter Plan of Treatment Not on file documented as of this encounter Results * (ABNORMAL) CMP w/fasting Glucose (08/09/2014 10:41 AM EDT) [facility] Glucose Fasting 130(H) 65 - 99 mg/dL [facility] Comment: ?Fasting* Glucose Interpretive Criteria Normal ?65-99 [...] of Diabetes Mellitus, Position Statement from the [place] Diabetes Association. ??Diabetes Care, Volume 33, Supplement 1, Apr 2009 Blood Urea Nitrogen 20 10 - 20 mg/dL [facility] Creatinine 1.05 0.80 - 1.50 mg/dL [facility] Comment: Please note that the pediatric reference intervals supplied above were not validated at [facility]. Results from pediatric patients should be interpreted [...] the following links into your internet browser. [email or web address] Blood specimen (specimen) 08/09/2014 10:41 AM EDT 08/09/2014 8:41 PM EDT Narrative Resulting Agency Comment Spec In Lab Giovanni Haines MD CHEMISTRY ORDERABLE S JORGITO TEJEDA documented in this encounter Visit Diagnoses Diagnosis Acute maxillary sinusitis Tinea corporis Dermatophytosis of the body Essential hypertension Unspecified essential hypertension Medicine refill Issue of repeat prescriptions documented in this encounter Care Teams Timber Sprinkler Relationship Specialty Start Date End Date Ingrid Aragon MD [address] [place] [address] PCP - General 07/22/14 07/10/17 documented as of this encounter
--- OUTSIDE RECORDS SUMMARY | 2024-02-22 09:33 | XMS_ITS | Encounter Summary ---
Author Organization [facility] [place] [address] Care Team Providers Care Meat Processing Center Manager Name Role Phone Jacqueline Bowman MD Primary Care Provider [phone] Encounter Details Date Type Department Care Team (Late st Contact Info) Description 09/19/2010 Abstract Family Practice at [address] [phone] Teresa Valladares, PATTERN REPAIR PERSON Social History Tobacco Use Types Packs/Day Years Used Date Smoking Tobacco: Never Assessed Sex and Gender Information Value Date Recorded Sex Assigned at Not on file Gender Identity Not on file Sexual Orientation Not on file documented as of this encounter Plan of Treatment Not on file documented as of this encounter Visit Diagnoses Not on filedocumented in this encounter Care Teams Meat Processing Center Manager Relationship Specialty Start Date End Date Jacqueline Bowman MD [address] [place], [place] [id number] PCP - General 03/22/10 06/30/14 documented as of this encounter
--- OUTSIDE RECORDS SUMMARY | 2024-02-22 09:33 | XMS_ITS | Encounter Summary ---
Author Organization [facility] Address [facility] [place] [address] Care Team Providers Care Dog Trainer Name Role Phone Ingrid Aragon MD Primary Care Provider [phone] Reason for Visit * Reason Onset Date Comments Prior Authorization 07/27/2014 Encounter Details Date Type Department Care Team (Late st Contact Info) Description 07/27/2014 Telephone Family Practice at [address] [phone] Fay Nelson LPN Prior Authorization Social History Tobacco Use Types Packs/Day Years [...] encounter Miscellaneous Notes * Telephone Encounter - Fay Navarro LPN - 09/02/2014 9:48 AM EDT Unable to reach patient. Letter sent. * Telephone Encounter - Fay Navarro LPN - 08/25/2014 2:29 PM EDT Called patient to follow up. Flonase was declined by his insurance company. Has patient tried Budesonide or Rhinocort? * Telephone Encounter - Teresa Charles CMA - 08/24/2014 8:38 AM EDT This was denied. The reason for denial is the patient needs to try Budesonide which is generic for Rhinocort. It looks like the provider received a copy of the denial on 07-29-14 as it was scanned into the patient's chart. * Telephone Encounter - Fay Navarro LPN - 08/21/2014 4:20 PM EDT Called patient x 2. Spoke with mohamud who answered phone. Patient not available. Message left to callback. Call Center, pls confirm below. * Telephone Encounter - Fay Navarro LPN - 08/14/2014 3:27 PM EDT Called [facility] as I have not heard back about this Prior Authorization. Spoke with Lori. Advisedthat patients insurance information is at pharmacy. Called patient. Left message for call back. [facility] confirm status of this, has patient picked up? Has insurance info changed? If so, patient should provide to pharmacy for this script. * Telephone Encounter - Teresa Charles CMA - 07/27/2014 2:27 PM EDT I called [facility] [phone] and spoke to Whitney. Case# [id number] This is going for clinical review and 3-5 days for a reply. * Telephone Encounter - Fay Navarro LPN - 07/27/2014 1:57 PM EDT ----- Message from Sandra Bess sent at 07/24/2014 2:20 PM EDT ----- Dr. Davila -Prior Authorization Medication:fluticasone (FLONASE) 50 mcg/actuation [place], Suspension Diagnosis: Chronic rhinitis (472.0) Insurance: [facility] Insurance phone number: [phone] Pharmacy: [facility] Comments: documented in this encounter Plan of Treatment Not on file documented as of this encounter Visit Diagnoses Not on filedocumented in this encounter Care Teams Dog Trainer Relationship Specialty Start Date End Date Ingrid Aragon MD [address] [place] [address] PCP - General 07/22/14 07/10/17 documented as of this encounter
--- OUTSIDE RECORDS SUMMARY | 2024-02-22 09:33 | XMS_ITS | Encounter Summary ---
Author Organization [facility] Address One [facility] [place] [address] Care Team Providers Care Learning Facilitator Name Role Phone Jacqueline Bowman MD Primary Care Provider [phone] Reason for Visit * Reason Comments Left Shoulder Pain bench pressing DOI 1 0 wks ago Encounter Details Date Type Department Care Team (Late st Contact Info) Description 02/21/2011 3:30 PM EDT Office Visit Orthopaedics [address] [place] [id number] Leigh Cerrato MD [address] [facility] [address] Biceps strain (Primary Dx) Social History Tobacco Use Types [...] Sign Reading Time Taken Comments Blood Pressure 120/88 02/21/2011 3:13 PM EDT Pulse - - Temperature - - Respiratory Rate - - Oxygen Saturation - - Inhaled Oxygen Concentration - - Weight 135.6 kg (299 lb) 02/21/2011 3:13 PM EDT Height 188 cm (6' 2) 02/21/2011 3:13 PM EDT Body Mass Index 38.39 02/21/2011 3:13 PM EDT documented in this encounter Patient Instructions * Patient Instructions* Leigh Cerrato MD - 02/21/2011 4:04 PM EDT 02/21/2011 I want to do an excellent job of explaining what we did at today's visit and what the next steps are. Please let me know if you have any questions! Pepito Cordon was seen by Leigh Cerrato MD Diagnosis: Biceps tendon strain Next Steps: May do weight lifting as tolerated, very gradually Use ice, icy hot as needed When to follow up: If not getting better in 6 to 8 weeks You can access a copy of today's office note, a list of medications and allergies, and contact us about an appointment using My by registering at [email or web address]. documented in this encounter Progress Notes * Leigh Cerrato MD - 02/21/2011 4:05 PM EDT Diagnosis: Left biceps tendon strain. SUBJECTIVE: The patient is a 45-year-old, right-handed white male who was seen in consultation at the request of Dr. Bowman. He states that his left shoulder has been bothering him or about 10 weeks. He states that he was doing some bench pressing, and as he was bringing down the barbell, he felt a pop and pain in the anterior left shoulder. He states that, after that, he was unable to bench press again. He finds that he can do certain lifts, but cannot do upright rows, lateral flies or bench pressing. He notes pain in the front of the shoulder. He states that he did not notice any swelling or bruising after it first happened, but he did use ice afterwards. He has been using ice and Icy Hot. He has not been taking any medication for pain. He denies previous problems with the left shoulder. He states that he has been weightlifting on and off since he was 16 years old, but had not lifted for a while and was trying to get back into it and thinks he might have increased the weight too fast. He has not been doing much lifting since he hurt the shoulder, but wants to get back into it. He is not currently working. He does do things around the house, and sometimes his shoulder bothers him. OBJECTIVE: On physical exam, the patient is a tall, stocky, white male. He has no swelling or discoloration over either shoulder and has no muscle atrophy. He has no deformity of the biceps in the upper arms. He has a lot of tenderness over the biceps tendon anteriorly, and the tendon is palpable in the bicipital groove. He has minimal tenderness over the supraspinatus and anterior shoulder and no tenderness over the posterior shoulder or top of the shoulder. No tenderness on the right. Range of motion is equal, 180 degrees of flexion, 150 degrees of abduction, 90 degrees of external rotation and 75 degrees of internal rotation bilaterally. He complains of some pain with extremes of motion. He has good strength with resisted external rotation in all positions, but complains of pain with the arm abducted and forward flexed. He has pain with resisted forward flexion of the arm, especially with the hand pronated. He does not have pain or weakness with belly press and liftoff tests. X-rays of the shoulder are unremarkable. ASSESSMENT: As above. PLAN: I advised the patient that he strained the biceps tendon. It does not appear to be torn, and my suspicion is low for a rotator cuff tear, given his intact strength. I advised him that he can start resuming weightlifting very gradually, going within limits of pain. He may do activities which do not cause pain and start with very low weights and work up slowly. I advised him to use ice after exercise. I advised him that if he is not improving in 6 to 8 weeks, he should contact me. Otherwise, I will see him back as needed. documented in this encounter Plan of Treatment Not on file documented as of this encounter Visit Diagnoses Diagnosis Biceps strain- Primary Sprain and strain of other specified sites of shoulder and upper arm documented in this encounter Care Teams Learning Facilitator Relationship Specialty Start Date End Date Jacqueline Bowman MD [address] [place] [address] PCP - General 03/22/10 06/30/14 documented as of this encounter
--- OUTSIDE RECORDS SUMMARY | 2024-02-22 09:33 | XMS_ITS | Encounter Summary ---
Author Organization [facility] Address One [facility] [address] Care Team Providers Care Hospitalist Name Role Phone Jacqueline Bowman MD Primary Care Provider Encounter Details Date Type Department Care Team (Late st Contact Info) Description 02/21/2011 3:15 PM EDT Office Visit [place] [facility] [address] [address] Pain in left shoulder Social History Tobacco Use Types Packs/Day Years [...] Name Priority Date/Time Associated Diagnosis Comments XR SHOULDER Routine 02/21/2011 3:32 PM EDT Pain in joint, shoulder region documented in this encounter Results * XR SHOULDER (02/21/2011 3:32 PM EDT) Anatomical Region Laterality Modality Shoulder N/A Radiographic Leida ging 02/21/2011 3:32 PM EDT Impressions 02/22/2011 4:46 PM EDT IMPRESSION: ??There is no radiographic evidence of acute osseous injury. Anya Francis MD/[facility] Doc #[id number] D: ??02/22/2011 T: ??02/22/2011 ?04:27 PM Narrative 02/22/2011 4:46 PM EDT REASON FOR EXAM: ??pain Lt shoulder; LEFT SHOULDER: No priors. FINDINGS: ??Internal and external rotational views of the left shoulder are submitted. No fracture, dislocation or destructive bone lesion is identified. The soft tissues are grossly unremarkable. Procedure Note Anya Francis MD - 02/22/2011 REASON FOR EXAM: pain Lt shoulder; LEFT SHOULDER: No priors. FINDINGS: Internal and external rotational views of the left shoulderare submitted. No fracture, dislocation or destructive bone lesion is identified. Thesoft tissues are grossly unremarkable. IMPRESSION IMPRESSION: There is no radiographic evidence of acute osseous injury. Anya Francis MD/[facility] [place] Doc #[id number] Leigh Cerrato MD IMG DX ORDERABLE S documented in this encounter Visit Diagnoses Diagnosis Pain in left shoulder Pain in joint, shoulder region documented in this encounter Care Teams Hospitalist Relationship Specialty Start Date End Date Jacqueline Bowman MD [address] [place] [address] PCP - General 03/22/10 06/30/14 documented as of this encounter
--- OUTSIDE RECORDS SUMMARY | 2024-02-22 09:33 | XMS_ITS | Encounter Summary ---
Author Organization [facility] Address One [facility] [place] [address] Care Team Providers Care Automobile Body Repairer Helper Name Role Phone Jacqueline Bowman MD Primary Care Provider [phone] Reason for Visit * Reason Onset Date Comments Poison Nella 12/29/2011 Medication Management 12/29/2011 Encounter Details Date Type Department Care Team (Late st Contact Info) Description 12/29/2011 Telephone Family Practice at [address] [phone] Teresa Hadley LPN Poison Nella; Medication Management Social History Tobacco Use Types Packs/Day Years [...] encounter Miscellaneous Notes * Telephone Encounter - Teresa Hadley LPN - 12/29/2011 9:41 AM EDT Called number given, patient was not available, requested that please have him call back [facility]. then volunteered that patient had called because he saw Dr. Aragon on 12/19/11 and while there he had a deep purplish scarring rash on legs assessed and was treated for poison nella. However, since treatment for the poison nella has ended the rash has worsened and it doesn't look the same. reports that patient now has a rash all over that looks like hives in big patches. Appointment booked with Dr. Aragon at 1:00 pm today for reassessment of rash. * Telephone Encounter - Teresa Hadley LPN - 12/29/2011 9:31 AM EDT Message copied by TERESA HADLEY on SunDec 29, 2011 9:31 AM ------ Message from: KARYN SÁNCHEZ Created: SunDec 29, 2011 8:05 AM Provider: dr. Aragon Caller: patient Reason for Call: triamcinolone (KENALOG) 0.1 % cream this is not working for his poison nella. Dr. Aragon had a second option for him to be treated with he would like to go with the second option Contact Number: [phone] documented in this encounter Plan of Treatment Not on file documented as of this encounter Visit Diagnoses Not on filedocumented in this encounter Care Teams Automobile Body Repairer Helper Relationship Specialty Start Date End Date Jacqueline Bowman MD [address] [place] [address] PCP - General 03/22/10 06/30/14 documented as of this encounter
--- OUTSIDE RECORDS SUMMARY | 2024-02-22 09:33 | XMS_ITS | Encounter Summary ---
Author Organization [facility] Address [address] [facility] [address] Care Team Providers Care Salesperson Florist Supplies Name Role Phone Shanell Aragon MD Primary Care Provider [phone] Reason for Referral * Consultation (Routine) - Closed Specialty Diagnoses / Procedures Referred By Contac t Referred To Contact Dermatology Diagnoses Rash and other nonspecific skin eruption Ringworm Giovanni Haines MD [address] [place] [address] [facility] Dermatology [address] [place] [address] Referral ID Status Reason Start Date Expiration Date V isits Requested Visits Authorized [id number] Closed Consult, Test & Treat 08/05/2014 08/05/2015 1 1 * Consultation (Routine) - Complete-Ref Provider Notified Specialty Diagnoses / Procedures Referred By Contac t Referred To Contact Pulmonary Disease / Pulmonology Diagnoses Snoring Giovanni Haines MD [address] [place] [address] [facility] Pulmonology [address] [place] [phone] Referral ID Status Reason Start Date Expiration Date Visits Requested Visits Authorized [id number] Complete-Ref Provider Notified Consult, Test & Treat 07/30/2014 07/30/2015 1 1 Reason for Visit * Reason Comments Rash spreading on body, i tchy, low grade fever- 100.3 Encounter Details Date Type Department Care Team (Late st Contact Info) Description 07/21/2014 2:45 PM EDT Follow-Up Family Practice at [address] [phone] Giovanni Haines MD [address] [place] [address] [id number] Rash and other nonspecific skin eruption; Ringworm; Screening for HIV without presence of risk factors; Essential hypertension; Increased BMI (body mass index); Chronic rhinitis; Snoring Social History Tobacco Use Types Packs/Day Years [...] Sign Reading Time Taken Comments Blood Pressure 150/95 07/21/2014 5:04 PM EDT Pulse 90 07/21/2014 5:04 PM EDT Temperature 37.9 ??C (100.3 ??F) 07/21/2014 4:28 PM E DT Respiratory Rate - - Oxygen Saturation - - Inhaled Oxygen Concentration - - Weight 136.5 kg (301 lb) 07/21/2014 4:28 PM EDT Height 188 cm (6' 2) 07/21/2014 4:28 PM EDT Body Mass Index 38.65 07/21/2014 4:28 PM EDT documented in this encounter Patient Instructions * Patient Instructions* Giovanni Haines MD - 07/21/2014 4:54 PM EDT Pepito was seen today for rash. Diagnoses and associated orders for this visit: Rash and other nonspecific skin eruption - famotidine (PEPCID) 20 mg Tablet; Take 1 tablet by mouth 2 times daily. - cetirizine (ZYRTEC) 10 mg Tablet; Take 1 tablet by mouth daily for 30 days. Ringworm Screening for HIV without presence of risk factors - HIV Screen, 4th Generation; Future Discussed with the patient that in 2013 the U.S. Preventive Services Task Force (USPSTF) released anew Recommendation Statement advising doctors to screen for HIV all people aged 15 to 65 regardlessof their risk factors. Essential hypertension The patient was advised to buy home blood pressure monitor and use it at least 2 times a week if the blood pressure is uncontrolled and every 3 months if it is controlled. The patient was advised to bring the blood pressure monitor to be checked here in the office before readings could be considered accurate. I recommend automatic monitor with upper arm cuff. Any brand is OK, popular brands are Omron, PanasonZaizher.im and NanoCellect. The patient will follow a low sodium diet and understands the benefits of weight loss and physical activity for a good blood pressure control. The patient understands that high blood pressure is a 'silent killer'. You can have high blood pressure and still feel just fine. That's because high blood pressure usually does not cause symptoms. If you have consistently high blood pressure (also called hypertension) this would become a major health problem for you. If not treated, it can lead to stroke, heart disease, kidney failure, and other health problems. Normal blood pressure is less than 120 mmHg systolic and less than 80 mmHg diastolic (120/80 or lower). Increased BMI (body mass index) Chronic rhinitis - sodium chloride (SODIUM CHLORIDE) 0.65 % Aerosol, Sanborn; 2 sprays by Nasal route 4 times daily asneeded for Congestion. Use always at night prior to Flonase and then more often as needed - fluticasone (FLONASE) 50 mcg/actuation Sanborn, Suspension; 1 spray by Each Nare route nightly. Useafter using the nasal saline flushes. Snoring We will send you to see a sleep specialist for MESHA. The patient was advised to follow up as planned or sooner for any difficulties with medications or any signs or symptoms of concern or distress. documented in this encounter Progress Notes * Giovanni Haines MD - 07/30/2014 8:05 PM EDT Office Note PCP: SHANELL ARAGON MD Complaints: Chief Complaint Patient presents with ??? Rash spreading on body, itchy, low grade fever- 100.3 -The patient is a pleasant 49 y.o. male who comes for evaluation of rash which would not resolved. We also noted elevated blood pressure today consistent with new-onset HTN given previous readings. The patient was seen for right knee pain and rash on 07/07/14 by RAMANDEEP Saenz, help appreciated.He had not followed up with our office since Nov [address] Aragon. I had seen the patient once previously in August 2011 when elevated BP was noted for the first time, patient was advised to get home BP monitor, lose weight and be more active. The patient has noted a non-itchy rash on his right lower leg for the last few weeks. He tells me that he was told that this was due to 'tinea versicolor and that he has had similar rash on his back which per his (he could not see it) did improve previously with Nizoral. He requested the same from Lori Silva who prescribed this and the patient used it with no effect. He is not sure of rashis worse but definitely not better. Secondly, he noted a few days ago a different mildly pruritic rash on his torso which has spread some to his upper arms. He denies sick contacts or travel outside of [place]. He has not changed his diet or had any new cosmetic products or detergents and cannot think of anything that could have cause it. He has not tried any thing for this rash. He is not sure if heat or cold would make it worse. He has had some nasal congestion for the last week without sore throat. He does not feel sick and denies chills or fever but we did not elevated temp today. No cough or SOB. He says that he does get nasal congestion commonly during this time of the year and was nor sure if he was getting a sinus infection or 'it is my allergies'. -Onset of the HTN? Unsure but diagnosis is made in 2014 -Time course? As per belo -The patient follows low sodium diet and understands the benefits of weight loss? Yes, he says he 'tries' -The patient has a home BP monitor? No, discussed that blood pressure measurements taken on home monitors may, according to prospective studies be more accurate predictors of morbidity than clinical readings. Electronic home monitoring is easy to use, cost-effective, and may improve therapeutic comp liance (Am Vickey Physician. 2004Jan 28;72(7):0534-4126). This idea was further supported from evidence from a recent randomized controlled trial showing that home BP telemonitoring and pharmacist case management achieved better BP control compared with usual care during 12 months of intervention thatpersisted during 6 months of postintervention follow-up (LUZ. 2013;310(1):46-56.). Guidance given on correct BP monitor use and the need to bring the machine in the office so that we verify that it is accurate. -The patient reports compliance with medications? N/A we will start him in hydrochlorothiazide -Medication side effects? N/A but discussed today -Abnormal associated symptoms as per the ROS below? No -Exercise? No, discussed importance of it -Baseline EKG? No, I recommend that we do baseline EKG at this physical with Dr. Aragon, I will connect with her about this. [Per expert opinion routine baseline electrocardiogram has been recommended in the initial management in adults with hypertension. (LEA Atkins Overview of hypertension in adults; In: Darrick Mcclellan DS (Ed), [facility], [place], [place], 2014.] ROS: Constitutional - Negative weight gain or loss, positive for daytime somnolence and snorring, positive mildly elevated tempeture today without fever CV/Resp- Negative chest pain, palpitations, dyspnea, cough ENT: Negative sore throat, runny nose or ear pain Neuro- Negative SHEPARD, dizziness or blurred vision Family History Problem Relation Age of Onset ??? Colorectal Cancer Father ??? High Blood Pressure Father ??? High Cholesterol Father ??? Prostate Cancer Neg Hx ??? Diabetes Paternal Grandmother Wt Readings from Last 3 Encounters: 07/21/14 136.533 kg (301 lb) 07/07/14 135.626 kg (299 lb) 12/29/11 135.716 kg (299 lb 3.2 oz) Vitals 07/21/2014 07/07/2014 12/29/2011 SYSTOLIC 150 154 136 DIASTOLIC 95 98 80 PULSE 90 88 80 Patient Active Problem List Diagnosis Code ??? Difficulty voiding 788.99 ??? Low back pain 724.2 ??? Urgency of micturation 788.63 ??? Dysuria 788.1 ??? Elevated blood pressure 796.2 ??? Tinea corporis 110.5 No Known Allergies Current Outpatient Prescriptions Medication Sig Dispense Refill ??? traMADol (ULTRAM) 50 mg Tablet Take [...] sodium chloride (SODIUM CHLORIDE) 0.65 % Aerosol, Sanborn 2 sprays by Nasal route 4 times daily as needed for Congestion. Use always at night prior to Flonase and then more often as needed 45 mL 11 ??? fluticasone (FLONASE) 50 mcg/actuation Sanborn, Suspension 1 spray by Each Nare route nightly. Use after using the nasal saline flushes. 16 g 11 ??? ketoconazole (NIZORAL) 2 % Cream Apply topically once daily for two weeks 60 g 0 No current facility-administered medications for this visit. No visits with results within 2 Week(s) from this visit. Latest known visit with results is: Laboratory Appointment on 09/21/2011 Component Date Value ??? PSA Total 09/21/2011 0.53 History Substance Use Topics ??? Smoking status: Never Smoker ??? Smokeless tobacco: Never Used ??? Alcohol Use: No reports that he has never smoked. He has never used smokeless tobacco. He reports that he does not drink alcohol or use illicit drugs. 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 He is on the floor. He has 1 child - 16 son. He has 2 cats. Health Maintenance Topic Date Due ??? Influenza (Flu) vaccine (#1 of 1) 12/29/2013 ??? Tetanus vaccine 09/06/2016 ??? Tdap adult Completed ??? HIV one time screen Completed OBJECTIVE: BP 150/95 Pulse 90 Temp(Src) 37.9 ??C (100.3 ??F) (Temporal) Ht 188 cm (6' 2) Wt 136.533 kg (301 lb) BMI 38.63 kg/m2 General: WD well appearing obese male in NAD. Well groomed. Skin: Warm and mildly moist. numerous small erythematous papules with no pustules on mostly on the covered portions of the skin (torso, arms) that coalesce in some areas. No signs of impetiginization. In addition to these a different rash is noted on the right lower leg - multiple grouped non-pruritic circular erythematous macules some with and some without central clearing and slightly raised erythematous border. I was unable to scrape these as no lab services were available at the time of thevisit at our office but exam was quite typical for tinea corporis. Oropharynx: Oropharynx moist and without lesions. The patient has class IV palate on Mallampati score. Nose: Mucosal edema noted with mild hyperemia and no discharge. No pain on maxillary and frontal sinus palpation bilaterally Ears: Canals clear. TMs non-injected. Neck: Supple, without lymphadenopathy. No bruits. Large neck circumference is noted (>17 inches) CV: RRR, normal S1,S2. No m/c/g/r. No JVD. Lungs: Clear with good airflow throughout. No wheezes, rhonchi or rales. Extremities: No edema. Neuro: No focal deficits. Gait normal. ASSESSMENT/PLAN: Pepito was seen today for rash. Diagnoses and associated orders for this visit: Rash and other nonspecific skin eruption - famotidine (PEPCID) 20 mg Tablet; Take 1 tablet by mouth 2 times daily. - cetirizine (ZYRTEC) 10 mg Tablet; Take 1 tablet by mouth daily for 30 days. - Referral to Dermatology I am unsure of the cause of this but suspect miliaria. DDx is with vital exanthem given symptoms ofacute rhinitis/sinusitis. Ringworm - Referral to Dermatology Chronic rhinitis - sodium chloride (SODIUM CHLORIDE) 0.65 % Aerosol, Sanborn; 2 sprays by Nasal route 4 times daily asneeded for Congestion. Use always at night prior to Flonase and then more often as needed - fluticasone (FLONASE) 50 mcg/actuation Sanborn, Suspension; 1 spray by Each Nare route nightly. Useafter using the nasal saline flushes. Essential hypertension - new onset -hydrochlorothiazide (HYDRODIURIL) 25 mg Tablet, Take 0.5 tablets by mouth daily. We will plan to start hctz but need to verify that his renal function is normal (he is scheduled for labs prior to his physical tomorrow). Given level of HTN (stage 1), his family history and obesity presentation is consistent with essential primary HTN. I do not think that work-up for secondary is needed but I think work-up for MESHA is a g The patient was advised to buy home blood pressure monitor and use it at least 2 times a week if the blood pressure is uncontrolled and every 3 months if it is controlled. The patient was advised to bring the blood pressure monitor to be checked here in the office before readings could be considered accurate. I recommend automatic monitor with upper arm cuff. Any brand is OK, popular brands are Omron, IDINCU and NanoCellect. The patient will follow a low sodium diet and understands the benefits of weight loss and physical activity for a good blood pressure control. The patient understands that high blood pressure is a 'silent killer'. You can have high blood pressure and still feel just fine. That's because high blood pressure usually does not cause symptoms. If you have consistently high blood pressure (also called hypertension) this would become a major health problem for you. If not treated, it can lead to stroke, heart disease, kidney failure, and other health problems. Normal blood pressure is less than 120 mmHg systolic and less than 80 mmHg diastolic (120/80 or lower). Snoring - Referral to Pulmonology I highly suspect sleep apnea. Discussed that sleep apnea is a common condition in which you have one or more pauses in breathing or shallow breaths while you sleep. Breathing pauses can last from a few seconds to minutes. They may occur 30 times or more an hour. Typically, normal breathing then starts again, sometimes with a loud snort or choking sound. Sleep apnea usually is a chronic (ongoing) condition that disrupts your sleep. When your breathing pauses or becomes shallow, you???ll often move out of deep sleep and into light sleep. As a result, the quality of your sleep is poor, which makes you tired during the day. Sleep apnea is a leading cause of excessive daytime sleepiness. Untreated sleep apnea can: ???Increase the risk of high blood pressure, heart attack, stroke, obesity, and diabetes ???Increase the risk of, or worsen, heart failure ???Make arrhythmias, or irregular heartbeats, more likely ???Increase the chance of having driving accidents Screening for HIV without presence of risk factors - HIV Screen, 4th Generation; Future Discussed with the patient that in 2013 the U.S. Preventive Services Task Force (USPSTF) released anew Recommendation Statement advising doctors to screen for HIV all people aged 15 to 65 regardlessof their risk factors. Increased BMI (body mass index) Abnormal BMI Plan X Indicates Complete Discussed lifestyle changes , diet and exercises X Advised weight loss services and/or gym X Referred to Nutritional Services Referred to Bariatric Surgery Excluded due to and/or terminal illness The patient was advised to follow up on 09/10/14 with PCP - Dr. Aragon for physical as planned or sooner for any difficulties with medications [...] Associated Diagnoses Orde r Schedule Referral to Pulmonology Outpatient Referral Routine Snoring Ordered: 07/30/2014 Referral to Dermatology Outpatient Referral Routine Rash and other nonspecific skin eruption Ringworm Ordered: 08/05/2014 documented as of this encounter Results * HIV Screen, 4th Generation (07/22/2014 4:23 PM EDT) HIV Ab/Ag Screen Negative Negative [facility] Comment: This 4th Generation HIV test [...] MD CHEMISTRY ORDERABLE S Performing Organization Address City/State/[facility] Co de Phone Number [facility] documented in this encounter Visit Diagnoses Diagnosis Rash and other nonspecific skin eruption Ringworm Dermatophytosis of unspecified site Screening for HIV without presence of risk factors Special screening examination for other specified viral diseases Essential hypertension Unspecified essential hypertension Increased BMI (body mass index) Other symptoms concerning nutrition, metabolism, and development Chronic rhinitis Snoring Other dyspnea and respiratory abnormality documented in this encounter Care Teams Salesperson Florist Supplies Relationship Specialty Start Date End Date Shanell Aragon MD [address] [place] [address] PCP - General 07/18/14 07/21/14 documented as of this encounter
--- OUTSIDE RECORDS SUMMARY | 2024-02-22 09:33 | XMS_ITS | Encounter Summary ---
Author Organization [facility] Address [facility] [place] [address] Care Team Providers Care Agent Telegrapher Name Role Phone Shanell Aragon MD Primary Care Provider [phone] Reason for Visit * Reason Onset Date Comments Rash 07/17/2014 Encounter Details Date Type Department Care Team (Late st Contact Info) Description 07/17/2014 Telephone Family Practice at [address] [phone] Jennifer Levy I, OPERATIONS PLANT ATTENDANT [address] [place] [address] Rash Social History Tobacco Use Types Packs/Day [...] Telephone Encounter - Jennifer Levy RN - 07/17/2014 4:10 PM EDT Pt advised to below. He voices understanding. Lab appointment given for 07/28/14 at 7:30am. * Telephone Encounter - Jennifer Levy RN - 07/17/2014 3:59 PM EDT Left recorded message for patient to return call. * Telephone Encounter - Lori Silva PA - 07/17/2014 12:58 PM EDT Spoke with Dr. Aragon regarding this inquiry She notes that many people find resistance when using ketoconazole cream; sometimes ringworm responds better to miconazole cream We can try this and see if it helps; use sparsely twice daily for 14 days ?? Rx sent to [facility] in [place] Based on impending physical exam with Dr. Aragon in August, recommending doing labs prior Ordered: fasting lipids, CMP with fasting glucose, CBC with diff If he has any questions or concerns, he can call me at his convenience Thank you! * Telephone Encounter - Jennifer Levy RN - 07/17/2014 8:58 AM EDT Caller: patient Pt calls stating the ketaconozole cream prescribed for tinea corrporis is not working. Rash has spread from legs and trunk now to arms and down on his calves. It is red, itchy and in circular patterns. Pt denies s/s of infection. He is wondering if there is another type of cream he can try. Plan: Consult with JULIUS Saenz * Telephone Encounter - Jennifer Levy RN - 07/17/2014 8:56 AM EDT ----- Message from Yariel Zurita sent at 07/17/2014 8:42 AM EDT ----- Contact: patient Triage: Chief complaint F/U knee pain PCP: SHANELL ARAGON MD treating provider: Lori Silva Caller (if other than caller full name): N/A Relationship (if other than patient: N/A Phone: [phone] Triage comment: Patient stated the medication he was prescribed for his knee pain is not working and the knee pain is worse. #Send to Triage Team Pool. documented in this encounter Plan of Treatment Not on file documented as of this encounter Results * (ABNORMAL) Lipid panel (fasting) (07/22/2014 4:16 PM EDT) [facility] Signature Cholesterol, Total 126 <=199 mg/dL CERNER MILLENNIUM Comment: Recommendations of the NCEP Adult Treatment Panel for the following risk cutoff thresholds for the [place] population: Desirable: <200 mg/dL Borderline High: 200-239 mg/dL High: > or = 240 mg/dL Triglyceride 101 <=149 mg/dL CERNER MILLENNIUM Comment: Reference Range: Normal triglycerides: ??<150 mg/dL Borderline high: ??150-199 mg/dL High: ??200-499 mg/dL Very high: ??>tf=788 mg/dL LUZ 2001; 285(19):1390-9127 HDL Cholesterol 33(L) >=40 mg/dL [facility]ER NER MILLENNIUM Comment: Reference range: ??Low HDL: ?? < 40 mg/dL ??Normal: ?40-60 mg/dL ??Desirable: > 60 mg/dL LUZ 2001; 285(19):1068-1065 LDL Cholesterol 73 <=99 mg/dL [facility] NER MILLENNIUM Comment: Reference range: ?? Optimal: ?<100 mg/dL ?? Near Optimal/Above Optimal: ?? 100-129 mg/dL ?? Borderline high: ?130-159 mg/dL ?? High: ? 160-189 mg/dL ?? Very high: ?>iv=653 mg/dL LUZ 2001: 285(19):8294-8990 Cholesterol/HDL Ratio 3.8 ratio [facility]ERNER MILLENNIUM Comment: A Cholesterol to HDL ratio below 4:1 is desirable. ??Studies suggest that increased CAD risk occurs at ratios above 5 for females and above 6 for men. ? [place] Heart Association ??(http://www.americanheart.org) ? Elizabeth Int Med, 1994; 121:641 ? AM J Med, 1998; 105(1A):48S Blood specimen (specimen) 07/22/2014 4:16 PM EDT 07/22/2014 11:02 PM EDT Narrative Resulting Agency Comment Spec In Lab Shanell Aragon MD CHEMISTRY ORDERABLES [facility] MILLENNIUM * (ABNORMAL) CMP w/fasting Glucose (07/22/2014 4:16 PM EDT) Glucose Fasting 95 65 - 99 mg/dL CERNER MILLENNIUM Comment: [...] of Diabetes Mellitus, Position Statement from the [place] Diabetes Association. ??Diabetes Care, Volume 33, Supplement 1, Apr 2009 Blood Urea Nitrogen 21(H) 10 - 20 mg/dL CERNER MILLENNIUM Creatinine 1.05 0.80 - 1.50 mg/dL CERNER MILLENNIUM Comment: Please note that the pediatric reference intervals supplied above were not validated at [facility]. Results from pediatric patients should be interpreted [...] the following links into your internet browser. [email or web address] [email or web address]/[email or web address] Blood specimen (specimen) 07/22/2014 4:16 PM EDT 07/22/2014 11:02 PM EDT Narrative Resulting Agency Comment Spec In Lab Shanell Aragon MD CHEMISTRY ORDERABLES CERCALE TEJEDA documented in this encounter Visit Diagnoses Diagnosis Tinea corporis Dermatophytosis of the body Screening Screening for unspecified condition Annual physical exam Routine general medical examination at a health care facility documented in this encounter Care Teams Agent Telegrapher Relationship Specialty Start Date End Date Shanell Aragon MD [address] [place] [address] PCP - General 07/01/14 07/17/14 documented as of this encounter
--- OUTSIDE RECORDS SUMMARY | 2024-02-22 09:33 | XMS_ITS | Encounter Summary ---
Author Organization [facility] [place] [address] Care Team Providers Care Packing Machine Pilot Can Router Name Role Phone Jacqueline Bowman MD Primary Care Provider [phone] Encounter Details Date Type Department Care Team (Latest Contact Info) Description 09/21/2010 4:00 AM EDT Laboratory Appointment Lab [address] [phone] Ingrid Aragon MD [address] [place] [address] [facility] [place], [place] [id number] Screening Discharge Disposition: Home Social History Tobacco Use [...] Associated Diagnosis Comments CMP W/FASTING GLUCOSE Routine 09/21/2010 9:07 AM EDT Screening MEASLES (RUBEOLA) ANTIBODY, IGG Routine 09/21/2010 9:07 AM EDT Screening RUBELLA ANTIBODY, IGG Routine 09/21/2010 9:07 AM EDT Screening MUMPS ANTIBODY, IGG Routine 09/21/2010 9 :07 AM EDT Screening documented in this encounter Results * (ABNORMAL) CMP w/fasting Glucose (09/21/2010 9:07 AM EDT) [facility] Glucose Fasting 110(H) 65 - 99 [...] of Diabetes Mellitus, Position Statement from the [place] [employer]. ??Diabetes Care, Volume 33, Supplement [...] Aragon MD CHEMISTRY ORDERABLES [facility]ORG[facility] TEJED[facility] * Rubella Antibody, IgG (09/21/2010 9:07 AM EDT) Rubella Antibody IgG Positive Positive [facility] CROWELLIUM Blood specimen (specimen) 09/21/2010 9:07 AM EDT 09/21/2010 7:19 PM EDT Ingrid Aragon MD CHEMISTRY ORDERABLES [facility] * Mumps Antibody, IgG (09/21/2010 9:07 AM EDT) Mumps Antibody IgG Positive Positive [facility] Blood specimen (specimen) 09/21/2010 9:07 AM EDT 09/22/2010 10:46 AM EDT Ingrid Aragon MD IMMUNOLOGY ORDERABLE S Performing Organization Address City/[facility]/ZIP Co de Phone Number [facility] * Measles (Rubeola) Antibody, IgG (09/21/2010 9:07 AM EDT) Rubeola Antibody IgG Positive Positive [facility] Comment:Expected Values: A N egative result indicates non-immunity. Blood specimen (specimen) 09/21/2010 9:07 AM EDT 09/22/2010 10:46 AM EDT Ingrid Aragon MD IMMUNOLOGY ORDERABLE S Performing Organization Address [facility] Co de Phone Number [facility] documented in this encounter Visit Diagnoses Diagnosis Screening Screening for unspecified condition documented in this encounter Care Teams Packing Machine Pilot Can Router Relationship Specialty Start Date End Date Jacqueline Bowman MD [address] [place] [address] PCP - General 03/22/10 06/30/14 documented as of this encounter
--- OUTSIDE RECORDS SUMMARY | 2024-02-22 09:33 | XMS_ITS | Encounter Summary ---
Author Organization [facility] Address [address] [place] [address] Care Team Providers Care Fly Raiser Lockstitch Name Role Phone None, Provider Primary Care Provider Unavailabl e Encounter Details Date Type Department Care Team (Late st Contact Info) Description 01/24/2020 Lab Requisition [facility] Pathology & Laboratory Medicine - [facility] [address] [place] [address] Delon Andujar MD [address] [place] [phone] Encounter for screening for malignant neoplasm of colon Social History Tobacco Use Types Packs/Day Years [...] Date/Time Associated Diagnosis Comments SURGICAL PATHOLOGY Today 01/23/2020 11 :14 EDT Encounter for screening for malignant neoplasm of colon documented in this encounter Results * SURGICAL PATHOLOGY (01/23/2020 11:14 EDT) Final Diagnosis A. RECTUM, POLYP, BIOPSIES: - Hyperplastic polyp. B. RECTUM, MID RECTAL POLYP, HOT SNARE BIOPSY: - Fragments of tubular adenoma. - Fragment of hyperplastic polyp. 01/26/2020 18:31 EDT [facility] Attestation By the signature below, the attending physician certifies that they have 1) personally conducted a gross and/or microscopic examination of the described specimen(s), and/or personally interpreted the results of laboratory testing of the described specimen(s), and 2) personally rendered or confirmed the above diagnosis. 01/26/2020 18:31 EDT [facility] at 1831 Clinical History Screening colonoscopy; hx of colon polyps 01/26/2020 18:31 EDT [facility] Gross Description A. Received in formalin labelled with proper patient identification (initials D, S) and A. Rectal polyp are two gallagher tissues (0.3 x 0.2 x 0.1 cm and 0.2 x 0.2 x 0.1 cm). Entirely submitted in A1. B. Received in formalin labelled with proper patient identification (initials D, S) and B. Mid rectal polyp, hot snare is a gallagher-brown sessile polypoid tissue (0.6 x 0.5 x 0.5 cm), and three gallagher tissues (0.4 x 0.3 x 0.3 cm to 0.2 x 0.2 x 0.2 cm). The polypoid tissue is bisected and entirely submitted in B1, and the remaining tissues are submitted intact in B2. Fercho Cantu 01/24/2020 8:34 01/26/2020 18:31 EDT [facility] Performing Lab [facility] 01/26/2020 18:31 T [facility] Scanned Images 01/26/2020 18:31 EDT [facility] Tissue SPECIMEN FROM RECTUM / Unknown 01/23/2020 11:14 EDT 01/24/2020 5:44 EDT Tissue specimen (specimen) SPECIMEN FROM RECTUM / Unknown 01/23/2020 11:14 EDT 01/24/2020 5:44 EDT Delon Andujar MD PATHOLOGY ORD ERABLES [facility] [address] [place] [address] documented in this encounter Visit Diagnoses Diagnosis Encounter for screening for malignant neoplasm of colon Special screening for malignant neoplasms, colon documented in this encounter Care Teams Fly Raiser Lockstitch Relationship Specialty Start Date End Date None, Provider PCP - General 12/30/19 documented as of this encounter
[2024-02-24 09:45] LABS: Fructosamine 296 mcmol/L (200 - 285)
== END 2024-02-22 09:27 | disposition home or self-care (01) ==
LOC: LBO 09:29
PROVIDERS: Physician Assistant; PCP Family Medicine; Visit Provider Student in an Organized Health Care Education/Training Program
DX: M17.11 Unilateral primary osteoarthritis, right knee (principal)
CPT/HCPCS: 36415; 82985

== ENCOUNTER 2024-02-26 09:38 | Day surgery (SDC) | payer BC, SELFPAY ==
[2024-02-26] VITALS (20 sets, daily range): BP systolic 125–161; BP diastolic 92–103; PULSE 62–83; RESP 12–19; TEMP 36.1–36.9; O2SAT 94–99; BMI 32.3
--- NOTE | 2024-02-26 07:14 | PDOC.DSDIS_ITS ---
Date of service: 02/26/24 Time of Service: 07:18 Discharge Plan Disposition Patient Disposition: Home Condition: Good Discharge Details Reason For Visit: Right knee DJD Attending Provider: Ronnie Santana Primary Care Provider: Oli Quinones Home Meds and New Rx's Prescriptions: New celecoxib [Celebrex] 200 mg capsule 200 mg PO BID PRNQty: 60 0RF Rx Instructions: Take one tablet twice daily for pain and inflammation acetaminophen 500 mg tablet 1,000 mg PO Q8H PRN Qty: 90 0RF Rx Instructions: Take two tablets up to every 8 hours as needed for pain pantoprazole 40 mg tablet,delayed release (DR/EC) 40 mg PO DAILY Qty: 14 0RF docusate sodium [Colace] 100 mg capsule 100 mg PO BID Qty: 30 0RF gabapentin 300 mg capsule 300 mg PO QHS Qty: 14 0RF Rx Instructions: Take one tablet at bedtime oxycodone 5 mg tablet 5 mg PO Q4H PRNQty: 18 0RF Rx Instructions: Take one tablet up to every 4 hours as needed for severe postoperative pain Continued tadalafil 10 mg tablet 10 mg PO DAILY PRN Rx Instructions: administer approximately 30min before sexual activity; do not use more than 1 dose per 24hrs Eliquis 5 mg Tablet 5 mg PO BID Jardiance 10 mg Tablet 10 mg PO QPM Discharge Instructions Additional Instructions: Total Knee Discharge Instructions Activity: The most important activity is to walk and to work on gentle motion (both flexion and extension). You should try to take short walks a few times a day. It is important that when resting you work on keeping the knee straight. Avoid putting a pillow behind the knee as this will encourage flexion. Work on range of motion exercises as provided by Physical Therapy. - Start outpatient physical therapy within 2 weeks. - You should wear the MICKEY hose on both legs for 2 weeks. You may remove these at night. You may also use any compression sock in place of the MICKEY hose. - Utilize [employer] to review exercises, see videos on exercises and obtain basic information pertaining to your surgery and your recovery. Dressing: Remove the Tenzin wrap by 2 days after your surgery and put on the MICKEY stocking given to you from the hospital. Keep the surgical dressing (underneath the TENZIN wrap) in place for at least one week. After the first week it may be removed and replaced with light gauze and tape or nothing. The wound and dressing may get wet after 3 days but avoid soaking the dressing or otherwise it will need to be changed. Many people prefer covering the dressing with cling wrap (saran wrap) to minimize it from getting soaked. If it gets wet, just pat dry. If it starts to peel off then it will need to be changed. Medications: - You should take Tylenol and anti-inflammatory Celebrex as your primary pain control medications. If the Celebrex is too expensive or not covered, please call the office for another alternative (Advil/Ibuprofen or Naproxen/Aleve) - You have been prescribed a stronger pain medication Oxycodone for breakthrough pain, take as needed as prescribed. - You have also been prescribed a stomach acid reduction agent Pantoprozole to help reduce stomach acid and reflux. - You have been prescribed Gabapentin to take at night for restlessness and nerve pain. - You will resume Eliquis as your anticoagulation tomorrow - continue with this medication for DVT prevention. - If you have constipation you should take Colace (which has been prescribed) or Miralax (which is available [id number]). It takes most people 3-4 days to have a bowel movement. Follow-up: 2 weeks If you have any acute concerns or questions, please do not hesitate to contact the office at [phone]. You may contact Dr. Santana with any questions after hours through the hospital at [phone] or on his cell phone at [phone]. Referrals: Ronnie Santana MD [ [facility] STAFF PHYSICIAN] - Equipment/Supplies: Walker Activity:: Elevate Remove Dressings/Wound Care:: Do Not Remove Shower/Bathe:: Cover Diet:: As Tolerated Discharge Orders Discharge Orders: Discharge Order (Routine); Ordered 02/26/24 Ordered By: Alanan Finnegan
[2024-02-26] MEDS: Lactated Ringers 1,000 ML 80 ML IV (10:10)
[2024-02-26] MEDS: Celecoxib 200 MG CAP 400 MG PO (10:13)
[2024-02-26] MEDS: Gabapentin 300 MG CAP PO (10:13)
[2024-02-26] MEDS: Acetaminophen 500 MG TAB 1000 MG PO (10:13)
--- NOTE | 2024-02-26 10:33 | W.ANESPRE ---
General Info Date of Service Date Performed: 02/26/24 Height: 6 ft 2 in Weight: 114.3 kg Body Mass Index (BMI): 32.3 Surgical Procedure: Operation Date: 02/26/24 12:55 Proposed Procedure Side Surgeon p Knee Total Arthroplasty Right Ronnie Santana MD Meds Allergies and Home Medications Allergies Allergy/AdvReac Type Severity Reaction Status Date / Time nickel Allergy Mild Skin Rash Verified 02/26/24 10:01 Home Medication ?Medication ?Instructions ?Recorded apixaban 5 mg tablet (Eliquis) 5 mg PO BID 08/31/22 empagliflozin 10 mg tablet 10 mg PO QPM 08/31/22 (Jardiance) tadalafil 10 mg tablet 10 mg PO DAILY PRN 05/15/23 acetaminophen 500 mg tablet 1,000 mg (2 x 500 mg) PO Q8H PRN 02/26/24 pain #90 tabs celecoxib 200 mg capsule (Celebrex) 200 mg PO BID PRN #60 caps 02/26/24 clobetasol 0.05 % topical cream topical 02/26/24 docusate sodium 100 mg capsule 100 mg PO BID #30 caps 02/26/24 (Colace) gabapentin 300 mg capsule 300 mg PO QHS #14 caps 02/26/24 oxycodone 5 mg tablet 5 mg PO Q4H PRN #18 tabs 02/26/24 pantoprazole 40 mg tablet,delayed 40 mg PO DAILY #14 tabs 02/26/24 release Current Visit Medications: Current Medications Generic Name Dose Route Start Last Admin Trade Name Freq PRN Reason Stop Dose Admin Acetaminophen 1,000 mg 02/26/24 06:00 02/26/24 10:13 Acetaminophen 500 Mg Tab PO 02/26/24 23:59 1,000 mg PREOP HAZEL Administration Celecoxib 400 mg 02/26/24 06:00 02/26/24 10:13 Celecoxib 200 Mg Cap PO 02/26/24 23:59 400 mg PREOP HAZEL Administration Gabapentin 300 mg 02/26/24 06:00 02/26/24 10:13 Gabapentin 300 Mg Cap PO 02/26/24 23:59 300 mg PREOP HAZEL Administration Hydromorphone HCl 0.5 mg 02/26/24 07:13 Hydromorphone 1 Mg/Ml Syr IVP 03/27/24 07:12 Q2H PRN PRN Ringer's Solution 1,000 mls @ 80 mls/hr 02/26/24 06:00 02/26/24 10:10 IV 02/26/24 23:59 80 mls/hr INFUSION HAZEL Administration Cefazolin Sodium/Dextrose 2 gm in 50 mls @ 100 mls/hr 02/26/24 06:00 Ancef Duplex IVPB 02/26/24 23:59 PREOP HAZEL Tranexamic Acid/Sodium Chloride 1,000 mg in 100 mls @ 600 mls/hr 02/26/24 06:00 IVPB 02/26/24 23:59 PREOP HAZEL Cefazolin Sodium/Dextrose 1 gm in 50 mls @ 100 mls/hr 02/26/24 08:00 Ancef Duplex IVPB 02/27/24 00:29 Q8H HAZEL IV Miscellaneous Supplies 1 each 02/26/24 06:00 Iv Access IV 02/26/24 23:59 DIRECTED HAZEL Oxycodone HCl 0 mg 02/26/24 07:13 Oxycodone 5 Mg Tab PO 03/27/24 07:12 Q3H PRN PRN Pain Sodium Chloride 0 ml 02/26/24 06:00 Normal Saline Flush 10 Ml Syr IV 02/26/24 23:59 PRN PRN Sodium Chloride 0 ml 02/26/24 06:00 Normal Saline 10 Ml Vial IJ 02/26/24 23:59 DIRECTED PRN Sterile Water 0 ml 02/26/24 06:00 Water,Injection,Sterile 10 Ml Vial IJ 02/26/24 23:59 DIRECTED PRN PFSH Active Problems Active Problems: Problem Status Onset Code History of total right knee replacement Acute 02/26/24 Z96.651 Left rotator cuff tear Acute M75.102 Erythrocytosis Acute D75.1 Painful total knee replacement, left Acute T84.84XA, Z96.652 Arthritis of right knee Chronic M17.11 Rosacea Acute L71.9 MESHA (obstructive sleep apnea) Chronic G47.33 Heart murmur Acute R01.1 Essential hypertension Acute I10 Diabetes mellitus Chronic E11.9 Medical History Medical History Tear of meniscus of right knee History of colon polyps History of hemorrhoids Erectile dysfunction due to arterial insufficiency DVT (deep venous thrombosis) Diverticulitis Renal calculus Surgical History Surgical History Hx of cholecystectomy Tobacco Smoking/Tobacco Use Status: Never Alcohol Alcohol Intake: current Alcohol intake frequency: a few times a month Alcohol type: beer Substance Use Substance use: Never Substance use type: does not use Vital Signs and Lab Results Vital Signs Most Recent Vital Signs in EMR: Most Recent Vital Signs Temp Pulse Resp BP Pulse Ox 36.7 C 83 16 154/100 H 98 02/26/24 10:06 02/26/24 10:06 02/26/24 10:06 02/26/24 10:06 02/26/24 10:06 Lab Results Blood Type / Crossmatch: No Data to Display Complete Blood Count: White Blood Count 10.79 10^3/uL (4.4-10.8) 02/18/24 14:54 Red Blood Count 6.07 10^6/uL (4.36-5.78) H 02/18/24 14:54 Hemoglobin 18.0 g/dL (13.5-17.5) H 02/18/24 14:54 Hematocrit 53.7 % (40.0-50.0) H 02/18/24 14:54 Platelet Count 227 10^3/uL (130-400) 02/18/24 14:54 Complete Metabolic Panel: Sodium 142 mmol/L (136-145) 02/18/24 14:54 Potassium 3.9 mmol/L (3.5-5.1) 02/18/24 14:54 Chloride 106 mmol/L (98-107) 02/18/24 14:54 Carbon Dioxide 23.7 mmol/L (21.0-32.0) 02/18/24 14:54 BUN 27 mg/dL (7-18) H 02/18/24 14:54 Creatinine 1.3 mg/dL (0.70-1.30) 02/18/24 14:54 Est GFR (CKD-EPI 2020) 64.07 (mL/min/1.73m2) 02/18/24 14:54 Calcium 9.9 mg/dL (8.5-10.1) 02/18/24 14:54 Glucose 195 mg/dL (74-106) H 02/18/24 14:54 Hemoglobin A1c 7.3 % (<5.7) H 02/18/24 14:54 Liver Function Panel: No Data to Display Coagulation Panel: No Data to Display Cardiac Panel: No Data to Display Arterial Blood Gas: No Data to Display Venous Blood Gas: No Data to Display Pancreas Panel: No Data to Display Thyroid Panel: No Data to Display Infectious Disease: No Data to Display Blood Cultures: No Data to Display Toxicology Panel: No Data to Display Anesthesia Assessment and Plan Anesthesia History Personal History: No History of Anesthesia Complications Family History: No Family History of Anesthesia Complications Exercise Tolerance Exercise Tolerance: Metabolic Equivalents>4 Pertinent Negatives Pertinent Negatives: No Symptoms of GERD, No Major Cardiovascular Symptoms or Complaints, No Major Pulmonary Symptoms or Complaints and No History of CVA/TIA Cardiac & Pulmonary Exam Cardiac Exam: Normal S1/S2 Heart Sounds Pulmonary Exam: Clear Bilateral Breath Sounds Implantable Cardiac Device Does patient have a Pacemaker or an ICD?: No Airway Exam Known Difficult Airway: No Mallampati Class: 2 Mouth Opening: Normal (> 3cm) Thyromental Distance: Greater than 3 cm Neck Range of Motion: Full ROM (hx of cervical discectomy with fusion, patient states no ROM limitations) Neck Circumference: Normal Teeth Condition: Normal Dentition ASA Classification ASA Score: ASA 2 Emergency Case?: No NPO Status NPO Status: NPO Clears >2 hours, Solids >8 hours Anesthesia Plan Resuscitation Status: Full Code Anesthesia Technique: Spinal Anesthesia Airway Planned: Natural Airway Pain Management: Surgeon and patient request nerve block Monitors Used: Standard Monitors
--- NOTE | 2024-02-26 11:50 | ANES.NERVE_ITS ---
Nerve Block Single Injection Procedure Date and Time Date Performed: 02/26/24 Procedure Start: 11:12 Location Where Procedure Performed Procedure Location: Day Surgery Unit Reason Performed: Postoperative Analgesia Requesting Provider: Ronnie Santana Timeout Performed Timeout Performed: Yes Monitoring Used ECG, Blood Pressure, SpO2 and See EMR for corresponding vital signs Sterility Sterility: Hand Hygiene, Surgical Cap, Surgical Mask, Sterile Gloves, Sterile Drape/Sheet and Eye Protection Sedation Given During Procedure Sedation Given (Indicate Dose Given): No Sedation given and Versed IV Dose:: 2mg Patient Mental Status Patient Mental Status: Sedate with meaningful communication Nerve Block 1st Nerve Block: Laterality: Right Block Type: Adductor Canal Ultrasound Image Saved?: Yes Needle / Catheter Used: 100mm SonoPlex II Local Anesthetic Bolus (Indicate Dose Given): Lidocaine used for local infiltration of skin, Injected in 3-5ml increments after negative blood aspirati on and Bupivacaine 0.25% Dose:: 15ml Additives (Indicate Dose Given): None Ultrasound: Sterile probe cover and gel used Nerve Stimulator: Supplement to Ultrasound use and No twitch or parasthesia noted < 0.5 mA Paresthesia: None Procedure Tolerated: No Complications and Patient tolerated well Procedure Outcome: Successful Performed By: Jean Myers Supervised By: Ema Das
[2024-02-26] MEDS: ceFAZolin 2 GM/50 ML BAG IVPB (12:00)
[2024-02-26] MEDS: TRANEXAMIC ACID/SOD. CHL. 1,000 MG/100 ML BAG 600 MG IVPB (12:10)
--- NOTE | 2024-02-26 13:20 | W.PM.OP ---
Date of service: 02/26/24 Time of Service: 12:00 Operative Note Operative Note DATE OF PROCEDURE: 02/26/24 PRE-OP DIAGNOSIS: Right Knee Osteoarthritis POST-OP DIAGNOSIS: same PROCEDURE: Right Total Knee Replacement SURGEON: Ronnie Santana CONTRACT ADMINISTRATION MANAGER: Alanna Finnegan ANESTHESIA TYPE: Spinal Refer to Anesthesia Record ESTIMATED BLOOD LOSS: 100 PATHOLOGY: none sent TOURNIQUET TIME: 0 COMPLICATIONS: None Patient was transported to: PACU Patient's condition: stable Implants: 1. Depuy Attune Cementless Cruciate Retaining Femoral Component, Size 9 2. Depuy Attune Cementless Fixed Bearing Tibial Component, Size 8 3. Depuy Attune 9x7mm CR/FB Poly 4. Depuy Attune Patellar Component, Size 41 Indications: I have seen Pepito in clinic for symptoms of knee arthritis, confirmed with radiographic findings. He has exhausted nonoperative methods and was having significant limitations in daily function and desired better function and less pain. I discussed the technical details of a knee replacement. I explained the risks of the procedure to include, but not limited to, bleeding, infection, pain, stiffness, fracture, damage to nerves and vessels, damage to muscles and tendons, loosening, need for repeat procedure, blood clot and cardiopulmonary demise. Despite these risks, Pepito elected to proceed. Findings: There was significant signs of arthritis throughout the knee. Procedure Description: Pepito was greeted in the preoperative holding area where the correct side was identified and marked. The consent was reviewed with the patient and signed. The history and physical was updated. All questions were answered. Preoperative medications were administered: Acetaminophen 1000mg, Celebrex 400mg, and Gabapentin 300mg. An adductor canal block was then administered by the anesthesia team in the D[facility]. He was taken back to the operating room. A spinal anesthestic was then administered. The patient was placed into the supine position on the operating room table. Posts were placed for positioning during the procedure. All bony prominences were well padded. Prophylactic antibiotics in the form of Cefazolin were administered. 1g of Tranxemic Acid was given intravenously within 30 minutes of incision. The right leg was then prepped with Chloraprep and draped in a standard fashion with impervious stockinette. A second prep with Chloraprep was performed prior to application of Iodine impregnated skin protection. A timeout to confirm correct identity, side and site, procedure, allergies, anesthesia, and medical concerns was performed. With the knee in some flexion, a midline incision was made overlying the knee. Full thickness skin flaps were raised once the extensor mechanism was encountered. These were raised medially and laterally. Any bleeding was controlled with electrocautery. Once the extensor mechanism was fully exposed, a medial parapatellar arthrotomy was performed in a flexed position. All bleeding from the arthrotomy and the geniculate arteries was coagulated. A medial subperiosteal peel was performed with electrocautery to the midcoronal plane. Due to the significant varus deformity the entire medial tibial plateau was exposed. The fat pad was removed while keeping the patellar tendon protected. The anterior distal femur synovium was removed for later visualization. The ACL and PCL were resected and the anterior horn of the lateral meniscus was transected. The knee was then flexed with the patella everted. Large osteophytes from the tibia were removed. Large osteophytes from the femur were removed. Using a step drill, and based on preoperative templating, the femoral canal was entered. This was done with a step drill without any difficulty. The intramedullary distal femoral cut guide was inserted, set to a 5 degree valgus cut and 9mm cut thickness. The distal femoral cut guide was then held in position and pinned. With the soft tissues protected, the distal cut was performed. This was passed over a few times to ensure a planar cut. I then turned attention to the tibia. The extramedullary guide was placed onto the leg. The distal aspect was slid medial to adjust for position of center of ankle and stay in line with shaft of the tibia. Approximately 3-5 degrees of posterior slope was kept in the proximal cutting guide. The center of the guide was aligned with the PCL. The stylus was used to assess cut thickness. The medial side, most involved side, was set for a 4mm cut. This was then held in position and pinned into place with 2 additional pins and a cross pin for stability. The medial and lateral collateral ligaments were protected and the cut was performed. With this completed, it was assessed and noted to be of appropriate dimensions. The guide was removed. A spacer block was inserted and the knee was brought into extension. The 6mm spacer block provided full extension, without hyperextension and with stability of both the medial and lateral collateral ligaments was assessed. The pins from the femur and the tibia were then removed. The distal femur was then sized. The anterior stylus was placed onto the lateral ridge of the anterior femur. This indicated a size 9 femur. The external rotation of the guide was adjusted to 3 degrees to match the epicondylar axis, perpendicular to Raimundo?s line. The 4-in-1 cutting guide was the placed. The posterior medial femur cut was evaluated and appeared of good thickness. The spacer block was inserted underneath the cutting guide and stability was confirmed in 90 degrees of flexion. An lisbeth wing was used to confirm appropriate position of the anterior cut to avoid notching. This cutting guide was ensured to be flush on the cut surface and then pinned into place with headed pins. While protecting the soft tissues, quad tendon, and collateral ligaments, the anterior and posterior cuts were performed with a saw. The central two pins were removed and the posterior and anterior chamfers were cut next. The notch-cutting guide was placed. This was pinned to lateralize the femoral component as much as possible while keeping it flush on the cut surface. This was then pinned into position. A reciprocating saw was used to make the notch cut. A rasp smoothed the cut surfaces. The medial and lateral menisci were removed. A trial femoral component was then inserted, impacted down to the cut surfaces, and the lug holes were drilled. A provisional trial tibial component was placed and the knee was brought through range of motion. The polyethylene was trialed until there was good flexion and extension with excellent stability to the medial and lateral collaterals. The patella was tracking without thumbs. A size 7mm polyethylene component provided the best range of motion and stability with less than 2mm gapping with medial and lateral stress and full extension without significant hyperextension. The tibial cut surface was fully exposed. The tibia was then sized as a 8. The tibia had been previously marked during trialing to correspond to the center of the tibial component to help with rotation. The trial was aligned to this rachel, approximately rotated to the medial 1/3rd of the tibial tubercle. The trial was pinned into place. The tibia was prepared with a reamer and a keel punch and lug holes. The knee was then brought into extension and the patella was measured as 32mm. Using the patellar clamp and cut guide, this was resected to a flat surface with at least 13mm of thickness remaining. The size 41 patella fit the best. This was oriented and then clamped into position. The lugs were drilled. The trial components were removed. The final components were opened on the back table. The periosteal and capsular tissues, especially posteriorly, around the knee were then systematically injected with a periarticular cocktail consisting of 246mg of Ropivacaine, 0.5mg of Epinephrine, 0.08mg of Clonidine, and 30mg of Ketorolac, diluted to 100cc. On the back table, with the implants opened, the cement was mixed. One batch of high viscosity cement was prepared with vacuum assistance. After the cement was ready a small amount was placed on the cut surface of the patella and the patellar button was clamped into position and held. While the cement was hardening, the cementless knee components were placed. Starting with the tibial component, the tibia was subluxed anteriorly and the lug holes of the component were lined up. The tibia was then impacted with an impactor and mallet until the tibial component was in contact with the tibia. The final polyethylene component was inserted. Then, the femoral component was inserted. The lug holes were aligned and the component was impacted into position. The knee was irrigated with Surgiphor Betadine solution. This was allowed to sit in the knee for 3 minutes and then it was irrigated out with saline. After the cement had finally cured, approximately 15min, the clamp was removed from the patella and the knee was taken through range of motion. The patella was tracking with a no-thumbs technique. The capsule was then reapproximated with a No. 1 Vicryl at multiple locations. The capsule was finally closed with a No. 2 Stratafix, barbed suture. The second dosing of 1g TXA was started. Deep tissues were then reapproximated with 0 Vicryl and 2-0 Vicryl. The skin was closed with a running 3-0 Monocryl in a subcuticular fashion. This was reinforced with skin glue. A Mepilex silver dressing was applied along with a [id number] JUS wrap. A CryoCuff was applied. Pepito was transferred to the hospital bed without difficulty an suffering no apparent complication. Pepito has a good prognosis. Physical therapy will start today and without restrictions, weight-bearing as tolerated. His home dose of Eliquis 5mg BID will be used for DVT prophylaxis.
--- NOTE | 2024-02-26 14:58 | W.ANESPOSTOP ---
Postoperative Evaluation Date, Time and Location Date Performed: 02/26/24 Time Performed: 14:59 Patient Location: Day Surgery Unit Vital Signs Most Recent Imported Vital Signs: Most Recent Vital Signs Temp Pulse Resp BP Pulse Ox 36.1 C L 69 18 149/92 H 99 02/26/24 14:46 02/26/24 14:46 02/26/24 14:46 02/26/24 14:46 02/26/24 14:46 Pain Score Most Recent Pain Score: Most Recent Pain Score Pain Level 0 02/26/24 14:16 Assessment Mental Status: Awake (Alert & Oriented to Patient Baseline) Airway and Respiratory Function: Patent airway with normal (patient baseline) respiratory exam Cardiovascular Function: Hemodynamically Stable Hydration Status: Adequately Hydrated Nausea & Vomiting: No Nausea or Vomiting Pain: Pain is tolerable per patient (pain level 3/10) Peripheral Nerve Block: Regional nerve block not resolved at time of post operative discharge
--- NOTE | 2024-02-26 15:19 | IN_ITS ---
PT Notes Visit Reasons: Right knee DJD Physical Therapy Day Surgery Initial Evaluation Date: 02/26/2024 Referring Doctor: Dr. Santana PT Orders: PT CONSULT: Status post Ortho surgery Precautions: Weightbearing as tolerated right lower extremity,TEDS x 2 weeks Patient Profile/Admitting Diagnosis: Patient is 58-year-old male presenting status post elective right TKA on 02/26/2024. Postop uncomplicated PMHX: DJD, left rotator cuff tear, erythrocytosis, left TKA with manipulation, rosacea, MESHA, heart murmur, HTN, DM Social History/Home Situation: Patient resides with two-story home with 2 steps to enter with right railing is a flight of stairs to bed and bathroom his shower is on the first floor. 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 He is independent with ADLs, ambulation, driving, meal prep, medication management, household tasks Equipment Owned/DME: Crutches Subjective: Patient reports he was recommended to use FWW by his PT in the community to improve gait pattern as compared to use of crutches when he had his left TKA done. Objective: [] General Observation: Patient presents semireclined on stretcher with Cryo/Cuff in place to right lower extremity. Patient agreeable to participate in evaluation Mental Status: Alert and oriented x 4, patient with intermittent weepiness stating he is tears of terence Pain: 2/10 right knee ROM: [] Right Lower Extremity: Hip and ankle within normal limits knee 5-89 degrees Left Lower Extremity: Hip and ankle within normal limits knee 0-~125 degrees Strength: Right Lower Extremity: Hip flexion 3 -/5, knee extension 3 -/5, knee flexion 2+/5, ankle 3/5 Left Lower Extremity: 5/5 Sensation: Intact Bed Mobility/Transfers: Supine to sit independent Sit to stand independent Stand to sit independent Bed to chair with FWW supervision Gait: Ambulate 200 feet level surfaces including turns with FWW reciprocal pattern demonstrating decreased knee flexion decreased step length decreased heel strike and early heel off. Patient able to correct for impaired heel strike with cueing Stairs: 2 steps with right rail and crutch supervision step to pattern Balance: [] Static Sitting: Normal Dynamic Sitting: Good Static Standing: Good plus with FWW Dynamic Standing: Good Special Tests: [] Mobility Limitations Standardized Measure [] [facility] AM-PAC 6 clicks Basic Mobility Inpatient Short Form: [] Raw Score: 22 CMS Score: 20.91% Informed Consent/Education: Patient instructed in purpose of PT consult. Packet containing TKA exercise protocol has been given to patient. Education and training on initial set of exercises that can be done at home have been completed with patient. Assessment: Patient presents with clinical signs and symptoms consistent with current/admitting diagnoses that have resulted to mobility limitations, gait instability, generalized weakness, and impairment of motor control as demonstrated by the following impairment level findings: 1. Decreased strength to right knee major muscle groups 2. Impaired standing balance 3. Limitation of joint range of motion in right knee 4. Increased pain right knee Impairments are contributing to the following functional limitations: 1. Inability to safely ambulate without assistive device 2. Increase completion time for mobility ADL performance 3. Increased fall risk 4. Difficulty ascending descending stairs safely without assistance Patient is assessed as a moderate complexity based on the following: History: 58-year-old male with impairment level findings, functional limitations, and past medical history as indicated above Examination: Demonstrable impairment in strength, balance, and mobility level with underlying impairments and functional limitations as documented above Presentation: Evolving Decision Making: Moderate Goals: N/A. Plan of Care/Treatment Plan: N/A. DISCHARGE RECOMMENDATIONS: Home with outpatient PT as scheduled TREATMENT CODE/TIME: 03867, [id number] Thank you for the opportunity to participate in the care of this patient. Please sign an return this page within 30 days if you agree with the above POC. Thank you! Physician Signature Date [facility]
[2024-02-26] MEDS: oxyCODONE 5 MG TAB PO (16:00)
== END 2024-02-26 16:35 | disposition home or self-care (01) ==
LOC: SUR 09:39
PROVIDERS: PCP Family Medicine; Visit Provider Student in an Organized Health Care Education/Training Program
PROC: (CPT 27447; principal; 2024-02-26 12:45)
DX: M17.11 Unilateral primary osteoarthritis, right knee (principal); E11.9 Type 2 diabetes mellitus without complications; G47.33 Obstructive sleep apnea (adult) (pediatric); I10 Essential (primary) hypertension; R01.1 Cardiac murmur, unspecified; Z86.718 Personal history of other venous thrombosis and embolism; G89.18 Other acute postprocedural pain
CPT/HCPCS: 27447; 64447; 76942; 97162; 97530; C1776; J0665; J0690; J2250; J2401; J2405

== ENCOUNTER 2024-03-10 15:40 | Outpatient (CLI) | payer BC, SELFPAY ==
--- NOTE | 2024-03-10 11:30 | DI.RAD_ITS ---
Exam(s) XR STANDING ALIGNMENT XR KNEE RT 1V EXAM: XR STANDING ALIGNMENT and XR knee RT 1 V CLINICAL HISTORY: 1ST POST OP S/P R TKA. TECHNIQUE: 2D digital imaging was performed. Five images were obtained. COMPARISON: CR XR KNEE RT 1V from 02/18/2024 CR XR STANDING ALIGNMENT from 02/18/2024 FINDINGS: BONES: Mild degenerative changes are seen in the hips bilaterally. Since the prior examination, the patient has undergone a right total knee arthroplasty. Orthopedic hardware appears in good position. The patient has a prior left total knee arthroplasty which appears unchanged. The ankles are well maintained.There is no significant leg length discrepancy. SOFT TISSUE: Normal. IMPRESSION: Unremarkable right total knee arthroplasty. DATA REPOSITORY: RADIATION DOSE DELIVERED:
== END 2024-03-10 15:41 | disposition home or self-care (01) ==
LOC: DIORS 15:41
PROVIDERS: PCP Family Medicine; Visit Provider Student in an Organized Health Care Education/Training Program
DX: Z96.651 Presence of right artificial knee joint (principal); Z47.1 Aftercare following joint replacement surgery
CPT/HCPCS: 73560; 77073

== ENCOUNTER 2024-04-07 15:23 | Outpatient (CLI) | payer BC, SELFPAY ==
--- NOTE | 2024-04-07 15:00 | DI.RAD_ITS ---
Exam(s) XR KNEE RT 3V AP,LAT,NOHEMY EXAM: XR KNEE RT 3V AP,LAT,NOHEMY CLINICAL HISTORY: fall/injury. TECHNIQUE: 2D digital imaging was performed. Three views. COMPARISON: CR XR STANDING ALIGNMENT from 03/10/2024 CR XR KNEE RT 1V from 03/10/2024 FINDINGS: BONES: No acute fracture is present. No bony destructive lesion is seen. JOINTS: Stable alignment of total knee prosthesis. A small joint effusion is seen. SOFT TISSUE: Normal. IMPRESSION: Stable postoperative appearance. DATA REPOSITORY: RADIATION DOSE DELIVERED:
== END 2024-04-07 15:24 | disposition home or self-care (01) ==
LOC: DIORS 15:23
PROVIDERS: PCP Family Medicine; Visit Provider Physician Assistant
DX: Z96.651 Presence of right artificial knee joint (principal); Z47.1 Aftercare following joint replacement surgery
CPT/HCPCS: 73562

== ENCOUNTER 2025-02-26 14:43 | Outpatient (CLI) | payer BC, SELFPAY ==
--- NOTE | 2025-02-26 14:30 | DI.RAD_ITS ---
Exam(s) XR KNEE RT 2V AP,LAT EXAM: XR KNEE RT 2V AP,LAT CLINICAL HISTORY: ANNUAL F/U R TKA. TECHNIQUE: 2D digital imaging was performed. Two images were obtained. AP and lateral views were obtained. COMPARISON: CR XR KNEE RT 3V AP,LAT,NOHEMY from 04/07/2024 FINDINGS: BONES: There are stable post operative changes of a right total knee arthroplasty present. No fracture or dislocation. JOINTS: The orthopedic hardware is in good position. No evidence of hardware loosening. SOFT TISSUE: Normal. IMPRESSION: Stable right total knee arthroplasty. DATA REPOSITORY: RADIATION DOSE DELIVERED:
== END 2025-02-26 14:44 | disposition home or self-care (01) ==
LOC: DIORS 14:43
PROVIDERS: PCP Family Medicine; Visit Provider Student in an Organized Health Care Education/Training Program
DX: Z96.651 Presence of right artificial knee joint (principal); Z47.1 Aftercare following joint replacement surgery
CPT/HCPCS: 73560

== ENCOUNTER 2025-04-20 15:51 | Outpatient (CLI) | payer BC, SELFPAY ==
--- NOTE | 2025-04-20 15:30 | DI.RAD_ITS ---
Exam(s) XR WRIST RT COMPLETE EXAM: XR WRIST RT COMPLETE CLINICAL HISTORY: wrist pain. TECHNIQUE: 2D digital imaging was performed of the right wrist. Views were obtained. Scaphoid, PA, lateral and oblique views were obtained. COMPARISON: No exams were available for comparison FINDINGS: BONES: No acute fracture is present. No bony destructive lesion is seen. JOINTS: The carpal bones are normally aligned. At the 1st CMC joint there is asymmetric joint space narrowing and prominent osteophytes consistent with osteoarthritis. There also changes of osteoarthritis at the distal radial ulnar joint. SOFT TISSUE: Normal. IMPRESSION: Marked osteoarthritis particularly at the 1st CMC joint. DATA REPOSITORY: RADIATION DOSE DELIVERED:
--- NOTE | 2025-04-20 15:30 | DI.RAD_ITS ---
Exam(s) XR WRIST LT COMPLETE EXAM: XR WRIST LT COMPLETE CLINICAL HISTORY: wrist pain. TECHNIQUE: 2D digital imaging was performed of the left wrist. Three images were obtained. PA, oblique and lateral views were obtained. COMPARISON: No exams were available for comparison FINDINGS: BONES: No acute fracture is present. No bony destructive lesion is seen. JOINTS: The carpal bones are normally aligned. At the 1st CMC joint there is asymmetric joint space narrowing and prominent osteophytes consistent with osteoarthritis. SOFT TISSUE: There is chondrocalcinosis seen in the region of the TFCC. There is asymmetric joint space narrowing at the 3rd MCP joint. IMPRESSION: Marked osteoarthritis of the 1st CMC joint. DATA REPOSITORY: RADIATION DOSE DELIVERED:
== END 2025-04-20 15:52 | disposition home or self-care (01) ==
LOC: DIORS 15:51
PROVIDERS: PCP Family Medicine; Visit Provider Physician Assistant
DX: M25.531 Pain in right wrist (principal); M25.532 Pain in left wrist; M18.12 Unilateral primary osteoarthritis of first carpometacarpal joint, left hand; M18.11 Unilateral primary osteoarthritis of first carpometacarpal joint, right hand
CPT/HCPCS: 73110